=== PATIENT | female | born 1955 | race Caucasian/White ===

== ENCOUNTER 2021-07-01 13:59 | Outpatient (REF) | payer MEDICARE, SELFPAY ==
[2021-07-02 09:51] LABS: BV Int Neg Control Negative (Negative); BV Int Pos Control Positive (Positive)
== END 2021-07-01 14:00 | disposition home or self-care (01) ==
LOC: HO.LAB 13:59
PROVIDERS: PCP Internal Medicine; Visit Provider Obstetrics & Gynecology
DX: B37.3 Candidiasis of vulva and vagina (principal); N95.0 Postmenopausal bleeding
CPT/HCPCS: 87480; 87510; 87660; 99202

== ENCOUNTER 2021-07-15 14:00 | Outpatient (RCR) | payer MEDICARE, SELFPAY ==
[2020-07-11 15:05] VITALS: BP 118/66; PULSE 85; RESP 20; TEMP 36.5; O2SAT 94
[2020-07-11 15:31] VITALS: BMI 51.0
[2020-07-18 10:27] LABS: Hematocrit 36.7 % (37-47); Hemoglobin 11.2 g/dl (12.0-16.0); Mean Corpuscular HGB Conc 30.5 g/dl (31.0-35.0); Mean Corpuscular Hemoglobin 28.4 pg (27.0-33.0); Mean Corpuscular Volume 92.9 fL (80-98); Mean Platelet Volume 10.1 fL (9.4-12.3); Platelet Count 183 X10*3/uL (160-400); Red Blood Count 3.95 X10*6/uL (4.20-5.50); Red Cell Distribution Width 16.3 % (11.0-16.0)
[2020-07-18 10:30] LABS: NRBC Pct Auto 2.5 /100WBC (0.0-0.2); WBC ABN SCTR FOR CBC 1
[2020-07-18 10:49] LABS: Band Neutrophils Percent 8 % (3-5); Eosinophils Percent Manual 2 % (0-4); Lymphocytes Percent Manual 8 % (20-40); Metamyelocytes Percent 9 %; Monocytes Percent Manual 12 % (2-11); Myelocytes Percent 4 %; Neutrophils Percent Manual 57 % (45-73)
[2020-07-18 10:50] LABS: Dohle Bodies PRESENT; Toxic Granulation PRESENT
[2020-07-18 10:51] LABS: Alanine Aminotransferase 15 U/L (0-31); Albumin Level 3.6 g/dL (3.5-5.0); Alkaline Phosphatase 126 U/L (39-117); Anion Gap 14 (12-20); Aspartate Amino Transferase 17 U/L (5-31); Bilirubin Total 0.3 mg/dL (0.0-1.0); Blood Urea Nitrogen 10 mg/dL (9-16); Calcium 8.3 mg/dL (8.4-10.2); Carbon Dioxide 30 mmol/L (22-29); Chloride 102 mmol/L (96-108); Estimated Glomerular Filt Rate > 60; Glucose Random 314 mg/dL (60-115); Hypochromasia 1+; Platelet Estimate NORMAL (NORMAL); Platelet Morphology Comment NORMAL; Polychromasia 1+; Potassium 4.6 mmol/l (3.3-5.1); Sodium 141 mmol/L (135-145); Total Protein 6.3 g/dL (6.5-8.0)
[2020-07-18 10:52] LABS: RBC Morphology NOTED; Stomatocytes 1+
[2020-07-18 10:53] LABS: Eosinophils Absolute Manual 0.6 X10*3/UL (0.0-0.8); Lymphocytes Absolute Manual 2.3 X10*3/uL (0.6-4.8); Metamyelocytes Absolute 2.6 X10*3/uL; Monocytes Absolute Manual 3.4 X10*3/uL (0.0-1.2); Myelocytes Absolute 1.1 X10*/uL; Neutrophils Absolute Manual 18.5 X10*3/uL (2.2-7.9); White Blood Count 28.4 X10*3/uL (4.8-10.8)
[2020-07-18 10:54] LABS: Nucleated Red Blood Cells 1 /100WBC (0-0)
[2020-07-25 10:28] LABS: MANUAL DIFF FLAG NO
[2020-07-25 10:45] LABS: Basophils Absolute Auto 0.1 X10*3/uL (0.0-0.2); Basophils Percent Auto 1.3 % (0-2); Eosinophils Absolute Auto 0.1 X10*3/uL (0.0-0.4); Eosinophils Percent Auto 1.4 % (0-4); Hematocrit 37.4 % (37-47); Hemoglobin 11.3 g/dl (12.0-16.0); Imm Gran Abs Auto 0.04 X10*3/uL (0.00-0.03); Imm Gran Pct Auto 0.4 % (0.0-0.4); Lymphocytes Absolute Auto 2.1 X10*3/uL (1.2-4.9); Lymphocytes Percent Auto 23.3 % (20-40); Mean Corpuscular HGB Conc 30.2 g/dl (31.0-35.0); Mean Corpuscular Hemoglobin 27.8 pg (27.0-33.0); Mean Corpuscular Volume 91.9 fL (80-98); Mean Platelet Volume 10.3 fL (9.4-12.3); Monocytes Absolute Auto 0.7 X10*3/uL (0.1-1.2); Monocytes Percent Auto 7.2 % (2-11); Neutrophils Absolute Auto 6.1 X10*3/uL (2.0-8.3); Neutrophils Percent Auto 66.4 % (45-73); Platelet Count 194 X10*3/uL (160-400); Red Blood Count 4.07 X10*6/uL (4.20-5.50); Red Cell Distribution Width 17.1 % (11.0-16.0); White Blood Count 9.1 X10*3/uL (4.8-10.8)
[2020-07-25 10:49] LABS: NRBC Pct Auto 1.4 /100WBC (0.0-0.2)
[2020-07-25 11:02] LABS: Alanine Aminotransferase 16 U/L (0-31); Albumin Level 3.7 g/dL (3.5-5.0); Alkaline Phosphatase 114 U/L (39-117); Anion Gap 12 (12-20); Aspartate Amino Transferase 13 U/L (5-31); Bilirubin Total 0.5 mg/dL (0.0-1.0); Blood Urea Nitrogen 15 mg/dL (9-16); Calcium 8.3 mg/dL (8.4-10.2); Carbon Dioxide 27 mmol/L (22-29); Chloride 104 mmol/L (96-108); Creatinine Clr Calc Pharmacy 94.3; Estimated Glomerular Filt Rate > 60; Glucose Random 328 mg/dL (60-115); Potassium 4.6 mmol/l (3.3-5.1); Sodium 138 mmol/L (135-145); Total Protein 6.4 g/dL (6.5-8.0)
[2020-07-31 09:07] VITALS: BP 130/70; PULSE 84; RESP 20; TEMP 36.6; O2SAT 95
[2020-07-31 09:10] VITALS: BMI 52.2
[2020-07-31 09:21] LABS: MANUAL DIFF FLAG NO
[2020-07-31 09:32] LABS: Basophils Absolute Auto 0.1 X10*3/uL (0.0-0.2); Basophils Percent Auto 1.3 % (0-2); Eosinophils Absolute Auto 0.2 X10*3/uL (0.0-0.4); Eosinophils Percent Auto 2.6 % (0-4); Hematocrit 37.5 % (37-47); Hemoglobin 11.5 g/dl (12.0-16.0); Imm Gran Abs Auto 0.05 X10*3/uL (0.00-0.03); Imm Gran Pct Auto 0.5 % (0.0-0.4); Lymphocytes Absolute Auto 2.8 X10*3/uL (1.2-4.9); Lymphocytes Percent Auto 30.1 % (20-40); Mean Corpuscular HGB Conc 30.7 g/dl (31.0-35.0); Mean Corpuscular Volume 91.2 fL (80-98); Mean Platelet Volume 8.8 fL (9.4-12.3); Monocytes Absolute Auto 1.1 X10*3/uL (0.1-1.2); Monocytes Percent Auto 11.5 % (2-11); NRBC Pct Auto 0.2 /100WBC (0.0-0.2); Platelet Count 577 X10*3/uL (160-400); Red Blood Count 4.11 X10*6/uL (4.20-5.50); Red Cell Distribution Width 17.3 % (11.0-16.0); White Blood Count 9.2 X10*3/uL (4.8-10.8)
--- NOTE | 2020-07-31 09:34 | P.PNHO_ITS ---
Medical Summary - Medical Summary Chief complaint: Follow-up and scheduled chemotherapy Medical Summary: Diagnosis: Left breast invasive ductal carcinoma March 2020 Diagnostic mammogram in March 2020 because of palpable left breast mass revealed irregular hypoechoic solid nodule in 2 o'clock position 10 cm from nipple measuring 1.7 x 2 x 1.4 cm which was read as suspicious. Biopsy 03/26/2020- A. Breast, left at 2 o'clock, biopsy: Invasive ductal carcinoma, MSBR grade 2. B. Lymph node, left axilla, biopsy: Reactive lymphoid tissue with mild sinus histiocytosis; no metastatic carcinoma seen. Estrogen receptor: Positive (strong; 95% of tumor cells) Progesterone receptor: Negative (focal staining in less than 1% of tumor cells) HER2: Negative (0; appropriate positive control) 04/03/2020 surgery-A. Breast, left, lumpectomy: - Invasive ductal carcinoma, MSBR grade 3, not seen at margins. Laterality Left; Tumor size 2.3 cm; Tumor focality Unifocal DCIS No definitive DCIS identified Histologic grade (MSBR) 3 Tubule formation score 3 Nuclear pleomorphism score 2-3 Mitotic rate score 3 LVI Present Margin, inv tumor Negative Closest margin 0.4 cm from posterior margin Lymph nodes Number examined 2 [place] nodes 2 Axillary nodes 0 Number involved 1 macromets 0 micromets 0 isolated tumor cells 1 Treatment effect Breast Not identified Lymph nodes Not identified TNM pT2 N0(sn)(i+) Oncotype DX breast recurrence score which was high at 35. Distant recurrence risk at 9 years is 27%. She was not a candidate for Adriamycin because of underlying congestive heart failure and multiple other comorbidities. Family History Mother age 87 of heart attack, father age 78 of [place]. Paternal grandfather had stomach cancer. One sister has diabetes. Her sister was recently diagnosed with ovarian cancer in [place]. A maternal aunt has breast cancer. 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 Menstrual History Menarche age 9 menopause age 47 5 para 4 Interval History Interval history: Patient is here for scheduled treatment and follow-up. Overall she is doing fairly well. She does experience some diarrhea nausea after treatment which improves gradually. She denies any fever or chills. She has chronic back pain which is controlled with medication. She denies any headache, dizziness, chest pain, shortness of breath or cough. Review of Systems - Constitutional Reports as per HPI, Reports no additional constitutional complaints - Cardiovascular Reports no additional cardiovascular complaints - Respiratory Reports no additional respiratory complaints - Gastrointestinal Reports no additional gastrointestinal complaints [facility] Medical History: Medical History (Last Updated 07/31/20 @ 09:46 by Leonie Williamson MD) Asthma Atrial fibrillation Back pain Bilateral pulmonary embolism Cataract CHF (congestive heart failure) COPD (chronic obstructive pulmonary disease) Depression Diabetes mellitus Hyperlipidemia Hypertension Kidney stone Sleep apnea Surgical History: Surgical History (Last Updated 07/31/20 @ 09:46 by Leonie Williamson MD) H/O hernia repair H/O lithotripsy H/O tubal ligation Home Medications and Allergies Current Medications: Current Medications Generic Name Dose Route Start Last Admin Trade Name Freq PRN Reason Stop Dose Admin Heparin Sodium (Porcine) 500 unit 07/31/20 00:00 Heparin Sodium,Porcine Flush 500 Unit/5 Ml Syringe IVFLUSH 07/31/20 23:59 ONCE [facility] Dexamethasone Sodium Phosphate 12 mg in 50 mls @ 100 mls/hr 07/31/20 00:00 Decadron IV 07/31/20 23:59 ONCE [facility] Ondansetron HCl 16 mg in 50 mls @ 200 mls/hr 07/31/20 00:00 Zofran IV 07/31/20 23:59 ONCE [facility] Fosaprepitant 150 mg/ Sodium 150 mls @ 300 mls/hr 07/31/20 00:00 Chloride IV 07/31/20 23:59 ONCE [facility] Sodium Chloride 500 mls @ 250 mls/hr 07/31/20 00:00 Ns IVCONT 07/31/20 23:59 .Q2H [facility] Home Medications Medication Instructions Recorded Confirmed Type buspirone 15 mg PO BID 07/31/20 07/31/20 History calcium carbonate [Calcium Antacid tab 07/31/20 History Tropical] cetirizine 5 mg PO DAILY 07/31/20 07/31/20 History cholecalciferol (vitamin D3) 25 mcg PO DAILY 07/31/20 07/31/20 History [Vitamin D3] dronedarone [Multaq] 400 mg PO BID 07/31/20 07/31/20 History gabapentin 400 mg PO TID 07/31/20 07/31/20 History lisinopril 10 mg PO DAILY 07/31/20 07/31/20 History metformin 500 mg PO BID 07/31/20 07/31/20 History metoprolol succinate 25 mg PO DAILY 07/31/20 07/31/20 History mirtazapine 30 mg PO BEDTIME 07/31/20 07/31/20 History montelukast 10 mg PO DAILY 07/31/20 07/31/20 History pantoprazole 40 mg PO DAILY 07/31/20 07/31/20 History pravastatin 40 mg PO BEDTIME 07/31/20 07/31/20 History rivaroxaban [Xarelto] 20 mg PO DAILY 07/31/20 07/31/20 History Allergies Allergy/AdvReac Type Severity Reaction Status Date / Time shellfish derived Allergy Unknown SWELLING,N/ Unverified 06/27/20 17:42 [SHELLFISH DERIVED] V Exam Vital signs: Vital Signs Temp 97.8 F 07/31/20 09:07 Pulse 84 07/31/20 09:07 Resp 20 07/31/20 09:07 BP 130/70 07/31/20 09:07 Pulse Ox 95 07/31/20 09:07 Intake & Output 07/30/20 07/31/20 07/31/20 18:59 06:59 18:59 Other: Weight 122.697 kg 125.3 kg Weight 125.3 kg Body Mass Index 52.2 - Constitutional Present: no acute distress - Routine HEENT Exam Head: Present: normal inspection Eye: Present: EOMI - Routine Neck Exam Absent: lymphadenopathy - Routine Respiratory Exam Present: CTAB - Routine Cardiovascular Exam Cardiovascular: Present: RRR, S1, S2 - Routine Abdominal Exam Present: soft - Routine Extremities Exam Absent: calf tenderness Data - Labs CBC & Chem 7: 07/31/20 09:12 07/31/20 09:12 Progress Note: A/P (1) Breast cancer Status: Acute Assessment and plan: 1. This is a 65-year-old woman with left breast invasive ductal carcinoma. She underwent lumpectomy/sentinel lymph node biopsy on 04/03/2020 which revealed invasive ductal carcinoma, grade 3, ER positive/LA negative, HER2 negative. Tumor size 2.3 cm, nuclear grade 3, LVI present, margins negative. Final pathological stage pT2 N0 (sn) (I +). Oncotype DX breast recurrence score, high at 35. Distant recurrence risk at 9 years is 27%. She started adjuvant chemotherapy with Taxotere and Cytoxan (05/17/20). Proceed with treatment today, cycle 4 day 1. She will be referred to Radiation Oncology at [facility] after this. She is also candidate for adjuvant hormonal therapy after completion of radiation therapy. 2. Osteopenia based on bone density exam 04/29. T-score -2.3 in the femoral neck. 3. Family history of breast ovarian and other cancers. Patient?s genetic test result indicated that she was negative for a hereditary cancer gene mutation. Follow-up in 1 month. - Time Spent With Patient Total time spent is greater than 50% in coordination of care (as documented) at patient's floor/unit and/or counseling patient: 15 - 24 minutes
[2020-07-31 09:59] LABS: Alanine Aminotransferase 16 U/L (0-31); Albumin Level 3.7 g/dL (3.5-5.0); Alkaline Phosphatase 100 U/L (39-117); Aspartate Amino Transferase 18 U/L (5-31); Bilirubin Total 0.4 mg/dL (0.0-1.0); Blood Urea Nitrogen 15 mg/dL (9-16); Creatinine Clr Calc Pharmacy 94.3; Estimated Glomerular Filt Rate > 60; Glucose Random 232 mg/dL (60-115); Total Protein 6.7 g/dL (6.5-8.0)
[2020-07-31 10:12] LABS: Anion Gap 14 (12-20); Calcium 9.2 mg/dL (8.4-10.2); Carbon Dioxide 31 mmol/L (22-29); Chloride 102 mmol/L (96-108); Potassium 5.2 mmol/l (3.3-5.1); Sodium 142 mmol/L (135-145)
[2020-07-31] MEDS: 0.9 % Sodium Chloride 500 ML 250 ML IVCONT (10:38)
[2020-07-31] MEDS: dexAMETHasone sod phosphate/NS 12 MG/50 ML PIGGYBACK 200 MG IV (10:39)
[2020-07-31] MEDS: ondansetron HCL/NS 16 MG/50 ML PIGGYBACK 200 MG IV (11:07)
[2020-07-31] MEDS: Fosaprepitant Dimeglumine 150 MG in 0.9 % Sodium Chloride 145 ML 300 MG IV (11:32)
--- NOTE | 2020-07-31 14:18 | PC.NURSE ---
Referral made to Dr Mendiola at [facility] 08/21/2020, pt's aware. Information faxed.
[2020-07-31] MEDS: Pegfilgrastim Onpro 6 MG/0.6 ML SYR.W..INJ SUBCUT (14:55)
[2020-09-20 10:14] VITALS: BP 141/67; PULSE 76; RESP 16; TEMP 37.2; O2SAT 95; BMI 52.5
--- NOTE | 2020-09-20 10:19 | P.PNHO_ITS ---
Medical Summary - Medical Summary Date of Service: 09/20/20 Chief complaint: Follow up. Medical Summary: Diagnosis: Left breast invasive ductal carcinoma March 2020 Diagnostic mammogram in March 2020 because of palpable left breast mass revealed irregular hypoechoic solid nodule in 2 o'clock position 10 cm from nipple measuring 1.7 x 2 x 1.4 cm which was read as suspicious. Biopsy 03/26/2020- A. Breast, left at 2 o'clock, biopsy: Invasive ductal carcinoma, MSBR grade 2. B. Lymph node, left axilla, biopsy: Reactive lymphoid tissue with mild sinus histiocytosis; no metastatic carcinoma seen. Estrogen receptor: Positive (strong; 95% of tumor cells) Progesterone receptor: Negative (focal staining in less than 1% of tumor cells) HER2: Negative (0; appropriate positive control) 04/03/2020 surgery-A. Breast, left, lumpectomy: - Invasive ductal carcinoma, MSBR grade 3, not seen at margins. Laterality Left; Tumor size 2.3 cm; Tumor focality Unifocal DCIS No definitive DCIS identified Histologic grade (MSBR) 3 Tubule formation score 3 Nuclear pleomorphism score 2-3 Mitotic rate score 3 LVI Present Margin, inv tumor Negative Closest margin 0.4 cm from posterior margin Lymph nodes Number examined 2 [place] nodes 2 Axillary nodes 0 Number involved 1 macromets 0 micromets 0 isolated tumor cells 1 Treatment effect Breast Not identified Lymph nodes Not identified TNM pT2 N0(sn)(i+) Oncotype DX breast recurrence score which was high at 35. Distant recurrence risk at 9 years is 27%. She was not a candidate for Adriamycin because of underlying congestive heart failure and multiple other comorbidities. She received 4 cycles of Taxotere and Cytoxan from 05/17/20 until 07/31/2020. Referred to [facility] for adjuvant radiation therapy. Menstrual History Menarche age 9 menopause age 47 5 para 4 Interval History Interval history: Patient is here in follow-up. She had missed a previous appointment here. She also missed appointments at Radiation Oncology/[facility]. She states that they were going to reschedule her with new appointment starting Wednesday. She says she was feeling depressed and did not feel like going for her scheduled appointments earlier this month. She is now willing to go. She denies any other complaints such as chest pain, shortness of breath, cough, fever or chills. Review of Systems - Constitutional Reports no additional constitutional complaints - Cardiovascular Reports no additional cardiovascular complaints - Respiratory Reports no additional respiratory complaints [facility] Medical History: Medical History (Last Updated 09/04/20 @ 08:55 by Sherwin Segundo MD) Asthma Atrial fibrillation Back pain Bilateral pulmonary embolism Cataract CHF (congestive heart failure) COPD (chronic obstructive pulmonary disease) Depression Diabetes mellitus Hyperlipidemia Hypertension Invasive ductal carcinoma of left breast, stage 2 Kidney stone Sleep apnea Surgical History: Surgical History (Last Updated 09/02/20 @ 12:53 by Akosua Garibay Jerel) H/O hernia repair H/O lithotripsy H/O tubal ligation History of carpal tunnel release History of cataract surgery Onset Date: ~2016 History of hysterectomy History of lumpectomy of left breast Onset Date: ~04/03/20 Oncology Screenings - ECOG Performance Status ECOG Performance Status: 1 Home Medications and Allergies Home Medications Medication Instructions Recorded Confirmed Type buspirone 15 mg PO BID 07/31/20 07/31/20 History calcium carbonate [Calcium Antacid tab 07/31/20 History Tropical] cetirizine 5 mg PO DAILY 07/31/20 07/31/20 History cholecalciferol (vitamin D3) 25 mcg PO DAILY 07/31/20 07/31/20 History [Vitamin D3] dronedarone [Multaq] 400 mg PO BID 07/31/20 07/31/20 History gabapentin 400 mg PO TID 07/31/20 07/31/20 History lisinopril 10 mg PO DAILY 07/31/20 07/31/20 History metformin 500 mg PO BID 07/31/20 07/31/20 History metoprolol succinate 25 mg PO DAILY 07/31/20 07/31/20 History mirtazapine 30 mg PO BEDTIME 07/31/20 07/31/20 History montelukast 10 mg PO DAILY 07/31/20 07/31/20 History pantoprazole 40 mg PO DAILY 07/31/20 07/31/20 History pravastatin 40 mg PO BEDTIME 07/31/20 07/31/20 History rivaroxaban [Xarelto] 20 mg PO DAILY 07/31/20 07/31/20 History Allergies Allergy/AdvReac Type Severity Reaction Status Date / Time shellfish derived Allergy Unknown SWELLING,N/ Unverified 06/27/20 17:42 [SHELLFISH DERIVED] V Exam Vital signs: Vital Signs Temp 98.9 F 09/20/20 10:14 Pulse 76 09/20/20 10:14 Resp 16 09/20/20 10:14 BP 141/67 H 09/20/20 10:14 Pulse Ox 95 09/20/20 10:14 Intake & Output 09/19/20 09/20/20 09/20/20 18:59 06:59 18:59 Other: Weight 126.1 kg Weight 126.1 kg Body Mass Index 52.5 - Constitutional Present: no acute distress - Routine HEENT Exam Head: Present: normal inspection - Routine Neck Exam Absent: lymphadenopathy - Routine Respiratory Exam Present: CTAB - Routine Cardiovascular Exam Cardiovascular: Present: RRR, S1, S2 - Routine Abdominal Exam Present: soft - Routine Extremities Exam Absent: calf tenderness Data - Labs CBC & Chem 7: 07/31/20 09:12 07/31/20 09:12 Labs: Laboratory Results - last 24 hr 09/20/20 10:15 WBC 10.0 RBC 4.34 Hgb 12.3 Hct 39.9 MCV 91.9 MCH 28.3 MCHC 30.8 L RDW 16.7 H Plt Count 321 D MPV 9.0 L Immature Gran % (Auto) 0.3 Neut % (Auto) 65.8 Lymph % (Auto) 24.1 [place] % (Auto) 7.4 Eos % (Auto) 1.8 Baso % (Auto) 0.6 Lymph # (Auto) 2.4 [place] # (Auto) 0.7 Eos # (Auto) 0.2 Baso # (Auto) 0.1 Abs Immat Gran (auto) 0.03 Absolute Neuts (auto) 6.6 Absolute Nucleated RBC 0.000 Nucleated RBC % (auto) 0.0 Progress Note: A/P (1) Breast cancer Status: Chronic Assessment and plan: 1. This is a 65-year-old woman with left breast invasive ductal carcinoma. She underwent lumpectomy/sentinel lymph node biopsy on 04/03/2020 which revealed invasive ductal carcinoma, grade 3, ER positive/MN negative, HER2 negative. Tumor size 2.3 cm, nuclear grade 3, LVI present, margins negative. Final pathological stage pT2 N0 (sn) (I +). Oncotype DX breast recurrence score, high at 35. Distant recurrence risk at 9 years is 27%. She completed 4 cycles of adjuvant chemotherapy with Taxotere and Cytoxan on 07/31/2020. She went for her initial consultation at [facility] for radiation therapy, unfortunately she did not follow-up for her treatments. She is now willing to go back and received treatment, will follow-up at [facility] radiation oncology department as well. 2. Osteopenia based on bone density exam 04/29. T-score -2.3 in the femoral neck. 3. Family history of breast ovarian and other cancers. Patient?s genetic test result indicated that she was negative for a hereditary cancer gene mutation. - Time Spent With Patient Total time spent is greater than 50% in coordination of care (as documented) at patient's floor/unit and/or counseling patient: 15 - 24 minutes
[2020-09-20 10:25] LABS: MANUAL DIFF FLAG NO
[2020-09-20 10:34] LABS: Basophils Absolute Auto 0.1 X10*3/uL (0.0-0.2); Basophils Percent Auto 0.6 % (0-2); Eosinophils Absolute Auto 0.2 X10*3/uL (0.0-0.4); Eosinophils Percent Auto 1.8 % (0-4); Hematocrit 39.9 % (37-47); Hemoglobin 12.3 g/dl (12.0-16.0); Imm Gran Abs Auto 0.03 X10*3/uL (0.00-0.03); Imm Gran Pct Auto 0.3 % (0.0-0.4); Lymphocytes Absolute Auto 2.4 X10*3/uL (1.2-4.9); Lymphocytes Percent Auto 24.1 % (20-40); Mean Corpuscular HGB Conc 30.8 g/dl (31.0-35.0); Mean Corpuscular Hemoglobin 28.3 pg (27.0-33.0); Mean Corpuscular Volume 91.9 fL (80-98); Monocytes Absolute Auto 0.7 X10*3/uL (0.1-1.2); Monocytes Percent Auto 7.4 % (2-11); Neutrophils Absolute Auto 6.6 X10*3/uL (2.0-8.3); Neutrophils Percent Auto 65.8 % (45-73); Platelet Count 321 X10*3/uL (160-400); Red Blood Count 4.34 X10*6/uL (4.20-5.50); Red Cell Distribution Width 16.7 % (11.0-16.0)
[2020-09-20 11:16] LABS: Alanine Aminotransferase 21 U/L (0-31); Albumin Level 3.9 g/dL (3.5-5.0); Alkaline Phosphatase 84 U/L (39-117); Anion Gap 13 (12-20); Aspartate Amino Transferase 15 U/L (5-31); Bilirubin Total 0.5 mg/dL (0.0-1.0); Blood Urea Nitrogen 21 mg/dL (9-16); Carbon Dioxide 29 mmol/L (22-29); Chloride 103 mmol/L (96-108); Creatinine Clr Calc Pharmacy 88.6; Estimated Glomerular Filt Rate > 60; Glucose Random 136 mg/dL (60-115); Potassium 4.4 mmol/l (3.3-5.1); Sodium 141 mmol/L (135-145); Total Protein 7.3 g/dL (6.5-8.0)
--- NOTE | 2020-09-20 14:03 | MHC.HEMONC ---
I called [facility] Rad Onc re: pt report today that she never had RT as planned. According to Seema in Network Liaison, Luisa cancelled her appt a few times and told them she didn't want daily RT and would discuss at her appt with Dr Williamson today (09/20/20) Seema said notes there suggest that RT is very important and that their SW is going to call this week to pursue her and see if she needs transportation help. Pt also knows Dr Williamson wants her to receive RT. Semea will call us next week with pt decision and plan.
[2020-10-23 15:54] VITALS: BP 128/56; PULSE 69; TEMP 36.9; O2SAT 96
[2020-10-23 16:05] VITALS: BMI 54.0
--- NOTE | 2020-10-23 16:20 | PM.HEMONCPN ---
Medical Summary - Medical Summary Date of Service: 10/24/20 Chief complaint: Follow-up Medical Summary: Diagnosis: Left breast invasive ductal carcinoma March 2020 Diagnostic mammogram in March 2020 because of palpable left breast mass revealed irregular hypoechoic solid nodule in 2 o'clock position 10 cm from nipple measuring 1.7 x 2 x 1.4 cm which was read as suspicious. Biopsy 03/26/2020- A. Breast, left at 2 o'clock, biopsy: Invasive ductal carcinoma, MSBR grade 2. B. Lymph node, left axilla, biopsy: Reactive lymphoid tissue with mild sinus histiocytosis; no metastatic carcinoma seen. Estrogen receptor: Positive (strong; 95% of tumor cells) Progesterone receptor: Negative (focal staining in less than 1% of tumor cells) HER2: Negative (0; appropriate positive control) 04/03/2020 surgery-A. Breast, left, lumpectomy: - Invasive ductal carcinoma, MSBR grade 3, not seen at margins. Laterality Left; Tumor size 2.3 cm; Tumor focality Unifocal DCIS No definitive DCIS identified Histologic grade (MSBR) 3 Tubule formation score 3 Nuclear pleomorphism score 2-3 Mitotic rate score 3 LVI Present Margin, inv tumor Negative Closest margin 0.4 cm from posterior margin Lymph nodes Number examined 2 [place] nodes 2 Axillary nodes 0 Number involved 1 macromets 0 micromets 0 isolated tumor cells 1 Treatment effect Breast Not identified Lymph nodes Not identified TNM pT2 N0(sn)(i+) Oncotype DX breast recurrence score which was high at 35. Distant recurrence risk at 9 years is 27%. She was not a candidate for Adriamycin because of underlying congestive heart failure and multiple other comorbidities. She received 4 cycles of Taxotere and Cytoxan from 05/17/20 until 07/31/2020. Referred to [facility] for adjuvant radiation therapy. Menstrual History Menarche age 9 menopause age 47 5 para 4 Interval History Interval history: Patient is here in follow-up. She is doing quite well but reports that she did not go for radiation therapy for 3-4 days. She was just feeling low and did not feel like leaving the house. She denies any fever, chills, chest pain or shortness of breath. No abdominal discomfort or change in bowel habits. Review of Systems - Constitutional Reports no additional constitutional complaints - Cardiovascular Reports no additional cardiovascular complaints - Respiratory Reports no additional respiratory complaints - Gastrointestinal Reports no additional gastrointestinal complaints [facility] Medical History: Medical History (Last Updated 10/07/20 @ 12:37 by Torrie Escobar MD) Asthma Atrial fibrillation Back pain Bilateral pulmonary embolism Cataract CHF (congestive heart failure) COPD (chronic obstructive pulmonary disease) Depression Diabetes mellitus Hyperlipidemia Hypertension Invasive ductal carcinoma of left breast, stage 2 Kidney stone Sleep apnea Family History: Family History (Last Updated 09/27/20 @ 07:55 by Elena Brewster [facility]) Father CVD (cardiovascular disease) Mother CVD (cardiovascular disease) Family/Other FH: mental illness Surgical History: Surgical History (Last Updated 09/02/20 @ 12:53 by Akosua Garibay Jerel) H/O hernia repair H/O lithotripsy H/O tubal ligation History of carpal tunnel release History of cataract surgery Onset Date: ~2016 History of hysterectomy History of lumpectomy of left breast Onset Date: ~04/03/20 Oncology Screenings - ECOG Performance Status ECOG Performance Status: 2 Home Medications and Allergies Home Medications Medication Instructions Recorded Confirmed Type buspirone 15 mg PO BID 07/31/20 10/07/20 History calcium carbonate [Calcium Antacid 1 tab DAILY 07/31/20 10/23/20 History Tropical] cholecalciferol (vitamin D3) 25 mcg PO DAILY 07/31/20 10/07/20 History [Vitamin D3] dronedarone [Multaq] 400 mg PO BID 07/31/20 10/07/20 History lisinopril 10 mg PO DAILY 07/31/20 10/07/20 History metformin 500 mg PO BID 07/31/20 10/07/20 History metoprolol succinate 25 mg PO DAILY 07/31/20 10/07/20 History mirtazapine 30 mg PO BEDTIME 07/31/20 10/07/20 History montelukast 10 mg PO DAILY 07/31/20 10/07/20 History pravastatin 40 mg PO BEDTIME 07/31/20 10/07/20 History rivaroxaban [Xarelto] 20 mg PO DAILY 07/31/20 10/07/20 History Allergies Allergy/AdvReac Type Severity Reaction Status Date / Time shellfish derived Allergy Unknown SWELLING,N/ Verified 10/07/20 12:33 [SHELLFISH DERIVED] V Exam Vital signs: Vital Signs Temp 98.4 F 10/23/20 15:54 Pulse 69 10/23/20 15:54 Resp 16 09/20/20 10:14 BP 128/56 L 10/23/20 15:54 Pulse Ox 96 10/23/20 15:54 Intake & Output 10/22/20 10/23/20 10/23/20 18:59 06:59 18:59 Other: Weight 129.7 kg Weight 129.7 kg Body Mass Index 54.0 - Constitutional Present: no acute distress - Routine HEENT Exam Head: Present: normal inspection - Routine Neck Exam Absent: lymphadenopathy - Routine Respiratory Exam Present: CTAB - Routine Cardiovascular Exam Cardiovascular: Present: RRR, S1, S2 - Routine Abdominal Exam Present: soft - Routine Extremities Exam Absent: calf tenderness Data - Labs CBC & Chem 7: 09/20/20 10:15 09/20/20 10:15 Labs: 07/11/20 15:33 Pegfilgrastim [Neulasta] 6 mg SUBCUT ONCE ONE 07/18/20 10:16 Complete Blood Count Man Dif Routine Comprehensive Met. Panel Routine 07/25/20 10:16 Complete Blood Count Auto Diff Routine Comprehensive Met. Panel Routine 07/31/20 00:00 0.9 % Sodium Chloride [Ns] 500 ml IVCONT 250 mls/hr Cyclophosphamide [Cytoxan] 1,000 mg Cyclophosphamide [Cytoxan] 100 mg 0.9 % Sodium Chloride 250 ml IV ONCE DOCEtaxeL [Taxotere] 80 mg DOCEtaxeL [Taxotere] 60 mg 0.9 % Sodium Chloride [Ns] 250 ml IV ONCE Fosaprepitant Dimeglumine [Emend] 150 mg 0.9 % Sodium Chloride [Ns] 145 ml IV ONCE Heparin Sodium,Porcine Flush 500 unit IVFLUSH ONCE dexAMETHasone sod phosphate/NS [Decadron] 12 mg in 50 ml IV ONCE ondansetron HCL/NS [Zofran] 16 mg in 50 ml IV ONCE 07/31/20 09:12 Complete Blood Count Auto Diff Routine Comprehensive Met. Panel Routine 07/31/20 14:36 Pegfilgrastim Onpro [Neulasta Onpro] 6 mg SUBCUT ONCE ONE 09/20/20 10:15 Complete Blood Count Auto Diff Routine Comprehensive Met. Panel Routine Laboratory Last Values WBC 10.0 X10*3/uL (4.8-10.8) 09/20/20 10:15 RBC 4.34 X10*6/uL (4.20-5.50) 09/20/20 10:15 Hgb 12.3 g/dl (12.0-16.0) 09/20/20 10:15 Hct 39.9 % (37-47) 09/20/20 10:15 MCV 91.9 fL (80-98) 09/20/20 10:15 MCH 28.3 pg (27.0-33.0) 09/20/20 10:15 MCHC 30.8 g/dl (31.0-35.0) L 09/20/20 10:15 RDW 16.7 % (11.0-16.0) H 09/20/20 10:15 Plt Count 321 X10*3/uL (160-400) D 09/20/20 10:15 MPV 9.0 fL (9.4-12.3) L 09/20/20 10:15 Immature Gran % (Auto) 0.3 % (0.0-0.4) 09/20/20 10:15 Neut % (Auto) 65.8 % (45-73) 09/20/20 10:15 Lymph % (Auto) 24.1 % (20-40) 09/20/20 10:15 [place] % (Auto) 7.4 % (2-11) 09/20/20 10:15 Eos % (Auto) 1.8 % (0-4) 09/20/20 10:15 Baso % (Auto) 0.6 % (0-2) 09/20/20 10:15 Lymph # (Auto) 2.4 X10*3/uL (1.2-4.9) 09/20/20 10:15 [place] # (Auto) 0.7 X10*3/uL (0.1-1.2) 09/20/20 10:15 Eos # (Auto) 0.2 X10*3/uL (0.0-0.4) 09/20/20 10:15 Baso # (Auto) 0.1 X10*3/uL (0.0-0.2) 09/20/20 10:15 Abs Immat Gran (auto) 0.03 X10*3/uL (0.00-0.03) 09/20/20 10:15 Absolute Neuts (auto) 6.6 X10*3/uL (2.0-8.3) 09/20/20 10:15 Absolute Nucleated RBC 0.000 X10*3/uL (0.0-0.012) 09/20/20 10:15 Nucleated RBC % (auto) 0.0 /100WBC (0.0-0.2) 09/20/20 10:15 Neutrophils % (Manual) 57 % (45-73) 07/18/20 10:16 Band Neutrophils % 8 % (3-5) H 07/18/20 10:16 Lymphocytes % (Manual) 8 % (20-40) L 07/18/20 10:16 Monocytes % (Manual) 12 % (2-11) H 07/18/20 10:16 Eosinophils % (Manual) 2 % (0-4) 07/18/20 10:16 Metamyelocytes % 9 % 07/18/20 10:16 Myelocytes % 4 % 07/18/20 10:16 Abs Neuts (Manual) 18.5 X10*3/uL (2.2-7.9) H 07/18/20 10:16 Lymphocytes # (Manual) 2.3 X10*3/uL (0.6-4.8) 07/18/20 10:16 Monocytes # (Manual) 3.4 X10*3/uL (0.0-1.2) H 07/18/20 10:16 Eosinophils # (Manual) 0.6 X10*3/UL (0.0-0.8) 07/18/20 10:16 Metamyelocytes # 2.6 X10*3/uL 07/18/20 10:16 Myelocytes # 1.1 X10*/uL 07/18/20 10:16 Nucleated RBCs 1 /100WBC (0-0) H 07/18/20 10:16 Toxic Granulation PRESENT 07/18/20 10:16 Dohle Bodies PRESENT 07/18/20 10:16 Platelet Estimate NORMAL (NORMAL) 07/18/20 10:16 Plt Morphology Comment NORMAL 07/18/20 10:16 RBC Morphology NOTED 07/18/20 10:16 Polychromasia 1+ 07/18/20 10:16 Hypochromasia 1+ 07/18/20 10:16 Stomatocytes 1+ 07/18/20 10:16 Sodium 141 mmol/L (135-145) 09/20/20 10:15 Potassium 4.4 mmol/l (3.3-5.1) 09/20/20 10:15 Chloride 103 mmol/L (96-108) 09/20/20 10:15 Carbon Dioxide 29 mmol/L (22-29) 09/20/20 10:15 Anion Gap 13 (-20) 09/20/20 10:15 BUN 21 mg/dL (9-16) H 09/20/20 10:15 Creatinine 0.78 mg/dL (0.5-1.4) 09/20/20 10:15 Estim Creat Clear Calc 88.6 09/20/20 10:15 Estimated GFR > 60 09/20/20 10:15 Random Glucose 136 mg/dL (60-115) H D 09/20/20 10:15 Calcium 9.0 mg/dL (8.4-10.2) 09/20/20 10:15 Total Bilirubin 0.5 mg/dL (0.0-1.0) 09/20/20 10:15 AST 15 U/L (5-31) 09/20/20 10:15 ALT 21 U/L (0-31) 09/20/20 10:15 Alkaline Phosphatase 84 U/L (39-117) 09/20/20 10:15 Total Protein 7.3 g/dL (6.5-8.0) 09/20/20 10:15 Albumin 3.9 g/dL (3.5-5.0) 09/20/20 10:15 Progress Note: A/P (1) Breast cancer Status: Chronic Assessment and plan: 1. This is a 65-year-old woman with left breast invasive ductal carcinoma. She underwent lumpectomy/sentinel lymph node biopsy on 04/03/2020 which revealed invasive ductal carcinoma, grade 3, ER positive/UT negative, HER2 negative. Tumor size 2.3 cm, nuclear grade 3, LVI present, margins negative. Final pathological stage pT2 N0 (sn) (I +). Oncotype DX breast recurrence score, high at 35. Distant recurrence risk at 9 years is 27%. She completed 4 cycles of adjuvant chemotherapy with Taxotere and Cytoxan on 07/31/2020. She is receiving adjuvant radiation therapy at [facility]. She has been rather noncompliant with her visits, she states that the last 1 week she has not gone for her treatments. She is going to resume from tomorrow. She reports feeling low and somewhat depressed which happens from time to time. However she does realize that she cannot continue to miss appointments. She is supposed to complete adjuvant radiation in the week of November. She will be started on adjuvant hormonal therapy with aromatase inhibitor after she completes radiation therapy. 2. Osteopenia based on bone density exam 04/29. T-score -2.3 in the femoral neck. She will be started on bone strengthening therapy with Prolia along with aromatase inhibitor therapy. 3. Family history of breast ovarian and other cancers. Patient?s genetic test result indicated that she was negative for a hereditary cancer gene mutation. Follow-up in 1 month. - Time Spent With Patient Total time spent is greater than 50% in coordination of care (as documented) at patient's floor/unit and/or counseling patient: 15 - 24 minutes
--- NOTE | 2020-10-23 16:25 | MHC.HEMONC ---
Addendum entered by Shaina Gray RN 10/23/20 16:29: Follow up appointment scheduled for 6 weeks. Original Note: Pt here for follow up with Dr Williamson. Geriatric Physician present for visit. Pt states has difficulty ambulating, getting SOB. States this is not new. Also c/o generalized discomfort in her back and joints, and states this also is not new. Dr Williamson in. Pt states is starting radiation tomorrow.
[2020-12-04 10:18] VITALS: BP 126/65; PULSE 69; RESP 14; TEMP 37.2; O2SAT 95; BMI 54.6
[2020-12-04 10:39] LABS: MANUAL DIFF FLAG NO
--- NOTE | 2020-12-04 10:40 | MHC.HEMONCSW ---
MANN ADEN REPORTS COPING WELL, DENIES ANY DISTRESS OR CONCERNS AT THIS TIME. CONTINUES RADIATION TREATMENTS AT [facility]. PATIENT IS AWARE OF MY AVAILABILITY.
[2020-12-04 10:42] LABS: Basophils Absolute Auto 0.1 X10*3/uL (0.0-0.2); Basophils Percent Auto 0.6 % (0-2); Eosinophils Absolute Auto 0.3 X10*3/uL (0.0-0.4); Hematocrit 38.4 % (37-47); Hemoglobin 11.6 g/dl (12.0-16.0); Imm Gran Abs Auto 0.03 X10*3/uL (0.00-0.03); Imm Gran Pct Auto 0.4 % (0.0-0.4); Lymphocytes Absolute Auto 1.8 X10*3/uL (1.2-4.9); Lymphocytes Percent Auto 21.4 % (20-40); Mean Corpuscular HGB Conc 30.2 g/dl (31.0-35.0); Mean Corpuscular Hemoglobin 27.3 pg (27.0-33.0); Mean Corpuscular Volume 90.4 fL (80-98); Mean Platelet Volume 9.3 fL (9.4-12.3); Monocytes Absolute Auto 0.9 X10*3/uL (0.1-1.2); Monocytes Percent Auto 10.3 % (2-11); Neutrophils Absolute Auto 5.4 X10*3/uL (2.0-8.3); Neutrophils Percent Auto 64.3 % (45-73); Platelet Count 242 X10*3/uL (160-400); Red Blood Count 4.25 X10*6/uL (4.20-5.50); Red Cell Distribution Width 14.8 % (11.0-16.0); White Blood Count 8.4 X10*3/uL (4.8-10.8)
--- NOTE | 2020-12-04 10:46 | PM.HEMONCPN ---
Medical Summary - Medical Summary Service Date: 12/04/20 Chief complaint: Follow-up Medical Summary: Diagnosis: Left breast invasive ductal carcinoma March 2020 Diagnostic mammogram in March 2020 because of palpable left breast mass revealed irregular hypoechoic solid nodule in 2 o'clock position 10 cm from nipple measuring 1.7 x 2 x 1.4 cm which was read as suspicious. Biopsy 03/26/2020- A. Breast, left at 2 o'clock, biopsy: Invasive ductal carcinoma, MSBR grade 2. B. Lymph node, left axilla, biopsy: Reactive lymphoid tissue with mild sinus histiocytosis; no metastatic carcinoma seen. Estrogen receptor: Positive (strong; 95% of tumor cells) Progesterone receptor: Negative (focal staining in less than 1% of tumor cells) HER2: Negative (0; appropriate positive control) 04/03/2020 surgery-A. Breast, left, lumpectomy: - Invasive ductal carcinoma, MSBR grade 3, not seen at margins. Laterality Left; Tumor size 2.3 cm; Tumor focality Unifocal DCIS No definitive DCIS identified Histologic grade (MSBR) 3 Tubule formation score 3 Nuclear pleomorphism score 2-3 Mitotic rate score 3 LVI Present Margin, inv tumor Negative Closest margin 0.4 cm from posterior margin Lymph nodes Number examined 2 [place] nodes 2 Axillary nodes 0 Number involved 1 macromets 0 micromets 0 isolated tumor cells 1 Treatment effect Breast Not identified Lymph nodes Not identified TNM pT2 N0(sn)(i+) Oncotype DX breast recurrence score which was high at 35. Distant recurrence risk at 9 years is 27%. She was not a candidate for Adriamycin because of underlying congestive heart failure and multiple other comorbidities. She received 4 cycles of Taxotere and Cytoxan from 05/17/20 until 07/31/2020. Referred to [facility] for adjuvant radiation therapy. Menstrual History Menarche age 9 menopause age 47 5 para 4 hello entering some last live Interval History Interval history: Patient is here in follow-up. She is complaining of pain and swelling of the left earlobe as well as a sense of fullness the left side of her head. This started about 2 days ago. She completed adjuvant radiation therapy about a week ago but missed several days of treatment. She denies any fever, chills, chest pain or shortness of breath. No abdominal discomfort or change in bowel habits. Review of Systems - Constitutional Reports no additional constitutional complaints - ENT Denies change in voice, Denies dental pain, Denies dysphagia, Denies headache(s), Denies sore throat [facility] Medical History: Medical History (Last Updated 10/07/20 @ 12:37 by Torrie Escobar MD) Asthma Atrial fibrillation Back pain Bilateral pulmonary embolism Cataract CHF (congestive heart failure) COPD (chronic obstructive pulmonary disease) Depression Diabetes mellitus Hyperlipidemia Hypertension Invasive ductal carcinoma of left breast, stage 2 Kidney stone Sleep apnea Family History: Family History (Last Updated 09/27/20 @ 07:55 by Elena Brewster [facility]) Father CVD (cardiovascular disease) Mother CVD (cardiovascular disease) Family/Other FH: mental illness Surgical History: Surgical History (Last Updated 09/02/20 @ 12:53 by Akosua Garibay Jerel) H/O hernia repair H/O lithotripsy H/O tubal ligation History of carpal tunnel release History of cataract surgery Onset Date: ~2016 History of hysterectomy History of lumpectomy of left breast Onset Date: ~04/03/20 Social History: Social History (Last Updated 10/07/20 @ 12:37 by Torrie Escobar MD) Advance Directives: Advance Directives: No Advance Directives Information Provided: No Home Medications and Allergies Home Medications Medication Instructions Recorded Confirmed Type buspirone 15 mg PO BID 07/31/20 10/07/20 History calcium carbonate [Calcium Antacid 1 tab DAILY 07/31/20 10/23/20 History Tropical] cholecalciferol (vitamin D3) 25 mcg PO DAILY 07/31/20 10/07/20 History [Vitamin D3] dronedarone [Multaq] 400 mg PO BID 07/31/20 10/07/20 History Allergies Allergy/AdvReac Type Severity Reaction Status Date / Time shellfish derived Allergy Unknown SWELLING,N/ Verified 10/07/20 12:33 [SHELLFISH DERIVED] V Exam Vital signs: Vital Signs Temp 99.0 F 12/04/20 10:18 Pulse 69 12/04/20 10:18 Resp 14 12/04/20 10:18 BP 126/65 12/04/20 10:18 Pulse Ox 95 12/04/20 10:18 Intake & Output 12/03/20 12/04/20 12/04/20 18:59 06:59 18:59 Other: Weight 131 kg [place] Weight in Grams [id number] Weight 131 kg Body Mass Index 54.6 - Constitutional Present: no acute distress - Routine HEENT Exam Head: Present: normal inspection Comments: Left ear erythematous and slightly swollen. Tender to touch. Left neck mild tenderness on palpation no significant lymphadenopathy. - Routine Neck Exam Absent: lymphadenopathy - Routine Respiratory Exam Present: CTAB - Routine Cardiovascular Exam Cardiovascular: Present: RRR, S1, S2 - Routine Abdominal Exam Present: soft - Routine Extremities Exam Absent: calf tenderness Data - Labs CBC & Chem 7: 12/04/20 10:35 12/04/20 10:35 Labs: 07/11/20 15:33 Pegfilgrastim [Neulasta] 6 mg SUBCUT ONCE ONE 07/18/20 10:16 Complete Blood Count Man Dif Routine Comprehensive Met. Panel Routine 07/25/20 10:16 Complete Blood Count Auto Diff Routine Comprehensive Met. Panel Routine 07/31/20 00:00 0.9 % Sodium Chloride [Ns] 500 ml IVCONT 250 mls/hr Cyclophosphamide [Cytoxan] 1,000 mg Cyclophosphamide [Cytoxan] 100 mg 0.9 % Sodium Chloride 250 ml IV ONCE DOCEtaxeL [Taxotere] 80 mg DOCEtaxeL [Taxotere] 60 mg 0.9 % Sodium Chloride [Ns] 250 ml IV ONCE Fosaprepitant Dimeglumine [Emend] 150 mg 0.9 % Sodium Chloride [Ns] 145 ml IV ONCE Heparin Sodium,Porcine Flush 500 unit IVFLUSH ONCE dexAMETHasone sod phosphate/NS [Decadron] 12 mg in 50 ml IV ONCE ondansetron HCL/NS [Zofran] 16 mg in 50 ml IV ONCE 07/31/20 09:12 Complete Blood Count Auto Diff Routine Comprehensive Met. Panel Routine 07/31/20 14:36 Pegfilgrastim Onpro [Neulasta Onpro] 6 mg SUBCUT ONCE ONE 09/20/20 10:15 Complete Blood Count Auto Diff Routine Comprehensive Met. Panel Routine Laboratory Last Values WBC 10.0 X10*3/uL (4.8-10.8) 09/20/20 10:15 RBC 4.34 X10*6/uL (4.20-5.50) 09/20/20 10:15 Hgb 12.3 g/dl (12.0-16.0) 09/20/20 10:15 Hct 39.9 % (37-47) 09/20/20 10:15 MCV 91.9 fL (80-98) 09/20/20 10:15 MCH 28.3 pg (27.0-33.0) 09/20/20 10:15 MCHC 30.8 g/dl (31.0-35.0) L 09/20/20 10:15 RDW 16.7 % (11.0-16.0) H 09/20/20 10:15 Plt Count 321 X10*3/uL (160-400) D 09/20/20 10:15 MPV 9.0 fL (9.4-12.3) L 09/20/20 10:15 Immature Gran % (Auto) 0.3 % (0.0-0.4) 09/20/20 10:15 Neut % (Auto) 65.8 % (45-73) 09/20/20 10:15 Lymph % (Auto) 24.1 % (20-40) 09/20/20 10:15 [place] % (Auto) 7.4 % (2-11) 09/20/20 10:15 Eos % (Auto) 1.8 % (0-4) 09/20/20 10:15 Baso % (Auto) 0.6 % (0-2) 09/20/20 10:15 Lymph # (Auto) 2.4 X10*3/uL (1.2-4.9) 09/20/20 10:15 [place] # (Auto) 0.7 X10*3/uL (0.1-1.2) 09/20/20 10:15 Eos # (Auto) 0.2 X10*3/uL (0.0-0.4) 09/20/20 10:15 Baso # (Auto) 0.1 X10*3/uL (0.0-0.2) 09/20/20 10:15 Abs Immat Gran (auto) 0.03 X10*3/uL (0.00-0.03) 09/20/20 10:15 Absolute Neuts (auto) 6.6 X10*3/uL (2.0-8.3) 09/20/20 10:15 Absolute Nucleated RBC 0.000 X10*3/uL (0.0-0.012) 09/20/20 10:15 Nucleated RBC % (auto) 0.0 /100WBC (0.0-0.2) 09/20/20 10:15 Neutrophils % (Manual) 57 % (45-73) 07/18/20 10:16 Band Neutrophils % 8 % (3-5) H 07/18/20 10:16 Lymphocytes % (Manual) 8 % (20-40) L 07/18/20 10:16 Monocytes % (Manual) 12 % (2-11) H 07/18/20 10:16 Eosinophils % (Manual) 2 % (0-4) 07/18/20 10:16 Metamyelocytes % 9 % 07/18/20 10:16 Myelocytes % 4 % 07/18/20 10:16 Abs Neuts (Manual) 18.5 X10*3/uL (2.2-7.9) H 07/18/20 10:16 Lymphocytes # (Manual) 2.3 X10*3/uL (0.6-4.8) 07/18/20 10:16 Monocytes # (Manual) 3.4 X10*3/uL (0.0-1.2) H 07/18/20 10:16 Eosinophils # (Manual) 0.6 X10*3/UL (0.0-0.8) 07/18/20 10:16 Metamyelocytes # 2.6 X10*3/uL 07/18/20 10:16 Myelocytes # 1.1 X10*/uL 07/18/20 10:16 Nucleated RBCs 1 /100WBC (0-0) H 07/18/20 10:16 Toxic Granulation PRESENT 07/18/20 10:16 Dohle Bodies PRESENT 07/18/20 10:16 Platelet Estimate NORMAL (NORMAL) 07/18/20 10:16 Plt Morphology Comment NORMAL 07/18/20 10:16 RBC Morphology NOTED 07/18/20 10:16 Polychromasia 1+ 07/18/20 10:16 Hypochromasia 1+ 07/18/20 10:16 Stomatocytes 1+ 07/18/20 10:16 Sodium 141 mmol/L (135-145) 09/20/20 10:15 Potassium 4.4 mmol/l (3.3-5.1) 09/20/20 10:15 Chloride 103 mmol/L (96-108) 09/20/20 10:15 Carbon Dioxide 29 mmol/L (22-29) 09/20/20 10:15 Anion Gap 13 (-20) 09/20/20 10:15 BUN 21 mg/dL (9-16) H 09/20/20 10:15 Creatinine 0.78 mg/dL (0.5-1.4) 09/20/20 10:15 Estim Creat Clear Calc 88.6 09/20/20 10:15 Estimated GFR > 60 09/20/20 10:15 Random Glucose 136 mg/dL (60-115) H D 09/20/20 10:15 Calcium 9.0 mg/dL (8.4-10.2) 09/20/20 10:15 Total Bilirubin 0.5 mg/dL (0.0-1.0) 09/20/20 10:15 AST 15 U/L (5-31) 09/20/20 10:15 ALT 21 U/L (0-31) 09/20/20 10:15 Alkaline Phosphatase 84 U/L (39-117) 09/20/20 10:15 Total Protein 7.3 g/dL (6.5-8.0) 09/20/20 10:15 Albumin 3.9 g/dL (3.5-5.0) 09/20/20 10:15 Progress Note: A/P (1) Breast cancer Status: Chronic Assessment and plan: 1. This is a 65-year-old woman with left breast invasive ductal carcinoma. She underwent lumpectomy/sentinel lymph node biopsy on 04/03/2020 which revealed invasive ductal carcinoma, grade 3, ER positive/RI negative, HER2 negative. Tumor size 2.3 cm, nuclear grade 3, LVI present, margins negative. Final pathological stage pT2 N0 (sn) (I +). Oncotype DX breast recurrence score, high at 35. Distant recurrence risk at 9 years is 27%. She completed 4 cycles of adjuvant chemotherapy with Taxotere and Cytoxan on 07/31/2020. She completed adjuvant radiation therapy at [facility]. Poor compliance and missed several days of treatment. Blood work today looks good. She is going to be started on hormonal suppression with aromatase inhibitor therapy. She has developed left external ear infection, appears leg cellulitis with some swelling and pain. She is being started on Augmentin 500 b.i.d. for 10 days along with Medrol Dosepak for 5 days. She was asked to call if she has any worsening or no improvement in the next 2-3 days. 2. Osteopenia based on bone density exam 04/29. T-score -2.3 in the femoral neck. She will be started on bone strengthening therapy with Prolia along with aromatase inhibitor therapy. 3. Family history of breast ovarian and other cancers. Patient?s genetic test result indicated that she was negative for a hereditary cancer gene mutation. Follow-up in 2 weeks. - Time Spent With Patient Total time spent is greater than 50% in coordination of care (as documented) at patient's floor/unit and/or counseling patient: 25 - 35 minutes
[2020-12-04 11:11] LABS: Alanine Aminotransferase 13 U/L (0-31); Albumin Level 3.5 g/dL (3.5-5.0); Alkaline Phosphatase 81 U/L (39-117); Anion Gap 10 (12-20); Aspartate Amino Transferase 8 U/L (5-31); Bilirubin Total 0.4 mg/dL (0.0-1.0); Blood Urea Nitrogen 17 mg/dL (9-16); Calcium 8.7 mg/dL (8.4-10.2); Carbon Dioxide 34 mmol/L (22-29); Chloride 103 mmol/L (96-108); Creatinine Clr Calc Pharmacy 76.2; Estimated Glomerular Filt Rate > 60; Glucose Random 316 mg/dL (60-115); Potassium 4.6 mmol/L (3.3-5.1); Sodium 142 mmol/L (135-145); Total Protein 6.6 g/dL (6.5-8.0)
--- NOTE | 2020-12-04 12:37 | MHC.HEMONCMA ---
Patient present to follow up for breast cancer. History was reveiwed and labs were drawn. A paraprofessional interpreter was utilized and patient is to follow up in a month.
[2020-12-18 15:34] VITALS: BP 127/60; PULSE 83; RESP 18; TEMP 36.4; O2SAT 95; BMI 53.4
--- NOTE | 2020-12-18 16:05 | MHC.HEMONC ---
Pt here for follow up with Dr Williamson. States is feeling well except general body aches. Dr Williamson in. Plan to start pt on oral hormonal therapy. Pt agreeable. Will return in 3 months for follow up. [employer] Machine Adjuster present for assessment.
--- NOTE | 2020-12-18 16:43 | P.PNHO_ITS ---
Medical Summary - Medical Summary Date of Service: 12/18/20 Chief complaint: Follow-up Medical Summary: Diagnosis: Left breast invasive ductal carcinoma March 2020 Diagnostic mammogram in March 2020 because of palpable left breast mass revealed irregular hypoechoic solid nodule in 2 o'clock position 10 cm from nipple measuring 1.7 x 2 x 1.4 cm which was read as suspicious. Biopsy 03/26/2020- A. Breast, left at 2 o'clock, biopsy: Invasive ductal carcinoma, MSBR grade 2. B. Lymph node, left axilla, biopsy: Reactive lymphoid tissue with mild sinus histiocytosis; no metastatic carcinoma seen. Estrogen receptor: Positive (strong; 95% of tumor cells) Progesterone receptor: Negative (focal staining in less than 1% of tumor cells) HER2: Negative (0; appropriate positive control) 04/03/2020 surgery-A. Breast, left, lumpectomy: - Invasive ductal carcinoma, MSBR grade 3, not seen at margins. Laterality Left; Tumor size 2.3 cm; Tumor focality Unifocal DCIS No definitive DCIS identified Histologic grade (MSBR) 3 Tubule formation score 3 Nuclear pleomorphism score 2-3 Mitotic rate score 3 LVI Present Margin, inv tumor Negative Closest margin 0.4 cm from posterior margin Lymph nodes Number examined 2 [place] nodes 2 Axillary nodes 0 Number involved 1 macromets 0 micromets 0 isolated tumor cells 1 Treatment effect Breast Not identified Lymph nodes Not identified TNM pT2 N0(sn)(i+) Oncotype DX breast recurrence score which was high at 35. Distant recurrence risk at 9 years is 27%. She was not a candidate for Adriamycin because of underlying congestive heart failure and multiple other comorbidities. She received 4 cycles of Taxotere and Cytoxan from 05/17/20 until 07/31/2020. Referred to [facility] for adjuvant radiation therapy. Menstrual History Menarche age 9 menopause age 47 5 para 4 hello entering some last live Interval History Interval history: Patient is here in follow-up. She is doing better now. Her year pain and swelling has resolved. She denies any fever or chills. She is here to discuss hormonal therapy for her breast cancer. Review of Systems - Constitutional Reports no additional constitutional complaints - Neurologic Denies headache(s) [facility] Medical History: Medical History (Last Updated 10/07/20 @ 12:37 by Torrie Escobar MD) Asthma Atrial fibrillation Back pain Bilateral pulmonary embolism Cataract CHF (congestive heart failure) COPD (chronic obstructive pulmonary disease) Depression Diabetes mellitus Hyperlipidemia Hypertension Invasive ductal carcinoma of left breast, stage 2 Kidney stone Sleep apnea Family History: Family History (Last Updated 09/27/20 @ 07:55 by Elena Brewster [facility]) Father CVD (cardiovascular disease) Mother CVD (cardiovascular disease) Family/Other FH: mental illness Surgical History: Surgical History (Last Updated 09/02/20 @ 12:53 by Akosua Garibay [facility]) H/O hernia repair H/O lithotripsy H/O tubal ligation History of carpal tunnel release History of cataract surgery Onset Date: ~2016 History of hysterectomy History of lumpectomy of left breast Onset Date: ~04/03/20 Social History: Social History (Last Updated 10/07/20 @ 12:37 by Torrie Escobar MD) Advance Directives: Advance Directives: No Advance Directives Information Provided: No Oncology Screenings - ECOG Performance Status ECOG Performance Status: 1 Home Medications and Allergies Home Medications Medication Instructions Recorded Confirmed Type buspirone 15 mg PO BID 07/31/20 10/07/20 History cholecalciferol (vitamin D3) 25 mcg PO DAILY 07/31/20 10/07/20 History [Vitamin D3] dronedarone [Multaq] 400 mg PO BID 07/31/20 10/07/20 History Allergies Allergy/AdvReac Type Severity Reaction Status Date / Time shellfish derived Allergy Unknown SWELLING,N/ Verified 10/07/20 12:33 [SHELLFISH DERIVED] V Exam Vital signs: Vital Signs Temp 97.5 F 12/18/20 15:34 Pulse 83 12/18/20 15:34 Resp 18 12/18/20 15:34 BP 127/60 12/18/20 15:34 Pulse Ox 95 12/18/20 15:34 Intake & Output 12/17/20 12/18/20 12/18/20 18:59 06:59 18:59 Other: Weight 128.4 kg Weight in Grams [id number] Weight 128.4 kg Body Mass Index 53.4 - Constitutional Present: no acute distress - Routine HEENT Exam Head: Present: normal inspection - Routine Neck Exam Absent: lymphadenopathy - Routine Respiratory Exam Present: CTAB - Routine Cardiovascular Exam Cardiovascular: Present: RRR, S1, S2 - Routine Abdominal Exam Present: soft - Routine Extremities Exam Absent: calf tenderness Data - Labs CBC & Chem 7: 12/04/20 10:35 12/04/20 10:35 Labs: 07/11/20 15:33 Pegfilgrastim [Neulasta] 6 mg SUBCUT ONCE ONE 07/18/20 10:16 Complete Blood Count Man Dif Routine Comprehensive Met. Panel Routine 07/25/20 10:16 Complete Blood Count Auto Diff Routine Comprehensive Met. Panel Routine 07/31/20 00:00 0.9 % Sodium Chloride [Ns] 500 ml IVCONT 250 mls/hr Cyclophosphamide [Cytoxan] 1,000 mg Cyclophosphamide [Cytoxan] 100 mg 0.9 % S odium Chloride 250 ml IV ONCE DOCEtaxeL [Taxotere] 80 mg DOCEtaxeL [Taxotere] 60 mg 0.9 % Sodium Chloride [Ns] 250 ml IV ONCE Fosaprepitant Dimeglumine [Emend] 150 mg 0.9 % Sodium Chloride [Ns] 145 ml IV ONCE Heparin Sodium,Porcine Flush 500 unit IVFLUSH ONCE dexAMETHasone sod phosphate/NS [Decadron] 12 mg in 50 ml IV ONCE ondansetron HCL/NS [Zofran] 16 mg in 50 ml IV ONCE 07/31/20 09:12 Complete Blood Count Auto Diff Routine Comprehensive Met. Panel Routine 07/31/20 14:36 Pegfilgrastim Onpro [Neulasta Onpro] 6 mg SUBCUT ONCE ONE 09/20/20 10:15 Complete Blood Count Auto Diff Routine Comprehensive Met. Panel Routine Laboratory Last Values WBC 10.0 X10*3/uL (4.8-10.8) 09/20/20 10:15 RBC 4.34 X10*6/uL (4.20-5.50) 09/20/20 10:15 Hgb 12.3 g/dl (12.0-16.0) 09/20/20 10:15 Hct 39.9 % (37-47) 09/20/20 10:15 MCV 91.9 fL (80-98) 09/20/20 10:15 MCH 28.3 pg (27.0-33.0) 09/20/20 10:15 MCHC 30.8 g/dl (31.0-35.0) L 09/20/20 10:15 RDW 16.7 % (11.0-16.0) H 09/20/20 10:15 Plt Count 321 X10*3/uL (160-400) D 09/20/20 10:15 MPV 9.0 fL (9.4-12.3) L 09/20/20 10:15 Immature Gran % (Auto) 0.3 % (0.0-0.4) 09/20/20 10:15 Neut % (Auto) 65.8 % (45-73) 09/20/20 10:15 Lymph % (Auto) 24.1 % (20-40) 09/20/20 10:15 [place] % (Auto) 7.4 % (2-11) 09/20/20 10:15 Eos % (Auto) 1.8 % (0-4) 09/20/20 10:15 Baso % (Auto) 0.6 % (0-2) 09/20/20 10:15 Lymph # (Auto) 2.4 X10*3/uL (1.2-4.9) 09/20/20 10:15 [place] # (Auto) 0.7 X10*3/uL (0.1-1.2) 09/20/20 10:15 Eos # (Auto) 0.2 X10*3/uL (0.0-0.4) 09/20/20 10:15 Baso # (Auto) 0.1 X10*3/uL (0.0-0.2) 09/20/20 10:15 Abs Immat Gran (auto) 0.03 X10*3/uL (0.00-0.03) 09/20/20 10:15 Absolute Neuts (auto) 6.6 X10*3/uL (2.0-8.3) 09/20/20 10:15 Absolute Nucleated RBC 0.000 X10*3/uL (0.0-0.012) 09/20/20 10:15 Nucleated RBC % (auto) 0.0 /100WBC (0.0-0.2) 09/20/20 10:15 Neutrophils % (Manual) 57 % (45-73) 07/18/20 10:16 Band Neutrophils % 8 % (3-5) H 07/18/20 10:16 Lymphocytes % (Manual) 8 % (20-40) L 07/18/20 10:16 Monocytes % (Manual) 12 % (2-11) H 07/18/20 10:16 Eosinophils % (Manual) 2 % (0-4) 07/18/20 10:16 Metamyelocytes % 9 % 07/18/20 10:16 Myelocytes % 4 % 07/18/20 10:16 Abs Neuts (Manual) 18.5 X10*3/uL (2.2-7.9) H 07/18/20 10:16 Lymphocytes # (Manual) 2.3 X10*3/uL (0.6-4.8) 07/18/20 10:16 Monocytes # (Manual) 3.4 X10*3/uL (0.0-1.2) H 07/18/20 10:16 Eosinophils # (Manual) 0.6 X10*3/UL (0.0-0.8) 07/18/20 10:16 Metamyelocytes # 2.6 X10*3/uL 07/18/20 10:16 Myelocytes # 1.1 X10*/uL 07/18/20 10:16 Nucleated RBCs 1 /100WBC (0-0) H 07/18/20 10:16 Toxic Granulation PRESENT 07/18/20 10:16 Dohle Bodies PRESENT 07/18/20 10:16 Platelet Estimate NORMAL (NORMAL) 07/18/20 10:16 Plt Morphology Comment NORMAL 07/18/20 10:16 RBC Morphology NOTED 07/18/20 10:16 Polychromasia 1+ 07/18/20 10:16 Hypochromasia 1+ 07/18/20 10:16 Stomatocytes 1+ 07/18/20 10:16 Sodium 141 mmol/L (135-145) 09/20/20 10:15 Potassium 4.4 mmol/l (3.3-5.1) 09/20/20 10:15 Chloride 103 mmol/L (96-108) 09/20/20 10:15 Carbon Dioxide 29 mmol/L (22-29) 09/20/20 10:15 Anion Gap 13 (12-20) 09/20/20 10:15 BUN 21 mg/dL (9-16) H 09/20/20 10:15 Creatinine 0.78 mg/dL (0.5-1.4) 09/20/20 10:15 Estim Creat Clear Calc 88.6 09/20/20 10:15 Estimated GFR > 60 09/20/20 10:15 Random Glucose 136 mg/dL (60-115) H D 09/20/20 10:15 Calcium 9.0 mg/dL (8.4-10.2) 09/20/20 10:15 Total Bilirubin 0.5 mg/dL (0.0-1.0) 09/20/20 10:15 AST 15 U/L (5-31) 09/20/20 10:15 ALT 21 U/L (0-31) 09/20/20 10:15 Alkaline Phosphatase 84 U/L (39-117) 09/20/20 10:15 Total Protein 7.3 g/dL (6.5-8.0) 09/20/20 10:15 Albumin 3.9 g/dL (3.5-5.0) 09/20/20 10:15 Progress Note: A/P (1) Breast cancer Status: Chronic Assessment and plan: 1. This is a 65-year-old woman with left breast invasive ductal carcinoma. She underwent lumpectomy/sentinel lymph node biopsy on 04/03/2020 which revealed in vasive ductal carcinoma, grade 3, ER positive/MO negative, HER2 negative. Tumor size 2.3 cm, nuclear grade 3, LVI present, margins negative. Final pathological stage pT2 N0 (sn) (I +). Oncotype DX breast recurrence score, high at 35. Distant recurrence risk at 9 years is 27%. She completed 4 cycles of adjuvant chemotherapy with Taxotere and Cytoxan on 07/31/2020. She completed adjuvant radiation therapy at [facility]. Poor compliance and missed several days of treatment. Blood work today looks good. We discussed aromatase inhibitor, letrozole 2.5 mg daily for at least 5 years. Possible side effects such as vasomotor symptoms, bone loss and arthralgias were discussed. She is willing to start this. 2. Osteopenia based on bone density exam 04/29. T-score -2.3 in the femoral neck. She will be started on bone strengthening therapy with Prolia along with aromatase inhibitor therapy. She is on calcium and vitamin-D supplementation. 3. Family history of breast ovarian and other cancers. Patient?s genetic test result indicated that she was negative for a hereditary cancer gene mutation. Follow-up in 3 months. - Time Spent With Patient Total time spent is greater than 50% in coordination of care (as documented) at patient's floor/unit and/or counseling patient: 25 - 35 minutes
--- NOTE | 2021-01-13 15:03 | MHC.HEMONCSW ---
PATIENT AGREES TO ORAL HORMONAL THERAPY. 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 DENIED DISTRESS, DOING WELL. PATIENT IS AWARE OF MY AVAILABILITY.
[2021-03-19 12:39] VITALS: BP 140/74; PULSE 81; RESP 12; TEMP 36.4; O2SAT 93; BMI 55.5
--- NOTE | 2021-03-19 12:49 | P.PNHO_ITS ---
Medical Summary - Medical Summary Date of Service: 03/19/21 Chief complaint: follow-up Medical Summary: Diagnosis: Left breast invasive ductal carcinoma March 2020 Diagnostic mammogram in March 2020 because of palpable left breast mass revealed irregular hypoechoic solid nodule in 2 o'clock position 10 cm from nipple measuring 1.7 x 2 x 1.4 cm which was read as suspicious. Biopsy 03/26/2020- A. Breast, left at 2 o'clock, biopsy: Invasive ductal carcinoma, MSBR grade 2. B. Lymph node, left axilla, biopsy: Reactive lymphoid tissue with mild sinus histiocytosis; no metastatic carcinoma seen. Estrogen receptor: Positive (strong; 95% of tumor cells) Progesterone receptor: Negative (focal staining in less than 1% of tumor cells) HER2: Negative (0; appropriate positive control) 04/03/2020 surgery-A. Breast, left, lumpectomy: - Invasive ductal carcinoma, MSBR grade 3, not seen at margins. Laterality Left; Tumor size 2.3 cm; Tumor focality Unifocal DCIS No definitive DCIS identified Histologic grade (MSBR) 3 Tubule formation score 3 Nuclear pleomorphism score 2-3 Mitotic rate score 3 LVI Present Margin, inv tumor Negative Closest margin 0.4 cm from posterior margin Lymph nodes Number examined 2 [place] nodes 2 Axillary nodes 0 Number involved 1 macromets 0 micromets 0 isolated tumor cells 1 Treatment effect Breast Not identified Lymph nodes Not identified TNM pT2 N0(sn)(i+) Oncotype DX breast recurrence score which was high at 35. Distant recurrence risk at 9 years is 27%. She was not a candidate for Adriamycin because of underlying congestive heart failure and multiple other comorbidities. She received 4 cycles of Taxotere and Cytoxan from 05/17/20 until 07/31/2020. [facility] for adjuvant radiation therapy. started letrozole in January 2021 but did not tolerate it secondary to diarrhea. Interval History Interval history: Patient is here in follow-up. She has several complaints today. She states that after 2-3 days of letrozole she developed stomach upset and diarrhea. She stopped it for a week and started it again but diarrhea occurred again. She has been off the medication now at least for a month. She also reports swelling of the left breast and tenderness since completion of radiation therapy. Some associated left arm pain and swelling. She also is unable to find a bra that fits her breasts. No fever or chills. No chest pain, cough or shortness of breath. Review of Systems - Constitutional Reports as per HPI, Reports no additional constitutional complaints - Cardiovascular Reports no additional cardiovascular complaints - Respiratory Reports no additional respiratory complaints - Neurologic Denies headache(s) [facility] Medical History: Medical History (Last Updated 02/03/21 @ 10:18 by Torrie Escobar MD) Asthma Atrial fibrillation Back pain Bilateral pulmonary embolism Cataract CHF (congestive heart failure) COPD (chronic obstructive pulmonary disease) Depression Diabetes mellitus Hyperlipidemia Hypertension Invasive ductal carcinoma of left breast, stage 2 Kidney stone Sleep apnea Urinary incontinence Family History: Family History (Last Reviewed 02/03/21 @ 10:14 by Torrie Escobar MD) Father CVD (cardiovascular disease) Mother CVD (cardiovascular disease) Family/Other FH: mental illness Surgical History: Surgical History (Last Reviewed 02/03/21 @ 10:14 by Torrie Escobar MD) H/O hernia repair H/O lithotripsy H/O tubal ligation History of carpal tunnel release History of cataract surgery Onset Date: ~2016 History of hysterectomy History of lumpectomy of left breast Onset Date: ~04/03/20 Social History: Social History (Last Updated 03/19/21 @ 12:41 by Vandana cShmid) Alcohol History: Alcohol intake: never Alcohol History Details: Alcohol intake frequency: does not drink Tobacco History: Patient Tobacco Use Status: Never used Tobacco Substance Use History: Use of substances other than those prescribed or required for medical reasons : No Advance Directives: Advance Directives: No Advance Directives Information Provided: No Home Medications and Allergies Home Medications Medication Instructions Recorded Confirmed Type buspirone 15 mg PO BID 07/31/20 02/03/21 History dronedarone [Multaq] 400 mg PO BID 07/31/20 02/03/21 History albuterol sulfate 90 mcg/actuation 1 inh INHALATION Q4H PRN g 12/19/20 03/19/21 History aerosol inhaler Allergies Allergy/AdvReac Type Severity Reaction Status Date / Time shellfish derived Allergy Intermediate SWELLING,N/ Verified 02/03/21 10:12 [SHELLFISH DERIVED] V Exam Vital signs: Vital Signs Temp 97.5 F 03/19/21 12:39 Pulse 81 03/19/21 12:39 Resp 12 03/19/21 12:39 BP 140/74 H 03/19/21 12:39 Pulse Ox 93 03/19/21 12:39 Intake & Output 03/18/21 03/19/21 03/19/21 18:59 06:59 18:59 Other: Weight 133.5 kg [place] Weight in Grams [id number] Weight 133.5 kg Body Mass Index 55.5 - Constitutional Present: no acute distress - Routine HEENT Exam Head: Present: normal inspection - Routine Neck Exam Absent: lymphadenopathy - Routine Chest/Breast/Axilla Exam Breast: Present: induration, swelling Axillae: Absent: lymphadenopathy Comments: Left breast chronic skin changes from radiation with swelling and induration. - Routine Respiratory Exam Present: CTAB - Routine Cardiovascular Exam Cardiovascular: Present: RRR, S1, S2 - Routine Abdominal Exam Present: soft - Routine Extremities Exam Absent: calf tenderness Data - Labs CBC & Chem 7: 12/04/20 10:35 12/04/20 10:35 Labs: 07/11/20 15:33 Pegfilgrastim [Neulasta] 6 mg SUBCUT ONCE ONE 07/18/20 10:16 Complete Blood Count Man Dif Routine Comprehensive Met. Panel Routine 07/25/20 10:16 Complete Blood Count Auto Diff Routine Comprehensive Met. Panel Routine 07/31/20 00:00 0.9 % Sodium Chloride [Ns] 500 ml IVCONT 250 mls/hr Cyclophosphamide [Cytoxan] 1,000 mg Cyclophosphamide [Cytoxan] 100 mg 0.9 % Sodium Chloride 250 ml IV ONCE DOCEtaxeL [Taxotere] 80 mg DOCEtaxeL [Taxotere] 60 mg 0.9 % Sodium Chloride [Ns] 250 ml IV ONCE Fosaprepitant Dimeglumine [Emend] 150 mg 0.9 % Sodium Chloride [Ns] 145 ml IV ONCE Heparin Sodium,Porcine Flush 500 unit IVFLUSH ONCE dexAMETHasone sod phosphate/NS [Decadron] 12 mg in 50 ml IV ONCE ondansetron HCL/NS [Zofran] 16 mg in 50 ml IV ONCE 07/31/20 09:12 Complete Blood Count Auto Diff Routine Comprehensive Met. Panel Routine 07/31/20 14:36 Pegfilgrastim Onpro [Neulasta Onpro] 6 mg SUBCUT ONCE ONE 09/20/20 10:15 Complete Blood Count Auto Diff Routine Comprehensive Met. Panel Routine Laboratory Last Values WBC 10.0 X10*3/uL (4.8-10.8) 09/20/20 10:15 RBC 4.34 X10*6/uL (4.20-5.50) 09/20/20 10:15 Hgb 12.3 g/dl (12.0-16.0) 09/20/20 10:15 Hct 39.9 % (37-47) 09/20/20 10:15 MCV 91.9 fL (80-98) 09/20/20 10:15 MCH 28.3 pg (27.0-33.0) 09/20/20 10:15 MCHC 30.8 g/dl (31.0-35.0) L 09/20/20 10:15 RDW 16.7 % (11.0-16.0) H 09/20/20 10:15 Plt Count 321 X10*3/uL (160-400) D 09/20/20 10:15 MPV 9.0 fL (9.4-12.3) L 09/20/20 10:15 Immature Gran % (Auto) 0.3 % (0.0-0.4) 09/20/20 10:15 Neut % (Auto) 65.8 % (45-73) 09/20/20 10:15 Lymph % (Auto) 24.1 % (20-40) 09/20/20 10:15 [place] % (Auto) 7.4 % (2-11) 09/20/20 10:15 Eos % (Auto) 1.8 % (0-4) 09/20/20 10:15 Baso % (Auto) 0.6 % (0-2) 09/20/20 10:15 Lymph # (Auto) 2.4 X10*3/uL (1.2-4.9) 09/20/20 10:15 [place] # (Auto) 0.7 X10*3/uL (0.1-1.2) 09/20/20 10:15 Eos # (Auto) 0.2 X10*3/uL (0.0-0.4) 09/20/20 10:15 Baso # (Auto) 0.1 X10*3/uL (0.0-0.2) 09/20/20 10:15 Abs Immat Gran (auto) 0.03 X10*3/uL (0.00-0.03) 09/20/20 10:15 Absolute Neuts (auto) 6.6 X10*3/uL (2.0-8.3) 09/20/20 10:15 Absolute Nucleated RBC 0.000 X10*3/uL (0.0-0.012) 09/20/20 10:15 Nucleated RBC % (auto) 0.0 /100WBC (0.0-0.2) 09/20/20 10:15 Neutrophils % (Manual) 57 % (45-73) 07/18/20 10:16 Band Neutrophils % 8 % (3-5) H 07/18/20 10:16 Lymphocytes % (Manual) 8 % (20-40) L 07/18/20 10:16 Monocytes % (Manual) 12 % (2-11) H 07/18/20 10:16 Eosinophils % (Manual) 2 % (0-4) 07/18/20 10:16 Metamyelocytes % 9 % 07/18/20 10:16 Myelocytes % 4 % 07/18/20 10:16 Abs Neuts (Manual) 18.5 X10*3/uL (2.2-7.9) H 07/18/20 10:16 Lymphocytes # (Manual) 2.3 X10*3/uL (0.6-4.8) 07/18/20 10:16 Monocytes # (Manual) 3.4 X10*3/uL (0.0-1.2) H 07/18/20 10:16 Eosinophils # (Manual) 0.6 X10*3/UL (0.0-0.8) 07/18/20 10:16 Metamyelocytes # 2.6 X10*3/uL 07/18/20 10:16 Myelocytes # 1.1 X10*/uL 07/18/20 10:16 Nucleated RBCs 1 /100WBC (0-0) H 07/18/20 10:16 Toxic Granulation PRESENT 07/18/20 10:16 Dohle Bodies PRESENT 07/18/20 10:16 Platelet Estimate NORMAL (NORMAL) 07/18/20 10:16 Plt Morphology Comment NORMAL 07/18/20 10:16 RBC Morphology NOTED 07/18/20 10:16 Polychromasia 1+ 07/18/20 10:16 Hypochromasia 1+ 07/18/20 10:16 Stomatocytes 1+ 07/18/20 10:16 Sodium 141 mmol/L (135-145) 09/20/20 10:15 Potassium 4.4 mmol/l (3.3-5.1) 09/20/20 10:15 Chloride 103 mmol/L (96-108) 09/20/20 10:15 Carbon Dioxide 29 mmol/L (22-29) 09/20/20 10:15 Anion Gap 13 (-20) 09/20/20 10:15 BUN 21 mg/dL (9-16) H 09/20/20 10:15 Creatinine 0.78 mg/dL (0.5-1.4) 09/20/20 10:15 Estim Creat Clear Calc 88.6 09/20/20 10:15 Estimated GFR > 60 09/20/20 10:15 Random Glucose 136 mg/dL (60-115) H D 09/20/20 10:15 Calcium 9.0 mg/dL (8.4-10.2) 09/20/20 10:15 Total Bilirubin 0.5 mg/dL (0.0-1.0) 09/20/20 10:15 AST 15 U/L (5-31) 09/20/20 10:15 ALT 21 U/L (0-31) 09/20/20 10:15 Alkaline Phosphatase 84 U/L (39-117) 09/20/20 10:15 Total Protein 7.3 g/dL (6.5-8.0) 09/20/20 10:15 Albumin 3.9 g/dL (3.5-5.0) 09/20/20 10:15 Progress Note: A/P (1) Breast cancer Status: Chronic Assessment and plan: 1. This is a 65-year-old woman with left breast invasive ductal carcinoma. She underwent lumpectomy/sentinel lymph node biopsy on 04/03/2020 which revealed invasive ductal carcinoma, grade 3, ER positive/ID negative, HER2 negative. Tumor size 2.3 cm, nuclear grade 3, LVI present, margins negative. Final pathological stage pT2 N0 (sn) (I +). Oncotype DX breast recurrence score, high at 35. Distant recurrence risk at 9 years is 27%. She completed 4 cycles of adjuvant chemotherapy with Taxotere and Cytoxan on 07/31/2020. She completed adjuvant radiation therapy at [facility]. Poor compliance and missed several days of treatment. She was prescribed letrozole 2.5 mg daily from November 2020. she did not tolerated secondary to diarrhea and stomach upset. She is being switched to Arimidex 1 mg p.o. daily from 03/19/2021. 2. Osteopenia based on bone density exam 04/29. T-score -2.3 in the femoral neck. She will be started on bone strengthening therapy with Prolia along with aromatase inhibitor therapy. She is on calcium and vitamin-D supplementation. 3. Family history of breast ovarian and other cancers. Patient?s genetic test result indicated that she was negative for a hereditary cancer gene mutation. 4. Lymphedema involving left chest wall and arm. She is being referred to physical therapy. Follow-up in 3 months. - Time Spent With Patient Total time spent is greater than 50% in coordination of care (as documented) at patient's floor/unit and/or counseling patient: 25 - 35 minutes
--- NOTE | 2021-03-19 14:59 | MHC.HEMONCMA ---
Patient came in for a follow up, states that she is doing ok- having left breast pain. States she stopped taking the letrozole due to diarrhea and stomach pain. Clinical summary was reviewed and updated. Patient had labs and will return in 3 months for a follow up.
[2021-05-27 14:18] VITALS: BP 151/76; PULSE 78; RESP 14; TEMP 36.4; O2SAT 94; BMI 56.0
--- NOTE | 2021-05-27 14:30 | PM.HEMONCPN ---
Medical Summary - Medical Summary Date of Service: 05/27/21 Chief complaint: Dysuria and vaginal itching Medical Summary: Diagnosis: Left breast invasive ductal carcinoma March 2020 Diagnostic mammogram in March 2020 because of palpable left breast mass revealed irregular hypoechoic solid nodule in 2 o'clock position 10 cm from nipple measuring 1.7 x 2 x 1.4 cm which was read as suspicious. Biopsy 03/26/2020- A. Breast, left at 2 o'clock, biopsy: Invasive ductal carcinoma, MSBR grade 2. B. Lymph node, left axilla, biopsy: Reactive lymphoid tissue with mild sinus histiocytosis; no metastatic carcinoma seen. Estrogen receptor: Positive (strong; 95% of tumor cells) Progesterone receptor: Negative (focal staining in less than 1% of tumor cells) HER2: Negative (0; appropriate positive control) 04/03/2020 surgery-A. Breast, left, lumpectomy: - Invasive ductal carcinoma, MSBR grade 3, not seen at margins. Laterality Left; Tumor size 2.3 cm; Tumor focality Unifocal DCIS No definitive DCIS identified Histologic grade (MSBR) 3 Tubule formation score 3 Nuclear pleomorphism score 2-3 Mitotic rate score 3 LVI Present Margin, inv tumor Negative Closest margin 0.4 cm from posterior margin Lymph nodes Number examined 2 [place] nodes 2 Axillary nodes 0 Number involved 1 macromets 0 micromets 0 isolated tumor cells 1 Treatment effect Breast Not identified Lymph nodes Not identified TNM pT2 N0(sn)(i+) Oncotype DX breast recurrence score which was high at 35. Distant recurrence risk at 9 years is 27%. She was not a candidate for Adriamycin because of underlying congestive heart failure and multiple other comorbidities. She received 4 cycles of Taxotere and Cytoxan from 05/17/20 until 07/31/2020. [facility] for adjuvant radiation therapy. started letrozole in January 2021 but did not tolerate it secondary to diarrhea. Switched to Arimidex in March 2021. Interval History Interval history: Patient is here in follow-up. She has several complaints today. Chiefly she has itching in her vagina and some clear discharge. She also complains of dysuria and frequency but no hematuria. No fever or chills. She is taking Arimidex daily and tolerating it better. She is taking oxycodone for diffuse body aches. She did not go for her mammogram yet this year. She denies any palpable lumps in her breasts, tenderness or nipple discharge. Review of Systems - Constitutional Reports as per HPI, Reports no additional constitutional complaints - Cardiovascular Reports no additional cardiovascular complaints - Respiratory Reports no additional respiratory complaints - Gastrointestinal Reports no additional gastrointestinal complaints - Genitourinary Reports as per HPI - Neurologic Denies headache(s) [facility] Medical History: Medical History (Last Reviewed 05/27/21 @ 14:22 by Vandana Schmid) Asthma Atrial fibrillation Back pain Bilateral pulmonary embolism Cataract CHF (congestive heart failure) COPD (chronic obstructive pulmonary disease) Depression Diabetes mellitus Hyperlipidemia Hypertension Invasive ductal carcinoma of left breast, stage 2 Kidney stone Sleep apnea Urinary incontinence Family History: Family History (Last Reviewed 05/27/21 @ 14:22 by Vandana Schmid) Father CVD (cardiovascular disease) Mother CVD (cardiovascular disease) Family/Other FH: mental illness Surgical History: Surgical History (Last Reviewed 05/27/21 @ 14:22 by Vandana Schmid) H/O hernia repair H/O lithotripsy H/O tubal ligation History of carpal tunnel release History of cataract surgery Onset Date: ~2016 History of hysterectomy History of lumpectomy of left breast Onset Date: ~04/03/20 Social History: Social History (Last Reviewed 05/27/21 @ 14:22 by Vandana Schmid) Alcohol History: Alcohol intake: never Alcohol History Details: Alcohol intake frequency: does not drink Tobacco History: Patient Tobacco Use Status: Never used Tobacco Substance Use History: Use of substances other than those prescribed or required for medical reasons: No Advance Directives: Advance Directives: No Advance Directives Information Provided: No Home Medications and Allergies Home Medications Medication Instructions Recorded Confirmed Type buspirone 15 mg tablet 15 mg PO BID 07/31/20 05/27/21 History dronedarone 400 mg tablet (Multaq) 400 mg PO BID 07/31/20 05/27/21 History Allergies Allergy/AdvReac Type Severity Reaction Status Date / Time shellfish derived Allergy Intermediate SWELLING,N/ Verified 02/03/21 10:12 [SHELLFISH DERIVED] V Exam Vital signs: Vital Signs Temp 97.6 F 05/27/21 14:18 Pulse 78 05/27/21 14:18 Resp 14 05/27/21 14:18 BP 151/76 H 05/27/21 14:18 Pulse Ox 94 05/27/21 14:18 Intake & Output 05/26/21 05/27/21 05/27/21 18:59 06:59 18:59 Other: Weight 134.4 kg Weight in Grams 111370 Weight 134.4 kg Body Mass Index 56.0 - Constitutional Present: no acute distress - Routine HEENT Exam Head: Present: normal inspection - Routine Neck Exam Absent: lymphadenopathy - Routine Respiratory Exam Present: CTAB - Routine Cardiovascular Exam Cardiovascular: Present: RRR, S1, S2 - Routine Abdominal Exam Present: soft - Routine Extremities Exam Absent: calf tenderness Data - Labs CBC & Chem 7: 12/04/20 10:35 12/04/20 10:35 Labs: 07/11/20 15:33 Pegfilgrastim [Neulasta] 6 mg SUBCUT ONCE ONE 07/18/20 10:16 Complete Blood Count Man Dif Routine Comprehensive Met. Panel Routine 07/25/20 10:16 Complete Blood Count Auto Diff Routine Comprehensive Met. Panel Routine 07/31/20 00:00 0.9 % Sodium Chloride [Ns] 500 ml IVCONT 250 mls/hr Cyclophosphamide [Cytoxan] 1,000 mg Cyclophosphamide [Cytoxan] 100 mg 0.9 % Sodium Chloride 250 ml IV ONCE DOCEtaxeL [Taxotere] 80 mg DOCEtaxeL [Taxotere] 60 mg 0.9 % Sodium Chloride [Ns] 250 ml IV ONCE Fosaprepitant Dimeglumine [Emend] 150 mg 0.9 % Sodium Chloride [Ns] 145 ml IV ONCE Heparin Sodium,Porcine Flush 500 unit IVFLUSH ONCE dexAMETHasone sod phosphate/NS [Decadron] 12 mg in 50 ml IV ONCE ondansetron HCL/NS [Zofran] 16 mg in 50 ml IV ONCE 07/31/20 09:12 Complete Blood Count Auto Diff Routine Comprehensive Met. Panel Routine 07/31/20 14:36 Pegfilgrastim Onpro [Neulasta Onpro] 6 mg SUBCUT ONCE ONE 09/20/20 10:15 Complete Blood Count Auto Diff Routine Comprehensive Met. Panel Routine Laboratory Last Values WBC 10.0 X10*3/uL (4.8-10.8) 09/20/20 10:15 RBC 4.34 X10*6/uL (4.20-5.50) 09/20/20 10:15 Hgb 12.3 g/dl (12.0-16.0) 09/20/20 10:15 Hct 39.9 % (37-47) 09/20/20 10:15 MCV 91.9 fL (80-98) 09/20/20 10:15 MCH 28.3 pg (27.0-33.0) 09/20/20 10:15 MCHC 30.8 g/dl (31.0-35.0) L 09/20/20 10:15 RDW 16.7 % (11.0-16.0) H 09/20/20 10:15 Plt Count 321 X10*3/uL (160-400) D 09/20/20 10:15 MPV 9.0 fL (9.4-12.3) L 09/20/20 10:15 Immature Gran % (Auto) 0.3 % (0.0-0.4) 09/20/20 10:15 Neut % (Auto) 65.8 % (45-73) 09/20/20 10:15 Lymph % (Auto) 24.1 % (20-40) 09/20/20 10:15 [place] % (Auto) 7.4 % (2-11) 09/20/20 10:15 Eos % (Auto) 1.8 % (0-4) 09/20/20 10:15 Baso % (Auto) 0.6 % (0-2) 09/20/20 10:15 Lymph # (Auto) 2.4 X10*3/uL (1.2-4.9) 09/20/20 10:15 [place] # (Auto) 0.7 X10*3/uL (0.1-1.2) 09/20/20 10:15 Eos # (Auto) 0.2 X10*3/uL (0.0-0.4) 09/20/20 10:15 Baso # (Auto) 0.1 X10*3/uL (0.0-0.2) 09/20/20 10:15 Abs Immat Gran (auto) 0.03 X10*3/uL (0.00-0.03) 09/20/20 10:15 Absolute Neuts (auto) 6.6 X10*3/uL (2.0-8.3) 09/20/20 10:15 Absolute Nucleated RBC 0.000 X10*3/uL (0.0-0.012) 09/20/20 10:15 Nucleated RBC % (auto) 0.0 /100WBC (0.0-0.2) 09/20/20 10:15 Neutrophils % (Manual) 57 % (45-73) 07/18/20 10:16 Band Neutrophils % 8 % (3-5) H 07/18/20 10:16 Lymphocytes % (Manual) 8 % (20-40) L 07/18/20 10:16 Monocytes % (Manual) 12 % (2-11) H 07/18/20 10:16 Eosinophils % (Manual) 2 % (0-4) 07/18/20 10:16 Metamyelocytes % 9 % 07/18/20 10:16 Myelocytes % 4 % 07/18/20 10:16 Abs Neuts (Manual) 18.5 X10*3/uL (2.2-7.9) H 07/18/20 10:16 Lymphocytes # (Manual) 2.3 X10*3/uL (0.6-4.8) 07/18/20 10:16 Monocytes # (Manual) 3.4 X10*3/uL (0.0-1.2) H 07/18/20 10:16 Eosinophils # (Manual) 0.6 X10*3/UL (0.0-0.8) 07/18/20 10:16 Metamyelocytes # 2.6 X10*3/uL 07/18/20 10:16 Myelocytes # 1.1 X10*/uL 07/18/20 10:16 Nucleated RBCs 1 /100WBC (0-0) H 07/18/20 10:16 Toxic Granulation PRESENT 07/18/20 10:16 Dohle Bodies PRESENT 07/18/20 10:16 Platelet Estimate NORMAL (NORMAL) 07/18/20 10:16 Plt Morphology Comment NORMAL 07/18/20 10:16 RBC Morphology NOTED 07/18/20 10:16 Polychromasia 1+ 07/18/20 10:16 Hypochromasia 1+ 07/18/20 10:16 Stomatocytes 1+ 07/18/20 10:16 Sodium 141 mmol/L (135-145) 09/20/20 10:15 Potassium 4.4 mmol/l (3.3-5.1) 09/20/20 10:15 Chloride 103 mmol/L (96-108) 09/20/20 10:15 Carbon Dioxide 29 mmol/L (22-29) 09/20/20 10:15 Anion Gap 13 (12-20) 09/20/20 10:15 BUN 21 mg/dL (9-16) H 09/20/20 10:15 Creatinine 0.78 mg/dL (0.5-1.4) 09/20/20 10:15 Estim Creat Clear Calc 88.6 09/20/20 10:15 Estimated GFR > 60 09/20/20 10:15 Random Glucose 136 mg/dL (60-115) H D 09/20/20 10:15 Calcium 9.0 mg/dL (8.4-10.2) 09/20/20 10:15 Total Bilirubin 0.5 mg/dL (0.0-1.0) 09/20/20 10:15 AST 15 U/L (5-31) 09/20/20 10:15 ALT 21 U/L (0-31) 09/20/20 10:15 Alkaline Phosphatase 84 U/L (39-117) 09/20/20 10:15 Total Protein 7.3 g/dL (6.5-8.0) 09/20/20 10:15 Albumin 3.9 g/dL (3.5-5.0) 09/20/20 10:15 Progress Note: A/P (1) Breast cancer Status: Chronic Assessment and plan: 1. This is a 65-year-old woman with left breast invasive ductal carcinoma. She underwent lumpectomy/sentinel lymph node biopsy on 04/03/2020 which revealed invasive ductal carcinoma, grade 3, ER positive/ID negative, HER2 negative. Tumor size 2.3 cm, nuclear grade 3, LVI present, margins negative. Final pathological stage pT2 N0 (sn) (I +). Oncotype DX breast recurrence score, high at 35. Distant recurrence risk at 9 years is 27%. She completed 4 cycles of adjuvant chemotherapy with Taxotere and Cytoxan on 07/31/2020. She completed adjuvant radiation therapy at [facility]. Poor compliance and missed several days of treatment. She was prescribed letrozole 2.5 mg daily from November 2020. she did not tolerated secondary to diarrhea and stomach upset. She is being switched to Arimidex 1 mg p.o. daily from 03/19/2021. Bilateral diagnostic mammography has been scheduled. 2. Osteopenia based on bone density exam 04/29. T-score -2.3 in the femoral neck. She is on calcium and vitamin-D supplementation. 3. Family history of breast ovarian and other cancers. Patient?s genetic test result indicated that she was negative for a hereditary cancer gene mutation. 4. Dysuria. UA, reflects microscopic and culture has been submitted. Amoxicillin 250 mg p.o. b.i.d. for 1 week prescribed. 5. Vaginal symptoms. She is being referred to Gynecology. Follow-up in 3 months. - Time Spent With Patient Time Spent with Patient (in minutes): 20
[2021-05-27 15:06] LABS: Glucose Urine UA 250 MG/DL (NEG); Leukocyte Esterase Urine 2+ (NEG); Nitrite Urine NEG (NEG); UACC Culture Trigger YES; Urine Blood TRACE (NEG); Urine Ketones 5 MG/DL (NEG); Urine Protein NEG (NEG-TRACE)
[2021-05-27 15:07] LABS: Appearance Urine CLEAR; Color Urine YELLOW
[2021-05-27 15:15] LABS: Bacteria Urine 1+ /LPF; RBC Urine 0-2 /HPF (0); Squamous Epithelial Cell Urine 2+ /LPF
--- NOTE | 2021-07-15 13:47 | PM.HEMONCPN ---
Medical Summary - Medical Summary Date of Service: 07/15/21 Chief complaint: Body aches Medical Summary: Diagnosis: Left breast invasive ductal carcinoma March 2020 Diagnostic mammogram in March 2020 because of palpable left breast mass revealed irregular hypoechoic solid nodule in 2 o'clock position 10 cm from nipple measuring 1.7 x 2 x 1.4 cm which was read as suspicious. Biopsy 03/26/2020- A. Breast, left at 2 o'clock, biopsy: Invasive ductal carcinoma, MSBR grade 2. B. Lymph node, left axilla, biopsy: Reactive lymphoid tissue with mild sinus histiocytosis; no metastatic carcinoma seen. Estrogen receptor: Positive (strong; 95% of tumor cells) Progesterone receptor: Negative (focal staining in less than 1% of tumor cells) HER2: Negative (0; appropriate positive control) 04/03/2020 surgery-A. Breast, left, lumpectomy: - Invasive ductal carcinoma, MSBR grade 3, not seen at margins. Laterality Left; Tumor size 2.3 cm; Tumor focality Unifocal DCIS No definitive DCIS identified Histologic grade (MSBR) 3 Tubule formation score 3 Nuclear pleomorphism score 2-3 Mitotic rate score 3 LVI Present Margin, inv tumor Negative Closest margin 0.4 cm from posterior margin Lymph nodes Number examined 2 [place] nodes 2 Axillary nodes 0 Number involved 1 macromets 0 micromets 0 isolated tumor cells 1 Treatment effect Breast Not identified Lymph nodes Not identified TNM pT2 N0(sn)(i+) Oncotype DX breast recurrence score which was high at 35. Distant recurrence risk at 9 years is 27%. She was not a candidate for Adriamycin because of underlying congestive heart failure and multiple other comorbidities. She received 4 cycles of Taxotere and Cytoxan from 05/17/20 until 07/31/2020. [facility] for adjuvant radiation therapy. started letrozole in January 2021 but did not tolerate it secondary to diarrhea. Switched to Arimidex in March 2021. Interval History Interval history: Patient is here in follow-up. She is taking Arimidex daily and tolerating it better. She is taking oxycodone for diffuse body aches. She did not go for her mammogram yet this year. She denies any palpable lumps in her breasts, tenderness or nipple discharge. She saw Dr. Velazquez for her vaginal symptoms. She has been scheduled for ultrasound and biopsy. Review of Systems - Constitutional Reports as per HPI, Denies anorexia, Reports body aches, Denies weight loss - Cardiovascular Reports no additional cardiovascular complaints - Respiratory Reports no additional respiratory complaints - Gastrointestinal Reports no additional gastrointestinal complaints - Neurologic Denies headache(s) [facility] Medical History: Medical History (Last Reviewed 07/15/21 @ 14:17 by Vandana Schmid) Asthma Atrial fibrillation Back pain Bilateral pulmonary embolism Cataract CHF (congestive heart failure) COPD (chronic obstructive pulmonary disease) Depression Diabetes mellitus Hyperlipidemia Hypertension Invasive ductal carcinoma of left breast, stage 2 Kidney stone Sleep apnea Type 2 diabetes mellitus with hyperglycemia, with long-term current use of insulin Urinary incontinence Vaginal pruritus Family History: Family History (Last Reviewed 07/15/21 @ 14:17 by Vandana Schmid) Father CVD (cardiovascular disease) Mother CVD (cardiovascular disease) Family/Other FH: mental illness Mental health disorder Surgical History: Surgical History (Last Reviewed 07/15/21 @ 14:17 by Vandana Schmid) H/O hernia repair H/O lithotripsy H/O tubal ligation History of carpal tunnel release History of cataract surgery Onset Date: ~2016 History of lumpectomy of left breast Onset Date: ~04/03/20 Social History: Social History (Last Reviewed 07/15/21 @ 14:17 by Vandana Schmid) Living Situation History: Housing: Apartment Alcohol History: Alcohol intake: never Alcohol History Details: Alcohol intake frequency: does not drink Tobacco History: Patient Tobacco Use Status: Never used Tobacco Substance Use History: Use of substances other than those prescribed or required for medical reasons: No Advance Directives: Advance Directives: No Advance Directives Information Provided: No Occupation Assessmet: service: No Current occupational status: disabled Home Medications and Allergies Home Medications Medication Instructions Recorded Confirmed Type buspirone 15 mg tablet 15 mg PO BID 07/31/20 07/15/21 History Allergies Allergy/AdvReac Type Severity Reaction Status Date / Time shellfish derived Allergy Intermediate SWELLING,N/ Verified 07/15/21 14:17 [SHELLFISH DERIVED] V Exam Vital signs: Vital Signs Temp 97.6 F 05/27/21 14:18 Pulse 78 05/27/21 14:18 Resp 14 05/27/21 14:18 BP 151/76 H 05/27/21 14:18 Pulse Ox 94 05/27/21 14:18 Weight 134.4 kg Body Mass Index 56.0 - Constitutional Present: no acute distress, obese - Routine HEENT Exam Head: Present: normal inspection - Routine Neck Exam Absent: lymphadenopathy - Routine Respiratory Exam Present: CTAB - Routine Cardiovascular Exam Cardiovascular: Present: RRR, S1, S2 - Routine Abdominal Exam Present: soft - Routine Extremities Exam Absent: calf tenderness Data - Labs CBC & Chem 7: 07/15/21 14:03 07/15/21 14:03 Labs: 07/11/20 15:33 Pegfilgrastim [Neulasta] 6 mg SUBCUT ONCE ONE 07/18/20 10:16 Complete Blood Count Man Dif Routine Comprehensive Met. Panel Routine 07/25/20 10:16 Complete Blood Count Auto Diff Routine Comprehensive Met. Panel Routine 07/31/20 00:00 0.9 % Sodium Chloride [Ns] 500 ml IVCONT 250 mls/hr Cyclophosphamide [Cytoxan] 1,000 mg Cyclophosphamide [Cytoxan] 100 mg 0.9 % Sodium Chloride 250 ml IV ONCE DOCEtaxeL [Taxotere] 80 mg DOCEtaxeL [Taxotere] 60 mg 0.9 % Sodium Chloride [Ns] 250 ml IV ONCE Fosaprepitant Dimeglumine [Emend] 150 mg 0.9 % Sodium Chloride [Ns] 145 ml IV ONCE Heparin Sodium,Porcine Flush 500 unit IVFLUSH ONCE dexAMETHasone sod phosphate/NS [Decadron] 12 mg in 50 ml IV ONCE ondansetron HCL/NS [Zofran] 16 mg in 50 ml IV ONCE 07/31/20 09:12 Complete Blood Count Auto Diff Routine Comprehensive Met. Panel Routine 07/31/20 14:36 Pegfilgrastim Onpro [Neulasta Onpro] 6 mg SUBCUT ONCE ONE 09/20/20 10:15 Complete Blood Count Auto Diff Routine Comprehensive Met. Panel Routine Laboratory Last Values WBC 10.0 X10*3/uL (4.8-10.8) 09/20/20 10:15 RBC 4.34 X10*6/uL (4.20-5.50) 09/20/20 10:15 Hgb 12.3 g/dl (12.0-16.0) 09/20/20 10:15 Hct 39.9 % (37-47) 09/20/20 10:15 MCV 91.9 fL (80-98) 09/20/20 10:15 MCH 28.3 pg (27.0-33.0) 09/20/20 10:15 MCHC 30.8 g/dl (31.0-35.0) L 09/20/20 10:15 RDW 16.7 % (11.0-16.0) H 09/20/20 10:15 Plt Count 321 X10*3/uL (160-400) D 09/20/20 10:15 MPV 9.0 fL (9.4-12.3) L 09/20/20 10:15 Immature Gran % (Auto) 0.3 % (0.0-0.4) 09/20/20 10:15 Neut % (Auto) 65.8 % (45-73) 09/20/20 10:15 Lymph % (Auto) 24.1 % (20-40) 09/20/20 10:15 [place] % (Auto) 7.4 % (2-11) 09/20/20 10:15 Eos % (Auto) 1.8 % (0-4) 09/20/20 10:15 Baso % (Auto) 0.6 % (0-2) 09/20/20 10:15 Lymph # (Auto) 2.4 X10*3/uL (1.2-4.9) 09/20/20 10:15 [place] # (Auto) 0.7 X10*3/uL (0.1-1.2) 09/20/20 10:15 Eos # (Auto) 0.2 X10*3/uL (0.0-0.4) 09/20/20 10:15 Baso # (Auto) 0.1 X10*3/uL (0.0-0.2) 09/20/20 10:15 Abs Immat Gran (auto) 0.03 X10*3/uL (0.00-0.03) 09/20/20 10:15 Absolute Neuts (auto) 6.6 X10*3/uL (2.0-8.3) 09/20/20 10:15 Absolute Nucleated RBC 0.000 X10*3/uL (0.0-0.012) 09/20/20 10:15 Nucleated RBC % (auto) 0.0 /100WBC (0.0-0.2) 09/20/20 10:15 Neutrophils % (Manual) 57 % (45-73) 07/18/20 10:16 Band Neutrophils % 8 % (3-5) H 07/18/20 10:16 Lymphocytes % (Manual) 8 % (20-40) L 07/18/20 10:16 Monocytes % (Manual) 12 % (2-11) H 07/18/20 10:16 Eosinophils % (Manual) 2 % (0-4) 07/18/20 10:16 Metamyelocytes % 9 % 07/18/20 10:16 Myelocytes % 4 % 07/18/20 10:16 Abs Neuts (Manual) 18.5 X10*3/uL (2.2-7.9) H 07/18/20 10:16 Lymphocytes # (Manual) 2.3 X10*3/uL (0.6-4.8) 07/18/20 10:16 Monocytes # (Manual) 3.4 X10*3/uL (0.0-1.2) H 07/18/20 10:16 Eosinophils # (Manual) 0.6 X10*3/UL (0.0-0.8) 07/18/20 10:16 Metamyelocytes # 2.6 X10*3/uL 07/18/20 10:16 Myelocytes # 1.1 X10*/uL 07/18/20 10:16 Nucleated RBCs 1 /100WBC (0-0) H 07/18/20 10:16 Toxic Granulation PRESENT 07/18/20 10:16 Dohle Bodies PRESENT 07/18/20 10:16 Platelet Estimate NORMAL (NORMAL) 07/18/20 10:16 Plt Morphology Comment NORMAL 07/18/20 10:16 RBC Morphology NOTED 07/18/20 10:16 Polychromasia 1+ 07/18/20 10:16 Hypochromasia 1+ 07/18/20 10:16 Stomatocytes 1+ 07/18/20 10:16 Sodium 141 mmol/L (135-145) 09/20/20 10:15 Potassium 4.4 mmol/l (3.3-5.1) 09/20/20 10:15 Chloride 103 mmol/L (96-108) 09/20/20 10:15 Carbon Dioxide 29 mmol/L (22-29) 09/20/20 10:15 Anion Gap 13 (12-20) 09/20/20 10:15 BUN 21 mg/dL (9-16) H 09/20/20 10:15 Creatinine 0.78 mg/dL (0.5-1.4) 09/20/20 10:15 Estim Creat Clear Calc 88.6 09/20/20 10:15 Estimated GFR > 60 09/20/20 10:15 Random Glucose 136 mg/dL (60-115) H D 09/20/20 10:15 Calcium 9.0 mg/dL (8.4-10.2) 09/20/20 10:15 Total Bilirubin 0.5 mg/dL (0.0-1.0) 09/20/20 10:15 AST 15 U/L (5-31) 09/20/20 10:15 ALT 21 U/L (0-31) 09/20/20 10:15 Alkaline Phosphatase 84 U/L (39-117) 09/20/20 10:15 Total Protein 7.3 g/dL (6.5-8.0) 09/20/20 10:15 Albumin 3.9 g/dL (3.5-5.0) 09/20/20 10:15 Assessment and Plan Patient Active problem list reviewed?: Yes (1) Breast cancer Status: Chronic Assessment and plan: 1. This is a 65-year-old woman with left breast invasive ductal carcinoma. She underwent lumpectomy/sentinel lymph node biopsy on 04/03/2020 which revealed invasive ductal carcinoma, grade 3, ER positive/HI negative, HER2 negative. Tumor size 2.3 cm, nuclear grade 3, LVI present, margins negative. Final pathological stage pT2 N0 (sn) (I +). Oncotype DX breast recurrence score, high at 35. Distant recurrence risk at 9 years is 27%. She completed 4 cycles of adjuvant chemotherapy with Taxotere and Cytoxan on 07/31/2020. She completed adjuvant radiation therapy at [facility]. Poor compliance and missed several days of treatment. She was prescribed letrozole 2.5 mg daily from November 2020. she did not tolerate secondary to diarrhea and stomach upset. She is on Arimidex 1 mg p.o. daily from 03/19/2021. Bilateral diagnostic mammography was ordered in May but she has not gone for it. This has been rescheduled for this month. 2. Osteopenia based on bone density exam 04/29. T-score -2.3 in the femoral neck. She is on calcium and vitamin-D supplementation. 3. Family history of breast ovarian and other cancers. Patient?s genetic test result indicated that she was negative for a hereditary cancer gene mutation. Follow-up in 3 months. - Time Spent With Patient Time Spent with Patient (in minutes): 20
[2021-07-15 14:05] LABS: MANUAL DIFF FLAG NO
[2021-07-15 14:10] LABS: Basophils Absolute Auto 0.1 X10*3/uL (0.0-0.2); Basophils Percent Auto 0.5 % (0-2); Eosinophils Absolute Auto 0.2 X10*3/uL (0.0-0.4); Eosinophils Percent Auto 1.5 % (0-4); Hematocrit 36.8 % (37-47); Imm Gran Abs Auto 0.04 X10*3/uL (0.00-0.03); Imm Gran Pct Auto 0.3 % (0.0-0.4); Lymphocytes Absolute Auto 1.1 X10*3/uL (1.2-4.9); Lymphocytes Percent Auto 9.7 % (20-40); Mean Corpuscular HGB Conc 29.9 g/dl (31.0-35.0); Mean Corpuscular Hemoglobin 26.8 pg (27.0-33.0); Mean Corpuscular Volume 89.8 fL (80-98); Mean Platelet Volume 9.9 fL (9.4-12.3); Monocytes Absolute Auto 0.6 X10*3/uL (0.1-1.2); Monocytes Percent Auto 5.2 % (2-11); Neutrophils Absolute Auto 9.6 X10*3/uL (2.0-8.3); Neutrophils Percent Auto 82.8 % (45-73); Platelet Count 285 X10*3/uL (160-400); White Blood Count 11.6 X10*3/uL (4.8-10.8)
[2021-07-15 14:15] VITALS: BP 141/62; PULSE 77; RESP 14; TEMP 36.2; O2SAT 95; BMI 52.9
[2021-07-15 14:36] LABS: Alanine Aminotransferase 15 U/L (0-31); Albumin Level 3.8 g/dL (3.5-5.0); Alkaline Phosphatase 89 U/L (39-117); Anion Gap 16 (12-20); Aspartate Amino Transferase 12 U/L (5-31); Bilirubin Total 0.4 mg/dL (0.0-1.0); Blood Urea Nitrogen 26 mg/dL (9-16); Calcium 8.6 mg/dL (8.4-10.2); Carbon Dioxide 31 mmol/L (22-29); Chloride 102 mmol/L (96-108); Creatinine Clr Calc Pharmacy 76.1; Estimated Glomerular Filt Rate > 60; Glucose Random 205 mg/dL (60-115); Potassium 4.3 mmol/L (3.3-5.1); Sodium 145 mmol/L (135-145); Total Protein 6.9 g/dL (6.5-8.0)
--- NOTE | 2022-01-23 10:36 | HE.ONCSEC ---
CALLED PT DUE TO N/S YESTERDAY . PATIENT DID NOT ANSWER , I LEFT A DETAILED MESSAGE INFORMING PT TO CALL BACK TO RESCHEDULE . A N/S WILL BE SENT WELL .
--- NOTE | 2022-03-02 13:24 | HE.ONCSEC ---
PATIENT CALLED IN THE MORNING ASKING IF CAN DO A TELEVIST , I ASKED THE DR AND SHE STATED YES SHE CAN . AFTER THE CALL CHANGED HER MIND AND SAID NO , PT NEEDS TO COME IN BECAUSE SHE HASN'T SEEN HER IN A WHILE AND SHE NEEDS BLOOD WORK AND NEEDS TO BE SEEN FOR HER ANEMIA . I CALLED THE PATIENT AGAIN AND RESCHEDULE HER FOR ANOTHER DAY .
--- NOTE | 2022-03-25 12:23 | HO.HEMONCSCH ---
PATIENTS APPT WAS FOR TODAY BUT PT CALLED AND CANCELED . I RESCHEDULED PT FOR 04/07/22
--- NOTE | 2022-04-07 14:04 | MHC.HEMONCMA ---
Patient no showed 3 month f/u for left breast ca with provider.
--- NOTE | 2022-04-07 15:04 | HE.ONCSEC ---
CALLED PT DUE TO N/S , PATIENT STATED SHE KNEW THAT SHE HAD AN APPOINTMENT BUT HER TRANSPORTATION DID NOT COME TO PICK HER UP . I RESCHEDULED W/ PATIENT ON THE PHONE .
--- NOTE | 2022-04-14 11:19 | HE.ONCSEC ---
CALLED PATIENT FOR ROUTINE REMINDER CALL. PATIENT ANSWERED AND INFORMED ME THAT SHE WAS IN THE ER AND WILL CALL BACK TO RESCHEDULE WHEN SHE IS DISCHARGED .
== END 2022-04-29 | disposition home or self-care (01) ==
LOC: HO.ONC 14:00
PROVIDERS: PCP Internal Medicine; Visit Provider Internal Medicine
DX: C50.412 Malignant neoplasm of upper-outer quadrant of left female breast (principal); Z79.811 Long term (current) use of aromatase inhibitors; Z17.0 Estrogen receptor positive status [ER+]; M85.80 Other specified disorders of bone density and structure, unspecified site; Z79.899 Other long term (current) drug therapy; Z92.21 Personal history of antineoplastic chemotherapy; Z92.3 Personal history of irradiation
CPT/HCPCS: 36415; 80053; 81001; 85007; 85025; 85027; 87086; 96361; 96366; 96367; 96372; 96375; 96377; 96413; 96415; 96417; 99213; 99214; J1100; J2405; J2505; J9070; J9171

== ENCOUNTER 2021-07-16 13:34 | Outpatient (REF) | payer MEDICARE, SELFPAY ==
--- NOTE | ~2021-07-16 | US_ITS ---
EXAMINATION: US PELVIS CLINICAL INFORMATION: Postmenopausal bleeding COMPARISON: None TECHNIQUE: Ultrasound of the pelvis is performed using both transabdominal and transvaginal transducers along with Doppler. Transvaginal imaging is performed due to inadequate visualization transabdominally. FINDINGS: The uterus is not well visualized. The endometrium is not seen. There is question of complex nabothian cysts in the cervix. The ovaries are not seen. There is no fluid in the pelvis. US/US pelvic and transvaginal IMPRESSION: Nondiagnostic exam. Probable complex nabothian cysts in the cervix.
== END 2021-07-16 13:35 | disposition home or self-care (01) ==
LOC: HO.US 13:34
PROVIDERS: PCP Internal Medicine; Visit Provider Obstetrics & Gynecology
DX: N95.0 Postmenopausal bleeding (principal)
CPT/HCPCS: 76830; 76856

== ENCOUNTER 2021-07-24 14:11 | Outpatient (REF) | payer MEDICARE, SELFPAY | END 2021-07-24 14:12 | disposition home or self-care (01) | LOC: HO.LAB 14:11 | PROVIDERS: PCP Internal Medicine; Visit Provider Obstetrics & Gynecology | DX: N95.0 Postmenopausal bleeding (principal) | CPT/HCPCS: 58100; 88305; 99212 ==

== ENCOUNTER → 2021-08-11 14:58 | Outpatient (BNVA) | payer MEDICARE, SELFPAY | PROVIDERS: PCP Internal Medicine; Visit Provider Obstetrics & Gynecology | DX: N95.0 Postmenopausal bleeding (principal) | CPT/HCPCS: 99212 ==

== ENCOUNTER 2021-08-27 14:07 | Outpatient (REF) | payer MEDICARE, SELFPAY ==
--- NOTE | ~2021-08-27 | MM_ITS ---
EXAMINATION: MM DIAGNOSTIC DIGITAL BREAST TOMOSYNTHESIS, BILATERAL CLINICAL INFORMATION: Status post lumpectomy 04/03/2020 for invasive ductal cancer left breast. Initial imaging left breast since surgery and radiation. COMPARISON: Mammography: 04/03/2020, 03/26/2020, 03/18/2020, 07/16/2016 TECHNIQUE: Digital breast tomosynthesis is performed in both the craniocaudal and mediolateral oblique views along with computer-aided detection (CAD). Synthesized 2D images are generated from the tomosynthesis. Additional views are obtained: Right CC, right MLO, left cleavage, left MLO, magnification left CC, magnification left ML x2. FINDINGS: There are scattered areas of fibroglandular density (ACR BI-RADS breast composition Category b). There are post therapy changes on the left with scarring, mild coarsening of the stromal markings, and smooth skin thickening. The right breast is unremarkable. There is no interval mass or architectural abnormality. Neither breast shows abnormal calcifications. The axilla are unremarkable. Results are provided to the patient at time of visit by the technologist. MM/MM tomosynthesis diagnostic BI IMPRESSION: No mammographic evidence of malignancy. Post therapy changes left breast. ASSESSMENT: BI-RADS 2: Benign RECOMMENDATION: Annual bilateral mammography. This patient's information was entered into a reminder system with a target due date for their next mammogram.
== END 2021-08-27 14:08 | disposition home or self-care (01) ==
LOC: HO.MAMMO 14:07
PROVIDERS: PCP Internal Medicine; Visit Provider Internal Medicine
DX: Z85.3 Personal history of malignant neoplasm of breast (principal); Z98.890 Other specified postprocedural states
CPT/HCPCS: 77062; 77066

== ENCOUNTER → 2021-10-23 13:49 | Outpatient (BNVA) | payer MEDICARE, SELFPAY | PROVIDERS: Visit Provider Obstetrics & Gynecology | DX: N95.0 Postmenopausal bleeding (principal) | CPT/HCPCS: Q3014 ==

== ENCOUNTER 2021-11-15 10:59 | Emergency (ER) | payer MEDICARE, SELFPAY ==
--- NOTE | ~2021-11-15 | XR_ITS ---
EXAMINATION: XR CHEST CLINICAL INFORMATION: Difficulty breathing COMPARISON: May 21, 2020 TECHNIQUE: 2 views of the chest were obtained. FINDINGS: Film is somewhat rotated limiting evaluation of mediastinum. There is prominence of the right hilar and suprahilar region and region of disease dislocation cannot be excluded on this study. The cardiopericardial silhouette is enlarged. No evidence of pulmonary edema. No pneumothorax or significant pleural effusion. There appears to be some ill-defined density at the left lung base which may be related to atelectasis. XR/XR chest 2V IMPRESSION: Cardiomegaly without pulmonary edema. Question right hilar and suprahilar disease.
--- NOTE | ~2021-11-15 | CT_ITS ---
EXAMINATION: CT ANGIOGRAM OF THE CHEST WITH AND WITHOUT CONTRAST (CT PULMONARY ANGIOGRAM FOR PE) CLINICAL INFORMATION: Reason for Exam pt c sob/hx of pe on Xarelto +covid COMPARISON: CTA of the chest done on 04/30/2018. TECHNIQUE: Prior to contrast administration, noncontrast localization images were obtained. Subsequently, multidetector volumetric imaging was performed from the thoracic inlet to below the diaphragms following the administration of 65 mL Omnipaque 350 intravenous contrast. No contrast reaction reported Sagittal, coronal, and MIP oblique sagittal reformatted images were obtained on the CT workstation, uploaded to PACS, and reviewed. This CT examination was performed using dose optimization techniques as appropriate, variously including the following: *Automated exposure control *Adjustment of mA and/or kV according to patient size (this includes techniques or standardized protocols for targeted exams where dose is matched to indication/reason for exam; i.e. extremities or head) *Use of iterative reconstruction technique Total exam dose-length product 1066 mGy-cm FINDINGS: Extensive motion related artifacts are noted. QUALITY OF STUDY/CONTRAST BOLUS: Suboptimal. PULMONARY ARTERIES: Previously documented central pulmonary thromboembolism shows interval resolution. Evaluation of the segmental as well as subsegmental pulmonary arterial tree is technically limited. THORACIC AORTA: No aneurysm or dissection. LUNG: Evaluation is technically limited due to significant motion related artifacts. No gross airspace disease. PLEURA: No pleural effusion or pneumothorax. MEDIASTINUM: Normal heart size. No pericardial effusion. No hilar or mediastinal lymphadenopathy. No evidence of septal bowing or right heart strain. CHEST WALL/AXILLA: No axillary or internal mammary lymphadenopathy. OSSEOUS STRUCTURES: No acute or suspicious osseous abnormality. UPPER ABDOMEN: Unremarkable. No reflux of contrast into the hepatic veins to suggest elevated right heart pressures. CT/CT angio chest PE protocol IMPRESSION: 1. Technically limited study due to extensive motion related artifacts as well as suboptimal opacification of the entire pulmonary arterial tree. 2. However, previously documented central pulmonary thromboembolism shows interval resolution since the prior study dated 04/30/2018. Segmental as well as subsegmental pulmonary arterial tree evaluation is suboptimal. 3. No gross evidence of any lung parenchymal disease although evaluation is significantly limited due to motion related artifacts. VTE:
[2021-11-15 11:01] VITALS: BP 148/74; PULSE 83; RESP 18; TEMP 37; O2SAT 94; BMI 56.2
--- NOTE | 2021-11-15 12:44 | ECG_ITS ---
Test Reason : SOB Blood Pressure : / mmHG Vent. Rate : 092 BPM Atrial Rate : 092 BPM P-R Int : 138 ms QRS Dur : 076 ms QT Int : 392 ms P-R-T Axes : 027 010 073 degrees QTc Int : 484 ms Sinus rhythm with Premature supraventricular complexes Otherwise normal ECG When compared with ECG of 21-MAY-2020 15:23, T wave inversion no longer evident in Lateral leads Referred By: Yareli Newton Electronically Signed By:FIFI RILEY
--- NOTE | 2021-11-15 12:45 | ED_ITS ---
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 Reports that she is currently on 80 mg of Lasix daily although she is not taking as prescribed. She reports that she took her 80 mg of Lasix yesterday and today although before that she missed approximately 3 or more days. She reports associated chills. She is vaccinated to COVID. She denies recent travel. She denies sick contacts. She denies any measured fevers, dizziness, headaches, neck pain/stiffness, trouble swallowing, sore throat, loss of taste or smell, chest pain, palpitations, nausea/vomiting/diarrhea or constipation, dysuria, hematuria, calf tenderness, focal weakness, falls or any other symptoms complaints or concerns at this time. MD elicited complaint: shortness of breath, cough and pain with inspiration Pertinent past history: COPD, congestive heart failure, diabetes and PE Onset (ago): day(s) (2) Context: medication noncompliance Timing: constant and progressively worsening Severity: moderate Exacerbating factors: lying flat, exertion, movement, coughing, inspiration, talking and deep breaths Relieving factors: nothing Known history of: COPD, asthma, congestive heart failure, diabetes and PE Associated symptoms: pain with inspiration, cough, sputum production and other (Lower extremity edema) Treatment prior to arrival: none Related Data Home oxygen amount: none Home Medications Medication Instructions Recorded Confirmed buspirone 15 mg tablet 15 mg PO BID 07/31/20 10/28/21 Previous Rx's Medication Instructions Recorded cholecalciferol (vitamin D3) 25 25 mcg PO DAILY 90 Days #90 cap 02/11/21 mcg (1,000 unit) capsule (Vitamin D3) furosemide 80 mg tablet 80 mg PO DAILY 90 Days #90 tab 04/16/21 underpads 30 X 36 (Certainty #150 ea 04/28/21 Underpads) blood-glucose meter (FreeStyle #1 ea 05/15/21 Lite Meter) fluticasone propionate 50 1 spray INTRANASAL DAILY 30 Days 06/03/21 mcg/actuation nasal #16 g spray,suspension (Flonase Allergy Relief) gabapentin 800 mg tablet 800 mg PO TID 30 Days #90 tab 06/03/21 blood sugar diagnostic (FreeStyle #100 ea 06/12/21 Lite Strips) fluconazole 150 mg tablet 150 mg PO Q3D #2 tab 06/23/21 (Diflucan) clotrimazole-betamethasone 1 1 appl TOPICAL BID 5 Days #45 g 07/01/21 %-0.05 % topical cream terconazole 0.8 % vaginal cream 1 appful VAGINAL BEDTIME 3 Days 07/01/21 #20 g anastrozole 1 mg tablet (Arimidex) 1 mg PO DAILY #90 tab 07/02/21 alcohol swabs (Alcohol Prep Pads) 1 pad TOPICAL TID 90 Days #300 ea 07/13/21 insulin aspart U-100 100 unit/mL 20 unit (0.2 mL) SUBCUT TID 30 07/24/21 (3 mL) subcutaneous pen ( #18 ml Flexpen U-100 Insulin aspart) mineral oil-hydrophil petrolat 1 appl TOPICAL QID #200 g 07/25/21 topical ointment (Aquaphor) albuterol sulfate 90 mcg/actuation 1 inh INHALATION Q4H PRN 30 Days 08/22/21 aerosol inhaler #6.7 g acetaminophen 500 mg tablet 500 mg PO Q6H PRN 30 Days #180 10/15/21 tab cetirizine 10 mg tablet 10 mg PO DAILY PRN 30 Days #30 10/15/21 tab lisinopril 10 mg tablet 10 mg PO DAILY 90 Days #90 tab 10/15/21 metformin 500 mg tablet,extended 500 mg PO BID 90 Days #180 tab 10/15/21 release 24 hr metoprolol succinate 25 mg 25 mg PO DAILY 90 Days #90 tab 10/15/21 tablet,extended release 24 hr mirtazapine 30 mg tablet 30 mg PO BEDTIME 90 Days #90 tab 10/15/21 montelukast 10 mg tablet 10 mg PO DAILY 90 Days #90 tab 10/15/21 oxycodone 5 mg tablet 5 mg PO Q8H PRN 30 Days #90 tab 10/15/21 pantoprazole 40 mg tablet,delayed 40 mg PO DAILY 90 Days #90 tab 10/15/21 release pravastatin 40 mg tablet 40 mg PO BEDTIME 90 Days #90 tab 10/15/21 rivaroxaban 20 mg tablet (Xarelto) 20 mg PO DAILY 90 Days #90 tab 10/15/21 nebulizers (AeroEclipse II #50 ea 10/20/21 Nebulizer) lidocaine 5 % topical patch 1 patch TOPICAL DAILY PRN 30 Days 10/28/21 #30 ea calcium carbonate 300 mg (750 mg) 1 tab PO BID #60 tab 11/13/21 chewable tablet (Calcium Antacid) dronedarone 400 mg tablet (Multaq) 400 mg PO BID 90 Days #180 tab 11/13/21 fluticasone furoate 100 1 inh INHALATION DAILY 28 Days 11/13/21 #28 mcg-vilanterol 25 mcg/dose ea inhalation powder (Breo Ellipta) insulin degludec 100 unit/mL (3 25 unit (0.25 mL) SUBCUT BEDTIME 11/13/21 mL) subcutaneous pen (Tresiba 30 Days #7.5 ml FlexTouch U-100 insulin) pen needle, diabetic 32 gauge x 1 ea MISCELLANEOUS QID #100 ea 11/13/21 5/32 (Unifine Pentips) albuterol sulfate 0.63 mg/3 mL 0.63 mg (3 mL) INHALATION QID PRN 11/15/21 solution for nebulization #75 ml albuterol sulfate 90 mcg/actuation 1 inh INHALATION QID PRN #8.5 g 11/15/21 aerosol inhaler azithromycin 250 mg tablet See Rx Instructions .ROUTE 11/15/21 .COMPLEX #6 tab guaifenesin 200 mg/5 mL oral 200 mg (5 mL) PO Q4H PRN #118 ml 11/15/21 liquid nebulizers (AeroEclipse II #1 ea 11/15/21 Nebulizer) prednisone 20 mg tablet 40 mg PO DAILY 5 Days #10 tab 11/15/21 Allergies Allergy/AdvReac Type Severity Reaction Status Date / Time shellfish derived Allergy Intermediate SWELLING,N/ Verified 10/28/21 13:44 [SHELLFISH V DERIVED] Review of Systems Verdana 4l Review of Systems: Verdana 4d Verdana 4d Constitutional : No Weight loss, No Fever, No Chills, No Night Sweats, No Fatigue, No Malaise ENT/Mouth : No Hearing loss, No Ear Pain, No Nasal Congestion, No Sinus Pain, No Hoarseness, No sore throat, No Rhinorrhea, No Swallowing DifficultyDifficulty Eyes: No Eye Pain, No Swelling, No Redness, No Foreign Body, No Discharge, No Vision Changes Cardiovascular : Positive shortness of breath/dyspnea as a ruiz/orthopnea/lower extremity edema, No Chest Pain, No Palpitations Respiratory : Positive cough with yellow-colored sputum production with dyspnea, No Wheezing, No Smoke Exposure Gastrointestinal : No Nausea, No Vomiting, No Diarrhea, No Constipation, No abdominal Pain, No Hematochezia, No Melena Genitourinary : no irregular bleeding, No Dysuria, No Urinary Frequency, No Hematuria, No Urinary Incontinence, No Urgency, No Flank Pain, No Urinary Flow Changes, No Hesitancy Musculoskeletal : No joint pain, No Myalgias, No Joint Swelling Skin : No Skin Lesions, No rash Neuro : No Weakness, No Numbness, No Paresthesias, No Loss of Consciousness, No Dizziness, No Headache Psych : No Anxiety/Panic, No Depression, No SI/HI/AH/VH, No Social Issues, Heme/Lymph: No Bruising, No Bleeding,No Lymphadenopathy Endocrine : No Polyuria, No Polydipsia, No Temperature Intolerance Yes all other systems are reviewed and are negative [facility] Past Medical History Attestation statement: The following information was validated with the patient. Medical History (Updated 11/15/21 @ 17:21 by AFSHAN Arrieta) Asthma Atrial fibrillation Back pain Bilateral pulmonary embolism Cataract CHF (congestive heart failure) COPD (chronic obstructive pulmonary disease) Depression Diabetes mellitus Hyperlipidemia Hypertension Invasive ductal carcinoma of left breast, stage 2 Kidney stone Sleep apnea Type 2 diabetes mellitus with hyperglycemia, with long-term current use of insulin Urinary incontinence Vaginal pruritus Surgical History H/O hernia repair H/O lithotripsy H/O tubal ligation History of carpal tunnel release History of cataract surgery (~2017) History of lumpectomy of left breast (~04/03/20) Family History Family History Father CVD (cardiovascular disease) Mother CVD (cardiovascular disease) Family/Other FH: mental illness Mental health disorder Social History Social History Housing: Apartment Alcohol intake: never Patient Tobacco Use Status: Never used Tobacco e-Cigarette/Vaping Use: Never Used Second Hand Smoke Exposure: No Advance Directives: No Advance Directives Information Provided: No service: No Current occupational status: disabled Physical Exam Verdana 4l Vital Signs: Verdana 4d Verdana 4d Vital Signs: Verdana 4d Verdana 4Bd Last Vital Signs Verdana 4d Educational Therapy Teacher New 4d Educational Therapy Teacher New 4d Temp 98.6 F 11/15/21 11:01 Educational Therapy Teacher New 4d Pulse 90 11/15/21 16:39 Educational Therapy Teacher New 4d Resp 20 11/15/21 16:39 BP 150/88 H 11/15/21 16:39 Pulse Ox 97 11/15/21 16:39 BMI result Body Mass Index 56.2 vital signs have been reviewed as normal and appeared to be correct. Blood pressure 148/74. Heart rate normal. Respiration rate normal. Temperature normal. Oxygen saturation normal. Appearance: Alert. Oriented X3. No acute distress. Head: Normal external exam. Normocephalic. Atraumatic. Eyes: PERRLA. EOMI. Conjunctiva and sclera normal. Eyelids normal. ENT: Pharynx normal. Uvula midline. Moist mucous membranes. No trismus noted. No drooling noted. No muffled voice noted. Neck: Normal inspection. Neck supple. FROM. No adenopathy. Thyroid Normal. No meningeal signs. No neck mass noted. CVS: Normal heart rate and rhythm. Heart sound normal. Pulses normal throughout. No murmurs/rales/gallops. Respiratory: Decreased breath sounds. No respiratory distress. Painless inspiration. No wheezes/rales/rhonchi noted. Chest nontender. No accessory muscle usage noted or decreased air movement noted. Abdomen: Soft and nontender. Bowel sounds normal in all 4 quadrants. No distention noted. No organomegaly noted. No visible injury noted. Back: No CVA tenderness. Full range of motion noted. No rashes/lesion/induration/fluctuance or signs of infection noted. Skin: Skin warm and dry. Normal skin color. Normal skin turgor. No rashes/lesions/lacerations noted. Extremities: +2 lower extremity pitting edema noted. No calf tenderness is noted. Extremities exhibit normal range of motion. Extremities nontender. Neuro: Oriented X 3. No motor deficit. No sensory deficit. Reflexes normal. Normal steady gait. No focal neuro deficits noted. Vascular: + radial pulses/+ 2 distal pedal pulses/+2 dorsalis pedis b/l. Normal cap refill. No cyanosis noted to upper extremity nails and lower extremity toes nails. 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 Reports that she is currently on 80 mg of Lasix daily although she is not taking as prescribed. She reports that she took her 80 mg of Lasix yesterday and today although before that she missed approximately 3 or more days. She reports associated chills. She is vaccinated to COVID. Concern for CHF exacerbation vs pneumonia vs COVID vs COPD exacerbation Plan: Labs, chest x-ray, COVID swab, EKG. Provide an hour long breathing treatment, 125 mg of Solu-Medrol then re-evaluate. Reevaluation(s) Reevaluation #1: - labs return and patient with a mild baseline anemia similar compared to prior. Sodium 146. Carbon dioxide 34. Random glucose 218. First troponin 32.2. Second troponin 3 hours after the 1st was 31.5- delta. BNP 129. Otherwise all other labs are within normal limits. UA within normal limits no evidence of UTI. Patient is positive for COVID. - chest x-ray revealed cardiomegaly without pulmonary edema. - CTA of chest for PE revealed chronic changes and her central pulmonary thromboembolism shows interval resolution since the prior study on 04/30/2018 otherwise no other acute processes they were able to see at this time. - patient also reports she is taking her blood thinners as prescribed therefore not concerned at this time for PE. - therefore will DC home with antibiotics and symptomatic treatment along with steroids and I also gave her the monoclonal antibody therapy form I emailed. I discussed this with the patient and her daughter and they are agreeable to this. Along with instructions to follow up with primary care provider and to self isolate per CDC guidelines and to return if any new or worsening symptoms. Patient and family understand and agree this plan. Time: 17:33 MDM - SOB/Dyspnea Medical Records Attestation: I reviewed the patient's medical records. Lab Data Attestation: I reviewed the patient's lab results. Result diagrams: 11/15/21 13:05 11/15/21 13:05 Labs: Lab Results 11/15/21 11/15/21 11/15/21 Range/Units 12:30 13:05 13:05 WBC 10.5 (4.8-10.8) X10*3/uL RBC 4.12 L (4.20-5.50) X10*6/uL Hgb 10.4 L (12.0-16.0) g/dl Hct 35.9 L (37.0-47.0) % MCV 87.1 (80.0-98.0) fL MCH 25.2 L (27.0-33.0) pg MCHC 29.0 L (31.0-35.0) g/dl RDW 17.8 H (11.0-16.0) % Plt Count 348 (160-400) X10*3/uL MPV 9.7 (9.4-12.3) fL Immature Gran % (Auto) 0.2 (0.0-0.4) % Neut % (Auto) 67.6 (45-73) % Lymph % (Auto) 19.4 L (20-40) % [place] % (Auto) 9.7 (2-11) % Eos % (Auto) 2.4 (0-4) % Baso % (Auto) 0.7 (0-2) % Lymph # (Auto) 2.0 (1.2-4.9) X10*3/uL [place] # (Auto) 1.0 (0.1-1.2) X10*3/uL Eos # (Auto) 0.3 (0.0-0.4) X10*3/uL Baso # (Auto) 0.1 (0.0-0.2) X10*3/uL Abs Immat Gran (auto) 0.02 (0.00-0.03) X10*3/uL Absolute Neuts (auto) 7.1 (2.0-8.3) x10*3/uL Absolute Nucleated RBC 0.020 H (0.0-0.012) X10*3/uL Nucleated RBC % (auto) 0.2 (0.0-0.2) /100WBC PT 17.7 H (9.9-13.0) SEC INR 1.5 H (0.9-1.1) Sodium (135-145) mmol/L Potassium (3.3-5.1) mmol/L Chloride (96-108) mmol/L Carbon Dioxide (22-29) mmol/L Anion Gap (12-20) BUN (9-16) mg/dL Creatinine (0.5-1.4) mg/dL Estim Creat Clear Calc Estimated GFR Random Glucose (60-115) mg/dL Calcium (8.4-10.2) mg/dL Magnesium (1.6-2.6) mg/dL Total Bilirubin (0.0-1.0) mg/dL AST (5-31) U/L ALT (0-31) U/L Alkaline Phosphatase (39-117) U/L Troponin I High Sens (<3.5-17.0) ng/L B-Natriuretic Peptide (<100) pg/mL Total Protein (6.5-8.0) g/dL Albumin (3.5-5.0) g/dL Urine Color Urine Appearance Urine pH (5.0-8.0) Ur Specific [place] (1.005-1.025) Urine Protein (NEG-TRACE) MG/DL Urine Glucose (UA) (NEG) MG/DL Urine Ketones (NEG) MG/DL Urine Blood (NEG) Urine Nitrite (NEG) Ur Leukocyte Esterase (NEG) COVID-19 (VICKEY) Positive A (Negative) COVID-19 Clin Com See Note 02/03/0111/15/21 11/15/21 Range/Units 13:05 13:05 13:06 WBC (4.8-10.8) X10*3/uL RBC (4.20-5.50) X10*6/uL Hgb (12.0-16.0) g/dl Hct (37.0-47.0) % MCV (80.0-98.0) fL MCH (27.0-33.0) pg MCHC (31.0-35.0) g/dl RDW (11.0-16.0) % Plt Count (160-400) X10*3/uL MPV (9.4-12.3) fL Immature Gran % (Auto) (0.0-0.4) % Neut % (Auto) (45-73) % Lymph % (Auto) (20-40) % [place] % (Auto) (2-11) % Eos % (Auto) (0-4) % Baso % (Auto) (0-2) % Lymph # (Auto) (1.2-4.9) X10*3/uL [place] # (Auto) (0.1-1.2) X10*3/uL Eos # (Auto) (0.0-0.4) X10*3/uL Baso # (Auto) (0.0-0.2) X10*3/uL Abs Immat Gran (auto) (0.00-0.03) X10*3/uL Absolute Neuts (auto) (2.0-8.3) x10*3/uL Absolute Nucleated RBC (0.0-0.012) X10*3/uL Nucleated RBC % (auto) (0.0-0.2) /100WBC PT (9.9-13.0) SEC INR (0.9-1.1) Sodium 146 H (135-145) mmol/L Potassium 3.8 (3.3-5.1) mmol/L Chloride 98 (96-108) mmol/L Carbon Dioxide 34 H (22-29) mmol/L Anion Gap 18 (12-20) BUN 9 (9-16) mg/dL Creatinine 0.81 (0.5-1.4) mg/dL Estim Creat Clear Calc 88.0 Estimated GFR > 60 Random Glucose 218 H (60-115) mg/dL Calcium 9.4 D (8.4-10.2) mg/dL Magnesium 1.6 (1.6-2.6) mg/dL Total Bilirubin 0.5 (0.0-1.0) mg/dL AST 17 D (5-31) U/L ALT 25 (0-31) U/L Alkaline Phosphatase 99 (39-117) U/L Troponin I High Sens 32.2 H (<3.5-17.0) ng/L B-Natriuretic Peptide 129 H (<100) pg/mL Total Protein 7.9 (6.5-8.0) g/dL Albumin 4.1 (3.5-5.0) g/dL Urine Color STRAW Urine Appearance CLEAR Urine pH 5.5 (5.0-8.0) Ur Specific [place] <= 1.005 (1.005-1.025) Urine Protein NEG (NEG-TRACE) MG/DL Urine Glucose (UA) NEG (NEG) MG/DL Urine Ketones NEG (NEG) MG/DL Urine Blood NEG (NEG) Urine Nitrite NEG (NEG) Ur Leukocyte Esterase NEG (NEG) COVID-19 (VICKEY) (Negative) COVID-19 Clin Com 11/15/21 Range/Units 16:19 WBC (4.8-10.8) X10*3/uL RBC (4.20-5.50) X10*6/uL Hgb (12.0-16.0) g/dl Hct (37.0-47.0) % MCV (80.0-98.0) fL MCH (27.0-33.0) pg MCHC (31.0-35.0) g/dl RDW (11.0-16.0) % Plt Count (160-400) X10*3/uL MPV (9.4-12.3) fL Immature Gran % (Auto) (0.0-0.4) % Neut % (Auto) (45-73) % Lymph % (Auto) (20-40) % [place] % (Auto) (2-11) % Eos % (Auto) (0-4) % Baso % (Auto) (0-2) % Lymph # (Auto) (1.2-4.9) X10*3/uL [place] # (Auto) (0.1-1.2) X10*3/uL Eos # (Auto) (0.0-0.4) X10*3/uL Baso # (Auto) (0.0-0.2) X10*3/uL Abs Immat Gran (auto) (0.00-0.03) X10*3/uL Absolute Neuts (auto) (2.0-8.3) x10*3/uL Absolute Nucleated RBC (0.0-0.012) X10*3/uL Nucleated RBC % (auto) (0.0-0.2) /100WBC PT (9.9-13.0) SEC INR (0.9-1.1) Sodium (135-145) mmol/L Potassium (3.3-5.1) mmol/L Chloride (96-108) mmol/L Carbon Dioxide (22-29) mmol/L Anion Gap (12-20) BUN (9-16) mg/dL Creatinine (0.5-1.4) mg/dL Estim Creat Clear Calc Estimated GFR Random Glucose (60-115) mg/dL Calcium (8.4-10.2) mg/dL Magnesium (1.6-2.6) mg/dL Total Bilirubin (0.0-1.0) mg/dL AST (5-31) U/L ALT (0-31) U/L Alkaline Phosphatase (39-117) U/L Troponin I High Sens 31.5 H (<3.5-17.0) ng/L B-Natriuretic Peptide (<100) pg/mL Total Protein (6.5-8.0) g/dL Albumin (3.5-5.0) g/dL Urine Color Urine Appearance Urine pH (5.0-8.0) Ur Specific [place] (1.005-1.025) Urine Protein (NEG-TRACE) MG/DL Urine Glucose (UA) (NEG) MG/DL Urine Ketones (NEG) MG/DL Urine Blood (NEG) Urine Nitrite (NEG) Ur Leukocyte Esterase (NEG) COVID-19 (VICKEY) (Negative) COVID-19 Clin Com Imaging Data Chest x-ray: Attestation: I personally reviewed and interpreted this imaging study as follows: Radiologist's impression: FINDINGS: Film is somewhat rotated limiting evaluation of mediastinum. There is prominence of the right hilar and suprahilar region and region of disease dislocation cannot be excluded on this study. The cardiopericardial silhouette is enlarged. No evidence of pulmonary edema. No pneumothorax or significant pleural effusion. There appears to be some ill-defined density at the left lung base which may be related to atelectasis. XR/XR chest 2V IMPRESSION: Cardiomegaly without pulmonary edema. ? Question right hilar and suprahilar disease. CTA of chest for PE: Attestation: I personally reviewed and interpreted this imaging study as follows: Radiologist's impression: FINDINGS: Extensive motion related artifacts are noted. QUALITY OF STUDY/CONTRAST BOLUS: Suboptimal. PULMONARY ARTERIES: Previously documented central pulmonary thromboembolism shows interval resolution. Evaluation of the segmental as well as subsegmental pulmonary arterial tree is technically limited. THORACIC AORTA: No aneurysm or dissection. LUNG: Evaluation is technically limited due to significant motion related artifacts. No gross airspace disease. PLEURA: No pleural effusion or pneumothorax. MEDIASTINUM: Normal heart size.? No pericardial effusion.? No hilar or mediastinal lymphadenopathy.? No evidence of septal bowing or right heart strain. CHEST WALL/AXILLA: No axillary or internal mammary lymphadenopathy. OSSEOUS STRUCTURES: No acute or suspicious osseous abnormality.? UPPER ABDOMEN: Unremarkable.? No reflux of contrast into the hepatic veins to suggest elevated right heart pressures. CT/CT angio chest PE protocol IMPRESSION: ? 1. Technically limited study due to extensive motion related artifacts as well as suboptimal opacification of the entire pulmonary arterial tree. 2. However, previously documented central pulmonary thromboembolism shows interval resolution since the prior study dated 04/30/2018. Segmental as well as subsegmental pulmonary arterial tree evaluation is suboptimal. 3. No gross evidence of any lung parenchymal disease although evaluation is significantly limited due to motion related artifacts. ? VTE: ECG Data Attestation: I personally reviewed and interpreted this ECG as follows: ECG interpretation date: 11/15/21 ECG interpretation time: : Interpretation: Sinus rhythm with premature supraventricular complexes with ventricular rate of 92 with a normal AR interval normal QRS duration normal QT/QTC interval. No a cute ischemic change noted. Similar compared to prior EKG 05/21/2020 Critical Care Time Critical Care Time Critical Care Time: Yes Total Critical Care Time: 60 Attestation: I personally attest to this time spent taking care of the patient Discharge Plan Discharge Clinical Impression: COVID-19, Cardiomegaly Patient Disposition: Still a Patient Instructions: COVID-19 (Coronavirus Disease 2019) (ED) Additional Instructions: I handed you a paper for a [facility] referral form this is to receive monoclonal antibody therapy I already stat an e-mail to the [facility]. You will receive a call within the next few days. Return if any new or worsening symptoms continue taking her previously prescribed medications as previously prescribed. I a.m. prescribing you prednisone and this could make her blood glucose levels go higher therefore you need to adjust her insulin if needed. Le entregu? un documento para un formulario de referencia de [place] esto es para recibir terapia de anticuerpos monoclonales Ya he enviado un correo shelly ctr?mario a la cl?naa de infusi?n de [facility]. Recibir? mylene llamada en los pr?ximos d?as. Regrese si cualquier s?ntoma nuevo o que empeora contin?a tomando jah medicamentos recetados previamente enrique se lo recetaron anteriormente. Yo a.m. prescribiendo prednisona y esto podr?a hacer que jah niveles de glucosa en la jeremias aumenten, por lo tanto, debe ajustar hdz insulina si es necesario. Prescriptions: New albuterol sulfate 0.63 mg/3 mL solution for nebulization 0.63 mg inhalation QID PRN (Reason: shortness of breath or wheezing) Qty: 75 0RF albuterol sulfate 90 mcg/actuation HFA aerosol inhaler 1 inh inhalation QID PRN (Reason: shortness of breath or wheezing) Qty: 8.5 0RF (DME) AeroEclipse II Nebulizer Misc See Rx Instructions .ROUTE .MEDSUPPLY Qty: 1 0RF Rx Instructions: As directed azithromycin 250 mg tablet See Rx Instructions .ROUTE .COMPLEX Qty: 6 0RF Rx Instructions: take 500 mg today (day 1), then 250 mg for 4 days (days 2-5) prednisone 20 mg tablet 40 mg PO DAILY 5 Days Qty: 10 0RF guaifenesin 200 mg/5 mL liquid 200 mg PO Q4H PRN (Reason: cough) Qty: 118 0RF No Action cholecalciferol (vitamin D3) [Vitamin D3] 25 mcg (1,000 unit) capsule 25 mcg PO DAILY 90 Days Qty: 90 3RF furosemide 80 mg tablet 80 mg PO DAILY 90 Days Qty: 90 2RF (DME) underpads [Certainty Underpads] 30 X 36 pad See Rx Instructions .ROUTE .MEDSUPPLY Qty: 150 11RF Rx Instructions: As directed (DME) blood-glucose meter [FreeStyle Lite Meter] Kit See Rx Instructions .Route Qty: 1 0RF Rx Instructions: As directed fluticasone propionate [Flonase Allergy Relief] 50 mcg/actuation spray,suspension 1 spray intranasal DAILY 30 Days Qty: 16 6RF Rx Instructions: administer into each nostril gabapentin 800 mg tablet 800 mg PO TID 30 Days Qty: 90 6RF (DME) FreeStyle Lite Strips Strip See Rx Instructions .ROUTE .MEDSUPPLY Qty: 100 11RF Rx Instructions: As directed three times a day fluconazole [Diflucan] 150 mg tablet 150 mg PO Q3D Qty: 2 0RF alcohol swabs [Alcohol Prep Pads] Pads, Medicated 1 pad topical TID 90 Days Qty: 300 3RF insulin aspart U-100 [Novolog Flexpen U-100 Insulin] 100 unit/mL (3 mL) insulin pen 20 unit subcut TID 30 Days Qty: 18 6RF albuterol sulfate 90 mcg/actuation HFA aerosol inhaler 1 inh inhalation Q4H PRN (Reason: shortness of breath or wheezing) 30 Days Qty: 6.7 3RF metformin 500 mg tablet extended release 24 hr 500 mg PO BID 90 Days Qty: 180 3RF metoprolol succinate 25 mg tablet extended release 24 hr 25 mg PO DAILY 90 Days Qty: 90 3RF mirtazapine 30 mg tablet 30 mg PO BEDTIME 90 Days Qty: 90 3RF montelukast 10 mg tablet 10 mg PO DAILY 90 Days Qty: 90 3RF pantoprazole 40 mg tablet,delayed release (DR/EC) 40 mg PO DAILY 90 Days Qty: 90 3RF pravastatin 40 mg tablet 40 mg PO BEDTIME 90 Days Qty: 90 3RF Xarelto 20 mg tablet 20 mg PO DAILY 90 Days Qty: 90 3RF oxycodone 5 mg tablet 5 mg PO Q8H PRN (Reason: pain) 30 Days Qty: 90 0RF Rx Instructions: partial fill upon request acetaminophen 500 mg tablet 500 mg PO Q6H PRN (Reason: fever or pain) 30 Days Qty: 180 6RF cetirizine 10 mg tablet 10 mg PO DAILY PRN (Reason: allergy symptoms) 30 Days Qty: 30 6RF lisinopril 10 mg tablet 10 mg PO DAILY 90 Days Qty: 90 3RF (DME) AeroEclipse II Nebulizer Misc See Rx Instructions .Route Qty: 50 0RF Rx Instructions: As directed calcium carbonate [Calcium Antacid] 300 mg (750 mg) tablet,chewable 1 tab PO BID Qty: 60 6RF Breo Ellipta 100-25 mcg/dose blister with device 1 inh inhalation DAILY 28 Days Qty: 28 6RF Multaq 400 mg tablet 400 mg PO BID 90 Days Qty: 180 1RF Tresiba FlexTouch U-100 100 unit/mL (3 mL) insulin pen 25 unit subcut BEDTIME 30 Days Qty: 7.5 5RF pen needle, diabetic [Unifine Pentips] 32 gauge x 5/32 needle 1 ea miscellaneous QID Qty: 100 6RF buspirone 15 mg Tablet 15 mg PO BID 0RF anastrozole [Arimidex] 1 mg Tablet 1 mg PO DAILY Qty: 90 2RF Aquaphor Ointment 1 appl TOPICAL QID Qty: 200 2RF lidocaine 5 % adhesive patch,medicated 1 patch topical DAILY PRN (Reason: pain) 30 Days Qty: 30 0RF Rx Instructions: leave on most painful area for up to 12 hrs terconazole 0.8 % cream 1 appful vaginal BEDTIME 3 Days Qty: 20 0RF clotrimazole-betamethasone 1-0.05 % cream 1 appl topical BID 5 Days Qty: 45 0RF Referrals: Torrie Rey MD [Primary Care Provider] - 2 days Print Language: Jamaican
[2021-11-15 13:02] LABS: COVID-19 Test Positive (Negative); IDNOW Serial# 9DD0AD1C
[2021-11-15 13:12] LABS: MANUAL DIFF FLAG NO
[2021-11-15 13:15] LABS: Basophils Absolute Auto 0.1 X10*3/uL (0.0-0.2); Basophils Percent Auto 0.7 % (0-2); Eosinophils Absolute Auto 0.3 X10*3/uL (0.0-0.4); Eosinophils Percent Auto 2.4 % (0-4); Hematocrit 35.9 % (37.0-47.0); Hemoglobin 10.4 g/dl (12.0-16.0); Imm Gran Abs Auto 0.02 X10*3/uL (0.00-0.03); Imm Gran Pct Auto 0.2 % (0.0-0.4); Lymphocytes Percent Auto 19.4 % (20-40); Mean Corpuscular Hemoglobin 25.2 pg (27.0-33.0); Mean Corpuscular Volume 87.1 fL (80.0-98.0); Mean Platelet Volume 9.7 fL (9.4-12.3); Monocytes Percent Auto 9.7 % (2-11); NRBC Pct Auto 0.2 /100WBC (0.0-0.2); Neutrophils Absolute Auto 7.1 x10*3/uL (2.0-8.3); Neutrophils Percent Auto 67.6 % (45-73); Platelet Count 348 X10*3/uL (160-400); Red Blood Count 4.12 X10*6/uL (4.20-5.50); Red Cell Distribution Width 17.8 % (11.0-16.0); White Blood Count 10.5 X10*3/uL (4.8-10.8)
[2021-11-15] MEDS: Albuterol Sulfate (0.083%) 2.5 MG/3 ML VIAL.NEB 10 MG INHALE (13:17)
[2021-11-15 13:20] VITALS: PULSE 85; RESP 22; O2SAT 100
[2021-11-15 13:23] LABS: Appearance Urine CLEAR; Color Urine STRAW; Glucose Urine UA NEG (NEG); Leukocyte Esterase Urine NEG (NEG); Nitrite Urine NEG (NEG); PH 5.5 (5.0-8.0); Specific Gravity - Urine <= 1.005 (1.005-1.025); Urine Blood NEG (NEG); Urine Ketones NEG (NEG); Urine Protein NEG (NEG-TRACE)
[2021-11-15 13:23] LABS: INTERNATIONAL NORM RATIO 1.5 (0.9-1.1); Prothrombin Time 17.7 SEC (9.9-13.0)
[2021-11-15] MEDS: methylPREDNISolone Sod Succ 125 MG/2 ML VIAL IVPUSH (13:24)
[2021-11-15 13:33] LABS: Alanine Aminotransferase 25 U/L (0-31); Albumin Level 4.1 g/dL (3.5-5.0); Alkaline Phosphatase 99 U/L (39-117); Anion Gap 18 (12-20); Aspartate Amino Transferase 17 U/L (5-31); Bilirubin Total 0.5 mg/dL (0.0-1.0); Blood Urea Nitrogen 9 mg/dL (9-16); Calcium 9.4 mg/dL (8.4-10.2); Carbon Dioxide 34 mmol/L (22-29); Chloride 98 mmol/L (96-108); Estimated Glomerular Filt Rate > 60; Glucose Random 218 mg/dL (60-115); Magnesium 1.6 mg/dL (1.6-2.6); Potassium 3.8 mmol/L (3.3-5.1); Sodium 146 mmol/L (135-145); Total Protein 7.9 g/dL (6.5-8.0)
[2021-11-15 13:37] LABS: B Type Natriuretic Peptide 129 pg/mL (<100); Troponin-I High Sensitivity 32.2 ng/L (<3.5-17.0)
--- NOTE | 2021-11-15 13:51 | PC.NURSE ---
PT ASSISTED TO COMMODE X 2 TO VOID CLEAR DILUTE URINE AND BACK TO STRETCHER WITH UPDRAFT. SPEAKING IN FULL SENTENCES, NO CHEST PAIN OR DIAPHORESIS.
[2021-11-15 14:00] VITALS: RESP 22; O2SAT 95
[2021-11-15 14:56] VITALS: BP 157/76; PULSE 93; RESP 18; O2SAT 95
[2021-11-15 15:19] VITALS: O2SAT 95
[2021-11-15] MEDS: iohexoL 350 MG/ML 100 ML INFUS..BTL 65 ML IV (16:04)
[2021-11-15] MEDS: LORazepam 2 MG/ML VIAL 1 MG IVPUSH (16:32)
[2021-11-15 16:39] VITALS: BP 150/88; PULSE 90; RESP 20; O2SAT 97
[2021-11-15 17:23] LABS: Troponin-I High Sensitivity 31.5 ng/L (<3.5-17.0)
== END 2021-11-15 18:04 | disposition still patient (30) ==
PROVIDERS: Physician Assistant Medical; Emergency Provider Emergency Medicine; PCP Internal Medicine
DX: U07.1 COVID-19 (principal); I51.7 Cardiomegaly; R06.02 Shortness of breath; R60.0 Localized edema; I11.0 Hypertensive heart disease with heart failure; I50.9 Heart failure, unspecified; E11.9 Type 2 diabetes mellitus without complications; E78.5 Hyperlipidemia, unspecified; J45.909 Unspecified asthma, uncomplicated; J44.9 Chronic obstructive pulmonary disease, unspecified; I48.91 Unspecified atrial fibrillation; Z86.711 Personal history of pulmonary embolism; Z79.01 Long term (current) use of anticoagulants; Z79.4 Long term (current) use of insulin; Z91.14 Patient's other noncompliance with medication regimen
CPT/HCPCS: 36415; 71046; 71275; 80053; 81003; 83735; 83880; 84484; 85025; 85610; 87635; 93005; 94640; 94644; 96374; 96375; 99284; 99291; J2060; J2930; Q9967

== ENCOUNTER 2022-01-28 12:49 | Inpatient (IN) | payer OTHER, SELFPAY ==
[2022-01-28] VITALS (11 sets, daily range): BP systolic 103–118; BP diastolic 44–74; PULSE 92–105; RESP 14–20; TEMP 35.7–37.9; O2SAT 94–99; BMI 58.4
--- NOTE | ~2022-01-28 | XR_ITS ---
EXAMINATION: XR CHEST CLINICAL INFORMATION: Shortness of breath, cough, leg edema. COMPARISON: 11/15/2021. TECHNIQUE: 2 views of the chest were obtained. FINDINGS: There is mild prominence of the pulmonary vasculature and cardiac silhouette. The mediastinal structures are unremarkable. XR/XR chest 2V IMPRESSION: Mild prominence of the pulmonary vascular appears mildly increased suggesting mild congestion.
--- NOTE | ~2022-01-28 | XR_ITS ---
EXAMINATION: XR LUMBOSACRAL SPINE CLINICAL INFORMATION: Status post fall one week ago with back pain. COMPARISON: None TECHNIQUE: Three views of the lumbosacral spine. FINDINGS: There is normal lumbar lordosis and spinal alignment. L5-S1 appears transitional with partial lumbarization of S1 and a rudimentary disc at S1-S2. Moderate to severe degenerative disc disease is seen at L5-S1. There is no acute fracture. Mild to moderate multilevel marginal osteophyte formation is also seen. The soft tissues are unremarkable. XR/XR lumbar spine 2-3V IMPRESSION: 1. No acute abnormality. Multilevel degenerative changes as detailed above.
--- NOTE | ~2022-01-28 | XR_ITS ---
EXAMINATION: XR HIP, RIGHT CLINICAL INFORMATION: Right hip pain status post fall one week ago. COMPARISON: None TECHNIQUE: Two views of the right hip. FINDINGS: Mild bilateral hip degenerative joint changes are seen. Right cam femoral acetabular impingement is noted. There is no overt fracture or dislocation. The bony pelvis is intact. XR/XR hip RT w PEL1V IMPRESSION: 1. Mild bilateral hip osteoarthritis and right cam femoral acetabular impingement. No overt fracture.
--- NOTE | ~2022-01-28 | XR_ITS ---
EXAMINATION: XR TIBIA AND FIBULA, RIGHT CLINICAL INFORMATION: Status post fall, right leg pain. COMPARISON: None TECHNIQUE: AP and lateral views of the right tibia and fibula were obtained. FINDINGS: The tibia and fibula are intact. There is no acute fracture or dislocation. Mild right knee degenerative joint changes are seen. The right ankle joint is intact. Moderate soft tissue swelling is seen. XR/XR tibia fibula RT 2V IMPRESSION: 1. Moderate soft tissue swelling without acute underlying osseous abnormality. 2. Mild right knee osteoarthritis.
--- NOTE | 2022-01-28 13:09 | ECG_ITS ---
Test Reason : sob Blood Pressure : / mmHG Vent. Rate : 093 BPM Atrial Rate : 093 BPM P-R Int : 146 ms QRS Dur : 080 ms QT Int : 348 ms P-R-T Axes : 021 014 101 degrees QTc Int : 432 ms Normal sinus rhythm Nonspecific T wave abnormality Abnormal ECG When compared with ECG of 15-NOV-2021 14:21, Premature supraventricular complexes are no longer Present QT has shortened Referred By: Yareli Newton Electronically Signed By:TRICIA RUBY MD
[2022-01-28] MEDS: ondansetron HCL 4 MG/2 ML VIAL IVPUSH (14:03)
[2022-01-28] MEDS: Morphine Sulfate 4 MG/ML CARTRIDGE IVPUSH (14:06)
[2022-01-28 14:32] LABS: MANUAL DIFF FLAG NO
[2022-01-28 14:40] LABS: Basophils Absolute Auto 0.1 X10*3/uL (0.0-0.2); Basophils Percent Auto 0.5 % (0-2); Eosinophils Absolute Auto 0.6 X10*3/uL (0.0-0.4); Eosinophils Percent Auto 4.3 % (0-4); Hematocrit 28.3 % (37.0-47.0); Hemoglobin 7.8 g/dl (12.0-16.0); Imm Gran Abs Auto 0.04 X10*3/uL (0.00-0.03); Imm Gran Pct Auto 0.3 % (0.0-0.4); Lymphocytes Absolute Auto 1.5 X10*3/uL (1.2-4.9); Lymphocytes Percent Auto 11.2 % (20-40); Mean Corpuscular HGB Conc 27.6 g/dl (31.0-35.0); Mean Corpuscular Hemoglobin 22.5 pg (27.0-33.0); Mean Corpuscular Volume 81.8 fL (80.0-98.0); Mean Platelet Volume 9.4 fL (9.4-12.3); Monocytes Absolute Auto 0.8 X10*3/uL (0.1-1.2); Monocytes Percent Auto 5.9 % (2-11); Neutrophils Absolute Auto 10.1 x10*3/uL (2.0-8.3); Neutrophils Percent Auto 77.8 % (45-73); Platelet Count 401 X10*3/uL (160-400); Red Blood Count 3.46 X10*6/uL (4.20-5.50); Red Cell Distribution Width 17.7 % (11.0-16.0); White Blood Count 12.9 X10*3/uL (4.8-10.8)
[2022-01-28 14:43] LABS: INTERNATIONAL NORM RATIO 0.9 (0.9-1.1); Prothrombin Time 10.7 SEC (9.9-13.0)
[2022-01-28] MEDS: diazePAM 10 MG/2 ML CARTRIDGE 5 MG IVPUSH (14:54)
[2022-01-28 14:59] LABS: Alanine Aminotransferase 26 U/L (0-31); Albumin Level 3.5 g/dL (3.5-5.0); Alkaline Phosphatase 91 U/L (39-117); Anion Gap 15 (12-20); Aspartate Amino Transferase 19 U/L (5-31); Bilirubin Total 0.2 mg/dL (0.0-1.0); Blood Urea Nitrogen 54 mg/dL (9-16); Calcium 9.2 mg/dL (8.4-10.2); Carbon Dioxide 31 mmol/L (22-29); Chloride 98 mmol/L (96-108); Creatinine Clr Calc Pharmacy 51.4; Estimated Glomerular Filt Rate 37; Glucose Random 256 mg/dL (60-115); Magnesium 2.1 mg/dL (1.6-2.6); Sodium 140 mmol/L (135-145); Total Protein 6.7 g/dL (6.5-8.0)
[2022-01-28 15:00] LABS: B Type Natriuretic Peptide 50 pg/mL (<100); Troponin-I High Sensitivity 48.6 ng/L (<3.5-17.0)
[2022-01-28 15:09] LABS: COVID-19 Test Negative (Negative); IDNOW Serial# 16C4AD1C; Influenza A Negative (Negative); Influenza B2 Negative (Negative)
--- NOTE | 2022-01-28 15:31 | ED.GENADULT ---
HPI - General Adult General Chief complaint: Fall <AFSHAN Arrieta - Last Filed: 01/28/22 17:24> Stated complaint: r leg pain <AFSHAN Arrieta - Last Filed: 01/28/22 17:24> Time Seen by Provider: 01/28/22 12:58 <AFSHAN Arrieta Last Filed: 01/28/22 17:24> Source: patient and EMS <AFSHAN Arrieta - Last Filed: 01/28/22 17:24> Mode of arrival: EMS <AFSHAN Arrieta Last Filed: 01/28/22 17:24> Limitations: language barrier <AFSHAN Arrieta Last Filed: 01/28/22 17:24> History of Present Illness HPI narrative: 66-year-old female who is [place]ian-speaking with a past medical history of atrial fibrillation currently on Xarelto taking as prescribed, pulmonary embolism, CHF,DM, HTN, HLD, and 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 She denies head injury loss of consciousness or prolonged down time. She also reports over the past week she has also had a dry cough with shortness of breath/dyspnea on exertion and orthopnea and worsening lower extremity swelling despite taking her 80 mg of Lasix daily. She also reports darker colored stools. She denies any fevers, chills, dizziness, headaches, neck pain/stiffness, chest pain, palpitations, paresthesias, abdominal pain, urinary bowel incontinence or retention, dysuria, hematuria, abnormal vaginal discharge, rashes, bloody stools, recent travel, calf tenderness or any other symptoms complaints or concerns at this time. <AFSHAN Arrieta Last Filed: 01/28/22 17:24> Related Data Home medications: Home Medications Medication Instructions Recorded Confirmed buspirone 15 mg tablet 15 mg PO BID 07/31/20 01/28/22 insulin aspart U-100 100 unit/mL 10 - 20 unit SUBCUT TID 01/28/22 01/28/22 (3 mL) subcutaneous pen (Novolog Flexpen U-100 Insulin aspart) insulin degludec 100 unit/mL (3 20 unit SUBCUT BEDTIME 01/28/22 01/28/22 mL) subcutaneous pen (Tresiba FlexTouch U-100 insulin) mineral oil-hydrophil petrolat 1 appl TOPICAL QID PRN 01/28/22 01/28/22 topical ointment (DermaPhor) prednisone 5 mg tablet 10 mg PO DAILY 01/28/22 01/28/22 Previous Rx's Medication Instructions Recorded underpads 30 X 36 (Certainty #150 ea 04/28/21 Underpads) blood-glucose meter (FreeStyle #1 ea 05/15/21 Lite Meter) blood sugar diagnostic (FreeStyle #100 ea 06/12/21 Lite Strips) anastrozole 1 mg tablet (Arimidex) 1 mg PO DAILY #90 tab 07/02/21 acetaminophen 500 mg tablet 500 mg PO Q6H PRN 30 Days #180 tab 10/15/21 cetirizine 10 mg tablet 10 mg PO DAILY PRN 30 Days #30 tab 10/15/21 lisinopril 10 mg tablet 10 mg PO DAILY 90 Days #90 tab 10/15/21 metformin 500 mg tablet,extended 500 mg PO BID 90 Days #180 tab 10/15/21 release 24 hr metoprolol succinate 25 mg 25 mg PO DAILY 90 Days #90 tab 10/15/21 tablet,extended release 24 hr mirtazapine 30 mg tablet 30 mg PO BEDTIME 90 Days #90 tab 10/15/21 montelukast 10 mg tablet 10 mg PO DAILY 90 Days #90 tab 10/15/21 pantoprazole 40 mg tablet,delayed 40 mg PO DAILY 90 Days #90 tab 10/15/21 release pravastatin 40 mg tablet 40 mg PO BEDTIME 90 Days #90 tab 10/15/21 rivaroxaban 20 mg tablet (Xarelto) 20 mg PO DAILY 90 Days #90 tab 10/15/21 nebulizers (AeroEclipse II #50 ea 10/20/21 Nebulizer) calcium carbonate 300 mg (750 mg) 1 tab PO BID #60 tab 11/13/21 chewable tablet (Calcium Antacid) dronedarone 400 mg tablet (Multaq) 400 mg PO BID 90 Days #180 tab 11/13/21 fluticasone furoate 100 1 inh INHALATION DAILY 28 Days #28 11/13/21 mcg-vilanterol 25 mcg/dose ea inhalation powder (Breo Ellipta) albuterol sulfate 0.63 mg/3 mL 0.63 mg (3 mL) INHALATION QID PRN 11/15/21 solution for nebulization #75 ml nebulizers (AeroEclipse II #1 ea 11/15/21 Nebulizer) fluticasone propionate 50 1 spray INTRANASAL DAILY 30 Days 12/08/21 mcg/actuation nasal #16 g spray,suspension (Flonase Allergy Relief) furosemide 80 mg tablet 80 mg PO DAILY 90 Days #90 tab 12/08/21 gabapentin 800 mg tablet 800 mg PO TID 30 Days #90 tab 12/23/21 cholecalciferol (vitamin D3) 25 25 mcg PO DAILY 90 Days #90 cap 12/29/21 mcg (1,000 unit) capsule (Vitamin D3) albuterol sulfate 90 mcg/actuation 1 inh INHALATION QID PRN #8.5 g 01/26/22 aerosol inhaler oxycodone 5 mg tablet 5 mg PO Q8H PRN 30 Days #90 tab 01/26/22 oxycodone 5 mg tablet 5 mg PO Q4H PRN #30 tab 01/29/22 <AFSHAN Arrieta - Last Filed: 01/28/22 17:24> Allergies/adverse reactions: Allergies Allergy/AdvReac Type Severity Reaction Status Date / Time shellfish derived Allergy Intermediate SWELLING,N/ Verified 10/28/21 13:44 [SHELLFISH DERIVED] V <AFSHAN Arrieta - Last Filed: 01/28/22 17:24> Review of Systems Review of Systems: Constitutional : No Weight loss, No Fever, No Chills, No Night Sweats, No Fatigue, No Malaise ENT/Mouth : No Hearing loss, No Ear Pain, No Nasal Congestion, No Sinus Pain, No Hoarseness, No sore throat, No Rhinorrhea, No Swallowing Difficulty Eyes: No Eye Pain, No Swelling, No Redness, No Foreign Body, No Discharge, No Vision Changes Cardiovascular : + shortness of breath/dyspnea on exertion/orthopnea, No Chest Pain, No Palpitations Respiratory : + Cough, No Sputum, No Wheezing, No Smoke Exposure Gastrointestinal : No Nausea, No Vomiting, No Diarrhea, No Constipation, No abdominal Pain, No Hematochezia, No Melena Genitourinary : no irregular bleeding, No Dysuria, No Urinary Frequency, No Hematuria, No Urinary Incontinence, No Urgency, No Flank Pain, No Urinary Flow Changes, No Hesitancy Musculoskeletal :+ lower extremity swelling, + right hip/back/lower leg joint pain, No Myalgias, No Joint Swelling Skin : No Skin Lesions, No rash Neuro : No Weakness, No Numbness, No Paresthesias, No Loss of Consciousness, No Dizziness, No Headache Psych : No Anxiety/Panic, No Depression, No SI/HI/AH/VH, No Social Issues, Heme/Lymph: No Bruising, No Bleeding,No Lymphadenopathy Endocrine : No Polyuria, No Polydipsia, No Temperature Intolerance <AFSHAN Arrieta - Last Filed: 01/28/22 17:24> Yes all other systems are reviewed and are negative <AFSHAN Arrieta - Last Filed: 01/28/22 17:24> [facility], [facility] Past Medical History Attestation statement: The following information was validated with the patient. <AFSHAN Arrieta - Last Filed: 01/28/22 17:24> Medical History: Medical History Asthma Atrial fibrillation Back pain Bilateral pulmonary embolism Cataract CHF (congestive heart failure) COPD (chronic obstructive pulmonary disease) Depression Diabetes mellitus Hyperlipidemia Hypertension Invasive ductal carcinoma of left breast, stage 2 Kidney stone Sleep apnea Type 2 diabetes mellitus with hyperglycemia, with long-term current use of insulin Urinary incontinence Vaginal pruritus <AFSHAN Arrieta - Last Filed: 01/28/22 17:24> Surgical History: Surgical History H/O hernia repair H/O lithotripsy H/O tubal ligation History of carpal tunnel release History of cataract surgery (~2017) History of lumpectomy of left breast (~04/03/20) <AFSHAN Arrieta - Last Filed: 01/28/22 17:24> Family History Family History: Family History Father CVD (cardiovascular disease) Mother CVD (cardiovascular disease) Family/Other FH: mental illness Mental health disorder <AFSHAN Arrieta - Last Filed: 01/28/22 17:24> Social History Social History: Social History Household Members: None Housing: Apartment Alcohol intake: never Patient Tobacco Use Status: Never used Tobacco e-Cigarette/Vaping Use: Never Used Second Hand Smoke Exposure: No service: No Current occupational status: disabled <AFSHAN Arrieta - Last Filed: 01/28/22 17:24> Physical Exam ED Vital Signs: Vital Signs - 24 hr 01/28/22 13:02 01/28/22 14:06 01/28/22 15:15 Temperature 96.2 F L Pulse Rate 94 95 Respiratory Rate 17 16 14 Blood Pressure 115/47 L 117/55 L Pulse Oximetry 94 96 01/28/22 16:28 Temperature Pulse Rate 98 Respiratory Rate 18 Blood Pressure 103/46 L Pulse Oximetry 99 BMI result Body Mass Index 58.4 vital signs have been reviewed as normal and appeared to be correct. Blood pressure 115/47 Heart rate normal. Respiration rate normal. Temperature normal. Oxygen saturation 94. <AFSHAN Arrieta - Last Filed: 01/28/22 17:24> Appearance: Alert. Oriented X3. No acute distress. Head: Normal external exam. Normocephalic. Atraumatic. Eyes: PERRLA. EOMI. Conjunctiva and sclera normal. Eyelids normal. ENT: EAC normal. TM's Normal. Pharynx normal. Uvula midline. Moist mucous membranes. No lesions/ulcerations or masses noted on the tongue. Normal voice. No trismus noted. No drooling noted. No muffled voice noted. Neck: Normal inspection. Neck supple. FROM. No adenopathy. Thyroid Normal. No tracheal deviation noted. No crepitus is noted. No meningeal signs. No neck mass noted. No signs of trauma noted. CVS: Normal heart rate and rhythm. Heart sound normal. Pulses normal throughout. No murmurs/rales/gallops. Respiratory: No respiratory distress. Painless inspiration. Breath sounds normal. No wheezes/rales/rhonchi noted. Chest nontender. No crepitus is noted. No signs of trauma noted. No accessory muscle usage noted or decreased air movement noted. No signs of trauma. Abdomen: Soft and nontender. Bowel sounds normal in all 4 quadrants. No distention noted. No organomegaly noted. No visible injury noted. Back: No CVA tenderness. Full range of motion noted. Patient with tenderness palpation to right lower para lumbar musculature. No mid lumbar tenderness step-offs or deformities noted. No obvious signs of trauma. Patient neuro intact bilaterally and distally on all 4 extremities. Patient's reflexes intact bilaterally and distally on all 4 extremities. No rashes/lesion/induration/fluctuance or signs of infection noted. Skin: Skin warm and dry. Normal skin color. Normal skin turgor. No rashes/lesions/lacerations noted. Extremities: + 3 LE edema b/l. No calf tenderness is noted. Patient mild tenderness palpation to the proximal aspect of the right tibia/fibula with ecchymosis and soft tissue swelling. No obvious deformities noted. No obvious ligamentous injury noted to the right knee or the right ankle or leg. Achilles tendon is intact. Not consistent with infection. No streaking noted. Otherwise all Extremities exhibit normal range of motion and nontender. Neuro: Oriented X 3. No motor deficit. No sensory deficit. Reflexes normal. No focal neuro deficits noted. CN's II-XII intact bilaterally? Vascular: + radial pulses/+ 2 distal pedal pulses/+2 dorsalis pedis b/l. Normal cap refill. No cyanosis noted to upper extremity nails and lower extremity toes nails. 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 She denies head injury loss of consciousness or prolonged down time. She also reports over the past week she has also had a dry cough with shortness of breath/dyspnea on exertion and orthopnea and worsening lower extremity swelling despite taking her 80 mg of Lasix daily. She also reports darker colored stools. Plan: Labs, EKG, chest x-ray, lumbar spine x-ray, right tibia/fibula x-ray, right hip x-ray and lumbar spine x-ray then re-evaluate <AFSHAN Arrieta - Last Filed: 01/28/22 17:24> Reevaluation(s) Reevaluation #1: - labs reviewed patient with an elevated white blood cell count at 12,000. H&H of 7.8/28.3 this is lower when compared to prior therefore will obtain a stool occult. Carbon dioxide 31. BUN/creatinine 54/1.42 this is new when compared to prior. Random glucose 256. Troponin 48.6. Otherwise all other labs are within normal limits. Patient negative for COVID/flu. - chest x-ray revealed mild prominence of pulmonary vascular which appears mildly increased suggesting mild congestion otherwise no evidence of pneumonia or any other acute infections or processes. - x-ray of right hip revealed mild bilateral hip osteoarthritis and right cam femoral acetabular impingement otherwise no other acute processes noted. - lumbar spine x-ray revealed multilevel degenerative changes otherwise no other acute processes noted. - x-ray of tibia/fibula reveals soft tissue swelling otherwise no acute processes noted. - therefore due to low H&H and ALESSANDRO will perform a stool occult. I ordered 1 pack of red blood cells with a type and screen patient sign consent form for blood transfusion. - plan will be to admit for low H&H with ALESSANDRO. Patient understands agrees with this plan. <AFSHAN Arrieta - Last Filed: 01/28/22 17:24> Time: 15:15 <AFSHAN Arrieta - Last Filed: 01/28/22 17:24> Reevaluation #2: - Negative stool occult. Will admit for anemia/alessandro most likely related to her uterine cancer she reports she was bleeding approximately 2 months ago when she had radiation. Dr. Ortiz to admit at this time. Patient understands agrees with this plan. <AFSHAN Arrieta - Last Filed: 01/28/22 17:24> Time: 16:50 <AFSHAN Arrieta - Last Filed: 01/28/22 17:24> Medical Decision Making Medical Records Medical records reviewed: Yes I reviewed the patient's medical records. <AFSHAN Arrieta - Last Filed: 01/28/22 17:24> Lab Data Lab results reviewed: Yes I reviewed the patient's lab results. <AFSHAN Arrieta - Last Filed: 01/28/22 17:24> Result diagrams: : 01/29/22 05:46 01/29/22 05:46 <AFSHAN Arrieta - Last Filed: 01/28/22 17:24> Labs: Lab Results 01/28/22 01/28/22 01/28/22 Range/Units 14:28 14:28 14:28 WBC 12.9 H (4.8-10.8) X10*3/uL RBC 3.46 L (4.20-5.50) X10*6/uL Hgb 7.8 L D (12.0-16.0) g/dl Hct 28.3 L D (37.0-47.0) % MCV 81.8 (80.0-98.0) fL MCH 22.5 L (27.0-33.0) pg MCHC 27.6 L (31.0-35.0) g/dl RDW 17.7 H (11.0-16.0) % Plt Count 401 H (160-400) X10*3/uL MPV 9.4 (9.4-12.3) fL Immature Gran % (Auto) 0.3 (0.0-0.4) % Neut % (Auto) 77.8 H (45-73) % Lymph % (Auto) 11.2 L (20-40) % Craig % (Auto) 5.9 (2-11) % Eos % (Auto) 4.3 H (0-4) % Baso % (Auto) 0.5 (0-2) % Lymph # (Auto) 1.5 (1.2-4.9) X10*3/uL Craig # (Auto) 0.8 (0.1-1.2) X10*3/uL Eos # (Auto) 0.6 H (0.0-0.4) X10*3/uL Baso # (Auto) 0.1 (0.0-0.2) X10*3/uL Abs Immat Gran (auto) 0.04 H (0.00-0.03) X10*3/uL Absolute Neuts (auto) 10.1 H (2.0-8.3) x10*3/uL Absolute Nucleated RBC 0.000 (0.0-0.012) X10*3/uL Nucleated RBC % (auto) 0.0 (0.0-0.2) /100WBC PT 10.7 (9.9-13.0) SEC INR 0.9 (0.9-1.1) Sodium 140 (135-145) mmol/L Potassium 4.0 (3.3-5.1) mmol/L Chloride 98 (96-108) mmol/L Carbon Dioxide 31 H (22-29) mmol/L Anion Gap 15 (12-20) BUN 54 H D (9-16) mg/dL Creatinine 1.42 H (0.5-1.4) mg/dL Estim Creat Clear Calc 51.4 Estimated GFR 37 Random Glucose 256 H (60-115) mg/dL Lactic Acid (0.5-2.0) mmol/L Calcium 9.2 (8.4-10.2) mg/dL Magnesium 2.1 (1.6-2.6) mg/dL Total Bilirubin 0.2 (0.0-1.0) mg/dL AST 19 (5-31) U/L ALT 26 (0-31) U/L Alkaline Phosphatase 91 (39-117) U/L Troponin I High Sens (<3.5-17.0) ng/L B-Natriuretic Peptide (<100) pg/mL Total Protein 6.7 (6.5-8.0) g/dL Albumin 3.5 (3.5-5.0) g/dL Urine Color Urine Appearance Urine pH (5.0-8.0) Ur Specific [place] (1.005-1.025) Urine Protein (NEG-TRACE) MG/DL Urine Glucose (UA) (NEG) MG/DL Urine Ketones (NEG) MG/DL Urine Blood (NEG) Urine Nitrite (NEG) Ur Leukocyte Esterase (NEG) Urine RBC (0) /HPF Urine WBC (0-4) /HPF Ur Squamous Epith Cells /LPF Urine Bacteria /LPF Stool Occult Blood (NEGATIVE) COVID-19 (VICKEY) (Negative) COVID-19 Clin Com Influenza Type A (KEV) (Negative) Influenza Type B (KEV) (Negative) Influenza A & B Note Blood Type Antibody Screen Crossmatch 01/28/22 01/28/22 01/28/22 Range/Units 14:28 14:37 14:37 WBC (4.8-10.8) X10*3/uL RBC (4.20-5.50) X10*6/uL Hgb (12.0-16.0) g/dl Hct (37.0-47.0) % MCV (80.0-98.0) fL MCH (27.0-33.0) pg MCHC (31.0-35.0) g/dl RDW (11.0-16.0) % Plt Count (160-400) X10*3/uL MPV (9.4-12.3) fL Immature Gran % (Auto) (0.0-0.4) % Neut % (Auto) (45-73) % Lymph % (Auto) (20-40) % Craig % (Auto) (2-11) % Eos % (Auto) (0-4) % Baso % (Auto) (0-2) % Lymph # (Auto) (1.2-4.9) X10*3/uL Craig # (Auto) (0.1-1.2) X10*3/uL Eos # (Auto) (0.0-0.4) X10*3/uL Baso # (Auto) (0.0-0.2) X10*3/uL Abs Immat Gran (auto) (0.00-0.03) X10*3/uL Absolute Neuts (auto) (2.0-8.3) x10*3/uL Absolute Nucleated RBC (0.0-0.012) X10*3/uL Nucleated RBC % (auto) (0.0-0.2) /100WBC PT (9.9-13.0) SEC INR (0.9-1.1) Sodium (135-145) mmol/L Potassium (3.3-5.1) mmol/L Chloride (96-108) mmol/L Carbon Dioxide (22-29) mmol/L Anion Gap (12-20) BUN (9-16) mg/dL Creatinine (0.5-1.4) mg/dL Estim Creat Clear Calc Estimated GFR Random Glucose (60-115) mg/dL Lactic Acid (0.5-2.0) mmol/L Calcium (8.4-10.2) mg/dL Magnesium (1.6-2.6) mg/dL Total Bilirubin (0.0-1.0) mg/dL AST (5-31) U/L ALT (0-31) U/L Alkaline Phosphatase (39-117) U/L Troponin I High Sens 48.6 H D (<3.5-17.0) ng/L B-Natriuretic Peptide 50 (<100) pg/mL Total Protein (6.5-8.0) g/dL Albumin (3.5-5.0) g/dL Urine Color Urine Appearance Urine pH (5.0-8.0) Ur Specific [place] (1.005-1.025) Urine Protein (NEG-TRACE) MG/DL Urine Glucose (UA) (NEG) MG/DL Urine Ketones (NEG) MG/DL Urine Blood (NEG) Urine Nitrite (NEG) Ur Leukocyte Esterase (NEG) Urine RBC (0) /HPF Urine WBC (0-4) /HPF Ur Squamous Epith Cells /LPF Urine Bacteria /LPF Stool Occult Blood (NEGATIVE) COVID-19 (VICKEY) Negative (Negative) COVID-19 Clin Com See Note Influenza Type A (KEV) Negative (Negative) Influenza Type B (KEV) Negative (Negative) Influenza A & B Note See Note Blood Type Antibody Screen Crossmatch 01/28/22 01/28/22 01/28/22 Range/Units 15:32 16:17 16:34 WBC (4.8-10.8) X10*3/uL RBC (4.20-5.50) X10*6/uL Hgb (12.0-16.0) g/dl Hct (37.0-47.0) % MCV (80.0-98.0) fL MCH (27.0-33.0) pg MCHC (31.0-35.0) g/dl RDW (11.0-16.0) % Plt Count (160-400) X10*3/uL MPV (9.4-12.3) fL Immature Gran % (Auto) (0.0-0.4) % Neut % (Auto) (45-73) % Lymph % (Auto) (20-40) % Craig % (Auto) (2-11) % Eos % (Auto) (0-4) % Baso % (Auto) (0-2) % Lymph # (Auto) (1.2-4.9) X10*3/uL Craig # (Auto) (0.1-1.2) X10*3/uL Eos # (Auto) (0.0-0.4) X10*3/uL Baso # (Auto) (0.0-0.2) X10*3/uL Abs Immat Gran (auto) (0.00-0.03) X10*3/uL Absolute Neuts (auto) (2.0-8.3) x10*3/uL Absolute Nucleated RBC (0.0-0.012) X10*3/uL Nucleated RBC % (auto) (0.0-0.2) /100WBC PT (9.9-13.0) SEC INR (0.9-1.1) Sodium (135-145) mmol/L Potassium (3.3-5.1) mmol/L Chloride (96-108) mmol/L Carbon Dioxide (22-29) mmol/L Anion Gap (12-20) BUN (9-16) mg/dL Creatinine (0.5-1.4) mg/dL Estim Creat Clear Calc Estimated GFR Random Glucose (60-115) mg/dL Lactic Acid 1.9 (0.5-2.0) mmol/L Calcium (8.4-10.2) mg/dL Magnesium (1.6-2.6) mg/dL Total Bilirubin (0.0-1.0) mg/dL AST (5-31) U/L ALT (0-31) U/L Alkaline Phosphatase (39-117) U/L Troponin I High Sens (<3.5-17.0) ng/L B-Natriuretic Peptide (<100) pg/mL Total Protein (6.5-8.0) g/dL Albumin (3.5-5.0) g/dL Urine Color Urine Appearance Urine pH (5.0-8.0) Ur Specific [place] (1.005-1.025) Urine Protein (NEG-TRACE) MG/DL Urine Glucose (UA) (NEG) MG/DL Urine Ketones (NEG) MG/DL Urine Blood (NEG) Urine Nitrite (NEG) Ur Leukocyte Esterase (NEG) Urine RBC (0) /HPF Urine WBC (0-4) /HPF Ur Squamous Epith Cells /LPF Urine Bacteria /LPF Stool Occult Blood NEGATIVE (NEGATIVE) COVID-19 (VICKEY) (Negative) COVID-19 Clin Com Influenza Type A (KEV) (Negative) Influenza Type B (KEV) (Negative) Influenza A & B Note Blood Type A Positive Antibody Screen NEGATIVE Crossmatch See Detail 01/28/22 01/28/22 Range/Units 16:34 16:50 WBC (4.8-10.8) X10*3/uL RBC (4.20-5.50) X10*6/uL Hgb (12.0-16.0) g/dl Hct (37.0-47.0) % MCV (80.0-98.0) fL MCH (27.0-33.0) pg MCHC (31.0-35.0) g/dl RDW (11.0-16.0) % Plt Count (160-400) X10*3/uL MPV (9.4-12.3) fL Immature Gran % (Auto) (0.0-0.4) % Neut % (Auto) (45-73) % Lymph % (Auto) (20-40) % Craig % (Auto) (2-11) % Eos % (Auto) (0-4) % Baso % (Auto) (0-2) % Lymph # (Auto) (1.2-4.9) X10*3/uL Craig # (Auto) (0.1-1.2) X10*3/uL Eos # (Auto) (0.0-0.4) X10*3/uL Baso # (Auto) (0.0-0.2) X10*3/uL Abs Immat Gran (auto) (0.00-0.03) X10*3/uL Absolute Neuts (auto) (2.0-8.3) x10*3/uL Absolute Nucleated RBC (0.0-0.012) X10*3/uL Nucleated RBC % (auto) (0.0-0.2) /100WBC PT (9.9-13.0) SEC INR (0.9-1.1) Sodium (135-145) mmol/L Potassium (3.3-5.1) mmol/L Chloride (96-108) mmol/L Carbon Dioxide (22-29) mmol/L Anion Gap (12-20) BUN (9-16) mg/dL Creatinine (0.5-1.4) mg/dL Estim Creat Clear Calc Estimated GFR Random Glucose (60-115) mg/dL Lactic Acid (0.5-2.0) mmol/L Calcium (8.4-10.2) mg/dL Magnesium (1.6-2.6) mg/dL Total Bilirubin (0.0-1.0) mg/dL AST (5-31) U/L ALT (0-31) U/L Alkaline Phosphatase (39-117) U/L Troponin I High Sens 40.5 H (<3.5-17.0) ng/L B-Natriuretic Peptide (<100) pg/mL Total Protein (6.5-8.0) g/dL Albumin (3.5-5.0) g/dL Urine Color YELLOW Urine Appearance CLEAR Urine pH 5.5 (5.0-8.0) Ur Specific [place] 1.010 (1.005-1.025) Urine Protein NEG (NEG-TRACE) MG/DL Urine Glucose (UA) NEG (NEG) MG/DL Urine Ketones NEG (NEG) MG/DL Urine Blood NEG (NEG) Urine Nitrite NEG (NEG) Ur Leukocyte Esterase 1+ H (NEG) Urine RBC 1-4 (0) /HPF Urine WBC 5-9 H (0-4) /HPF Ur Squamous Epith Cells TRACE /LPF Urine Bacteria 3+ /LPF Stool Occult Blood (NEGATIVE) COVID-19 (VICKEY) (Negative) COVID-19 Clin Com Influenza Type A (KEV) (Negative) Influenza Type B (KEV) (Negative) Influenza A & B Note Blood Type Antibody Screen Crossmatch <AFSHAN Arrieta - Last Filed: 01/28/22 17:24> Imaging Data Chest x-ray: Attestation: I personally reviewed and interpreted this imaging study as follows: <AFSHAN Arrieta - Last Filed: 01/28/22 17:24> Radiologist's impression: FINDINGS: Film is somewhat rotated limiting evaluation of mediastinum. There is prominence of the right hilar and suprahilar region and region of disease dislocation cannot be excluded on this study. The cardiopericardial silhouette is enlarged. No evidence of pulmonary edema. No pneumothorax or significant pleural effusion. There appears to be some ill-defined density at the left lung base which may be related to atelectasis. XR/XR chest 2V IMPRESSION: Cardiomegaly without pulmonary edema. ? Question right hilar and suprahilar disease. <AFSHAN Arrieta - Last Filed: 01/28/22 17:24> Right hip and pelvis x-ray: Attestation: I personally reviewed and interpreted this imaging study as follows: <AFSHAN Arrieta - Last Filed: 01/28/22 17:24> Radiologist's impression: FINDINGS: Mild bilateral hip degenerative joint changes are seen. Right cam femoral acetabular impingement is noted. There is no overt fracture or dislocation. The bony pelvis is intact.? XR/XR hip RT w PEL1V IMPRESSION: ? 1. Mild bilateral hip osteoarthritis and right cam femoral acetabular impingement. No overt fracture. <AFSHAN Arrieta - Last Filed: 01/28/22 17:24> Lumbar spine x-ray: Attestation: I personally reviewed and interpreted this imaging study as follows: <AFSHAN Arrieta - Last Filed: 01/28/22 17:24> Radiologist's impression: FINDINGS: There is normal lumbar lordosis and spinal alignment. L5-S1 appears transitional with partial lumbarization of S1 and a rudimentary disc at S1-S2. Moderate to severe degenerative disc disease is seen at L5-S1. There is no acute fracture. Mild to moderate multilevel marginal osteophyte formation is also seen. The soft tissues are unremarkable. XR/XR lumbar spine 2-3V IMPRESSION: 1. No acute abnormality. Multilevel degenerative changes as detailed above. <AFSHAN Arrieta - Last Filed: 01/28/22 17:24> Right tib/fibula x-ray: Attestation: I personally reviewed and interpreted this imaging study as follows: <AFSHAN Arrieta - Last Filed: 01/28/22 17:24> Radiologist's impression: FINDINGS: The tibia and fibula are intact. There is no acute fracture or dislocation. Mild right knee degenerative joint changes are seen. The right ankle joint is intact. Moderate soft tissue swelling is seen.? XR/XR tibia fibula RT 2V IMPRESSION: ? 1. Moderate soft tissue swelling without acute underlying osseous abnormality. 2. Mild right knee osteoarthritis. <AFSHAN Arrieta - Last Filed: 01/28/22 17:24> ECG Data Attestation: I personally reviewed and interpreted this ECG as follows: <AFSHAN Arrieta - Last Filed: 01/28/22 17:24> Prior ECG tracings: available for review <AFSHAN Arrieta - Last Filed: 01/28/22 17:24> Interpretation: Normal sinus rhythm with a ventricular rate of 93 with nonspecific T-wave abnormalities no acute ischemic change are noted. Similar compared to prior EKG on 11/15/2021 <AFSHAN Arrieta - Last Filed: 01/28/22 17:24> Critical Care Time Critical Care Time Critical Care Time: Yes <AFSHAN Arrieta - Last Filed: 01/28/22 17:24> Total Critical Care Time: 60 <AFSHAN Arrieta - Last Filed: 01/28/22 17:24> Attestation: I personally attest to this time spent taking care of the patient <AFSHAN Arrieta Last Filed: 01/28/22 17:24> Discharge Plan Discharge Clinical Impression: Anemia, ALESSANDRO (acute kidney injury), Strain of lumbar region, Femoral acetabular impingement, Traumatic ecchymosis of right lower leg <AFSHAN Arrieta Last Filed: 01/28/22 17:24> Patient Disposition: Admitted As Inpatient <AFSHAN Arrieta Last Filed: 01/28/22 17:24> Interventions: Admission Worksheet (ED) Last Done: 01/28/22 20:07 <AFSHAN Arrieta - Last Filed: 01/28/22 17:24> Discharge Date/Time: 01/28/22 20:10 <AFSHAN Arrieta - Last Filed: 01/28/22 17:24>
[2022-01-28] MEDS: 0.9 % Sodium Chloride 1,000 ML 999 ML IVCONT (15:36)
[2022-01-28 15:56] LABS: Lactic Acid 1.9 mmol/L (0.5-2.0)
[2022-01-28] MEDS: oxyCODONE HCl Immed Release 5 MG TABLET PO (16:24)
[2022-01-28 16:26] LABS: OBS1 NEGATIVE (NEGATIVE)
[2022-01-28 16:27] LABS: OBS Int Ctl Valid YES
[2022-01-28 17:04] LABS: Troponin-I High Sensitivity 40.5 ng/L (<3.5-17.0)
[2022-01-28 17:30] LABS: Appearance Urine CLEAR; Color Urine YELLOW; Glucose Urine UA NEG (NEG); Leukocyte Esterase Urine 1+ (NEG); Nitrite Urine NEG (NEG); PH 5.5 (5.0-8.0); UACC Culture Trigger YES; Urine Blood NEG (NEG); Urine Ketones NEG (NEG); Urine Protein NEG (NEG-TRACE)
--- NOTE | 2022-01-28 17:31 | P.HPHOSP_ITS ---
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 She also knows that she has been experiencing vaginal bleeding over the last several weeks; she underwent a biopsy with Dr. Velazquez . in the office but tissue sampling was inadequate. She states she is due for another biopsy at the clinic coming up. She was told her bleeding was worse because of her Xarelto. When queried why she came to the ER it was not for bleeding rather it was for her hip and leg pain. Incidental finding of anemia prompting transfusion. Review of Systems Review of Systems: Denies chest pain Denies shortness of breath Denies nausea vomiting diarrhea Admits to vaginal bleeding intermittently over the last several weeks [facility] Medical History Asthma Atrial fibrillation Back pain Bilateral pulmonary embolism Cataract CHF (congestive heart failure) COPD (chronic obstructive pulmonary disease) Depression Diabetes mellitus Hyperlipidemia Hypertension Invasive ductal carcinoma of left breast, stage 2 Kidney stone Sleep apnea Type 2 diabetes mellitus with hyperglycemia, with long-term current use of insulin Urinary incontinence Vaginal pruritus Family History Father CVD (cardiovascular disease) Mother CVD (cardiovascular disease) Family/Other FH: mental illness Mental health disorder Surgical History H/O hernia repair H/O lithotripsy H/O tubal ligation History of carpal tunnel release History of cataract surgery (~2016) History of lumpectomy of left breast (~04/03/20) Social History Household Members: None Housing: Apartment Alcohol intake: never Patient Tobacco Use Status: Never used Tobacco Smoked in Last 30 Days: No e-Cigarette/Vaping Use: Never Used Second Hand Smoke Exposure: No Use of substances other than those prescribed or required for medical reasons: No Currently Displaying Signs/Symptoms of Drug Intoxication Withdrawal: No Have you been hit, kicked, punched, or otherwise hurt by someone within the past year? If so, by whom?: No Do you feel safe in your current relationship?: No Current Relationship Is there a partner from a previous relationship who is making you feel unsafe now?: No Are you made to feel afraid or neglected: No Advance Directives: No Advance Directives Information Provided: No Do you have thoughts of harming others: None Do you have a plan to hurt others: No Plan Recently lost weight without trying: Unsure Nutrition Risks: No Nutritional Risk service: No Current occupational status: disabled Meds Allergies Allergy/AdvReac Type Severity Reaction Status Date / Time shellfish derived Allergy Intermediate SWELLING,N/ Verified 10/28/21 13:44 [SHELLFISH DERIVED] V Active Medications: Current Medications Pharmacy Consult (Consult Rx Perform Med Rec) 1 each MISCELLANE ONCE PRN PRN Reason: Consult order Home Medications Medication Instructions Recorded Confirmed Last Taken Type buspirone 15 mg tablet 15 mg PO BID 07/31/20 01/28/22 01/27/22 History insulin aspart U-100 100 unit/mL 10 - 20 unit SUBCUT TID 01/28/22 01/28/22 Unknown History (3 mL) subcutaneous pen (Novolog Flexpen U-100 Insulin aspart) insulin degludec 100 unit/mL (3 20 unit SUBCUT BEDTIME 01/28/22 01/28/22 01/27/22 History mL) subcutaneous pen (Tresiba FlexTouch U-100 insulin) mineral oil-hydrophil petrolat 1 appl TOPICAL QID PRN 01/28/22 01/28/22 Unknown History topical ointment (DermaPhor) prednisone 5 mg tablet 10 mg PO DAILY 01/28/22 01/28/22 01/27/22 History Physical Exam Vital Signs and Narrative: Vital Signs: Last Vital Signs Temp 96.2 F L 01/28/22 13:02 Pulse 98 01/28/22 16:28 Resp 18 01/28/22 16:28 BP 103/46 L 01/28/22 16:28 Pulse Ox 99 01/28/22 16:28 BMI result Body Mass Index 58.4 Const: Other: Resting comfortably no acute distress Resp: Other: Clear to auscultation bilaterally no rales rhonchi or wheezes Cardio: Other: No S4; positive S1-S2; no S3 murmurs upper gallops GI: Other: Obese; positive bowel sounds throughout. No rebound tenderness Extrem: Other: Positive edema bilaterally Results Labs CBC and Chem 7: 01/29/22 05:46 01/29/22 05:46 Labs: Laboratory Results - last 24 hr 01/28/22 01/28/22 01/28/22 14:28 14:28 14:28 MCV 81.8 MCH 22.5 L MCHC 27.6 L RDW 17.7 H Plt Count 401 H MPV 9.4 Immature Gran % (Auto) 0.3 Neut % (Auto) 77.8 H Lymph % (Auto) 11.2 L Gibson % (Auto) 5.9 Eos % (Auto) 4.3 H Baso % (Auto) 0.5 Lymph # (Auto) 1.5 Gibson # (Auto) 0.8 Eos # (Auto) 0.6 H Baso # (Auto) 0.1 Abs Immat Gran (auto) 0.04 H Absolute Neuts (auto) 10.1 H Absolute Nucleated RBC 0.000 Nucleated RBC % (auto) 0.0 PT 10.7 INR 0.9 Anion Gap 15 Estim Creat Clear Calc 51.4 Estimated GFR 37 Random Glucose 256 H Lactic Acid Calcium 9.2 Magnesium 2.1 Total Bilirubin 0.2 AST 19 ALT 26 Alkaline Phosphatase 91 Troponin I High Sens B-Natriuretic Peptide Total Protein 6.7 Albumin 3.5 Stool Occult Blood COVID-19 (VICKEY) COVID-19 Clin Com Influenza Type A (KEV) Influenza Type B (KEV) Influenza A & B Note Crossmatch 01/28/22 01/28/22 01/28/22 14:28 14:37 14:37 MCV MCH MCHC RDW Plt Count MPV Immature Gran % (Auto) Neut % (Auto) Lymph % (Auto) Gibson % (Auto) Eos % (Auto) Baso % (Auto) Lymph # (Auto) Gibson # (Auto) Eos # (Auto) Baso # (Auto) Abs Immat Gran (auto) Absolute Neuts (auto) Absolute Nucleated RBC Nucleated RBC % (auto) PT INR Anion Gap Estim Creat Clear Calc Estimated GFR Random Glucose Lactic Acid Calcium Magnesium Total Bilirubin AST ALT Alkaline Phosphatase Troponin I High Sens 48.6 H D B-Natriuretic Peptide 50 Total Protein Albumin Stool Occult Blood COVID-19 (VICKEY) Negative COVID-19 [employer] Com See Note Influenza Type A (KEV) Negative Influenza Type B (KEV) Negative Influenza A & B Note See Note Crossmatch 01/28/22 01/28/22 01/28/22 15:32 16:17 16:34 MCV MCH MCHC RDW Plt Count MPV Immature Gran % (Auto) Neut % (Auto) Lymph % (Auto) Gibson % (Auto) Eos % (Auto) Baso % (Auto) Lymph # (Auto) Gibson # (Auto) Eos # (Auto) Baso # (Auto) Abs Immat Gran (auto) Absolute Neuts (auto) Absolute Nucleated RBC Nucleated RBC % (auto) PT INR Anion Gap Estim Creat Clear Calc Estimated GFR Random Glucose Lactic Acid 1.9 Calcium Magnesium Total Bilirubin AST ALT Alkaline Phosphatase Troponin I High Sens B-Natriuretic Peptide Total Protein Albumin Stool Occult Blood NEGATIVE COVID-19 ([facility]ICKEY) COVID-[employer] Com Influenza Type A (KEV) Influenza Type B (KEV) Influenza A & B Note Crossmatch See Detail 01/28/22 16:34 MCV MCH MCHC RDW Plt Count MPV Immature Gran % (Auto) Neut % (Auto) Lymph % (Auto) Gibson % (Auto) Eos % (Auto) Baso % (Auto) Lymph # (Auto) Gibson # (Auto) Eos # (Auto) Baso # (Auto) Abs Immat Gran (auto) Absolute Neuts (auto) Absolute Nucleated RBC Nucleated RBC % (auto) PT INR Anion Gap Estim Creat Clear Calc Estimated GFR Random Glucose Lactic Acid Calcium Magnesium Total Bilirubin AST ALT Alkaline Phosphatase Troponin I High Sens 40.5 H B-Natriuretic Peptide Total Protein Albumin Stool Occult Blood COVID-19 (VICKEY) COVID-19 [employer] Com Influenza Type A (KEV) Influenza Type B (KEV) Influenza A & B Note Crossmatch Imaging Radiologist's Impressions: Impressions Lumbar Spine X-Ray 01/28/22 13:45 IMPRESSION: 1. No acute abnormality. Multilevel degenerative changes as detailed above. Hip/Pelvis X-Ray 01/28/22 13:49 IMPRESSION: 1. Mild bilateral hip osteoarthritis and right cam femoral acetabular impingement. No overt fracture. Chest X-Ray 01/28/22 13:50 IMPRESSION: Mild prominence of the pulmonary vascular appears mildly increased suggesting mild congestion. Tibia/Fibula X-Ray 01/28/22 13:50 IMPRESSION: 1. Moderate soft tissue swelling without acute underlying osseous abnormality. 2. Mild right knee osteoarthritis. Assessment and Plan (1) Anemia: Status: Acute (2) ALESSANDRO (acute kidney injury): Status: Acute (3) Type 2 diabetes mellitus with hyperglycemia, with long-term current use of i nsulin: Status: Acute (4) Atrial fibrillation: Qualifiers: Atrial fibrillation type: paroxysmal Qualified Code(s): I48.0 - Paroxysmal atrial fibrillation Status: Acute (5) Hypertension: Qualifiers: Hypertension type: essential hypertension Qualified Code(s): I10 - Essential (primary) hypertension Status: Acute Plan 66-year-old female status post fall approximately 2 weeks ago presents to the emergency room via EMS for right hip and leg pain. Subsequent workup including hip pelvis lumbar spine and lower leg failed to demonstrate any acute pathology. CBC demonstrated hemoglobin of 7.8 for which she will be transfused 1. Symptomatic anemia -likely related to endometrial bleeding in the backdrop of Xarelto use -transfuse to maintain hemoglobin greater than equal to 10 -serial CBCs -consult Dr. Caroline vinson for endometrial bleeding 2. ALESSANDRO -likely hypovolemic in nature -PRBCs forward/gentle volume repletion -follow renals/divalents 3. Diabetes type 2 with long-term insulin use -continue outpatient therapies -cover with lispro correctional scale -adjustments as clinically indicated -ADA diet 4. Paroxysmal atrial fibrillation -EKG demonstrates sinus rhythm -hold DOAG ; cardiology consult to affirm need for anticoagulation 5.HTN -acceptable control on current therapies -adjust as indicated Full code Vena dynes boots Will require 1-2 midnights going forward for transfusion and evaluation of endometrial bleeding. This cannot be accomplished and a less acute setting Quality Stroke Does the patient have a stroke diagnosis?: No VTE Prior VTE?: No VTE Risk Level:: Medical - moderate - high VTE Device Contraindication: Treatment Not Indicated VTE Drug Contraindication: N/A - Med Ordered
--- NOTE | 2022-01-28 17:36 | PHA.MEDREC ---
Pharmacy Consult ? Medication Reconciliation Pharmacy has completed the medication reconciliation.
[2022-01-28 17:54] LABS: Bacteria Urine 3+ /LPF; Squamous Epithelial Cell Urine TRACE /LPF
[2022-01-28] MEDS: 0.9 % Sodium Chloride 1,000 ML 100 ML IVCONT (18:51)
--- NOTE | 2022-01-28 19:14 | PC.NURSE ---
Report called to Tamir SIMONS.
--- NOTE | 2022-01-28 20:07 | PC.NURSE ---
Pt stable with her blood transfusion VSS, will transport pt to unit now with Wilfredo anton and Wilfredo SIMONS
[2022-01-28] MEDS: Insulin Glargine,Hum.rec.anlog 100 UNIT/ML 10 ML VIAL 14 UNIT SUBCUT (21:14)
[2022-01-28] MEDS: Insulin Lispro 100 UNIT/ML 3 ML VIAL SUBCUT (21:15)
[2022-01-28] MEDS: 0.9 % Sodium Chloride Flush 3 ML SYRINGE IVFLUSH (21:15)
[2022-01-28] MEDS: Calcium Carbonate 750 MG TAB.CHEW 300 MG PO (21:15)
[2022-01-28] MEDS: busPIRone HCl 5 MG TABLET 15 MG PO (21:15)
[2022-01-28] MEDS: Furosemide 20 MG/2 ML VIAL IVPUSH (21:15)
[2022-01-28] MEDS: Gabapentin 400 MG CAPSULE 800 MG PO (21:16)
[2022-01-28] MEDS: Mirtazapine 30 MG TABLET PO (21:16)
[2022-01-28] MEDS: Dronedarone HCl 400 MG TABLET PO (21:16)
[2022-01-28] MEDS: metFORMIN HCl ER 500 MG TAB.ER.24H PO (21:16)
[2022-01-28] MEDS: Pravastatin Sodium 40 MG TABLET PO (21:16)
[2022-01-28 21:55] LABS: Glucose, Whole Blood 215 mg/dL (60-115)
[2022-01-29 03:32] VITALS: BP 133/58; PULSE 105; RESP 16; TEMP 37.7; O2SAT 100
[2022-01-29] MEDS: Acetaminophen 325 MG TABLET 500 MG PO (04:47)
[2022-01-29 06:12] LABS: MANUAL DIFF FLAG NO
[2022-01-29 06:28] LABS: Basophils Absolute Auto 0.1 X10*3/uL (0.0-0.2); Basophils Percent Auto 0.4 % (0-2); Eosinophils Absolute Auto 0.4 X10*3/uL (0.0-0.4); Hematocrit 28.5 % (37.0-47.0); Hemoglobin 8.3 g/dl (12.0-16.0); Imm Gran Abs Auto 0.05 X10*3/uL (0.00-0.03); Imm Gran Pct Auto 0.4 % (0.0-0.4); Lymphocytes Percent Auto 15.4 % (20-40); Mean Corpuscular HGB Conc 29.1 g/dl (31.0-35.0); Mean Corpuscular Volume 82.4 fL (80.0-98.0); Mean Platelet Volume 9.4 fL (9.4-12.3); Monocytes Absolute Auto 1.3 X10*3/uL (0.1-1.2); Monocytes Percent Auto 10.6 % (2-11); Neutrophils Absolute Auto 8.9 x10*3/uL (2.0-8.3); Neutrophils Percent Auto 70.2 % (45-73); Platelet Count 366 X10*3/uL (160-400); Red Blood Count 3.46 X10*6/uL (4.20-5.50); Red Cell Distribution Width 17.2 % (11.0-16.0); White Blood Count 12.7 X10*3/uL (4.8-10.8)
[2022-01-29] MEDS: 0.9 % Sodium Chloride 1,000 ML 100 ML IVCONT (06:35)
[2022-01-29 06:52] LABS: Alanine Aminotransferase 21 U/L (0-31); Albumin Level 3.3 g/dL (3.5-5.0); Alkaline Phosphatase 88 U/L (39-117); Anion Gap 16 (12-20); Aspartate Amino Transferase 13 U/L (5-31); Bilirubin Total 0.4 mg/dL (0.0-1.0); Blood Urea Nitrogen 33 mg/dL (9-16); Carbon Dioxide 32 mmol/L (22-29); Chloride 99 mmol/L (96-108); Creatinine Clr Calc Pharmacy 84.9; Estimated Glomerular Filt Rate > 60; Glucose Fasting 193 mg/dL (60-99); Potassium 4.5 mmol/L (3.3-5.1); Sodium 142 mmol/L (135-145); Total Protein 6.3 g/dL (6.5-8.0)
[2022-01-29] MEDS: Fluticasone/Vilanterol 100/25 BLST.W.DEV 1 PUFF INHALE (07:36)
[2022-01-29 07:37] VITALS: PULSE 105; RESP 18; O2SAT 96
[2022-01-29 07:49] LABS: Glucose, Whole Blood 179 mg/dL (60-115)
[2022-01-29 07:59] VITALS: BP 112/58; PULSE 100; RESP 17; TEMP 36.3; O2SAT 90
[2022-01-29] MEDS: Gabapentin 400 MG CAPSULE 800 MG PO ×2 (08:11→16:50)
[2022-01-29] MEDS: Dronedarone HCl 400 MG TABLET PO (08:12)
[2022-01-29] MEDS: Metoprolol Succinate ER 25 MG TAB.ER.24H PO (08:12)
[2022-01-29] MEDS: predniSONE 5 MG TABLET 10 MG PO (08:12)
[2022-01-29] MEDS: busPIRone HCl 5 MG TABLET 15 MG PO (08:13)
[2022-01-29] MEDS: metFORMIN HCl ER 500 MG TAB.ER.24H PO (08:13)
[2022-01-29] MEDS: Furosemide 40 MG TABLET 80 MG PO (08:14)
[2022-01-29] MEDS: lisinopriL 10 MG TABLET PO (08:14)
[2022-01-29] MEDS: Montelukast Sodium 10 MG TABLET PO (08:14)
[2022-01-29] MEDS: Anastrozole 1 MG TABLET PO (08:15)
[2022-01-29] MEDS: Calcium Carbonate 750 MG TAB.CHEW 300 MG PO (08:15)
[2022-01-29] MEDS: Insulin Lispro 100 UNIT/ML 3 ML VIAL SUBCUT ×3 (08:16→16:51)
[2022-01-29] MEDS: 0.9 % Sodium Chloride Flush 3 ML SYRINGE IVFLUSH (08:19)
[2022-01-29] MEDS: Fluticasone Propionate Nasal 16 GM SPRAY 1 SPRAY NOSTRIL-B (08:21)
[2022-01-29] MEDS: Cholecalciferol (Vitamin D3) 25 MCG TABLET PO (08:21)
--- NOTE | 2022-01-29 08:47 | MHC.CM.PN ---
CM met briefly with Patient at bedside and addressed IMM with her, providing her with the original and placing a copy on the chart. Patient lives alone in her apartment and receives both day and evening [employer] services and has home O2. Home/resume said services is the goal for dc and CM has initiated and will follow for dc planning. Patient has received Covid vax X3, and PCP is DR. Arreaga from [facility].
--- NOTE | 2022-01-29 09:15 | PM.GYNCN ---
BACK [facility]ANGER - CN: HPI Data of Consult Consult date: 01/29/22 Requesting Physician: Aman Ortiz DO Primary Care Provider: Unknown Physician Consult Narrative Narrative: I was consulted on Luisa Denny who is a 66 year old female presented yesterday to the ED via EMS with complaints of right hip/lower back pain and right lower leg pain after she had a mechanical fall approximately 1 week ago.? In addition the patient has been experiencing postmenopausal bleeding over the last several weeks; she had an endometrial biopsy in the office came back the following: Endometrium, biopsy: - Superficial strips of benign squamous and endocervical epithelium; abundant mucoinflammatory material - Rare strips of atrophic endometrium; no atypia seen. COMMENT:? The endometrial component is quite sparse; recommend repeat as clinically appropriate. Last co testing was in 2016 was negative. No history of abnormal Pap smear last 25 years according to patient. The patient was counseled about options of treatment including repeat endometrial biopsy versus hysteroscopy D&C but given her multiple medical is on Xarelto, the decision was to proceed with repeat endometrial biopsy possibly under paracervical block, she was scheduled for another biopsy on 12/10 but no showed for the appointment and rescheduled her endometrial biopsy appointment on 02/17. The patient did not presented emergency room for vaginal bleeding rather it was for her hip and leg pain.? Incidental finding of anemia prompting transfusion. The patient is doing well with minimal vaginal spotting no active bleeding overnight. cc:: CC: Aman Ortiz DO ADULT NEUROPSYCHOLOGIST - Review of Systems Review of Systems ROS Unobtainable: All systems reviewed & are unremarkable except as noted in HPI and below Cardiovascular: Denies Palpatations, Loss of consciousness or Chest pain Respiratory: Denies Cough, Wheezing or Shortness of breath Musculoskeletal: Denies Low back pain Gastrointestinal: Denies Heartburn, Constipation, Diarrhea, Nausea or Vomiting Genitourinary: Denies Pain with urination, Burning with urination or Urinary frequency Neurological: Denies Migranes Psychological: Denies Depression OB [facility] Past Medical History Medical History Asthma Atrial fibrillation Back pain Bilateral pulmonary embolism Cataract CHF (congestive heart failure) COPD (chronic obstructive pulmonary disease) Depression Diabetes mellitus Hyperlipidemia Hypertension Invasive ductal carcinoma of left breast, stage 2 Kidney stone Sleep apnea Type 2 diabetes mellitus with hyperglycemia, with long-term current use of insulin Urinary incontinence Vaginal pruritus Family History Family History Father CVD (cardiovascular disease) Mother CVD (cardiovascular disease) Family/Other FH: mental illness Mental health disorder Surgical History Surgical History H/O hernia repair H/O lithotripsy H/O tubal ligation History of carpal tunnel release History of cataract surgery (~2016) History of lumpectomy of left breast (~04/03/20) Social History Social History Household Members: None Housing: Apartment Alcohol intake: never Patient Tobacco Use Status: Never used Tobacco Smoked in Last 30 Days: No e-Cigarette/Vaping Use: Never Used Second Hand Smoke Exposure: No Use of substances other than those prescribed or required for medical reasons: No Currently Displaying Signs/Symptoms of Drug Intoxication Withdrawal: No Have you been hit, kicked, punched, or otherwise hurt by someone within the past year? If so, by whom?: No Do you feel safe in your current relationship?: No Current Relationship Is there a partner from a previous relationship who is making you feel unsafe now?: No Are you made to feel afraid or neglected: No Advance Directives: No Advance Directives Information Provided: No Do you have thoughts of harming others: None Do you have a plan to hurt others: No Plan Recently lost weight without trying: Unsure Nutrition Risks: No Nutritional Risk service: No Current occupational status: disabled Meds Allergies Allergy/AdvReac Type Severity Reaction Status Date / Time shellfish derived Allergy Intermediate SWELLING,N/ Verified 10/28/21 13:44 [SHELLFISH DERIVED] V Active Medications: Current Medications Acetaminophen (Acetaminophen 325 Mg Tablet) 500 mg PO Q6H PRN PRN Reason: fever or pain Last Admin: 01/29/22 04:47 Dose: 500 mg Documented by: Albuterol Sulfate (Albuterol Sulfate (0.042%) 1.25 Mg/3 Ml Vial.Neb) 0.63 mg INHALE QID PRN PRN Reason: shortness of breath or wheezing Albuterol Sulfate (Albuterol Sulfate 90 Mcg 8 Gm Inhaler) 1 puff INHALE QID PRN PRN Reason: shortness of breath or wheezing Anastrozole (Anastrozole 1 Mg Tablet) 1 mg PO DAILY [facility] Last Admin: 01/29/22 08:15 Dose: 1 mg Documented by: Buspirone HCl (Buspirone Hcl 5 Mg Tablet) 15 mg PO BID [facility] Last Admin: 01/29/22 08:13 Dose: 15 mg Documented by: Calcium Carbonate (Calcium Carbonate 750 Mg Tab.Chew) 300 mg PO BID [facility] Last Admin: 01/29/22 08:15 Dose: 300 mg Documented by: Dronedarone (Dronedarone Hcl 400 Mg Tablet) 400 mg PO BID [facility] Last Admin: 01/29/22 08:12 Dose: 400 mg Documented by: Fluticasone Propionate (Fluticasone Propionate Nasal 16 Gm Dwarf) 1 spray NOSTRIL-B DAILY [facility] Last Admin: 01/29/22 08:21 Dose: 1 spray Documented by: Fluticasone/Vilanterol (Fluticasone/Vilanterol 100/25 Blst.W.Dev) 1 puff INHALE DAILY [facility] Last Admin: 01/29/22 07:36 Dose: 1 puff Documented by: Furosemide (Furosemide 40 Mg Tablet) 80 mg PO DAILY [facility]; Protocol Last Admin: 01/29/22 08:14 Dose: 80 mg Documented by: Gabapentin (Gabapentin 400 Mg Capsule) 800 mg PO TID [facility] Last Admin: 01/29/22 08:11 Dose: 800 mg Documented by: Sodium Chloride (Ns) 1,000 mls @ 100 mls/hr IVCONT .Q10H [facility] Last Admin: 01/29/22 06:35 Dose: 100 mls/hr Documented by: Insulin Glargine (Insulin Glargine,Hum.Rec.Anlog 100 Unit/Ml 10 Ml Vial) 14 unit SUBCUT BEDTIME [facility] Last Admin: 01/28/22 21:14 Dose: 14 unit Documented by: Insulin Human Lispro (Insulin Lispro 100 Unit/Ml 3 Ml Vial) 0 unit SUBCUT QIDACHS [facility]; Protocol Last Admin: 01/29/22 08:16 Dose: 2 unit Documented by: Lisinopril (Lisinopril 10 Mg Tablet) 10 mg PO DAILY [facility]; Protocol Last Admin: 01/29/22 08:14 Dose: 10 mg Documented by: Loratadine (Loratadine 10 Mg Tablet) 10 mg PO DAILY PRN PRN Reason: allergy symptoms Metformin HCl (Metformin Hcl Er 500 Mg Tab.Er.24h) 500 mg PO BID [facility] Last Admin: 01/29/22 08:13 Dose: 500 mg Documented by: Metoprolol Succinate (Metoprolol Succinate Er 25 Mg Tab.Er.24h) 25 mg PO DAILY [facility]; Protocol Last Admin: 01/29/22 08:12 Dose: 25 mg Documented by: Mirtazapine (Mirtazapine 30 Mg Tablet) 30 mg PO BEDTIME [facility] Last Admin: 01/28/22 21:16 Dose: 30 mg Documented by: Montelukast Sodium (Montelukast Sodium 10 Mg Tablet) 10 mg PO DAILY [facility] Last Admin: 01/29/22 08:14 Dose: 10 mg Documented by: Multi-Ingred Cream/Lotion/Oil/Oint (Mineral Oil/Petrolatum,White 106 Gm Tube) 1 appl TOPICAL QID PRN PRN Reason: Dry Skin Non-Formulary Medication (Pantoprazole) 40 mg PO DAILY [facility] Pharmacy Consult (Consult Rx Perform Med Rec) 1 each MISCELLANE ONCE PRN PRN Reason: Consult order Pravastatin Sodium (Pravastatin Sodium 40 Mg Tablet) 40 mg PO BEDTIME [facility] Last Admin: 01/28/22 21:16 Dose: 40 mg Documented by: Prednisone (Prednisone 5 Mg Tablet) 10 mg PO DAILY [facility] Last Admin: 01/29/22 08:12 Dose: 10 mg Documented by: Sodium Chloride (0.9 % Sodium Chloride Flush 3 Ml Syringe) [facility] Admin: 01/29/22 08:19 Dose: 3 ml Documented by: Vitamin D (Cholecalciferol (Vitamin D3) 25 Mcg Tablet) 25 mcg PO DAILY [facility] Last Admin: 01/29/22 08:21 Dose: 25 mcg Documented by: Home Medications Medication Instructions Recorded Confirmed Last Taken Type buspirone 15 mg tablet 15 mg PO BID 07/31/20 01/28/22 01/27/22 History insulin aspart U-100 100 unit/mL 10 - 20 unit SUBCUT TID 01/28/22 01/28/22 Unknown History (3 mL) subcutaneous pen (Novolog Flexpen U-100 Insulin aspart) insulin degludec 100 unit/mL (3 20 unit SUBCUT BEDTIME 01/28/22 01/28/22 01/27/22 History mL) subcutaneous pen (Tresiba FlexTouch U-100 insulin) mineral oil-hydrophil petrolat 1 appl TOPICAL QID PRN 01/28/22 01/28/22 Unknown History topical ointment (DermaPhor) prednisone 5 mg tablet 10 mg PO DAILY 01/28/22 01/28/22 01/27/22 History [facility]ER Physical Exam Vitals Vital signs: Temp Pulse Resp BP Pulse Ox 97.3 F 100 17 112/58 L 90 L 01/29/22 07:59 01/29/22 07:59 01/29/22 07:59 01/29/22 07:59 01/29/22 07:59 BMI result Body Mass Index 58.4 Constitutional General Appearance: Healthy appearing, Well-nourished and Well-developed Psychiatric Mood and Affect: active and alert, normal mood and normal affect Skin Appearance: No rashes and No lesions Lungs Respiratory Effort: No intercostal retractions Auscultation: Clear to auscultation Cardiovascular Auscultation: RRR Abdomen Auscultation/Inspection/Palpation: Normal bowel sounds, Soft, Non-distended and No tenderness Female Genitalia (Pelvic) Vagina: Nontender and No erythema Cervix: Grossly normal Uterus: Normal size Adnexa/Parametria: Adnexal Tenderness: None, Adnexal Mass: None, Parametrial Tenderness: None and Parametrial Mass: None Additional Comments: No blood per vagina BACK HANGER - Results Labs CBC & Chem 7: 01/29/22 05:46 01/29/22 05:46 Labs: Short CBC 01/28/22 01/29/22 Range/Units 14:28 05:46 WBC 12.9 H 12.7 H (4.8-10.8) X10*3/uL Hgb 7.8 L D 8.3 L (12.0-16.0) g/dl Hct 28.3 L D 28.5 L (37.0-47.0) % Plt Count 401 H 366 (160-400) X10*3/uL BMP 01/28/22 01/29/22 14:28 05:46 Sodium 140 142 Potassium 4.0 4.5 Chloride 98 99 Carbon Dioxide 31 H 32 H BUN 54 H D 33 H Creatinine 1.42 H 0.86 Calcium 9.2 9.0 Liver Function 01/28/22 01/29/22 Range/Units 14:28 05:46 Total Bilirubin 0.2 0.4 (0.0-1.0) mg/dL AST 19 13 (5-31) U/L ALT 26 21 (0-31) U/L Alkaline Phosphatase 91 88 (39-117) U/L Albumin 3.5 3.3 L (3.5-5.0) g/dL Urine 01/28/22 Range/Units 16:50 Urine Color YELLOW Urine Appearance CLEAR Urine pH 5.5 (5.0-8.0) Ur Specific [place] 1.010 (1.005-1.025) Urine Protein NEG (NEG-TRACE) MG/DL Urine Glucose (UA) NEG (NEG) MG/DL Antibody Screen Antibody Screen NEGATIVE 01/28/22 16:34 Assessment and Plan (1) Postmenopausal bleeding: Status: Acute Plan Discussed with the patient the differential diagnosis of post menopausal bleeding including but not limited to, endometrial hyperplasia, cancer, polyps and other causes. In addition, discussed with the patient the results of the previous endometrial biopsy pathology , I recommended to the patient that the next step is to repeat endometrial sampling to rule out endometrial pathology including endometrial hyperplasia, malignancy or a polyp, explained to the patient that this can be done?via hysteroscopy D&C possible polypectomy versus bedside endometrial biopsy .? All the pros and cons risks and benefits of each approach were discussed with the patient, endometrial biopsy being less invasive, office procedure with less sensitivity and inability diagnose a polyp and removal versus hysteroscopy done under anesthesia more invasive more sensitive to endometrial cancer and possibility of diagnosing and endometrial polyp with the possibility of polypectomy.? All questions were answered pt verbalized understanding and decided to proceed with endometrial biopsy. ?EMB done, see procedure note. Endometrial Biopsy Details: The patient was counseled regarding the indication and benefits of endometrial sampling to rule out endometrial pathology including not limited to endometrial hyperplasia or endometrial cancer and others; The alternatives (Either do nothing vs. hysteroscopy D&C) & the risks were discussed with the patient including but not limited: pain, uterine perforation, bleeding, infection, possible injury to bladder, bowel, ureter, possible need for blood transfusion with all its possible risks. The patient verbalized understanding all questions answered and signed consent. ?Certified washer meat present The patient was placed into the dorsal lithotomy position; a speculum was inserted in the vagina.? Using aseptic technique for the procedure, the cervix was cleansed with Betadine.? The anterior lip of the cervix was grasped with a single tooth tenaculum. The uterus was sounded to 7 cm with a 4 mm Pipelle was used.? Tissues samples were obtained and placed in formalin, in a patient labeled container and sent to the pathology department. At the end of the procedure, there was minimal bleeding noted The patient tolerated the procedure well and was discharged in good condition with the following instructions: Nothing in the vagina until the bleeding stops. No sex until the bleeding stops, to call if any of the following occurs: fever (>100.4), flu-like symptoms, abdominal pain, heavy bleeding, four smelling vaginal discharge. The patient was instructed to schedule a Follow up appointment in 2 weeks to discuss pathology results of the biopsy and treatment options [id number] Biopsy
[2022-01-29 11:09] LABS: Glucose, Whole Blood 304 mg/dL (60-115)
[2022-01-29] MEDS: oxyCODONE HCl Immed Release 5 MG TABLET PO ×2 (11:14→16:53)
[2022-01-29 11:50] VITALS: BP 140/70; PULSE 86; RESP 20; TEMP 36.7; O2SAT 90
--- NOTE | 2022-01-29 12:05 | MHC.CM.PN ---
CM spoke with Patient,Daughter/Nely @ [phone] regarding PT's recommendation for STR. Patient/Daughter are agreeable to a SNF search near [facility] and CM will continue to follow.
--- NOTE | 2022-01-29 13:15 | MHC.CM.PN ---
Patient/Daughter/Nely @ [phone] have accepted [facility] bed offer and CM has requested that [facility] initiate authorization. CM will follow.
--- NOTE | 2022-01-29 15:10 | HO.PM.IMPN ---
Subjective Subjective Date of Service: 01/29/22 Interval History: No acute events overnight. Mobility significantly limited by pain Review of Systems Denies chest pain Denies shortness of breath Denies nausea vomiting diarrhea Admits to vaginal bleeding intermittently over the last several weeks Physical Exam Vital Signs: Vital Signs: Last Vital Signs Temp 98.0 F 01/29/22 11:50 Pulse 86 01/29/22 11:50 Resp 20 01/29/22 11:50 BP 140/70 H 01/29/22 11:50 Pulse Ox 90 L 01/29/22 11:50 BMI result Body Mass Index 58.4 Const: Other: Resting comfortably no acute distress Resp: Other: Clear to auscultation bilaterally no rales rhonchi or wheezes Cardio: Other: No S4; positive S1-S2; no S3 murmurs upper gallops GI: Other: Obese; positive bowel sounds throughout. No rebound tenderness Extrem: Other: Positive edema bilaterally Objective Data Active Medications Acetaminophen (Acetaminophen 325 Mg Tablet) 500 mg PO Q6H PRN PRN Reason: fever or pain Last Admin: 01/29/22 04:47 Dose: 500 mg Documented by: DEREK Albuterol Sulfate (Albuterol Sulfate (0.042%) 1.25 Mg/3 Ml Vial.Neb) 0.63 mg INHALE QID PRN PRN Reason: shortness of breath or wheezing Albuterol Sulfate (Albuterol Sulfate 90 Mcg 8 Gm Inhaler) 1 puff INHALE QID PRN PRN Reason: shortness of breath or wheezing Anastrozole (Anastrozole 1 Mg Tablet) 1 mg PO DAILY [facility] Last Admin: 01/29/22 08:15 Dose: 1 mg Documented by: COREY Buspirone HCl (Buspirone Hcl 5 Mg Tablet) 15 mg PO BID [facility] Last Admin: 01/29/22 08:13 Dose: 15 mg Documented by: COREY Calcium Carbonate (Calcium Carbonate 750 Mg Tab.Chew) 300 mg PO BID [facility] Last Admin: 01/29/22 08:15 Dose: 300 mg Documented by: COREY Dronedarone (Dronedarone Hcl 400 Mg Tablet) 400 mg PO BID [facility] Last Admin: 01/29/22 08:12 Dose: 400 mg Documented by: COREY Fluticasone Propionate (Fluticasone Propionate Nasal 16 Gm Bucks) 1 spray NOSTRIL-B DAILY [facility] Last Admin: 01/29/22 08:21 Dose: 1 spray Documented by: COREY Fluticasone/Vilanterol (Fluticasone/Vilanterol 100/25 Blst.W.Dev) 1 puff INHALE DAILY [facility] Last Admin: 01/29/22 07:36 Dose: 1 puff Documented by: DAYNA Furosemide (Furosemide 40 Mg Tablet) 80 mg PO DAILY [facility]; Protocol Last Admin: 01/29/22 08:14 Dose: 80 mg Documented by: COREY Gabapentin (Gabapentin 400 Mg Capsule) 800 mg PO TID [facility] Last Admin: 01/29/22 08:11 Dose: 800 mg Documented by: COREY Sodium Chloride (Ns) 1,000 mls @ 100 mls/hr IVCONT .Q10H [facility] Last Infusion: 01/29/22 13:18 Dose: 0 mls/hr Documented by: COREY Insulin Glargine (Insulin Glargine,Hum.Rec.Anlog 100 Unit/Ml 10 Ml Vial) 14 unit SUBCUT BEDTIME [facility] Last Admin: 01/28/22 21:14 Dose: 14 unit Documented by: DEREK Insulin Human Lispro (Insulin Lispro 100 Unit/Ml 3 Ml Vial) 0 unit SUBCUT QIDACHS [facility]; Protocol Last Admin: 01/29/22 12:38 Dose: 8 unit Documented by: COREY Lisinopril (Lisinopril 10 Mg Tablet) 10 mg PO DAILY [facility]; Protocol Last Admin: 01/29/22 08:14 Dose: 10 mg Documented by: COREY Loratadine (Loratadine 10 Mg Tablet) 10 mg PO DAILY PRN PRN Reason: allergy symptoms Metformin HCl (Metformin Hcl Er 500 Mg Tab.Er.24h) 500 mg PO BID [facility] Last Admin: 01/29/22 08:13 Dose: 500 mg Documented by: COREY Metoprolol Succinate (Metoprolol Succinate Er 25 Mg Tab.Er.24h) 25 mg PO DAILY [facility]; Protocol Last Admin: 01/29/22 08:12 Dose: 25 mg Documented by: COREY Mirtazapine (Mirtazapine 30 Mg Tablet) 30 mg PO BEDTIME [facility] Last Admin: 01/28/22 21:16 Dose: 30 mg Documented by: DEREK Montelukast Sodium (Montelukast Sodium 10 Mg Tablet) 10 mg PO DAILY [facility] Last Admin: 01/29/22 08:14 Dose: 10 mg Documented by: COREY Multi-Ingred Cream/Lotion/Oil/Oint (Mineral Oil/Petrolatum,White 106 Gm Tube) 1 appl TOPICAL QID PRN PRN Reason: Dry Skin Non-Formulary Medication (Pantoprazole) 40 mg PO DAILY [facility] Last Admin: 01/29/22 12:27 Dose: Not Given Documented by: COREY Non-Admin Reason: Med Not Available Oxycodone HCl (Oxycodone Hcl Immed Release 5 Mg Tablet) 5 mg PO Q4H PRN PRN Reason: Pain, Moderate (Pain Scale 4-6 Last Admin: 01/29/22 11:14 Dose: 5 mg Documented by: COREY Pharmacy Consult (Consult Rx Perform Med Rec) 1 each MISCELLANE ONCE PRN PRN Reason: Consult order Pravastatin Sodium (Pravastatin Sodium 40 Mg Tablet) 40 mg PO BEDTIME [facility] Last Admin: 01/28/22 21:16 Dose: 40 mg Documented by: DEREK Prednisone (Prednisone 5 Mg Tablet) 10 mg PO DAILY [facility] Last Admin: 01/29/22 08:12 Dose: 10 mg Documented by: COREY Sodium Chloride (0.9 % Sodium Chloride Flush 3 Ml Syringe) 3 ml IVFLUSH QSHIFT [facility] Last Admin: 01/29/22 08:19 Dose: 3 ml Documented by: COREY Vitamin D (Cholecalciferol (Vitamin D3) 25 Mcg Tablet) 25 mcg PO DAILY [facility] Last Admin: 01/29/22 08:21 Dose: 25 mcg Documented by: COREY Labs CBC & Chem 7: 01/29/22 05:46 01/29/22 05:46 Labs: Laboratory Results - last 24 hr 01/28/22 01/28/22 01/28/22 15:32 16:17 16:34 MCV MCH MCHC RDW Plt Count MPV Immature Gran % (Auto) Neut % (Auto) Lymph % (Auto) [facility] % (Auto) Eos % (Auto) Baso % (Auto) Lymph # (Auto) [facility] # (Auto) Eos # (Auto) Baso # (Auto) Abs Immat Gran (auto) Absolute Neuts (auto) Absolute Nucleated RBC Nucleated RBC % (auto) Anion Gap Estim Creat Clear Calc Estimated GFR POC Glucose Fasting Glucose Lactic Acid 1.9 Calcium Total Bilirubin AST ALT Alkaline Phosphatase Troponin I High Sens Total Protein Albumin Urine Color Urine Appearance Urine pH Ur Specific [place] Urine Protein Urine Glucose (UA) Urine Ketones Urine Blood Urine Nitrite Ur Leukocyte Esterase Urine RBC Urine WBC Ur Squamous Epith Cells Urine Bacteria Stool Occult Blood NEGATIVE Blood Type A Positive Antibody Screen NEGATIVE Crossmatch See Detail 01/28/22 01/28/22 01/28/22 16:34 16:50 20:43 MCV MCH MCHC RDW Plt Count MPV Immature Gran % (Auto) Neut % (Auto) Lymph % (Auto) [facility] % (Auto) Eos % (Auto) Baso % (Auto) Lymph # (Auto) [facility] # (Auto) Eos # (Auto) Baso # (Auto) Abs Immat Gran (auto) Absolute Neuts (auto) Absolute Nucleated RBC Nucleated RBC % (auto) Anion Gap Estim Creat Clear Calc Estimated GFR POC Glucose 215 H Fasting Glucose Lactic Acid Calcium Total Bilirubin AST ALT Alkaline Phosphatase Troponin I High Sens 40.5 H Total Protein Albumin Urine Color YELLOW Urine Appearance CLEAR Urine pH 5.5 Ur Specific [place] 1.010 Urine Protein NEG Urine Glucose (UA) NEG Urine Ketones NEG Urine Blood NEG Urine Nitrite NEG Ur Leukocyte Esterase 1+ H Urine RBC 1-4 Urine WBC 5-9 H Ur Squamous Epith Cells TRACE Urine Bacteria 3+ Stool Occult Blood Blood Type Antibody Screen Crossmatch 01/29/22 01/29/22 01/29/22 05:46 05:46 07:45 MCV 82.4 MCH 24.0 L MCHC 29.1 L RDW 17.2 H Plt Count 366 MPV 9.4 Immature Gran % (Auto) 0.4 Neut % (Auto) 70.2 Lymph % (Auto) 15.[address] [facility] % (Auto) 10.6 Eos % (Auto) 3.0 Baso % (Auto) 0.4 Lymph # (Auto) 2.0 [facility] # (Auto) 1.3 H Eos # (Auto) 0.4 Baso # (Auto) 0.1 Abs Immat Gran (auto) 0.05 H Absolute Neuts (auto) 8.9 H Absolute Nucleated RBC 0.000 Nucleated RBC % (auto) 0.0 Anion Gap 16 Estim Creat Clear Calc 84.9 Estimated GFR > 60 POC Glucose 179 H Fasting Glucose 193 H Lactic Acid Calcium 9.0 Total Bilirubin 0.4 AST 13 ALT 21 Alkaline Phosphatase 88 Troponin I High Sens Total Protein 6.3 L Albumin 3.3 L Urine Color Urine Appearance Urine pH Ur Specific [place] Urine Protein Urine Glucose (UA) Urine Ketones Urine Blood Urine Nitrite Ur Leukocyte Esterase Urine RBC Urine WBC Ur Squamous Epith Cells Urine Bacteria Stool Occult Blood Blood Type Antibody Screen Crossmatch 01/29/22 11:01 MCV MCH MCHC RDW Plt Count MPV Immature Gran % (Auto) Neut % (Auto) Lymph % (Auto) [facility] % (Auto) Eos % (Auto) Baso % (Auto) Lymph # (Auto) [facility] # (Auto) Eos # (Auto) Baso # (Auto) Abs Immat Gran (auto) Absolute Neuts (auto) Absolute Nucleated RBC Nucleated RBC % (auto) Anion Gap Estim Creat Clear Calc Estimated GFR POC Glucose 304 H Fasting Glucose Lactic Acid Calcium Total Bilirubin AST ALT Alkaline Phosphatase Troponin I High Sens Total Protein Albumin Urine Color Urine Appearance Urine pH Ur Specific [place] Urine Protein Urine Glucose (UA) Urine Ketones Urine Blood Urine Nitrite Ur Leukocyte Esterase Urine RBC Urine WBC Ur Squamous Epith Cells Urine Bacteria Stool Occult Blood Blood Type Antibody Screen Crossmatch Microbiology Microbiology Results: Microbiology 01/28/22 Unknown Urine Culture - Preliminary Urine clean catch - Urine echols top Culture in progress. Assessment and Plan (1) Anemia: Status: Acute (2) ALESSANDRO (acute kidney injury): Status: Acute (3) Type 2 diabetes mellitus with hyperglycemia, with long-term current use of insulin: Status: Acute (4) Atrial fibrillation: Status: Acute (5) Hypertension: Status: Acute Plan 66-year-old female status post fall approximately 2 weeks ago presents to the emergency room via EMS for right hip and leg pain. Subsequent workup including hip pelvis lumbar spine and lower leg failed to demonstrate any acute pathology. CBC demonstrated hemoglobin of 7.8 for which she will be transfused 1. Symptomatic anemia -appropriate response and hemoglobin -OBGYN did endometrial biopsy this morning -no need to hold the OA sees 2. ALESSANDRO -return to baseline with volume and packed cells -follow renals/divalents 3. Diabetes type 2 with long-term insulin use -continue outpatient therapies -cover with lispro correctional scale -adjustments as clinically indicated -ADA diet 4. Paroxysmal atrial fibrillation -EKG demonstrates sinus rhythm -continuerivaroxaban 5.HTN -acceptable control on current therapies -adjust as indicated Full code Vena dynes boots Will require continued hospitalization pending short-term rehab placement Quality Stroke Does the patient have a stroke diagnosis?: No VTE Prior VTE?: No VTE Risk Level:: Medical - moderate - high VTE Device Contraindication: Treatment Not Indicated VTE Drug Contraindication: N/A - Med Ordered
[2022-01-29 15:11] VITALS: BP 112/61; PULSE 87; RESP 20; TEMP 36.6; O2SAT 100
[2022-01-29 15:32] LABS: Glucose, Whole Blood 406 mg/dL (60-115)
--- NOTE | 2022-01-29 16:21 | PM.DS ---
DS: Providers Provider Date of Service: 01/29/22 Date of admission: 01/28/22 17:48 Date of discharge: 01/29/22 Primary care physician: Unknown Physician Consults: 01/28/22 17:51 Consult to Obstetrics / Gynecology Routine Consulting Provider: Adrian Velazquez Reason for consultation: endometrial bleed Has provider been notified: No DS: Diagnosis Discharge Diagnosis (1) Anemia: Status: Acute (2) ALESSANDRO (acute kidney injury): Status: Acute (3) Type 2 diabetes mellitus with hyperglycemia, with long-term current use of insulin: Status: Acute (4) Atrial fibrillation: Status: Acute (5) Hypertension: Status: Acute DS: Summary Hospital Course Hospital Course: 66-year-old female who is [place]-speaking with a past medical history of atrial fibrillation currently on Xarelto taking as prescribed, pulmonary embolism, CHF,DM, HTN, HLD, and 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 She also knows that she has been experiencing vaginal bleeding over the last several weeks; she underwent a biopsy with Dr. Velazquez . in the office but tissue sampling was inadequate.? She states she is due for another biopsy at the clinic coming up.? She was told her bleeding was worse because of her Xarelto.? When queried why she came to the ER it was not for bleeding rather it was for her hip and leg pain.? Incidental finding of anemia prompting transfusion. Hospital course Patient admitted and transfused 2 units of packed red cells with appropriate response in her hemoglobin. She was seen in consultation by service engine repairer who performed an endometrial biopsy. In review, patient sought ER treatment due to hip pain leg pain and inability ambulate. She was seen by Physical therapy who recommended short-term rehab. Per service engine repairer, is okay to resume her anticoagulants as there is no risk of significant bleeding. She will be transferred to SNF in stable condition and her stay will not exceed 30 days Time Spent with Patient Time attestation: Total time spent providing and/or coordinating discharge services: Discharge coordination time: Greater than 30 minutes Quality: Safe Use of Opioids Does Pt have an Active Cancer Diagnosis on the Problem List?: No Quality: Stroke Does the patient have a stroke diagnosis?: No Physical Exam Vital Signs: Vital Signs: Last Vital Signs Temp 97.8 F 01/29/22 15:11 Pulse 87 01/29/22 15:11 Resp 20 01/29/22 15:11 BP 112/61 01/29/22 15:11 Pulse Ox 100 01/29/22 15:11 BMI result Body Mass Index 58.4 Const: Other: Resting comfortably no acute distress Resp: Other: Clear to auscultation bilaterally no rales rhonchi or wheezes Cardio: Other: No S4; positive S1-S2; no S3 murmurs upper gallops GI: Other: Obese; positive bowel sounds throughout. No rebound tenderness Extrem: Other: Positive edema bilaterally DS: Data Data Completed and Pending Pending studies at discharge: Pending at discharge 01/29/22 14:17 Surgical Path [Surgical] [PTH] Routine Labs on day of discharge: Laboratory Results - last 24 hr 01/28/22 01/28/22 01/28/22 16:17 16:34 16:34 WBC RBC Hgb Hct MCV MCH MCHC RDW Plt Count MPV Immature Gran % (Auto) Neut % (Auto) Lymph % (Auto) [place] % (Auto) Eos % (Auto) Baso % (Auto) Lymph # (Auto) [place] # (Auto) Eos # (Auto) Baso # (Auto) Abs Immat Gran (auto) Absolute Neuts (auto) Absolute Nucleated RBC Nucleated RBC % (auto) Sodium Potassium Chloride Carbon Dioxide Anion Gap BUN Creatinine Estim Creat Clear Calc Estimated GFR POC Glucose Fasting Glucose Calcium Total Bilirubin AST ALT Alkaline Phosphatase Troponin I High Sens 40.5 H Total Protein Albumin Urine Color Urine Appearance Urine pH Ur Specific [place] Urine Protein Urine Glucose (UA) Urine Ketones Urine Blood Urine Nitrite Ur Leukocyte Esterase Urine RBC Urine WBC Ur Squamous Epith Cells Urine Bacteria Stool Occult Blood NEGATIVE Blood Type A Positive Antibody Screen NEGATIVE Crossmatch See Detail 01/28/22 01/28/22 01/29/22 16:50 20:43 05:46 WBC 12.7 H RBC 3.46 L Hgb 8.3 L Hct 28.5 L MCV 82.4 MCH 24.0 L MCHC 29.1 L RDW 17.2 H Plt Count 366 MPV 9.4 Immature Gran % (Auto) 0.4 Neut % (Auto) 70.2 Lymph % (Auto) 15.4 L [place] % (Auto) 10.6 Eos % (Auto) 3.0 Baso % (Auto) 0.4 Lymph # (Auto) 2.0 [place] # (Auto) 1.3 H Eos # (Auto) 0.4 Baso # (Auto) 0.1 Abs Immat Gran (auto) 0.05 H Absolute Neuts (auto) 8.9 H Absolute Nucleated RBC 0.000 Nucleated RBC % (auto) 0.0 Sodium Potassium Chloride Carbon Dioxide Anion Gap BUN Creatinine Estim Creat Clear Calc Estimated GFR POC Glucose 215 H Fasting Glucose Calcium Total Bilirubin AST ALT Alkaline Phosphatase Troponin I High Sens Total Protein Albumin Urine Color YELLOW Urine Appearance CLEAR Urine pH 5.5 Ur Specific [place] 1.010 Urine Protein NEG Urine Glucose (UA) NEG Urine Ketones NEG Urine Blood NEG Urine Nitrite NEG Ur Leukocyte Esterase 1+ H Urine RBC 1-4 Urine WBC 5-9 H Ur Squamous Epith Cells TRACE Urine Bacteria 3+ Stool Occult Blood Blood Type Antibody Screen Crossmatch 01/29/22 01/29/22 01/29/22 05:46 07:45 11:01 WBC RBC Hgb Hct MCV MCH MCHC RDW Plt Count MPV Immature Gran % (Auto) Neut % (Auto) Lymph % (Auto) [place] % (Auto) Eos % (Auto) Baso % (Auto) Lymph # (Auto) [place] # (Auto) Eos # (Auto) Baso # (Auto) Abs Immat Gran (auto) Absolute Neuts (auto) Absolute Nucleated RBC Nucleated RBC % (auto) Sodium 142 Potassium 4.5 Chloride 99 Carbon Dioxide 32 H Anion Gap 16 BUN 33 H Creatinine 0.86 Estim Creat Clear Calc 84.9 Estimated GFR > 60 POC Glucose 179 H 304 H Fasting Glucose 193 H Calcium 9.0 Total Bilirubin 0.4 AST 13 ALT 21 Alkaline Phosphatase 88 Troponin I High Sens Total Protein 6.3 L Albumin 3.3 L Urine Color Urine Appearance Urine pH Ur Specific [place] Urine Protein Urine Glucose (UA) Urine Ketones Urine Blood Urine Nitrite Ur Leukocyte Esterase Urine RBC Urine WBC Ur Squamous Epith Cells Urine Bacteria Stool Occult Blood Blood Type Antibody Screen Crossmatch 01/29/22 15:15 WBC RBC Hgb Hct MCV MCH MCHC RDW Plt Count MPV Immature Gran % (Auto) Neut % (Auto) Lymph % (Auto) [place] % (Auto) Eos % (Auto) Baso % (Auto) Lymph # (Auto) [place] # (Auto) Eos # (Auto) Baso # (Auto) Abs Immat Gran (auto) Absolute Neuts (auto) Absolute Nucleated RBC Nucleated RBC % (auto) Sodium Potassium Chloride Carbon Dioxide Anion Gap BUN Creatinine Estim Creat Clear Calc Estimated GFR POC Glucose 406 H* Fasting Glucose Calcium Total Bilirubin AST ALT Alkaline Phosphatase Troponin I High Sens Total Protein Albumin Urine Color Urine Appearance Urine pH Ur Specific [place] Urine Protein Urine Glucose (UA) Urine Ketones Urine Blood Urine Nitrite Ur Leukocyte Esterase Urine RBC Urine WBC Ur Squamous Epith Cells Urine Bacteria Stool Occult Blood Blood Type Antibody Screen Crossmatch Preliminary micro results at discharge 01/28/22 Unknown Urine Culture - Preliminary Urine clean catch - Urine echols top Culture in progress. Discharge Plan Discharge Patient Disposition: Xfer Inpatient Rehab Fac Discharge Diagnosis: symptomatic anemia Referrals: Physician,Unknown J [Primary Care Provider] - 1 Week Discharge Medications: New oxycodone 5 mg Tablet 5 mg PO Q4H PRN (Reason: Pain, Moderate (Pain Scale 4-6) Qty: 30 0RF Continued (DME) underpads [Certainty Underpads] 30 X 36 pad See Rx Instructions .ROUTE .MEDSUPPLY Qty: 150 11RF Rx Instructions: As directed (DME) blood-glucose meter [FreeStyle Lite Meter] Kit See Rx Instructions .Route Qty: 1 0RF Rx Instructions: As directed (DME) FreeStyle Lite Strips Strip See Rx Instructions .ROUTE .MEDSUPPLY Qty: 100 11RF Rx Instructions: As directed three times a day metformin 500 mg tablet extended release 24 hr 500 mg PO BID 90 Days Qty: 180 3RF metoprolol succinate 25 mg tablet extended release 24 hr 25 mg PO DAILY 90 Days Qty: 90 3RF mirtazapine 30 mg tablet 30 mg PO BEDTIME 90 Days Qty: 90 3RF montelukast 10 mg tablet 10 mg PO DAILY 90 Days Qty: 90 3RF pantoprazole 40 mg tablet,delayed release (DR/EC) 40 mg PO DAILY 90 Days Qty: 90 3RF pravastatin 40 mg tablet 40 mg PO BEDTIME 90 Days Qty: 90 3RF Xarelto 20 mg tablet 20 mg PO DAILY 90 Days Qty: 90 3RF acetaminophen 500 mg tablet 500 mg PO Q6H PRN (Reason: fever or pain) 30 Days Qty: 180 6RF cetirizine 10 mg tablet 10 mg PO DAILY PRN (Reason: allergy symptoms) 30 Days Qty: 30 6RF lisinopril 10 mg tablet 10 mg PO DAILY 90 Days Qty: 90 3RF (DME) AeroEclipse II Nebulizer Misc See Rx Instructions .Route Qty: 50 0RF Rx Instructions: As directed calcium carbonate [Calcium Antacid] 300 mg (750 mg) tablet,chewable 1 tab PO BID Qty: 60 6RF Breo Ellipta 100-25 mcg/dose blister with device 1 inh inhalation DAILY 28 Days Qty: 28 6RF Multaq 400 mg tablet 400 mg PO BID 90 Days Qty: 180 1RF fluticasone propionate [Flonase Allergy Relief] 50 mcg/actuation spray,suspension 1 spray intranasal DAILY 30 Days Qty: 16 6RF Rx Instructions: administer into each nostril furosemide 80 mg tablet 80 mg PO DAILY 90 Days Qty: 90 2RF gabapentin 800 mg tablet 800 mg PO TID 30 Days Qty: 90 6RF cholecalciferol (vitamin D3) [Vitamin D3] 25 mcg (1,000 unit) capsule 25 mcg PO DAILY 90 Days Qty: 90 3RF oxycodone 5 mg tablet 5 mg PO Q8H PRN (Reason: pain) 30 Days Qty: 90 0RF Rx Instructions: partial fill upon request albuterol sulfate 90 mcg/actuation HFA aerosol inhaler 1 inh inhalation QID PRN (Reason: shortness of breath or wheezing) Qty: 8.5 0RF buspirone 15 mg Tablet 15 mg PO BID 0RF anastrozole [Arimidex] 1 mg Tablet 1 mg PO DAILY Qty: 90 2RF prednisone 5 mg tablet 10 mg PO DAILY 0RF insulin aspart U-100 [Novolog Flexpen U-100 Insulin] 100 unit/mL (3 mL) insulin pen 10 - 20 unit subcut TID 0RF Tresiba FlexTouch U-100 100 unit/mL (3 mL) insulin pen 20 unit subcut BEDTIME 0RF DermaPhor Ointment 1 appl topical QID PRN (Reason: Dry Skin) 0RF albuterol sulfate 0.63 mg/3 mL solution for nebulization 0.63 mg inhalation QID PRN (Reason: shortness of breath or wheezing) Qty: 75 0RF (DME) AeroEclipse II Nebulizer Misc See Rx Instructions .ROUTE .MEDSUPPLY Qty: 1 0RF Rx Instructions: As directed Discharge Orders: Discharge Order (Routine); Ordered 01/29/22 Ordered By: Aman Ortiz Diet: advance to usual diet Activity on Discharge: As tolerated Stand Alone Forms: Patient Portal Discharge page Care Plan Goals: Resume meds as at home Health Concerns: Oxycodone for pain Plan of Treatment: Rehab with goal of returning home with services Assessment: See discharge summary
--- NOTE | 2022-01-29 16:30 | MHC.CM.PN ---
Patient has been medically cleared for dc to SNF/STR today. Patient will dc to [facility] today at 7PM, via [facility]. Patient/Daughter-Nely @ [phone] are aware of and in agreement with the dc plan. IMM addressed this morning.
== END 2022-01-29 18:45 | disposition skilled nursing facility (03) | DRG 744 ==
LOC: HO.ED 16:49 → HO.EDOVER 17:52 → HO.IMC 18:10
PROVIDERS: Physician Assistant Medical; Admitting Provider Hospitalist; Emergency Provider Emergency Medicine; PCP Internal Medicine; Visit Provider Hospitalist
DX: N95.0 Postmenopausal bleeding (principal); N17.9 Acute kidney failure, unspecified; I48.0 Paroxysmal atrial fibrillation; D64.9 Anemia, unspecified; E78.5 Hyperlipidemia, unspecified; E11.65 Type 2 diabetes mellitus with hyperglycemia; I11.0 Hypertensive heart disease with heart failure; Z20.822 Contact with and (suspected) exposure to COVID-19; Z98.51 Tubal ligation status; Z87.442 Personal history of urinary calculi; Z91.013 Allergy to seafood; Z79.4 Long term (current) use of insulin; Z79.01 Long term (current) use of anticoagulants; Z79.84 Long term (current) use of oral hypoglycemic drugs; Z79.51 Long term (current) use of inhaled steroids; Z79.899 Other long term (current) drug therapy
CPT/HCPCS: 36415; 36430; 58100; 71046; 72100; 73502; 73590; 80053; 81001; 81003; 82272; 82947; 83605; 83735; 83880; 84484; 85025; 85610; 86850; 86900; 86901; 86923; 87040; 87086; 87088; 87186; 87502; 87635; 88305; 93005; 94640; 96361; 96374; 96375; 97162; 99285; 99291; J1940; J2270; J2405; J3360; P9016

== ENCOUNTER 2022-02-19 07:20 | Inpatient (IN) | payer OTHER, SELFPAY ==
[2022-02-19] VITALS (9 sets, daily range): BP systolic 105–137; BP diastolic 55–70; PULSE 74–107; RESP 14–22; TEMP 36.4–37.3; O2SAT 84–100; BMI 52.9
--- NOTE | ~2022-02-19 | XR_ITS ---
EXAMINATION: XR CHEST CLINICAL INFORMATION: Generalized weakness. COMPARISON: 01/28/2022 chest radiographs. TECHNIQUE: Frontal view of the chest was obtained. FINDINGS: Mild prominence of the pulmonary vasculature and cardiac silhouette is seen. The mediastinal structures are unremarkable. XR/XR chest 1V IMPRESSION: Mild prominence of the pulmonary vasculature and cardiac silhouette may be baseline for the patient, similar to the previous study, but mild persistent congestion cannot be excluded.
--- NOTE | 2022-02-19 07:45 | ECG_ITS ---
Test Reason : SOB Blood Pressure : / mmHG Vent. Rate : 077 BPM Atrial Rate : 077 BPM P-R Int : 156 ms QRS Dur : 084 ms QT Int : 430 ms P-R-T Axes : 040 016 112 degrees QTc Int : 486 ms Normal sinus rhythm Low voltage QRS T wave abnormality, consider lateral ischemia Prolonged QT Abnormal ECG When compared with ECG of 28-JAN-2022 15:06, Nonspecific T wave abnormality, worse in Anterior leads Referred By: Darion Lutz Electronically Signed By:TRICIA RUBY MD
--- NOTE | 2022-02-19 07:46 | ED_ITS ---
HPI - General Adult General Chief complaint: Nausea/Vomiting/Diarrhea Stated complaint: NAUSEA,ALEJO, 96% 3LPM HOME O2 Time Seen by Provider: 02/19/22 07:41 Source: patient, EMS and resident program specialist Mode of arrival: EMS Limitations: no limitations History of Present Illness HPI narrative: 66 years old female Swedish-speaking with past medical history significant for atrial fibrillation currently on Xarelto, PE, CHF, DM, HTN, HLD, breast cancer. COPD use 2 L of supplemental oxygen at home Despite using manager science patient is still limited historian, patient came from home complaining of generalized weakness, low back pain, and shortness of breath, declined chest pain or abdominal pain. Patient stated that she had this symptoms recently and needed blood transfusion. Declined any recent fall (had history of fall 1 month ago). Related Data Home Medications Medication Instructions Recorded Confirmed buspirone 15 mg tablet 15 mg PO BID 07/31/20 01/28/22 insulin aspart U-100 100 unit/mL 10 - 20 unit SUBCUT TID 01/28/22 01/28/22 (3 mL) subcutaneous pen (Novolog Flexpen U-100 Insulin aspart) insulin degludec 100 unit/mL (3 20 unit SUBCUT BEDTIME 01/28/22 01/28/22 mL) subcutaneous pen (Tresiba FlexTouch U-100 insulin) mineral oil-hydrophil petrolat 1 appl TOPICAL QID PRN 01/28/22 01/28/22 topical ointment (DermaPhor) prednisone 5 mg tablet 10 mg PO DAILY 01/28/22 01/28/22 Previous Rx's Medication Instructions Recorded underpads 30 X 36 (Certainty #150 ea 04/28/21 Underpads) blood-glucose meter (FreeStyle #1 ea 05/15/21 Lite Meter) blood sugar diagnostic (FreeStyle #100 ea 06/12/21 Lite Strips) anastrozole 1 mg tablet (Arimidex) 1 mg PO DAILY #90 tab 07/02/21 acetaminophen 500 mg tablet 500 mg PO Q6H PRN 30 Days #180 tab 10/15/21 cetirizine 10 mg tablet 10 mg PO DAILY PRN 30 Days #30 tab 10/15/21 lisinopril 10 mg tablet 10 mg PO DAILY 90 Days #90 tab 10/15/21 metformin 500 mg tablet,extended 500 mg PO BID 90 Days #180 tab 10/15/21 release 24 hr metoprolol succinate 25 mg 25 mg PO DAILY 90 Days #90 tab 10/15/21 tablet,extended release 24 hr mirtazapine 30 mg tablet 30 mg PO BEDTIME 90 Days #90 tab 10/15/21 montelukast 10 mg tablet 10 mg PO DAILY 90 Days #90 tab 10/15/21 pantoprazole 40 mg tablet,delayed 40 mg PO DAILY 90 Days #90 tab 10/15/21 release pravastatin 40 mg tablet 40 mg PO BEDTIME 90 Days #90 tab 10/15/21 rivaroxaban 20 mg tablet (Xarelto) 20 mg PO DAILY 90 Days #90 tab 10/15/21 nebulizers (AeroEclipse II #50 ea 10/20/21 Nebulizer) calcium carbonate 300 mg (750 mg) 1 tab PO BID #60 tab 11/13/21 chewable tablet (Calcium Antacid) dronedarone 400 mg tablet (Multaq) 400 mg PO BID 90 Days #180 tab 11/13/21 fluticasone furoate 100 1 inh INHALATION DAILY 28 Days #28 11/13/21 mcg-vilanterol 25 mcg/dose ea inhalation powder (Breo Ellipta) albuterol sulfate 0.63 mg/3 mL 0.63 mg (3 mL) INHALATION QID PRN 11/15/21 solution for nebulization #75 ml nebulizers (AeroEclipse II #1 ea 11/15/21 Nebulizer) fluticasone propionate 50 1 spray INTRANASAL DAILY 30 Days 12/08/21 mcg/actuation nasal #16 g spray,suspension (Flonase Allergy Relief) furosemide 80 mg tablet 80 mg PO DAILY 90 Days #90 tab 12/08/21 gabapentin 800 mg tablet 800 mg PO TID 30 Days #90 tab 12/23/21 cholecalciferol (vitamin D3) 25 25 mcg PO DAILY 90 Days #90 cap 12/29/21 mcg (1,000 unit) capsule (Vitamin D3) albuterol sulfate 90 mcg/actuation 1 inh INHALATION QID PRN #8.5 g 01/26/22 aerosol inhaler oxycodone 5 mg tablet 5 mg PO Q8H PRN 30 Days #90 tab 01/26/22 oxycodone 5 mg tablet 5 mg PO Q4H PRN #30 tab 01/29/22 metronidazole 0.75 % vaginal gel 1 appful VAGINAL BEDTIME 5 Days 02/10/22 #37.5 g Allergies Allergy/AdvReac Type Severity Reaction Status Date / Time shellfish derived Allergy Intermediate SWELLING,N/ Verified 02/17/22 13:40 [SHELLFISH DERIVED] V Review of Systems Review of Systems: All other systems are reviewed and are negative Constitutional: Reports as per HPI and Reports no additional constitutional complaints Eyes: Reports as per HPI and Reports no additional eye complaints Reports system reviewed and no additional complaints, except as documented Cardiovascular: Reports as per HPI and Reports no additional cardiovascular complaints Respiratory: Reports as per HPI and Reports no additional respiratory complaints Gastrointestinal: Reports as per HPI and Reports no additional gastrointestinal complaints Genitourinary: Reports no additional female genitourinary complaints Musculoskeletal: Reports no additional musculoskeletal complaints Skin/Breast: Reports system reviewed and no additional complaints, except as docu Psychiatric: Reports no additional psychiatric complaints Endocrine: Reports no additional endocrine complaints Hematologic/Lymphatic: Reports no additional hematologic/lymphatic complaints Allergic/Immunologic: Reports no additional allergic/immunologic complaints Reports system reviewed and no additional complaints, except as documented and Reports Abnormal speech present [facility] Past Medical History Medical History Anemia Asthma Atrial fibrillation Back pain Bilateral pulmonary embolism Cataract CHF (congestive heart failure) COPD (chronic obstructive pulmonary disease) Depression Diabetes mellitus Hyperlipidemia Hypertension Invasive ductal carcinoma of left breast, stage 2 Kidney stone Sleep apnea Type 2 diabetes mellitus with hyperglycemia, with long-term current use of insulin Urinary incontinence Vaginal pruritus Surgical History H/O hernia repair H/O lithotripsy H/O tubal ligation History of carpal tunnel release History of cataract surgery (~2017) History of lumpectomy of left breast (~04/03/20) Family History Family History Father CVD (cardiovascular disease) Mother CVD (cardiovascular disease) Family/Other FH: mental illness Mental health disorder Social History Social History Household Members: None Housing: Apartment Alcohol intake: never Patient Tobacco Use Status: Never used Tobacco e-Cigarette/Vaping Use: Never Used Second Hand Smoke Exposure: No Advance Directives: No Advance Directives Information Provided: No service: No Current occupational status: disabled Cognitive needs: No Hearing needs: No Vision needs: No Physical Exam ED Vital Signs: Vital Signs - 24 hr 02/19/22 07:24 02/19/22 08:00 02/19/22 10:50 Temperature 97.6 F Pulse Rate 76 74 74 Respiratory Rate 14 22 H Blood Pressure 113/55 L 121/67 105/61 Pulse Oximetry 93 96 84 L 02/19/22 11:15 Temperature Pulse Rate 88 Respiratory Rate 20 Blood Pressure Pulse Oximetry BMI result Body Mass Index 52.9 Vital signs have been reviewed as appeared to be correct. Blood pressure normal. Heart rate normal. Respiration rate normal. Temperature normal. Oxygen saturation normal. Appearance: Alert. Oriented X3. No acute distress. Lethargic response to loud vocal stimuli Head: Normal external exam. Normocephalic. Atraumatic. No Darby signs noted. No raccoon eyes noted Eyes: PERRLA. EOMI. Conjunctiva and sclera normal. Eyelids normal. ENT: TM's Normal. Pharynx normal. Uvula midline. Moist mucous membranes. No trismus noted. No drooling noted. No muffled voice noted. Neck: Normal inspection. Neck supple. FROM. No adenopathy. Thyroid Normal. No meningeal signs. No neck mass noted. CVS: Normal heart rate and rhythm. Heart sound normal. No murmurs noted. Pulses normal throughout. Respiratory: No respiratory distress. Painless inspiration. Breath sounds normal. Bilateral diffuse wheezing with prolonged expiration. Chest nontender. No accessory muscle usage noted or decreased air movement noted. Abdomen: Soft and nontender. Bowel sounds normal in all 4 quadrants. No distention noted. No organomegaly noted. No visible injury noted. Back: No CVA tenderness. Full range of motion noted. Skin: Skin warm and dry. Normal skin color. Normal skin turgor. No rashes/lesions/lacerations noted. Extremities: No lower extremity edema. Extremities exhibit normal range of motion. Extremities nontender. Neuro: Oriented X 3. Cranial nerve exam: II-XII are grossly intact No motor deficit. No sensory deficit. Reflexes normal. Course Course Course Narrative: Assessment and plan. 66-year-old female with history of COPD came in from home for generalized weakness and difficulty breathing, patient initially was hypoxic 82% on room air, exam was significant for wheezing bilaterally, patient also was lethargic but arousable to loud voice, patient received bronchodilator/magnesium/Solu- Medrol patient now is more awake and looks better. Chronic low back pain no reported recent fall or trauma. Medical Decision Making Lab Data Lab results reviewed: Yes I reviewed the patient's lab results. Result diagrams: 02/19/22 08:31 02/19/22 08:31 Labs: Lab Results 02/19/22 02/19/22 02/19/22 Range/Units 08:31 08:31 08:31 WBC 9.5 (4.8-10.8) X10*3/uL RBC 3.53 L (4.20-5.50) X10*6/uL Hgb 8.2 L (12.0-16.0) g/dl Hct 29.3 L (37.0-47.0) % MCV 83.0 (80.0-98.0) fL MCH 23.2 L (27.0-33.0) pg MCHC 28.0 L (31.0-35.0) g/dl RDW 18.6 H (11.0-16.0) % Plt Count 324 (160-400) X10*3/uL MPV 9.1 L (9.4-12.3) fL Immature Gran % (Auto) 0.5 H (0.0-0.4) % Neut % (Auto) 65.7 (45-73) % Lymph % (Auto) 18.1 L (20-40) % Independence % (Auto) 11.6 H (2-11) % Eos % (Auto) 3.3 (0-4) % Baso % (Auto) 0.8 (0-2) % Lymph # (Auto) 1.7 (1.2-4.9) X10*3/uL Independence # (Auto) 1.1 (0.1-1.2) X10*3/uL Eos # (Auto) 0.3 (0.0-0.4) X10*3/uL Baso # (Auto) 0.1 (0.0-0.2) X10*3/uL Abs Immat Gran (auto) 0.05 H (0.00-0.03) X10*3/uL Absolute Neuts (auto) 6.2 (2.0-8.3) x10*3/uL Absolute Nucleated RBC 0.000 (0.0-0.012) X10*3/uL Nucleated RBC % (auto) 0.0 (0.0-0.2) /100WBC Sodium 138 (135-145) mmol/L Potassium 3.7 (3.3-5.1) mmol/L Chloride 91 L (96-108) mmol/L Carbon Dioxide 34 H (22-29) mmol/L Anion Gap 17 (12-20) BUN 21 H (9-16) mg/dL Creatinine 1.52 H (0.5-1.4) mg/dL Estim Creat Clear Calc 45.1 Estimated GFR 34 Random Glucose 186 H (60-115) mg/dL Calcium 9.2 (8.4-10.2) mg/dL Total Bilirubin 0.4 (0.0-1.0) mg/dL Direct Bilirubin 0.2 (0.0-0.5) mg/dL AST 12 (5-31) U/L ALT 13 (0-31) U/L Alkaline Phosphatase 94 (39-117) U/L Troponin I High Sens 33.2 H (<3.5-17.0) ng/L B-Natriuretic Peptide (<100) pg/mL Total Protein 7.2 (6.5-8.0) g/dL Albumin 3.6 (3.5-5.0) g/dL Lipase 30 (8-78) U/L Urine Color Urine Appearance Urine pH (5.0-8.0) Ur Specific Antelope (1.005-1.025) Urine Protein (NEG-TRACE) MG/DL Urine Glucose (UA) (NEG) MG/DL Urine Ketones (NEG) MG/DL Urine Blood (NEG) Urine Nitrite (NEG) Ur Leukocyte Esterase (NEG) Urine RBC (0) /HPF Urine WBC (0-4) /HPF Ur Squamous Epith Cells /LPF Urine Bacteria /LPF Influenza Type A (PCR) (Negative) Influenza Type B (PCR) (Negative) RSV RNA Qual (PCR) (Negative) SARS-CoV-2 RNA (RT-PCR) (Negative) 02/19/22 02/19/22 02/19/22 Range/Units 08:31 08:41 08:56 WBC (4.8-10.8) X10*3/uL RBC (4.20-5.50) X10*6/uL Hgb (12.0-16.0) g/dl Hct (37.0-47.0) % MCV (80.0-98.0) fL MCH (27.0-33.0) pg MCHC (31.0-35.0) g/dl RDW (11.0-16.0) % Plt Count (160-400) X10*3/uL MPV (9.4-12.3) fL Immature Gran % (Auto) (0.0-0.4) % Neut % (Auto) (45-73) % Lymph % (Auto) (20-40) % Independence % (Auto) (2-11) % Eos % (Auto) (0-4) % Baso % (Auto) (0-2) % Lymph # (Auto) (1.2-4.9) X10*3/uL Independence # (Auto) (0.1-1.2) X10*3/uL Eos # (Auto) (0.0-0.4) X10*3/uL Baso # (Auto) (0.0-0.2) X10*3/uL Abs Immat Gran (auto) (0.00-0.03) X10*3/uL Absolute Neuts (auto) (2.0-8.3) x10*3/uL Absolute Nucleated RBC (0.0-0.012) X10*3/uL Nucleated RBC % (auto) (0.0-0.2) /100WBC Sodium (135-145) mmol/L Potassium (3.3-5.1) mmol/L Chloride (96-108) mmol/L Carbon Dioxide (22-29) mmol/L Anion Gap (12-20) BUN (9-16) mg/dL Creatinine (0.5-1.4) mg/dL Estim Creat Clear Calc Estimated GFR Random Glucose (60-115) mg/dL Calcium (8.4-10.2) mg/dL Total Bilirubin (0.0-1.0) mg/dL Direct Bilirubin (0.0-0.5) mg/dL AST (5-31) U/L ALT (0-31) U/L Alkaline Phosphatase (39-117) U/L Troponin I High Sens (<3.5-17.0) ng/L B-Natriuretic Peptide 54 (<100) pg/mL Total Protein (6.5-8.0) g/dL Albumin (3.5-5.0) g/dL Lipase (8-78) U/L Urine Color YELLOW Urine Appearance CLEAR Urine pH 6.0 (5.0-8.0) Ur Specific Antelope 1.020 (1.005-1.025) Urine Protein NEG (NEG-TRACE) MG/DL Urine Glucose (UA) NEG (NEG) MG/DL Urine Ketones NEG (NEG) MG/DL Urine Blood NEG (NEG) Urine Nitrite NEG (NEG) Ur Leukocyte Esterase 1+ H (NEG) Urine RBC 0 (0) /HPF Urine WBC 15-29 H (0-4) /HPF Ur Squamous Epith Cells 1+ /LPF Urine Bacteria 4+ /LPF Influenza Type A (PCR) NEGATIVE (Negative) Influenza Type B (PCR) NEGATIVE (Negative) RSV RNA Qual (PCR) NEGATIVE (Negative) SARS-CoV-2 RNA (RT-PCR) NEGATIVE (Negative) Imaging Data Chest x-ray: Attestation: I personally reviewed and interpreted this imaging study as follows: Radiologist's impression: Mild prominence of the pulmonary vasculature and cardiac silhouette may be baseline for the patient, similar to the previous study, but mild persistent congestion cannot be excluded. ? ECG Data Attestation: I personally reviewed and interpreted this ECG as follows: Interpretation: Normal sinus rhythm at 77 beats per minutes, normal intervals, nonspecific T- wave flattening in the lateral leads. Discharge Plan Discharge Clinical Impression: Acute exacerbation of chronic obstructive pulmonary disease, Hypoxia, Chronic back pain Patient Disposition: Admitted As Inpatient Prescriptions: No Action (DME) underpads [Certainty Underpads] 30 X 36 pad See Rx Instructions .ROUTE .MEDSUPPLY Qty: 150 11RF Rx Instructions: As directed (DME) blood-glucose meter [FreeStyle Lite Meter] Kit See Rx Instructions .Route Qty: 1 0RF Rx Instructions: As directed (DME) FreeStyle Lite Strips Strip See Rx Instructions .ROUTE .MEDSUPPLY Qty: 100 11RF Rx Instructions: As directed three times a day metformin 500 mg tablet extended release 24 hr 500 mg PO BID 90 Days Qty: 180 3RF metoprolol succinate 25 mg tablet extended release 24 hr 25 mg PO DAILY 90 Days Qty: 90 3RF mirtazapine 30 mg tablet 30 mg PO BEDTIME 90 Days Qty: 90 3RF montelukast 10 mg tablet 10 mg PO DAILY 90 Days Qty: 90 3RF pantoprazole 40 mg tablet,delayed release (DR/EC) 40 mg PO DAILY 90 Days Qty: 90 3RF pravastatin 40 mg tablet 40 mg PO BEDTIME 90 Days Qty: 90 3RF Xarelto 20 mg tablet 20 mg PO DAILY 90 Days Qty: 90 3RF acetaminophen 500 mg tablet 500 mg PO Q6H PRN (Reason: fever or pain) 30 Days Qty: 180 6RF cetirizine 10 mg tablet 10 mg PO DAILY PRN (Reason: allergy symptoms) 30 Days Qty: 30 6RF lisinopril 10 mg tablet 10 mg PO DAILY 90 Days Qty: 90 3RF (DME) AeroEclipse II Nebulizer Misc See Rx Instructions .Route Qty: 50 0RF Rx Instructions: As directed calcium carbonate [Calcium Antacid] 300 mg (750 mg) tablet,chewable 1 tab PO BID Qty: 60 6RF Breo Ellipta 100-25 mcg/dose blister with device 1 inh inhalation DAILY 28 Days Qty: 28 6RF Multaq 400 mg tablet 400 mg PO BID 90 Days Qty: 180 1RF fluticasone propionate [Flonase Allergy Relief] 50 mcg/actuation spray,suspension 1 spray intranasal DAILY 30 Days Qty: 16 6RF Rx Instructions: administer into each nostril furosemide 80 mg tablet 80 mg PO DAILY 90 Days Qty: 90 2RF gabapentin 800 mg tablet 800 mg PO TID 30 Days Qty: 90 6RF cholecalciferol (vitamin D3) [Vitamin D3] 25 mcg (1,000 unit) capsule 25 mcg PO DAILY 90 Days Qty: 90 3RF oxycodone 5 mg tablet 5 mg PO Q8H PRN (Reason: pain) 30 Days Qty: 90 0RF Rx Instructions: partial fill upon request albuterol sulfate 90 mcg/actuation HFA aerosol inhaler 1 inh inhalation QID PRN (Reason: shortness of breath or wheezing) Qty: 8.5 0RF metronidazole 0.75 % gel 1 appful vaginal BEDTIME 5 Days Qty: 37.5 0RF buspirone 15 mg Tablet 15 mg PO BID 0RF anastrozole [Arimidex] 1 mg Tablet 1 mg PO DAILY Qty: 90 2RF prednisone 5 mg tablet 10 mg PO DAILY 0RF insulin aspart U-100 [Novolog Flexpen U-100 Insulin] 100 unit/mL (3 mL) insulin pen 10 - 20 unit subcut TID 0RF Tresiba FlexTouch U-100 100 unit/mL (3 mL) insulin pen 20 unit subcut BEDTIME 0RF DermaPhor Ointment 1 appl topical QID PRN (Reason: Dry Skin) 0RF oxycodone 5 mg Tablet 5 mg PO Q4H PRN (Reason: Pain, Moderate (Pain Scale 4-6) Qty: 30 0RF albuterol sulfate 0.63 mg/3 mL solution for nebulization 0.63 mg inhalation QID PRN (Reason: shortness of breath or wheezing) Qty: 75 0RF (DME) AeroEclipse II Nebulizer Misc See Rx Instructions .ROUTE .MEDSUPPLY Qty: 1 0RF Rx Instructions: As directed
[2022-02-19 08:41] LABS: MANUAL DIFF FLAG NO
[2022-02-19 08:46] LABS: Basophils Absolute Auto 0.1 X10*3/uL (0.0-0.2); Basophils Percent Auto 0.8 % (0-2); Eosinophils Absolute Auto 0.3 X10*3/uL (0.0-0.4); Eosinophils Percent Auto 3.3 % (0-4); Hematocrit 29.3 % (37.0-47.0); Hemoglobin 8.2 g/dl (12.0-16.0); Imm Gran Abs Auto 0.05 X10*3/uL (0.00-0.03); Imm Gran Pct Auto 0.5 % (0.0-0.4); Lymphocytes Absolute Auto 1.7 X10*3/uL (1.2-4.9); Lymphocytes Percent Auto 18.1 % (20-40); Mean Corpuscular Hemoglobin 23.2 pg (27.0-33.0); Mean Platelet Volume 9.1 fL (9.4-12.3); Monocytes Absolute Auto 1.1 X10*3/uL (0.1-1.2); Monocytes Percent Auto 11.6 % (2-11); Neutrophils Absolute Auto 6.2 x10*3/uL (2.0-8.3); Neutrophils Percent Auto 65.7 % (45-73); Platelet Count 324 X10*3/uL (160-400); Red Blood Count 3.53 X10*6/uL (4.20-5.50); Red Cell Distribution Width 18.6 % (11.0-16.0); White Blood Count 9.5 X10*3/uL (4.8-10.8)
[2022-02-19 09:04] LABS: Alanine Aminotransferase 13 U/L (0-31); Albumin Level 3.6 g/dL (3.5-5.0); Alkaline Phosphatase 94 U/L (39-117); Anion Gap 17 (12-20); Aspartate Amino Transferase 12 U/L (5-31); B Type Natriuretic Peptide 54 pg/mL (<100); Bilirubin Direct 0.2 mg/dL (0.0-0.5); Bilirubin Total 0.4 mg/dL (0.0-1.0); Blood Urea Nitrogen 21 mg/dL (9-16); Calcium 9.2 mg/dL (8.4-10.2); Carbon Dioxide 34 mmol/L (22-29); Chloride 91 mmol/L (96-108); Creatinine Clr Calc Pharmacy 45.1; Estimated Glomerular Filt Rate 34; Glucose Random 186 mg/dL (60-115); Lipase 30 U/L (8-78); Potassium 3.7 mmol/L (3.3-5.1); Sodium 138 mmol/L (135-145); Total Protein 7.2 g/dL (6.5-8.0)
[2022-02-19 09:05] LABS: Troponin-I High Sensitivity 33.2 ng/L (<3.5-17.0)
--- NOTE | 2022-02-19 09:24 | PC.NURSE ---
pt reports that she woke up this morning weak, sleepy, unable to do her usual routine on her own. she has history of COPD, DIABETES, HTN. she also states that she is on 2L N/C at nights. she c/o nausea, denies v/d. afebrile. denies exposure to anyone sick. On arrival to ed pt satting 85-89% on 2L n/c. pt now satting 95 - 97% on 2L n/c. she denies sob, headache, dizziness.
[2022-02-19 09:43] LABS: Influenza A PCR NEGATIVE (Negative); Influenza B PCR NEGATIVE (Negative); Resp Syncy Virus RNA Qual PCR NEGATIVE (Negative); SARS COV2 PCR INHOUSE NEGATIVE (Negative)
[2022-02-19 09:44] LABS: Appearance Urine CLEAR; Color Urine YELLOW; Glucose Urine UA NEG (NEG); Leukocyte Esterase Urine 1+ (NEG); Nitrite Urine NEG (NEG); UACC Culture Trigger YES; Urine Blood NEG (NEG); Urine Ketones NEG (NEG); Urine Protein NEG (NEG-TRACE)
[2022-02-19] MEDS: Albuterol Sulfate (0.083%) 2.5 MG/3 ML VIAL.NEB 5 MG INHALE (11:10)
[2022-02-19 11:17] LABS: Bacteria Urine 4+ /LPF; RBC Urine 0 /HPF (0); Squamous Epithelial Cell Urine 1+ /LPF
[2022-02-19] MEDS: Albuterol/Iprat 2.5/0.5MG 3 ML AMPUL.NEB INHALE ×2 (11:18→16:06)
[2022-02-19] MEDS: methylPREDNISolone Sod Succ 125 MG/2 ML VIAL IVPUSH (11:51)
[2022-02-19] MEDS: Magnesium Sulfate/H2O 2 GM/50 ML PIGGYBACK IV (11:51)
--- NOTE | 2022-02-19 13:15 | PHA.MEDREC ---
Pharmacy Consult ? Medication Reconciliation Pharmacy has completed the medication reconciliation. Patient recently discharged from [facility], no changes from discharge summary. Viridiana Moreno, PrabhaD
--- NOTE | 2022-02-19 15:19 | P.EN_ITS ---
Event Note Date of Service: 02/19/22
--- NOTE | 2022-02-19 15:19 | PM.EVENT ---
Event Note Date of Service: 02/19/22
[2022-02-19 15:36] LABS: ABG Base Excess 12.7 mmol/L; ABG HCO3 39 mmol/L (22-26); ABG pCO2 59 mmHg (32-45); ABG pH 7.42 (7.35-7.45); ABG pO2 62 mmHg (83-108)
--- NOTE | 2022-02-19 15:48 | P.HPHOSP_ITS ---
History of Present Illness Date of Service: 02/19/22 Chief Complaint: fatigue, dyspnea Patient is a poor historian due to somnolence, despite interviewing her in her jackson language, Bulgarian. 66yo F with AF + hx PE on rivaroxaban, HFpEF, HTN, DM2, hx breast CA, COPD, asthma, chronic hypoxic respiratory failure on 2L O2 via NC, morbid obesity. She was just admitted here 01/28-01/29/22 for anemia requiring transfusion. Per the ED physician, she came in complaining of generalized weakness, fatigue, and dyspnea. She was noted to be wheezing and hypoxic, with SaO2 of 84 on 2L via NC. She was given IV methylprednisolone and nebulzied bronchodilators. CXR showed baseline pulmonary vascular prominence. EKG low voltage, lateral T-wave flattening similar to previous. WBC 9.5. SCr 1.52 (Baseline 0.86). Hs-Tn-I 33.2. BNP 54. ABG 7.42/59/62 Review of Systems Review of Systems: Yes all other systems are reviewed and are negative [facility] Medical History Anemia Asthma Atrial fibrillation Back pain Bilateral pulmonary embolism Cataract CHF (congestive heart failure) COPD (chronic obstructive pulmonary disease) Depression Diabetes mellitus Hyperlipidemia Hypertension Invasive ductal carcinoma of left breast, stage 2 Kidney stone Sleep apnea Type 2 diabetes mellitus with hyperglycemia, with long-term current use of insulin Urinary incontinence Vaginal pruritus Family History Father CVD (cardiovascular disease) Mother CVD (cardiovascular disease) Family/Other FH: mental illness Mental health disorder Surgical History H/O hernia repair H/O lithotripsy H/O tubal ligation History of carpal tunnel release History of cataract surgery (~2016) History of lumpectomy of left breast (~04/03/20) Social History Household Members: None Housing: Apartment Alcohol intake: never Patient Tobacco Use Status: Never used Tobacco e-Cigarette/Vaping Use: Never Used Second Hand Smoke Exposure: No Advance Directives: No Advance Directives Information Provided: No service: No Current occupational status: disabled Cognitive needs: No Hearing needs: No Vision needs: No Meds Allergies Allergy/AdvReac Type Severity Reaction Status Date / Time shellfish derived Allergy Intermediate SWELLING,N/ Verified 02/17/22 13:40 [SHELLFISH DERIVED] V Active Medications: Current Medications Albuterol Sulfate (Albuterol Sulfate (0.083%) 2.5 Mg/3 Ml Vial.Neb) 2.5 mg INH MJ Q2H PRN PRN Reason: Shortness of Breath/Wheezing Albuterol/Ipratropium (Albuterol/Iprat 2.5/0.5mg 3 Ml Ampul.Neb) 3 ml INHALE RQ4H WHILE AWAKE [facility], [facility] Anastrozole (Anastrozole 1 Mg Tablet) 1 mg PO DAILY [facility], [facility] Buspirone HCl (Buspirone Hcl 5 Mg Tablet) 15 mg PO BID [facility], [facility] Calcium Carbonate (Calcium Carbonate 750 Mg Tab.Chew) 300 mg PO BID [facility], [facility] Dextrose (Dextrose 50 % 25 Gm/50 Ml Syringe) 25 gm IVPUSH Q15M PRN; Protocol PRN Reason: per Hypoglycemia Standing Ord. Dronedarone (Dronedarone Hcl 400 Mg Tablet) 400 mg PO BID [facility], [facility] Fluticasone Propionate (Fluticasone Propionate Nasal 16 Gm [place]) 1 spray NOSTRIL-B DAILY [facility], [facility] Fluticasone/Vilanterol (Fluticasone/Vilanterol 100/25 Blst.W.Dev) 1 puff INHALE DAILY [facility], [facility] Furosemide (Furosemide 40 Mg Tablet) 80 mg PO DAILY JASON; Protocol Gabapentin (Gabapentin 400 Mg Capsule) 800 mg PO TID [facility], [facility] Glucose (Glucose Gel 15 Gm Gel..Gram.) 15 gm PO Q15M PRN; Protocol PRN Reason: per Hypoglycemia Standing Ord. Insulin Human Lispro (Insulin Lispro 100 Unit/Ml 3 Ml Vial) 0 unit SUBCUT QIDACHS [facility], [facility]; Protocol Lisinopril (Lisinopril 10 Mg Tablet) 10 mg PO DAILY JASON; Protocol Loratadine (Loratadine 10 Mg Tablet) 10 mg PO DAILY PRN PRN Reason: allergy symptoms Methylprednisolone Sodium Succinate (Methylprednisolone Sod Succ 40 Mg/Ml Vial) 40 mg IVPUSH Q12H [facility] Metoprolol Succinate (Metoprolol Succinate Er 25 Mg Tab.Er.24h) 25 mg PO DAILY JASON; Protocol Mirtazapine (Mirtazapine 30 Mg Tablet) 30 mg PO BEDTIME [facility], [facility] Montelukast Sodium (Montelukast Sodium 10 Mg Tablet) 10 mg PO DAILY [facility] Omeprazole (Omeprazole 20 Mg Capsule.) 20 mg PO DAILY@0630 [facility] Pharmacy Consult (Consult Rx Perform Med Rec) 1 each MISCELLANE ONCE PRN PRN Reason: Consult order Pravastatin Sodium (Pravastatin Sodium 40 Mg Tablet) 40 mg PO BEDTIME [facility], [facility] Rivaroxaban (Rivaroxaban 20 Mg Tablet) 20 mg PO DAILY [facility] Vitamin D (Cholecalciferol (Vitamin D3) 25 Mcg Tablet) 25 mcg PO DAILY [facility] Home Medications Medication Instructions Recorded Confirmed Last Taken Type buspirone 15 mg tablet 15 mg PO BID 07/31/20 02/19/22 01/27/22 History insulin aspart U-100 100 unit/mL 10 - 20 unit SUBCUT TID 01/28/22 02/19/22 Unknown History (3 mL) subcutaneous pen (Novolog Flexpen U-100 Insulin aspart) insulin degludec 100 unit/mL (3 20 unit SUBCUT BEDTIME 01/28/22 02/19/22 01/27/22 History mL) subcutaneous pen (Tresiba FlexTouch U-100 insulin) mineral oil-hydrophil petrolat 1 appl TOPICAL QID PRN 01/28/22 02/19/22 Unknown History topical ointment (DermaPhor) prednisone 5 mg tablet 10 mg PO DAILY 01/28/22 02/19/22 01/27/22 History Physical Exam Vital Signs and Narrative: Vital Signs: Last Vital Signs Temp 97.6 F 02/19/22 07:24 Pulse 88 02/19/22 11:15 Resp 20 02/19/22 11:15 BP 105/61 02/19/22 10:50 Pulse Ox 84 L 02/19/22 10:50 Oxygen Flow Rate 4 02/19/22 07:24 BMI result Body Mass Index 52.9 Gen: somnolent but arousable HEENT: sclera anicteric, moist mucus membranes Neck: supple Lungs: clear to auscultation bilaterally Heart: regular rate and rhythm, no murmurs Abd: soft, non-tender, non-distended, obese Ext: 2+ leg edema Skin: warm/well-perfused Neuro: alert and oriented x3, no focal findings Psych: appropriate affect Results Labs CBC and Chem 7: 02/19/22 08:31 02/19/22 08:31 Labs: Laboratory Results - last 24 hr 02/19/22 02/19/22 02/19/22 08:31 08:31 08:31 MCV 83.0 MCH 23.2 L MCHC 28.0 L RDW 18.6 H Plt Count 324 MPV 9.1 L Immature Gran % (Auto) 0.5 H Neut % (Auto) 65.7 Lymph % (Auto) 18.1 L [place] % (Auto) 11.6 H Eos % (Auto) 3.3 Baso % (Auto) 0.8 Lymph # (Auto) 1.7 [place] # (Auto) 1.1 Eos # (Auto) 0.3 Baso # (Auto) 0.1 Abs Immat Gran (auto) 0.05 H Absolute Neuts (auto) 6.2 Absolute Nucleated RBC 0.000 Nucleated RBC % (auto) 0.0 O2 Saturation ABG pH at Pt Temp ABG pCO2 at Pt Temp ABG pO2 at Pt Temp ABG HCO3 ABG Base Excess (Actual) Anion Gap 17 Estim Creat Clear Calc 45.1 Estimated GFR 34 Random Glucose 186 H Calcium 9.2 Total Bilirubin 0.4 Direct Bilirubin 0.2 AST 12 ALT 13 Alkaline Phosphatase 94 Troponin I High Sens 33.2 H B-Natriuretic Peptide Total Protein 7.2 Albumin 3.6 Lipase 30 Urine Color Urine Appearance Urine pH Ur Specific [place] Urine Protein Urine Glucose (UA) Urine Ketones Urine Blood Urine Nitrite Ur Leukocyte Esterase Urine RBC Urine WBC Ur Squamous Epith Cells Urine Bacteria Influenza Type A (PCR) Influenza Type B (PCR) RSV RNA Qual (PCR) SARS-CoV-2 RNA (RT-PCR) 02/19/22 02/19/22 02/19/22 08:31 08:41 08:56 MCV MCH MCHC RDW Plt Count MPV Immature Gran % (Auto) Neut % (Auto) Lymph % (Auto) [place] % (Auto) Eos % (Auto) Baso % (Auto) Lymph # (Auto) [place] # (Auto) Eos # (Auto) Baso # (Auto) Abs Immat Gran (auto) Absolute Neuts (auto) Absolute Nucleated RBC Nucleated RBC % (auto) O2 Saturation ABG pH at Pt Temp ABG pCO2 at Pt Temp ABG pO2 at Pt Temp ABG HCO3 ABG Base Excess (Actual) Anion Gap Estim Creat Clear Calc Estimated GFR Random Glucose Calcium Total Bilirubin Direct Bilirubin AST ALT Alkaline Phosphatase Troponin I High Sens B-Natriuretic Peptide 54 Total Protein Albumin Lipase Urine Color YELLOW Urine Appearance CLEAR Urine pH 6.0 Ur Specific [place] 1.020 Urine Protein NEG Urine Glucose (UA) NEG Urine Ketones NEG Urine Blood NEG Urine Nitrite NEG Ur Leukocyte Esterase 1+ H Urine RBC 0 Urine WBC 15-29 H Ur Squamous Epith Cells 1+ Urine Bacteria 4+ Influenza Type A (PCR) NEGATIVE Influenza Type B (PCR) NEGATIVE RSV RNA Qual (PCR) NEGATIVE SARS-CoV-2 RNA (RT-PCR) NEGATIVE 02/19/22 15:27 MCV MCH MCHC RDW Plt Count MPV Immature Gran % (Auto) Neut % (Auto) Lymph % (Auto) [place] % (Auto) Eos % (Auto) Baso % (Auto) Lymph # (Auto) [place] # (Auto) Eos # (Auto) Baso # (Auto) Abs Immat Gran (auto) Absolute Neuts (auto) Absolute Nucleated RBC Nucleated RBC % (auto) O2 Saturation 87.0 ABG pH at Pt Temp 7.42 ABG pCO2 at Pt Temp 59 H ABG pO2 at Pt Temp 62 L ABG HCO3 39 H ABG Base Excess (Actual) 12.7 Anion Gap Estim Creat Clear Calc Estimated GFR Random Glucose Calcium Total Bilirubin Direct Bilirubin AST ALT Alkaline Phosphatase Troponin I High Sens B-Natriuretic Peptide Total Protein Albumin Lipase Urine Color Urine Appearance Urine pH Ur Specific [place] Urine Protein Urine Glucose (UA) Urine Ketones Urine Blood Urine Nitrite Ur Leukocyte Esterase Urine RBC Urine WBC Ur Squamous Epith Cells Urine Bacteria Influenza Type A (PCR) Influenza Type B (PCR) RSV RNA Qual (PCR) SARS-CoV-2 RNA (RT-PCR) Imaging Radiologist's Impressions: Impressions Chest X-Ray 02/19/22 08:53 IMPRESSION: Mild prominence of the pulmonary vasculature and cardiac silhouette may be baseline for the patient, similar to the previous study, but mild persistent congestion cannot be excluded. Assessment and Plan (1) Acute exacerbation of chronic obstructive pulmonary disease: Status: Acute (2) Hypoxia: Status: Acute Plan 66yo F with AF + hx PE on rivaroxaban, HFpEF, HTN, DM2, hx breast CA, COPD, asthma, chronic hypoxic respiratory failure on 2L O2 via NC, morbid obesity presenting with fatigue and dyspnea, noted to be hypoxic and with ALESSANDRO. # COPD/asthma exacerbation - admit to C, give IV methylprednisolone, standing/prn bronchodilators - continue ICS/LABA, montelukast # acute/chronic hypoxic respiratory failure # chronic hypercarbic respiratory failure - supplemental O2 with goal SaO2 88-92% - recheck VBG in AM # ALESSANDRO - hold lisinopril + furosemide, check urine Na, recheck BMP in AM # Tn-I indeterminate - recheck @ 3-hr terence, similar to prior levels, likely due to renal failure # excess sedation - hold gabapentin [gretchen in light of renal failure] + oxycodone # AF - continue dronaderone - continue metoprolol succinate - continue rivaroxaban # hx PE - continue rivaroxaban # hx breast CA - continue anastrozole # DM2 - correction-dose lispro, A1c # mood disorder - buspirone + mirtazapine # VTE ppx - rivaxoaban # code - full Quality Stroke Does the patient have a stroke diagnosis?: No VTE Prior VTE?: No VTE Risk Level:: Medical - moderate - high VTE Device Contraindication: N/A - Device Ordered VTE Drug Contraindication: N/A - Med Ordered
[2022-02-19 15:58] LABS: Procalcitonin 0.04 ng/mL
[2022-02-19 17:15] LABS: Glucose, Whole Blood 293 mg/dL (60-115)
[2022-02-19 17:17] LABS: Troponin-I High Sensitivity 32.8 ng/L (<3.5-17.0)
[2022-02-19] MEDS: Insulin Lispro 100 UNIT/ML 3 ML VIAL SUBCUT ×2 (17:43→22:19)
[2022-02-19 18:44] LABS: ABG Refer to POC result
--- NOTE | 2022-02-19 20:13 | PC.NURSE ---
Addendum entered by Sarah Mora 02/20/22 06:55: Report given to RONAK Mayfield Original Note: Report received from RNOAK Chopra, pt is alert and oriented. resting in bed, no signs of acute distress notice. pt on continuos cardiac monitoring, denies any chest pain or sob
[2022-02-19] MEDS: Pravastatin Sodium 40 MG TABLET PO (21:12)
[2022-02-19] MEDS: Calcium Carbonate 750 MG TAB.CHEW 300 MG PO (21:12)
[2022-02-19] MEDS: LORazepam 0.5 MG TABLET PO (21:12)
[2022-02-19] MEDS: busPIRone HCl 5 MG TABLET 15 MG PO (21:13)
[2022-02-19] MEDS: Morphine Sulfate 2 MG/ML CARTRIDGE 1 MG IVPUSH (21:13)
[2022-02-19] MEDS: Insulin Glargine,Hum.rec.anlog 100 UNIT/ML 10 ML VIAL 10 UNIT SUBCUT (21:13)
[2022-02-19 22:12] LABS: Glucose, Whole Blood 472 mg/dL (60-115)
[2022-02-19] MEDS: Dronedarone HCl 400 MG TABLET PO (22:15)
[2022-02-19] MEDS: Mirtazapine 30 MG TABLET PO (22:15)
--- NOTE | 2022-02-19 23:34 | PC.NURSE ---
Pt's BG at 2200: 472 Dr. Palacios made aware. Per order, cover with SS. Pt given 10 units lispro per sliding scale Pt's BG rechecked at 2245: 491 Dr. Palacios made aware. Per Dr. Palacios, will order more insulin and would like to recheck pt's BG in 2 hours and then in 4 hours. ED charge and primary RN made aware through tiger text
[2022-02-20 00:02] VITALS: BP 123/56; PULSE 106; RESP 18; O2SAT 92
[2022-02-20 00:34] LABS: Sodium Urine Random < 20.0 mmol/L
[2022-02-20 00:41] LABS: Glucose, Whole Blood 491 mg/dL (60-115)
[2022-02-20] MEDS: Insulin Lispro 100 UNIT/ML 3 ML VIAL SUBCUT (01:44)
[2022-02-20] MEDS: methylPREDNISolone Sod Succ 40 MG/ML VIAL IVPUSH (01:44)
[2022-02-20] MEDS: Morphine Sulfate 2 MG/ML CARTRIDGE 1 MG IVPUSH ×2 (02:48→07:57)
[2022-02-20 03:59] VITALS: BP 122/51; PULSE 96; RESP 17; O2SAT 93
[2022-02-20 04:41] LABS: Glucose, Whole Blood 324 mg/dL (60-115)
[2022-02-20] MEDS: diphenhydrAMINE HCL 25 MG TABLET PO (05:20)
[2022-02-20] MEDS: Omeprazole 20 MG CAPSULE.DR PO (05:20)
[2022-02-20 06:09] LABS: Venous Blood Gas Refer to POC result
[2022-02-20 06:10] LABS: VBG Base Excess 11.8 mmol/L; VBG HCO3 37 mmol/L (22-26); VBG pCO2 52 mmHg; VBG pH 7.46 (7.32-7.43); VBG pO2 59 mmHg
[2022-02-20 06:15] LABS: Hematocrit 27.5 % (37.0-47.0); Hemoglobin 7.7 g/dl (12.0-16.0); Mean Corpuscular Hemoglobin 23.2 pg (27.0-33.0); Mean Corpuscular Volume 82.8 fL (80.0-98.0); Mean Platelet Volume 9.5 fL (9.4-12.3); NRBC Pct Auto 0.2 /100WBC (0.0-0.2); Platelet Count 336 X10*3/uL (160-400); Red Blood Count 3.32 X10*6/uL (4.20-5.50); Red Cell Distribution Width 18.2 % (11.0-16.0); White Blood Count 8.5 X10*3/uL (4.8-10.8)
[2022-02-20 06:40] LABS: Anion Gap 17 (12-20); Blood Urea Nitrogen 23 mg/dL (9-16); Calcium 9.3 mg/dL (8.4-10.2); Carbon Dioxide 31 mmol/L (22-29); Chloride 93 mmol/L (96-108); Estimated Glomerular Filt Rate 41; Glucose Random 417 mg/dL (60-115); Potassium 4.5 mmol/L (3.3-5.1); Sodium 136 mmol/L (135-145)
[2022-02-20 07:03] LABS: Estimated Average Glucose 194 mg/dL; Hemoglobin A1C 150.9267 umol/L; Hemoglobin A1c % 8.4 %
[2022-02-20 07:10] LABS: Glucose, Whole Blood 421 mg/dL (60-115)
--- NOTE | 2022-02-20 07:46 | PC.NURSE ---
pt awake in bed states she has back pain and leg pain. she remains on 2l nc O2. her poc remain high in the 400's.
[2022-02-20 07:47] VITALS: BP 122/57; PULSE 90; RESP 16; TEMP 37.2; O2SAT 93
[2022-02-20] MEDS: Loratadine 10 MG TABLET PO (07:57)
--- NOTE | 2022-02-20 08:00 | PC.NURSE ---
medicated for pain, pt sittig up and eating breakfast. also given claritin for chronic itching
[2022-02-20] MEDS: 0.9 % Sodium Chloride Flush 3 ML SYRINGE IVFLUSH (08:03)
[2022-02-20] MEDS: busPIRone HCl 5 MG TABLET 15 MG PO (08:40)
[2022-02-20] MEDS: Rivaroxaban 20 MG TABLET PO (08:41)
[2022-02-20] MEDS: Cholecalciferol (Vitamin D3) 25 MCG TABLET PO (08:41)
[2022-02-20] MEDS: Metoprolol Succinate ER 25 MG TAB.ER.24H PO (08:42)
[2022-02-20] MEDS: Calcium Carbonate 750 MG TAB.CHEW 300 MG PO (08:42)
[2022-02-20] MEDS: Montelukast Sodium 10 MG TABLET PO (08:42)
--- NOTE | 2022-02-20 09:24 | P.CDIC_ITS ---
CDI Concurrent Query Documentation Clarification: PHYSICIAN'S DOCUMENTATION REQUEST Date of Query: 02/20/22 0925 Patient Name: Luisa Denny Admit Date: 02/19/22 Dear Doctor, Please review the following and provide your response in the progress notes. Risk Factors/Clinical Indicators/Treatments PMH: Asthma shortness of breath oxygen dependent H&P: Asthma Exacerbation Treatment: Duoneb, SoluMedrol, Singulair Based on the above, please clarify in the Progress Notes further specificity regarding the type and acuity of the asthma: Type: * Mild intermittent - less than 2x/week * Mild persistent - more than 2x/week but not daily * Moderate persistent - daily and may restrict physical activity * Severe persistent - throughout the day with frequent attacks, limiting activities * Exercise induced * Other ? please specify * Unable to determine Use of terms such as suspected, likely, concern for, or probable (associated with a specific diagnosis that is being evaluated, monitored, or treated as if it exists) are acceptable and can be coded in the inpatient setting, when documented at the time of discharge. Thank you, Luci Venegas RN Extension: [phone] Please use your independent medical judgment in providing your response. THIS QUERY IS PART OF THE PERMANENT MEDICAL RECORD Provider Response: Other Other Diagnosis: mod persistent asthma with acute exac
[2022-02-20] MEDS: Anastrozole 1 MG TABLET PO (09:41)
[2022-02-20] MEDS: Dronedarone HCl 400 MG TABLET PO (09:41)
[2022-02-20 10:58] VITALS: PULSE 86; RESP 22; O2SAT 97
[2022-02-20] MEDS: Albuterol/Iprat 2.5/0.5MG 3 ML AMPUL.NEB INHALE (10:58)
[2022-02-20] MEDS: LORazepam 0.5 MG TABLET PO (12:46)
--- NOTE | 2022-02-20 14:23 | P.PNIM_ITS ---
Subjective Subjective Date of Service: 02/20/22 Interval History: This history was taken in Turkmen from the patient. Much more awake Anxious Breathing improved SCr improved Review of Systems Review of Systems: Yes all other systems are reviewed and are negative Physical Exam Vital Signs: Vital Signs: Last Vital Signs Temp 99 F 02/20/22 07:47 Pulse 86 02/20/22 10:58 Resp 22 H 02/20/22 10:58 BP 122/57 L 02/20/22 07:47 Pulse Ox 93 02/20/22 07:47 Oxygen Flow Rate 4 02/19/22 07:24 BMI result Body Mass Index 52.9 Gen: somnolent but arousable HEENT: sclera anicteric, moist mucus membranes Neck: supple Lungs: clear to auscultation bilaterally Heart: regular rate and rhythm, no murmurs Abd: soft, non-tender, non-distended, obese Ext: 1+ leg edema Skin: warm/well-perfused Neuro: alert and oriented x3, no focal findings Psych: appropriate affect Objective Data Active Medications Acetaminophen (Acetaminophen 325 Mg Tablet) 650 mg PO Q6H PRN PRN Reason: Pain, Mild (Pain Scale 1-3) Albuterol Sulfate (Albuterol Sulfate (0.083%) 2.5 Mg/3 Ml Vial.Neb) 2.5 mg INHALE Q2H PRN PRN Reason: Shortness of Breath/Wheezing Albuterol/Ipratropium (Albuterol/Iprat 2.5/0.5mg 3 Ml Ampul.Neb) 3 ml INHALE RQ4H WHILE AWAKE [facility] Last Admin: 02/20/22 10:58 Dose: 3 ml Documented by: JESSICA Anastrozole (Anastrozole 1 Mg Tablet) 1 mg PO DAILY [facility] Last Admin: 02/20/22 09:41 Dose: 1 mg Documented by: YSABEL Buspirone HCl (Buspirone Hcl 5 Mg Tablet) 15 mg PO BID [facility] Last Admin: 02/20/22 08:40 Dose: 15 mg Documented by: YSABEL Calcium Carbonate (Calcium Carbonate 750 Mg Tab.Chew) 300 mg PO BID [facility] Last Admin: 02/20/22 08:42 Dose: 300 mg Documented by: YSABEL Dextrose (Dextrose 50 % 25 Gm/50 Ml Syringe) 25 gm IVPUSH Q15M PRN; Protocol PRN Reason: per Hypoglycemia Standing Ord. Dronedarone (Dronedarone Hcl 400 Mg Tablet) 400 mg PO BID [facility] Last Admin: 02/20/22 09:41 Dose: 400 mg Documented by: YSABEL Fluticasone Propionate (Fluticasone Propionate Nasal 16 Gm [place]) 1 spray NOSTRIL-B DAILY [facility] Fluticasone/Vilanterol (Fluticasone/Vilanterol 100/25 Blst.W.Dev) 1 puff INHALE DAILY [facility] Last Admin: 02/20/22 08:08 Dose: Not Given Documented by: JESSICA Non-Admin Reason: Med Not Available Glucose (Glucose Gel 15 Gm Gel..Gram.) 15 gm PO Q15M PRN; Protocol PRN Reason: per Hypoglycemia Standing Ord. Insulin Glargine (Insulin Glargine,Hum.Rec.Anlog 100 Unit/Ml 10 Ml Vial) 20 unit SUBCUT BEDTIME [facility] Insulin Human Lispro (Insulin Lispro 100 Unit/Ml 3 Ml Vial) 0 unit SUBCUT QIDACHS [facility]; Protocol Last Admin: 02/20/22 01:44 Dose: 10 unit Documented by: CATHLEEN Comments: BS 472 to [address] Palacios Loratadine (Loratadine 10 Mg Tablet) 10 mg PO DAILY PRN PRN Reason: allergy symptoms Last Admin: 02/20/22 07:57 Dose: 10 mg Documented by: YSABEL Methylprednisolone Sodium Succinate (Methylprednisolone Sod Succ 40 Mg/Ml Vial) 40 mg IVPUSH Q12H [facility] Last Admin: 02/20/22 01:44 Dose: 40 mg Documented by: CATHLEEN Metoprolol Succinate (Metoprolol Succinate Er 25 Mg Tab.Er.24h) 25 mg PO DAILY [facility]; Protocol Last Admin: 02/20/22 08:42 Dose: 25 mg Documented by: YSABEL Mirtazapine (Mirtazapine 30 Mg Tablet) 30 mg PO BEDTIME [facility] Last Admin: 02/19/22 22:15 Dose: 30 mg Documented by: ELVIN Montelukast Sodium (Montelukast Sodium 10 Mg Tablet) 10 mg PO DAILY [facility] Last Admin: 02/20/22 08:42 Dose: 10 mg Documented by: YSABEL Morphine Sulfate (Morphine Sulfate 2 Mg/Ml Cart[place]) 1 mg IVPUSH Q4H PRN; Protocol PRN Reason: pain/sob Last Admin: 02/20/22 07:57 Dose: 1 mg Documented by: YSABEL Omeprazole (Omeprazole 20 Mg Capsule.Dr) 20 mg PO DAILY@0630 [facility] Last Admin: 02/20/22 05:20 Dose: 20 mg Documented by: CATHLEEN Pharmacy Consult (Consult Rx Perform Med Rec) 1 each MISCELLANE ONCE PRN PRN Reason: Consult order Pravastatin Sodium (Pravastatin Sodium 40 Mg Tablet) 40 mg PO BEDTIME [facility] Last Admin: 02/19/22 21:12 Dose: 40 mg Documented by: CATHLEEN Rivaroxaban (Rivaroxaban 20 Mg Tablet) 20 mg PO DAILY [facility] Last Admin: 02/20/22 08:41 Dose: 20 mg Documented by: YSABEL Sodium Chloride (0.9 % Sodium Chloride Flush 3 Ml Syringe) 3 ml IVFLUSH QSHIFT [facility] Last Admin: 02/20/22 08:03 Dose: 3 ml Documented by: YSABEL Vitamin D (Cholecalciferol (Vitamin D3) 25 Mcg Tablet) 25 mcg PO DAILY [facility] Last Admin: 02/20/22 08:41 Dose: 25 mcg Documented by: YSABEL Labs CBC & Chem 7: 02/20/22 06:00 02/20/22 06:00 Labs: Laboratory Results - last 24 hr 02/19/22 02/19/22 02/19/22 08:31 15:27 16:52 MCV MCH MCHC RDW Plt Count MPV Absolute Nucleated RBC Nucleated RBC % (auto) O2 Saturation 87.0 ABG pH at Pt Temp 7.42 ABG pCO2 at Pt Temp 59 H ABG pO2 at Pt Temp 62 L ABG HCO3 39 H ABG Base Excess (Actual) 12.7 VBG pH VBG pCO2 VBG pO2 VBG HCO3 VBG O2 Saturation VBG Base Excess Anion Gap Estim Creat Clear Calc Estimated GFR POC Glucose Random Glucose Estimat Average Glucose Hemoglobin A1c % Calcium Troponin I High Sens 32.8 H Procalcitonin 0.04 Ur Random Sodium 02/19/22 02/19/22 02/19/22 17:11 22:04 22:53 MCV MCH MCHC RDW Plt Count MPV Absolute Nucleated RBC Nucleated RBC % (auto) O2 Saturation ABG pH at Pt Temp ABG pCO2 at Pt Temp ABG pO2 at Pt Temp ABG HCO3 ABG Base Excess (Actual) VBG pH VBG pCO2 VBG pO2 VBG HCO3 VBG O2 Saturation VBG Base Excess Anion Gap Estim Creat Clear Calc Estimated GFR POC Glucose 293 H 472 H* 491 H* Random Glucose Estimat Average Glucose Hemoglobin A1c % Calcium Troponin I High Sens Procalcitonin Ur Random Sodium 02/20/22 02/20/22 02/20/22 00:05 04:36 06:00 MCV 82.8 MCH 23.2 L MCHC 28.0 L RDW 18.2 H Plt Count 336 MPV 9.5 Absolute Nucleated RBC 0.020 H Nucleated RBC % (auto) 0.2 O2 Saturation ABG pH at Pt Temp ABG pCO2 at Pt Temp ABG pO2 at Pt Temp ABG HCO3 ABG Base Excess (Actual) VBG pH VBG pCO2 VBG pO2 VBG HCO3 VBG O2 Saturation VBG Base Excess Anion Gap Estim Creat Clear Calc Estimated GFR POC Glucose 324 H Random Glucose Estimat Average Glucose Hemoglobin A1c % Calcium Troponin I High Sens Procalcitonin Ur Random Sodium < 20.0 02/20/22 02/20/22 02/20/22 06:00 06:00 06:00 MCV MCH MCHC RDW Plt Count MPV Absolute Nucleated RBC Nucleated RBC % (auto) O2 Saturation ABG pH at Pt Temp ABG pCO2 at Pt Temp ABG pO2 at Pt Temp ABG HCO3 ABG Base Excess (Actual) VBG pH 7.46 H VBG pCO2 52 VBG pO2 59 VBG HCO3 37 H VBG O2 Saturation 86.0 VBG Base Excess 11.8 Anion Gap 17 Estim Creat Clear Calc 53.0 Estimated GFR 41 POC Glucose Random Glucose 417 H* Estimat Average Glucose 194 Hemoglobin A1c % 8.4 Calcium 9.3 Troponin I High Sens Procalcitonin Ur Random Sodium 02/20/22 07:06 MCV MCH MCHC RDW Plt Count MPV Absolute Nucleated RBC Nucleated RBC % (auto) O2 Saturation ABG pH at Pt Temp ABG pCO2 at Pt Temp ABG pO2 at Pt Temp ABG HCO3 ABG Base Excess (Actual) VBG pH VBG pCO2 VBG pO2 VBG HCO3 VBG O2 Saturation VBG Base Excess Anion Gap Estim Creat Clear Calc Estimated GFR POC Glucose 421 H* Random Glucose Estimat Average Glucose Hemoglobin A1c % Calcium Troponin I High Sens Procalcitonin Ur Random Sodium Microbiology Microbiology Results: Microbiology 02/19/22 16:52 Urine Culture - Preliminary Urine clean catch - Urine echols top Gram negative radha Assessment and Plan (1) Acute exacerbation of chronic obstructive pulmonary disease: Status: Acute (2) Hypoxia: Status: Acute Plan hospital d#2 66yo F with AF + hx PE on rivaroxaban, HFpEF, HTN, DM2, hx breast CA, COPD, asthma, chronic hypoxic respiratory failure on 2L O2 via NC, morbid obesity presenting with fatigue and dyspnea, noted to be hypoxic and with ALESSANDRO # COPD/asthma exacerbation - continue IV methylprednisolone, standing/prn bronchodilators - continue ICS/LABA, montelukast # acute/chronic hypoxic respiratory failure # chronic hypercarbic respiratory failure - supplemental O2 with goal SaO2 88-92% - back on 2L, baseline # anemia due to postmenopausal bleeding - transfused 2u last admission in January; EMBx benign. monitor H+H, T+S in am, outpt [employer] f/u # ALESSANDRO - SCr improving after holding lisinoril + furosemide, recheck BMP in am # Tn-I indeterminate - flat on recheck, similar to prior levels, likely due to renal failure # excess sedation - hold gabapentin [gretchen in light of renal failure] + oxycodone # AF - continue dronaderone - continue metoprolol succinate - continue rivaroxaban # hx PE - continue rivaroxaban # hx breast CA - continue anastrozole # DM2 with hyperglycemia - correction-dose lispro, add Lantus [on Tresiba at home] - A1c 8.4 # mood disorder - buspirone + mirtazapine # VTE ppx - rivaxoaban Quality Stroke Does the patient have a stroke diagnosis?: No VTE Prior VTE?: No VTE Risk Level:: Medical - moderate - high VTE Device Contraindication: N/A - Device Ordered VTE Drug Contraindication: N/A - Med Ordered
[2022-02-20 15:24] LABS: Iron 15 mcg/dL (30-160); Percent Iron Saturation 3 % (15-50); Total Iron Binding Capacity 467 mcg/dL (228-428); Unsaturated Iron Binding 452 ug/dL
[2022-02-20 15:43] LABS: Ferritin 15 ng/mL (10-250)
--- NOTE | 2022-02-21 12:49 | P.DS_ITS ---
DS: Providers Provider Date of Service: 02/20/22 Date of admission: 02/19/22 16:33 Date of discharge: 02/20/22 Primary care physician: Maximus Arreaga MD DS: Diagnosis Discharge Diagnosis (1) Acute exacerbation of chronic obstructive pulmonary disease: Status: Acute (2) Acute respiratory failure with hypoxia: Status: Acute (3) Acute kidney injury: Status: Acute DS: Summary Hospital Course Hospital Course: from my admission H+P, 02/19/22: 66yo F with AF + hx PE on rivaroxaban, HFpEF, HTN, DM2, hx breast CA, COPD, asthma, chronic hypoxic respiratory failure on 2L O2 via NC, morbid obesity.? She was just admitted here 01/28-01/29/22 for anemia requiring transfusion.? Per the ED physician, she came in complaining of generalized weakness, fatigue, and dyspnea.? She was noted to be wheezing and hypoxic, with SaO2 of 84 on 2L via NC.? She was given IV methylprednisolone and nebulzied bronchodilators.? CXR showed baseline pulmonary vascular prominence. ? EKG low voltage, lateral T-wave flattening similar to previous. WBC 9.5.? SCr 1.52 (Baseline 0.86).? Hs-Tn-I 33.2.? BNP 54. ? ABG 7.42/59/62 This 66yo F with AF + hx PE on rivaroxaban, HFpEF, HTN, DM2, hx breast CA, COPD, asthma, chronic hypoxic respiratory failure on 2L O2 via NC, morbid obesity presenting with fatigue and dyspnea was noted to be hypoxic and with ALESSANDRO. She was admitted and treated with IV methylprednisolone and nebulized bronchodilators. O2 requirement went back to baseline of 2L. She was noted to have ABG consistent with chronic hypercarbia, so goal SaO2 is 88-92%. Serum creatinine improved after holding lisinopril and furosemide. Hs-Tn-I was indeterminate and flat on recheck; levels likely due to renal failure. Unfortunately, on hospital d#2, she signed out against medical advice despite counseling on the risks of doing so. She was advised to return to the hospital as quickly as possible. Time Spent with Patient Time attestation: Total time spent providing and/or coordinating discharge services: Discharge coordination time: Less than 30 minutes Quality: Safe Use of Opioids Does Pt have an Active Cancer Diagnosis on the Problem List?: No Quality: Stroke Does the patient have a stroke diagnosis?: No Physical Exam Vital Signs: Vital Signs: Last Vital Signs Temp 99 F 02/20/22 07:47 Pulse 86 02/20/22 10:58 Resp 22 H 02/20/22 10:58 BP 122/57 L 02/20/22 07:47 Pulse Ox 93 02/20/22 07:47 Oxygen Flow Rate 4 02/19/22 07:24 BMI result Body Mass Index 52.9 See Progress Note from 02/21/22 DS: Data Data Completed and Pending Completed studies during hospitalization [Text1]: Laboratory Results WBC 8.5 X10*3/uL (4.8-10.8) 02/20/22 06:00 RBC 3.32 X10*6/uL (4.20-5.50) L 02/20/22 06:00 Hgb 7.7 g/dl (12.0-16.0) L 02/20/22 06:00 Hct 27.5 % (37.0-47.0) L 02/20/22 06:00 MCV 82.8 fL (80.0-98.0) 02/20/22 06:00 MCH 23.2 pg (27.0-33.0) L 02/20/22 06:00 MCHC 28.0 g/dl (31.0-35.0) L 02/20/22 06:00 RDW 18.2 % (11.0-16.0) H 02/20/22 06:00 Plt Count 336 X10*3/uL (160-400) 02/20/22 06:00 MPV 9.5 fL (9.4-12.3) 02/20/22 06:00 Immature Gran % (Auto) 0.5 % (0.0-0.4) H 02/19/22 08:31 Neut % (Auto) 65.7 % (45-73) 02/19/22 08:31 Lymph % (Auto) 18.1 % (20-40) L 02/19/22 08:31 [place] % (Auto) 11.6 % (2-11) H 02/19/22 08:31 Eos % (Auto) 3.3 % (0-4) 02/19/22 08:31 Baso % (Auto) 0.8 % (0-2) 02/19/22 08:31 Lymph # (Auto) 1.7 X10*3/uL (1.2-4.9) 02/19/22 08:31 [place] # (Auto) 1.1 X10*3/uL (0.1-1.2) 02/19/22 08:31 Eos # (Auto) 0.3 X10*3/uL (0.0-0.4) 02/19/22 08:31 Baso # (Auto) 0.1 X10*3/uL (0.0-0.2) 02/19/22 08:31 Abs Immat Gran (auto) 0.05 X10*3/uL (0.00-0.03) H 02/19/22 08:31 Absolute Neuts (auto) 6.2 x10*3/uL (2.0-8.3) 02/19/22 08:31 Absolute Nucleated RBC 0.020 X10*3/uL (0.0-0.012) H 02/20/22 06:00 Nucleated RBC % (auto) 0.2 /100WBC (0.0-0.2) 02/20/22 06:00 O2 Saturation 87.0 % 02/19/22 15:27 ABG pH at Pt Temp 7.42 (7.35-7.45) 02/19/22 15:27 ABG pCO2 at Pt Temp 59 mmHg (32-45) H 02/19/22 15:27 ABG pO2 at Pt Temp 62 mmHg (83-108) L 02/19/22 15: ABG HCO3 39 mmol/L (22-26) H 02/19/22 15:27 ABG Base Excess (Actual) 12.7 mmol/L 02/19/22 15:27 VBG pH 7.46 (7.32-7.43) H 02/20/22 06:00 VBG pCO2 52 mmHg 02/20/22 06:00 VBG pO2 59 mmHg 02/20/22 06:00 VBG HCO3 37 mmol/L (22-26) H 02/20/22 06:00 VBG O2 Saturation 86.0 % 02/20/22 06:00 VBG Base Excess 11.8 mmol/L 02/20/22 06:00 Sodium 136 mmol/L (135-145) 02/20/22 06:00 Potassium 4.5 mmol/L (3.3-5.1) D 02/20/22 06:00 Chloride 93 mmol/L (96-108) L 02/20/22 06:00 Carbon Dioxide 31 mmol/L (22-29) H 02/20/22 06:00 Anion Gap 17 (12-20) 02/20/22 06:00 BUN 23 mg/dL (9-16) H 02/20/22 06:00 Creatinine 1.29 mg/dL (0.5-1.4) 02/20/22 06:00 Estim Creat Clear Calc 53.0 02/20/22 06:00 Estimated GFR 41 02/20/22 06:00 POC Glucose 421 mg/dL (60-115) H* 02/20/22 07:06 Random Glucose 417 mg/dL (60-115) H* 02/20/22 06:00 Estimat Average Glucose 194 mg/dL 02/20/22 06:00 Hemoglobin A1c % 8.4 % 02/20/22 06:00 Calcium 9.3 mg/dL (8.4-10.2) 02/20/22 06:00 Iron 15 mcg/dL (30-160) L 02/20/22 06:00 TIBC 467 mcg/dL (228-428) H 02/20/22 06:00 % Saturation 3 % (15-50) L 02/20/22 06:00 Unsat Iron Binding 452 ug/dL 02/20/22 06:00 Ferritin 15 ng/mL (10-250) 02/20/22 06:00 Total Bilirubin 0.4 mg/dL (0.0-1.0) 02/19/22 08:31 Direct Bilirubin 0.2 mg/dL (0.0-0.5) 02/19/22 08:31 AST 12 U/L (5-31) 02/19/22 08:31 ALT 13 U/L (0-31) 02/19/22 08:31 Alkaline Phosphatase 94 U/L (39-117) 02/19/22 08:31 Troponin I High Sens 32.8 ng/L (<3.5-17.0) H 02/19/22 16:52 B-Natriuretic Peptide 54 pg/mL (<100) 02/19/22 08:31 Total Protein 7.2 g/dL (6.5-8.0) 02/19/22 08:31 Albumin 3.6 g/dL (3.5-5.0) 02/19/22 08:31 Lipase 30 U/L (8-78) 02/19/22 08:31 Procalcitonin 0.04 ng/mL 02/19/22 08:31 Urine Color YELLOW 02/19/22 08:56 Urine Appearance CLEAR 02/19/22 08:56 Urine pH 6.0 (5.0-8.0) 02/19/22 08:56 Ur Specific [place] 1.020 (1.005-1.025) 02/19/22 08:56 Urine Protein NEG MG/DL (NEG-TRACE) 02/19/22 08:56 Urine Glucose (UA) NEG MG/DL (NEG) 02/19/22 08:56 Urine Ketones NEG MG/DL (NEG) 02/19/22 08:56 Urine Blood NEG (NEG) 02/19/22 08:56 Urine Nitrite NEG (NEG) 02/19/22 08:56 Ur Leukocyte Esterase 1+ (NEG) H 02/19/22 08:56 Urine RBC 0 /HPF (0) 02/19/22 08:56 Urine WBC 15-29 /HPF (0-4) H 02/19/22 08:56 Ur Squamous Epith Cells 1+ /LPF 02/19/22 08:56 Urine Bacteria 4+ /LPF 02/19/22 08:56 Ur Random Sodium < 20.0 mmol/L 02/20/22 00:05 Influenza Type A (PCR) NEGATIVE (Negative) 02/19/22 08:41 Influenza Type B (PCR) NEGATIVE (Negative) 02/19/22 08:41 RSV RNA Qual (PCR) NEGATIVE (Negative) 02/19/22 08:41 SARS-CoV-2 RNA (RT-PCR) NEGATIVE (Negative) 02/19/22 08:41 Impressions Chest X-Ray 02/19/22 08:53 IMPRESSION: Mild prominence of the pulmonary vasculature and cardiac silhouette may be baseline for the patient, similar to the previous study, but mild persistent congestion cannot be excluded. Discharge Plan Discharge Patient Disposition: Left Against Medical Advice Discharge Diagnosis: COPD/asthma exacerbation, ALESSANDRO, SIGNED OUT AGAINST MEDICAL ADVICE Referrals: Maximus Arreaga MD [Primary Care Provider] - 1 Week Discharge Medications: No Action (DME) underpads [Certainty Underpads] 30 X 36 pad See Rx Instructions .ROUTE .MEDSUPPLY Qty: 150 11RF Rx Instructions: As directed (DME) blood-glucose meter [FreeStyle Lite Meter] Kit See Rx Instructions .Route Qty: 1 0RF Rx Instructions: As directed (DME) FreeStyle Lite Strips Strip See Rx Instructions .ROUTE .MEDSUPPLY Qty: 100 11RF Rx Instructions: As directed three times a day metformin 500 mg tablet extended release 24 hr 500 mg PO BID 90 Days Qty: 180 3RF metoprolol succinate 25 mg tablet extended release 24 hr 25 mg PO DAILY 90 Days Qty: 90 3RF mirtazapine 30 mg tablet 30 mg PO BEDTIME 90 Days Qty: 90 3RF montelukast 10 mg tablet 10 mg PO DAILY 90 Days Qty: 90 3RF pantoprazole 40 mg tablet,delayed release (DR/EC) 40 mg PO DAILY 90 Days Qty: 90 3RF pravastatin 40 mg tablet 40 mg PO BEDTIME 90 Days Qty: 90 3RF Xarelto 20 mg tablet 20 mg PO DAILY 90 Days Qty: 90 3RF acetaminophen 500 mg tablet 500 mg PO Q6H PRN (Reason: fever or pain) 30 Days Qty: 180 6RF cetirizine 10 mg tablet 10 mg PO DAILY PRN (Reason: allergy symptoms) 30 Days Qty: 30 6RF lisinopril 10 mg tablet 10 mg PO DAILY 90 Days Qty: 90 3RF (DME) AeroEclipse II Nebulizer Misc See Rx Instructions .Route Qty: 50 0RF Rx Instructions: As directed calcium carbonate [Calcium Antacid] 300 mg (750 mg) tablet,chewable 1 tab PO BID Qty: 60 6RF Breo Ellipta 100-25 mcg/dose blister with device 1 inh inhalation DAILY 28 Days Qty: 28 6RF Multaq 400 mg tablet 400 mg PO BID 90 Days Qty: 180 1RF fluticasone propionate [Flonase Allergy Relief] 50 mcg/actuation spray,suspension 1 spray intranasal DAILY 30 Days Qty: 16 6RF Rx Instructions: administer into each nostril furosemide 80 mg tablet 80 mg PO DAILY 90 Days Qty: 90 2RF gabapentin 800 mg tablet 800 mg PO TID 30 Days Qty: 90 6RF cholecalciferol (vitamin D3) [Vitamin D3] 25 mcg (1,000 unit) capsule 25 mcg PO DAILY 90 Days Qty: 90 3RF oxycodone 5 mg tablet 5 mg PO Q8H PRN (Reason: pain) 30 Days Qty: 90 0RF Rx Instructions: partial fill upon request albuterol sulfate 90 mcg/actuation HFA aerosol inhaler 1 inh inhalation QID PRN (Reason: shortness of breath or wheezing) Qty: 8.5 0RF buspirone 15 mg Tablet 15 mg PO BID 0RF anastrozole [Arimidex] 1 mg Tablet 1 mg PO DAILY Qty: 90 2RF prednisone 5 mg tablet 10 mg PO DAILY 0RF insulin aspart U-100 [Novolog Flexpen U-100 Insulin] 100 unit/mL (3 mL) insulin pen 10 - 20 unit subcut TID 0RF Tresiba FlexTouch U-100 100 unit/mL (3 mL) insulin pen 20 unit subcut BEDTIME 0RF DermaPhor Ointment 1 appl topical QID PRN (Reason: Dry Skin) 0RF albuterol sulfate 0.63 mg/3 mL solution for nebulization 0.63 mg inhalation QID PRN (Reason: shortness of breath or wheezing) Qty: 75 0RF (DME) AeroEclipse II Nebulizer Misc See Rx Instructions .ROUTE .MEDSUPPLY Qty: 1 0RF Rx Instructions: As directed Discharge Orders: Discharge Order (Routine); Ordered 02/21/22 Ordered By: Bony Ron Stand Alone Forms: Against Medical Advice Care Plan Goals: pulmonary health renal health Health Concerns: COPD/asthma exacerbation acute kidney injury SIGNED OUT AGAINST MEDICAL ADVICE Plan of Treatment: RETURN TO HOSPITAL SOON POSSIBLE TO COMPLETE CARE Assessment: See Discharge Summary Patient Instructions: Against Medical Advice (DC) Discharge Date/Time: 02/21/22 08:27
== END 2022-02-21 08:27 | disposition left against medical advice (07) | DRG 191 ==
LOC: HO.ED 13:04 → HO.EDOVER 16:57
PROVIDERS: Admitting Provider Family Medicine; Emergency Provider Emergency Medicine; PCP Internal Medicine; Visit Provider Family Medicine
DX: J44.1 Chronic obstructive pulmonary disease with (acute) exacerbation (principal); J45.41 Moderate persistent asthma with (acute) exacerbation; Z68.43 Body mass index [BMI] 50.0-59.9, adult; F32.A Depression, unspecified; E78.5 Hyperlipidemia, unspecified; N95.0 Postmenopausal bleeding; I48.91 Unspecified atrial fibrillation; E11.65 Type 2 diabetes mellitus with hyperglycemia; D64.9 Anemia, unspecified; C50.919 Malignant neoplasm of unspecified site of unspecified female breast; Z87.442 Personal history of urinary calculi; Z91.013 Allergy to seafood; Z20.822 Contact with and (suspected) exposure to COVID-19; E66.01 Morbid (severe) obesity due to excess calories; Z79.811 Long term (current) use of aromatase inhibitors; Z99.81 Dependence on supplemental oxygen; Z86.711 Personal history of pulmonary embolism; Z79.4 Long term (current) use of insulin; Z79.01 Long term (current) use of anticoagulants; Z79.51 Long term (current) use of inhaled steroids; Z79.52 Long term (current) use of systemic steroids; Z79.84 Long term (current) use of oral hypoglycemic drugs; Z79.899 Other long term (current) drug therapy
CPT/HCPCS: 0241U; 36415; 71045; 80048; 80076; 81001; 82728; 82803; 82947; 83036; 83540; 83690; 83880; 84145; 84300; 84484; 85025; 85027; 87086; 87088; 87186; 93005; 96365; 96366; 96375; 99284; 99285; J2270; J2920; J2930; J3475; Q0163

== ENCOUNTER → 2022-02-25 12:24 | Outpatient (BNVA) | payer OTHER, SELFPAY | PROVIDERS: Visit Provider Obstetrics & Gynecology | DX: N95.0 Postmenopausal bleeding (principal) | CPT/HCPCS: Q3014 ==

== ENCOUNTER 2022-04-10 14:24 | Inpatient (IN) | payer OTHER, SELFPAY ==
[2022-04-10] VITALS (9 sets, daily range): BP systolic 110–140; BP diastolic 45–95; PULSE 75–97; RESP 16–22; TEMP 36.7–37.2; O2SAT 87–99; BMI 55.5
--- NOTE | ~2022-04-10 | XR_ITS ---
EXAMINATION: XR CHEST CLINICAL INFORMATION: Shortness of breath COMPARISON: Chest x-ray 02/19/2022. CT chest 11/15/2021 TECHNIQUE: Frontal view of the chest was obtained. 6:22 PM FINDINGS: Low inspiratory effort. Redemonstration of prominence of the right hilum related to normal pulmonary vascularity as seen on CT chest 11/15/2021. No acute abnormality of chest.No acute pulmonary vascular congestion. No pulmonary edema. No focal airspace opacities. No pleural effusion pneumothorax. XR/XR chest 1V IMPRESSION: Redemonstration of prominence of the right hilum related to normal pulmonary vascularity as seen on CT chest 11/15/2021. No acute abnormality of chest.
--- NOTE | ~2022-04-10 | XR_ITS ---
EXAMINATION: XR LUMBOSACRAL SPINE CLINICAL INFORMATION: Pain. COMPARISON: Radiograph lumbar spine dated from 01/28/2022. TECHNIQUE: Three views of the lumbosacral spine. FINDINGS: Mild degenerative anterolisthesis of L4 on L5. No acute compression deformities. Vacuum disc phenomena at L5-S1 with severe disc space narrowing and facet arthropathy. Otherwise, mild to moderate spondylosis. Small anterior osteophytes at L4 and L5. Mild to moderate degenerative osteoarthritis of the sacroiliac joints which are symmetric. Nonobstructive bowel gas pattern. XR/XR lumbar spine 2-3V IMPRESSION: No acute compression deformity. Subtle degenerative anterolisthesis of L4 and L5. Severe lumbar spondylosis at L5-S1.
--- NOTE | ~2022-04-10 | XR_ITS ---
EXAMINATION: XR HIP, RIGHT CLINICAL INFORMATION: Pain. COMPARISON: Radiograph right hip 01/28/2022. TECHNIQUE: Two views of the right hip. FINDINGS: No acute fractures or malalignment. The femoral heads are well-seated in their respective acetabula. Moderate degenerative osteoarthritis of both hips with joint space narrowing, subcortical sclerosis and osteophytes. Symmetric sacroiliac joints. Pubic symphysis is maintained. No significant soft tissue abnormality. XR/XR hip RT w PEL1V IMPRESSION: No acute fracture or malalignment. Moderate degenerative osteoarthritis of the hips.
--- NOTE | 2022-04-10 15:06 | ED_ITS ---
HPI - General Adult General Chief complaint: Back Pain/Injury Stated complaint: bilat leg pain Time Seen by Provider: 04/10/22 14:48 Source: patient, EMS and student services counselor Mode of arrival: EMS Limitations: no limitations History of Present Illness HPI narrative: 66 years old female with history of AFib, PE if rivaroxaban, HFp EF, HTN, dm 2, breast CA, COPD/asthma/chronic hypoxic respiratory failure on 2 L of oxygen via nasal cannula, morbid obesity, anemia that required blood transfusion. Patient declined any active bleeding, no rectal bleeding normal bowel movement with normal color stool. No blood in the urine. Patient been having generalized weakness, fatigue, and exertional dyspnea. Patient declined any recent fall or trauma been compliant of lower back pain and right lower extremities pain. Patient is still able to bear weight. Related Data Home Medications Medication Instructions Recorded Confirmed buspirone 15 mg tablet 15 mg PO BID 07/31/20 03/17/22 insulin aspart U-100 100 unit/mL 10 - 20 unit subcut TID 01/28/22 03/17/22 (3 mL) subcutaneous pen (Novolog Flexpen U-100 Insulin aspart) insulin degludec 100 unit/mL (3 20 unit subcut BEDTIME 01/28/22 03/17/22 mL) subcutaneous pen (Tresiba FlexTouch U-100 insulin) mineral oil-hydrophil petrolat 1 appl topical QID PRN Dry Skin 01/28/22 03/17/22 topical ointment (DermaPhor) prednisone 5 mg tablet 10 mg PO DAILY 01/28/22 03/17/22 Previous Rx's Medication Instructions Recorded underpads 30 X 36 (Certainty #150 ea 04/28/21 Underpads) blood-glucose meter (FreeStyle #1 ea 05/15/21 Lite Meter) acetaminophen 500 mg tablet 500 mg PO Q6H PRN fever or pain 30 10/15/21 days #180 tabs cetirizine 10 mg tablet 10 mg PO DAILY PRN allergy 10/15/21 symptoms 30 days #30 tabs lisinopril 10 mg tablet 10 mg PO DAILY 90 days #90 tabs 10/15/21 metformin 500 mg tablet,extended 500 mg PO BID 90 days #180 tabs 10/15/21 release 24 hr metoprolol succinate 25 mg 25 mg PO DAILY 90 days #90 tabs 10/15/21 tablet,extended release 24 hr mirtazapine 30 mg tablet 30 mg PO BEDTIME 90 days #90 tabs 10/15/21 montelukast 10 mg tablet 10 mg PO DAILY 90 days #90 tabs 10/15/21 pantoprazole 40 mg tablet,delayed 40 mg PO DAILY 90 days #90 tabs 10/15/21 release pravastatin 40 mg tablet 40 mg PO BEDTIME 90 days #90 tabs 10/15/21 rivaroxaban 20 mg tablet (Xarelto) 20 mg PO DAILY 90 days #90 tabs 10/15/21 calcium carbonate 300 mg (750 mg) 1 tab PO BID #60 tabs 11/13/21 chewable tablet (Calcium Antacid) dronedarone 400 mg tablet (Multaq) 400 mg PO BID 90 days #180 tabs 11/13/21 albuterol sulfate 0.63 mg/3 mL 0.63 mg (3 mL) inhalation QID PRN 11/15/21 solution for nebulization shortness of breath or wheezing #75 mL nebulizers (AeroEclipse II #1 ea 11/15/21 Nebulizer) fluticasone propionate 50 1 spray intranasal DAILY 30 days 12/08/21 mcg/actuation nasal #16 grams spray,suspension (Flonase Allergy Relief) furosemide 80 mg tablet 80 mg PO DAILY 90 days #90 tabs 12/08/21 gabapentin 800 mg tablet 800 mg PO TID 30 days #90 tabs 12/23/21 cholecalciferol (vitamin D3) 25 25 mcg PO DAILY 90 days #90 caps 12/29/21 mcg (1,000 unit) capsule (Vitamin D3) anastrozole 1 mg tablet (Arimidex) 1 mg PO DAILY #90 tabs 02/23/22 diaper,brief,adult,disposable #300 ea 03/02/22 (Briefs, Adult-Extra Large) albuterol sulfate 90 mcg/actuation 1 inh inhalation QID PRN shortness 03/17/22 aerosol inhaler of breath or wheezing #8.5 grams ferrous sulfate 325 mg (65 mg 325 mg PO DAILY 90 days #90 tabs 03/17/22 iron) tablet,delayed release fluticasone furoate 100 1 inh inhalation DAILY 28 days #28 03/17/22 mcg-vilanterol 25 mcg/dose ea inhalation powder (Breo Ellipta) blood sugar diagnostic (FreeStyle #100 ea 03/23/22 Lite Strips) oxycodone 5 mg tablet 5 mg PO Q8H PRN pain 30 days #90 03/23/22 tabs Allergies Allergy/AdvReac Type Severity Reaction Status Date / Time shellfish derived Allergy Intermediate SWELLING,N/ Verified 03/17/22 13:13 [SHELLFISH DERIVED] V Review of Systems Review of Systems: All other systems are reviewed and are negative Constitutional: Reports as per HPI and Reports no additional constitutional complaints Eyes: Reports as per HPI and Reports no additional eye complaints Reports system reviewed and no additional complaints, except as documented Cardiovascular: Reports as per HPI and Reports no additional cardiovascular complaints Respiratory: Reports as per HPI and Reports no additional respiratory complaints Gastrointestinal: Reports as per HPI and Reports no additional gastrointestinal complaints Genitourinary: Reports no additional female genitourinary complaints Musculoskeletal: Reports no additional musculoskeletal complaints Skin/Breast: Reports system reviewed and no additional complaints, except as docu Psychiatric: Reports no additional psychiatric complaints Endocrine: Reports no additional endocrine complaints Hematologic/Lymphatic: Reports no additional hematologic/lymphatic complaints Allergic/Immunologic: Reports no additional allergic/immunologic complaints Reports system reviewed and no additional complaints, except as documented and Reports Abnormal speech present [facility] Past Medical History Medical History Anemia Asthma Atrial fibrillation Back pain Bilateral pulmonary embolism Cataract CHF (congestive heart failure) COPD (chronic obstructive pulmonary disease) Depression Diabetes mellitus Elevated TSH Hyperlipidemia Hypertension Invasive ductal carcinoma of left breast, stage 2 Iron deficiency anemia Kidney stone Sleep apnea Super-super obese Type 2 diabetes mellitus with hyperglycemia, with long-term current use of insulin Urinary incontinence Vaginal pruritus Surgical History H/O hernia repair H/O lithotripsy H/O tubal ligation History of carpal tunnel release History of cataract surgery (~2017) History of lumpectomy of left breast (~04/03/20) Family History Family History Father CVD (cardiovascular disease) Mother CVD (cardiovascular disease) Family/Other FH: mental illness Mental health disorder Social History Social History Household Members: None Housing: Apartment Alcohol intake: never Patient Tobacco Use Status: Never used Tobacco e-Cigarette/Vaping Use: Never Used Second Hand Smoke Exposure: No Advance Directives: Yes Advance Directives on File: Yes Advance Directives Date on File: 02/20/22 service: No Current occupational status: disabled Cognitive needs: Yes Hearing needs: No Vision needs: Yes Physical Exam ED Vital Signs: Vital Signs - 24 hr 04/10/22 15:03 04/10/22 15:47 Temperature 98.2 F 99 F Pulse Rate 89 97 Respiratory Rate 22 H 18 Blood Pressure 111/51 L 110/62 Pulse Oximetry 87 L 96 Oxygen Delivery Method Room Air Nasal Cannula Oxygen Flow Rate 2 BMI result Body Mass Index 55.5 Vital signs have been reviewed as appeared to be correct. Blood pressure normal. Heart rate normal. Respiration rate normal. Temperature normal. Oxygen saturation normal. Appearance: Alert. Oriented X3. No acute distress. Head: Normal external exam. Normocephalic. Atraumatic. No Darby signs noted. No raccoon eyes noted Eyes: PERRLA. EOMI. Conjunctiva and sclera normal. Eyelids normal. ENT: TM's Normal. Pharynx normal. Uvula midline. Moist mucous membranes. No trismus noted. No drooling noted. No muffled voice noted. Neck: Normal inspection. Neck supple. FROM. No adenopathy. Thyroid Normal. No meningeal signs. No neck mass noted. CVS: Normal heart rate and rhythm. Heart sound normal. No murmurs noted. Pulses normal throughout. Respiratory: No respiratory distress. Painless inspiration. Breath sounds normal. No wheezes/rales/rhonchi noted. Chest nontender. No accessory muscle usage noted or decreased air movement noted. Abdomen: Soft and nontender. Bowel sounds normal in all 4 quadrants. No distention noted. No organomegaly noted. No visible injury noted. Rectal exam: Brownish stool with no blood. Back: No CVA tenderness. Full range of motion noted. Skin: Skin warm and dry. Normal skin color. Normal skin turgor. No rashes/lesions/lacerations noted. Extremities: No lower extremity edema. Extremities exhibit normal range of motion. Extremities nontender. Neuro: Oriented X 3. Cranial nerve exam: II-XII are grossly intact No motor deficit. No sensory deficit. Reflexes normal. Course Course Course Narrative: Assessment and plan. 66-year-old female came in with a symptomatic anemia, hemoglobin is 7 will transfuse 2 units of RBC admit the patient. Medical Decision Making Lab Data Lab results reviewed: Yes I reviewed the patient's lab results. Result diagrams: 04/10/22 15:45 04/10/22 15:45 Labs: Lab Results 04/10/22 04/10/22 04/10/22 Range/Units 15:45 15:45 15:45 WBC 9.8 (4.8-10.8) X10*3/uL RBC 3.32 L (4.20-5.50) X10*6/uL Hgb 7.0 L* (12.0-16.0) g/dl Hct 25.9 L (37.0-47.0) % MCV 78.0 L (80.0-98.0) fL MCH 21.1 L (27.0-33.0) pg MCHC 27.0 L (31.0-35.0) g/dl RDW 18.2 H (11.0-16.0) % Plt Count 388 (160-400) X10*3/uL MPV 9.8 (9.4-12.3) fL Immature Gran % (Auto) 0.5 H (0.0-0.4) % Neut % (Auto) 80.5 H (45-73) % Lymph % (Auto) 8.9 L (20-40) % [place] % (Auto) 6.8 (2-11) % Eos % (Auto) 2.7 (0-4) % Baso % (Auto) 0.6 (0-2) % Lymph # (Auto) 0.9 L (1.2-4.9) X10*3/uL [place] # (Auto) 0.7 (0.1-1.2) X10*3/uL Eos # (Auto) 0.3 (0.0-0.4) X10*3/uL Baso # (Auto) 0.1 (0.0-0.2) X10*3/uL Abs Immat Gran (auto) 0.05 H (0.00-0.03) X10*3/uL Absolute Neuts (auto) 7.9 (2.0-8.3) x10*3/uL Absolute Nucleated RBC 0.000 (0.0-0.012) X10*3/uL Nucleated RBC % (auto) 0.0 (0.0-0.2) /100WBC Sodium 143 (135-145) mmol/L Potassium 3.8 (3.3-5.1) mmol/L Chloride 99 (96-108) mmol/L Carbon Dioxide 32 H (22-29) mmol/L Anion Gap 16 (12-20) BUN 40 H D (9-16) mg/dL Creatinine 1.11 (0.5-1.4) mg/dL Estim Creat Clear Calc 66.0 Estimated GFR 49 Random Glucose 257 H (60-115) mg/dL Calcium 8.6 D (8.4-10.2) mg/dL Blood Type A Positive Antibody Screen NEGATIVE Crossmatch See Detail Imaging Data Right hip x-ray: Attestation: I personally reviewed and interpreted this imaging study as follows: Radiologist's impression: No acute fracture or malalignment. Lumbar spine x-ray: Attestation: I personally reviewed and interpreted this imaging study as follows: Radiologist's impression: No acute compression deformity. ? Subtle degenerative anterolisthesis of L4 and L5. ? Severe lumbar spondylosis at L5-S1. ECG Data Attestation: I personally reviewed and interpreted this ECG as follows: Interpretation: Normal sinus rhythm at 75 beats per minutes, normal intervals, no ST-T changes, PACs. Discharge Plan Discharge Clinical Impression: Anemia, Contusion of hip, right Patient Disposition: Admitted As Inpatient
[2022-04-10 16:02] LABS: MANUAL DIFF FLAG NO
[2022-04-10 16:11] LABS: Basophils Absolute Auto 0.1 X10*3/uL (0.0-0.2); Basophils Percent Auto 0.6 % (0-2); Eosinophils Absolute Auto 0.3 X10*3/uL (0.0-0.4); Eosinophils Percent Auto 2.7 % (0-4); Hematocrit 25.9 % (37.0-47.0); Imm Gran Abs Auto 0.05 X10*3/uL (0.00-0.03); Imm Gran Pct Auto 0.5 % (0.0-0.4); Lymphocytes Absolute Auto 0.9 X10*3/uL (1.2-4.9); Lymphocytes Percent Auto 8.9 % (20-40); Mean Corpuscular Hemoglobin 21.1 pg (27.0-33.0); Mean Platelet Volume 9.8 fL (9.4-12.3); Monocytes Absolute Auto 0.7 X10*3/uL (0.1-1.2); Monocytes Percent Auto 6.8 % (2-11); Neutrophils Absolute Auto 7.9 x10*3/uL (2.0-8.3); Neutrophils Percent Auto 80.5 % (45-73); Platelet Count 388 X10*3/uL (160-400); Red Blood Count 3.32 X10*6/uL (4.20-5.50); Red Cell Distribution Width 18.2 % (11.0-16.0); White Blood Count 9.8 X10*3/uL (4.8-10.8)
[2022-04-10 16:16] LABS: Anion Gap 16 (12-20); Blood Urea Nitrogen 40 mg/dL (9-16); Calcium 8.6 mg/dL (8.4-10.2); Carbon Dioxide 32 mmol/L (22-29); Chloride 99 mmol/L (96-108); Estimated Glomerular Filt Rate 49; Glucose Random 257 mg/dL (60-115); Potassium 3.8 mmol/L (3.3-5.1); Sodium 143 mmol/L (135-145)
--- NOTE | 2022-04-10 17:16 | ECG_ITS ---
Test Reason : WEAKNESS Blood Pressure : / mmHG Vent. Rate : 075 BPM Atrial Rate : 075 BPM P-R Int : 144 ms QRS Dur : 082 ms QT Int : 424 ms P-R-T Axes : 000 023 076 degrees QTc Int : 473 ms Artifact in tracing Sinus rhythm with Premature atrial complexes Otherwise normal ECG When compared with ECG of 19-FEB-2022 07:49, Premature atrial complexes are now Present Referred By: Darion Lutz Electronically Signed By:FIFI RILEY
[2022-04-10 17:37] LABS: OBS Int Ctl Valid YES; OBS1 NEGATIVE (NEGATIVE)
--- NOTE | 2022-04-10 18:57 | PHA.MEDREC ---
MED REC COMPLETE, USED AN COMMERCIAL UNDERWRITER, NO ISSUES Pharmacy Consult ? Medication Reconciliation Pharmacy has completed the medication reconciliation.
--- NOTE | 2022-04-10 19:13 | PC.NURSE ---
pt RBC infusing, no acute reaction. she is asking for pain medication, otherwise is on the phone in no obvious outward distress.pt is able to get up to WC to bathroom
--- NOTE | 2022-04-10 21:25 | PM.IMHP ---
History of Present Illness Date of Service: 04/10/22 Chief Complaint: Low Hgb 66-year-old female with past medical history of give as well as PE on rivaroxaban, heart failure visit check ruiz fraction, HTN, diabetes, history of breast cancer, COPD, asthma, chronic hypoxic respiratory failure on 2 L of oxygen at baseline, morbid obesity, who presents the hospital with abnormal labs. Patient reports that her visiting nurse it did routine lab on her due to her history of anemia and found her to be anemic and answer to come to the hospital. Patient reports that for the past few weeks she has been having significant dyspnea on exertion, increased leg swelling that is not resolving with her 80 mg of IV Lasix, reports orthopnea and PND, reports no cough, no chest pain, no abdominal pain nausea or vomiting, no diarrhea constipation, no urinary symptoms. No hematuria, no melena hematochezia, hemoptysis, hematemesis. Patient reports chronic pain in her legs and back that has flared No numbness, tingling or weakness in extremities. On arrival to the ED patient with dynamic least stable with no significant abnormal vitals Labs are significant for WBC count of 9.8, hemoglobin of 7.0 with a most recent is from a 137.7, hematocrit 25.9, MCV of 78, BNP of 135, in COVID-19 negative, stool guaiac negative Chest x-ray showed redemonstration of prominence of the right healing related to normal pulmonary vascularity no acute abnormality on chest x-ray Patient has significant dyspnea with minimal effort and therefore will need admission for further evaluation Review of Systems Review of Systems: Yes all other systems are reviewed and are negative [facility] Medical History Anemia Asthma Atrial fibrillation Back pain Bilateral pulmonary embolism Cataract CHF (congestive heart failure) COPD (chronic obstructive pulmonary disease) Depression Diabetes mellitus Elevated TSH Hyperlipidemia Hypertension Invasive ductal carcinoma of left breast, stage 2 Iron deficiency anemia Kidney stone Sleep apnea Super-super obese Type 2 diabetes mellitus with hyperglycemia, with long-term current use of insulin Urinary incontinence Vaginal pruritus Family History Father CVD (cardiovascular disease) Mother CVD (cardiovascular disease) Family/Other FH: mental illness Mental health disorder Surgical History H/O hernia repair H/O lithotripsy H/O tubal ligation History of carpal tunnel release History of cataract surgery (~2016) History of lumpectomy of left breast (~04/03/20) Social History Household Members: None Housing: Apartment Alcohol intake: never Patient Tobacco Use Status: Never used Tobacco e-Cigarette/Vaping Use: Never Used Second Hand Smoke Exposure: No Advance Directives: Yes Advance Directives on File: Yes Advance Directives Date on File: 02/20/22 service: No Current occupational status: disabled Cognitive needs: Yes Hearing needs: No Vision needs: Yes Meds Allergies Allergy/AdvReac Type Severity Reaction Status Date / Time shellfish derived Allergy Intermediate SWELLING,N/ Verified 03/17/22 13:13 [SHELLFISH DERIVED] V Active Medications: Current Medications Acetaminophen (Acetaminophen 325 Mg Tablet) 650 mg PO Q6H PRN PRN Reason: Pain, Mild (Pain Scale 1-3) Docusate Sodium (Docusate Sodium 100 Mg Capsule) 100 mg PO BID JASON Magnesium Hydroxide (Milk Of Magnesia 30 Ml Oral.Susp) 30 ml PO DAILY PRN PRN Reason: Constipation Sodium Chloride (0.9 % Sodium Chloride Flush 3 Ml Syringe) 3 ml IVFLUSH QSHIFT JASON Home Medications Medication Instructions Recorded Confirmed Last Taken Type buspirone 15 mg tablet 15 mg PO BID 07/31/20 04/10/22 01/27/22 History insulin aspart U-100 100 unit/mL 10 - 20 unit subcut TID 01/28/22 04/10/22 Unknown History (3 mL) subcutaneous pen (Novolog Flexpen U-100 Insulin aspart) insulin degludec 100 unit/mL (3 25 unit subcut BEDTIME 01/28/22 04/10/22 04/09/22 History mL) subcutaneous pen (Tresiba FlexTouch U-100 insulin) mineral oil-hydrophil petrolat 1 appl topical QID PRN Dry Skin 01/28/22 04/10/22 Unknown History topical ointment (DermaPhor) prednisone 5 mg tablet 10 mg PO DAILY 01/28/22 04/10/22 01/27/22 History calcium carbonate 300 mg (750 mg) 1 tab PO BID PRN Heartburn 04/10/22 04/10/22 Unknown History chewable tablet (Calcium Antacid) montelukast 10 mg tablet 10 mg PO BEDTIME 04/10/22 04/10/22 Unknown History nitroglycerin 0.4 mg sublingual 1 tab sublingual Q5M PRN Chest Pain 04/10/22 04/10/22 Unknown History tablet Physical Exam Vital Signs and Narrative: Vital Signs: Last Vital Signs Temp 98.2 F 04/10/22 18:13 Pulse 75 04/10/22 18:13 Resp 20 04/10/22 18:13 BP 119/51 L 04/10/22 18:13 Pulse Ox 96 04/10/22 15:47 O2 Del Method 04/10/22 15:47 O2 Flow Rate 2 04/10/22 15:47 BMI result Body Mass Index 55.5 Const: Other: Patient dyspnea with talking, General: cooperative and no acute distress Orientation/consciousness: patient oriented x3 Eyes: General: appearance normal, both eyes and all related structures Resp: Other: Distant breath sounds Effort & Inspection: normal respiratory effort Auscultation: clear to auscultation bilaterally Cardio: Rate: regular rate Rhythm: regular rhythm GI: Palpation (GI): Soft to palpation Auscultation: normal bowel sounds Skin: General skin exam: no rashes or lesions noted Neuro: General: patient oriented x3 Cognition (Neuro): normal cognition Extrem: Other: 3+ pitting edema up to the ruiz General: Yes normal to inspection Results Labs CBC and Chem 7: 04/10/22 23:56 04/10/22 15:45 Labs: Laboratory Results - last 24 hr 04/10/22 04/10/22 04/10/22 15:45 15:45 15:45 MCV 78.0 L MCH 21.1 L MCHC 27.0 L RDW 18.2 H Plt Count 388 MPV 9.8 Immature Gran % (Auto) 0.5 H Neut % (Auto) 80.5 H Lymph % (Auto) 8.9 L [place] % (Auto) 6.8 Eos % (Auto) 2.7 Baso % (Auto) 0.6 Lymph # (Auto) 0.9 L [place] # (Auto) 0.7 Eos # (Auto) 0.3 Baso # (Auto) 0.1 Abs Immat Gran (auto) 0.05 H Absolute Neuts (auto) 7.9 Absolute Nucleated RBC 0.000 Nucleated RBC % (auto) 0.0 Anion Gap 16 Estim Creat Clear Calc 66.0 Estimated GFR 49 Random Glucose 257 H Calcium 8.6 D Stool Occult Blood Blood Type A Positive Antibody Screen NEGATIVE Crossmatch See Detail 04/10/22 17:15 MCV MCH MCHC RDW Plt Count MPV Immature Gran % (Auto) Neut % (Auto) Lymph % (Auto) [place] % (Auto) Eos % (Auto) Baso % (Auto) Lymph # (Auto) [place] # (Auto) Eos # (Auto) Baso # (Auto) Abs Immat Gran (auto) Absolute Neuts (auto) Absolute Nucleated RBC Nucleated RBC % (auto) Anion Gap Estim Creat Clear Calc Estimated GFR Random Glucose Calcium Stool Occult Blood NEGATIVE Blood Type Antibody Screen Crossmatch Imaging Radiologist's Impressions: Impressions Hip/Pelvis X-Ray 04/10/22 15:30 IMPRESSION: No acute fracture or malalignment. Moderate degenerative osteoarthritis of the hips. Lumbar Spine X-Ray 04/10/22 15:30 IMPRESSION: No acute compression deformity. Subtle degenerative anterolisthesis of L4 and L5. Severe lumbar spondylosis at L5-S1. Chest X-Ray 04/10/22 18:34 IMPRESSION: Redemonstration of prominence of the right hilum related to normal pulmonary vascularity as seen on CT chest 11/15/2021. No acute abnormality of chest. Assessment and Plan (1) Dyspnea: Status: Acute (2) Lower extremity edema: Status: Acute (3) Microcytic anemia: Status: Acute Plan 66-year-old female with a past history of anemia, heart failure preserved ejection fraction among others who presents to the hospital with symptomatic anemia # acute on chronic microcytic anemia - no source of bleed to date - has negative stool occult - patient is significantly symptomatic with dyspnea on minimal exertion - will transfuse - follow CBC - recommend Hematology follow-up outpatient for further workup # dyspnea/lower extremity edema - possibly secondary to CHF exacerbation - patient is significantly obese, has 3+ lower extremity edema - also reports that that is been PND - although BNP is low this is likely falsely negative given her weight - I am inclined to treat for CHF exacerbation, will give 80 mg of IV Lasix - will obtain echocardiogram and consult Cardiology for further guidance # ALESSANDRO - likely secondary to CHF - being treated with Lasix - follow BMP # diabetes - continue home insulin - low-dose sliding scale insulin, diabetic diet # paroxysmal AFib - continue over ox of an as well as dronedarone and metoprolol # hypertension - stable - continue antihypertensives DVT prophylaxis: Rivaroxaban Quality Stroke Does the patient have a stroke diagnosis?: No VTE Prior VTE?: No VTE Risk Level:: Medical - moderate - high VTE Device Contraindication: N/A - Device Ordered VTE Drug Contraindication: Treatment Not Indicated
[2022-04-10] MEDS: Furosemide 100 MG/10 ML VIAL 80 MG IVPUSH (21:54)
[2022-04-10] MEDS: busPIRone HCl 5 MG TABLET 15 MG PO (21:55)
[2022-04-10] MEDS: Montelukast Sodium 10 MG TABLET PO (21:55)
[2022-04-10] MEDS: Gabapentin 400 MG CAPSULE 800 MG PO (21:55)
[2022-04-10] MEDS: HYDROmorphone HCl 0.5 MG/0.5 ML SYRINGE IVPUSH (21:56)
[2022-04-10] MEDS: Docusate Sodium 100 MG CAPSULE PO (21:56)
[2022-04-10] MEDS: Pravastatin Sodium 40 MG TABLET PO (21:56)
[2022-04-10] MEDS: 0.9 % Sodium Chloride Flush 3 ML SYRINGE IVFLUSH (23:26)
[2022-04-11] VITALS (10 sets, daily range): BP systolic 92–146; BP diastolic 45–83; PULSE 73–93; RESP 18–20; TEMP 36.3–37; O2SAT 95–98; BMI 54.4
[2022-04-11 00:11] LABS: Hematocrit 29.9 % (37.0-47.0); Hemoglobin 8.4 g/dl (12.0-16.0)
[2022-04-11 00:36] LABS: B Type Natriuretic Peptide 135 pg/mL (<100)
[2022-04-11] MEDS: Mirtazapine 30 MG TABLET PO ×2 (01:55→20:34)
[2022-04-11 02:30] LABS: COVID-19 Test Negative (Negative)
[2022-04-11] MEDS: oxyCODONE HCl Immed Release 5 MG TABLET PO ×3 (04:19→20:35)
--- NOTE | 2022-04-11 04:51 | PC.NURSE ---
report for admit to director global medical affairs @[phone]
[2022-04-11] MEDS: Omeprazole 20 MG CAPSULE.DR PO (05:45)
[2022-04-11 06:58] LABS: MANUAL DIFF FLAG NO
[2022-04-11 07:13] LABS: Basophils Absolute Auto 0.1 X10*3/uL (0.0-0.2); Eosinophils Absolute Auto 0.4 X10*3/uL (0.0-0.4); Eosinophils Percent Auto 3.7 % (0-4); Hematocrit 29.7 % (37.0-47.0); Hemoglobin 8.6 g/dl (12.0-16.0); Imm Gran Abs Auto 0.06 X10*3/uL (0.00-0.03); Imm Gran Pct Auto 0.6 % (0.0-0.4); Lymphocytes Percent Auto 19.3 % (20-40); Mean Corpuscular Volume 79.4 fL (80.0-98.0); Mean Platelet Volume 9.7 fL (9.4-12.3); Monocytes Absolute Auto 1.2 X10*3/uL (0.1-1.2); Monocytes Percent Auto 11.3 % (2-11); Neutrophils Absolute Auto 6.6 x10*3/uL (2.0-8.3); Neutrophils Percent Auto 64.1 % (45-73); Platelet Count 343 X10*3/uL (160-400); Red Blood Count 3.74 X10*6/uL (4.20-5.50); White Blood Count 10.3 X10*3/uL (4.8-10.8)
[2022-04-11 07:35] LABS: Glucose, Whole Blood 120 mg/dL (60-115)
[2022-04-11 07:57] LABS: Anion Gap 13 (12-20); Blood Urea Nitrogen 28 mg/dL (9-16); Calcium 8.7 mg/dL (8.4-10.2); Carbon Dioxide 37 mmol/L (22-29); Chloride 98 mmol/L (96-108); Creatinine Clr Calc Pharmacy 85.2; Estimated Glomerular Filt Rate > 60; Glucose Random 134 mg/dL (60-115); Potassium 4.2 mmol/L (3.3-5.1); Sodium 144 mmol/L (135-145)
[2022-04-11 08:44] LABS: Alanine Aminotransferase 11 U/L (0-31); Albumin Level 3.5 g/dL (3.5-5.0); Alkaline Phosphatase 82 U/L (39-117); Aspartate Amino Transferase 11 U/L (5-31); Bilirubin Direct 0.3 mg/dL (0.0-0.5); Bilirubin Total 0.5 mg/dL (0.0-1.0); Iron 42 mcg/dL (30-160); Percent Iron Saturation 9 % (15-50); Total Iron Binding Capacity 450 mcg/dL (228-428); Total Protein 6.7 g/dL (6.5-8.0); Unsaturated Iron Binding 408 ug/dL
[2022-04-11] MEDS: Fluticasone/Vilanterol 100/25 BLST.W.DEV 1 PUFF INHALE (09:02)
[2022-04-11] MEDS: 0.9 % Sodium Chloride Flush 3 ML SYRINGE IVFLUSH ×3 (10:25→20:35)
[2022-04-11] MEDS: busPIRone HCl 5 MG TABLET 15 MG PO ×2 (10:25→20:36)
[2022-04-11] MEDS: Gabapentin 400 MG CAPSULE 800 MG PO ×3 (10:26→20:36)
[2022-04-11] MEDS: predniSONE 5 MG TABLET 10 MG PO (10:26)
[2022-04-11] MEDS: Rivaroxaban 20 MG TABLET PO (10:27)
[2022-04-11] MEDS: Dronedarone HCl 400 MG TABLET PO ×2 (10:27→20:36)
[2022-04-11] MEDS: lisinopriL 10 MG TABLET PO (10:27)
[2022-04-11] MEDS: Docusate Sodium 100 MG CAPSULE PO ×2 (10:27→20:36)
[2022-04-11] MEDS: Cholecalciferol (Vitamin D3) 25 MCG TABLET PO (10:27)
[2022-04-11] MEDS: Metoprolol Succinate ER 25 MG TAB.ER.24H PO (10:27)
--- NOTE | 2022-04-11 10:31 | PM.CNCAR ---
History of Present Illness History of Present Illness Date of Service: 04/11/22 Chief complaint: Symptomatic anemia Narrative: This is a cardiology consultation regarding possibly congestive heart failure. Not clear who her financial accountant is. She seems to be on a combination of Multaq and Xarelto for proximal atrial fibrillation. There is also history of congestive heart failure, hypertension, diabetes, obesity, asthma COPD, chronic respiratory failure, obesity among others. It seems that she was checked for labs and found to be anemic and sent here. She also has shortness of breath on exertion. Increasing leg swelling. Some chest pressure at times with activity but not clear if it is same as asthma. Hence she has been admitted for further care. Review of Systems Review of Systems: Yes all other systems are reviewed and are negative Constitutional: Constitutional: Reports as per HPI Eyes: Eyes: Reports as per HPI ENT: Reports as per HPI Cardiovascular: Cardiovascular: Reports as per HPI, Denies acrocyanosis, Denies cool extremities, Denies chest pain, Reports leg edema, Denies lightheadedness, Denies palpitations and Reports dyspnea Respiratory: Respiratory: Reports as per HPI, Reports no additional respiratory complaints and Reports dyspnea Gastrointestinal: Gastrointestinal: Reports as per HPI and Reports no additional gastrointestinal complaints Genitourinary: Genitourinary: Reports as per HPI Musculoskeletal: Musculoskeletal: Reports no additional musculoskeletal complaints and Reports as per HPI Integumentary/Breasts: Skin/Breast: Reports system reviewed and no additional complaints, except as docu Neurologic: Reports system reviewed and no additional complaints, except as documented and Reports as per HPI Psychiatric: Psychiatric: Reports no additional psychiatric complaints and Reports as per HPI Endocrine: Endocrine: Reports no additional endocrine complaints, Reports as per HPI and Denies palpitations Hematologic/Lymphatic: Hematologic/Lymphatic: Reports no additional hematologic/lymphatic complaints and Reports as per HPI Allergic/Immunologic: Allergic/Immunologic: Reports no additional allergic/immunologic complaints and Reports as per HPI PMFSH Past Medical History Medical History Anemia Asthma Atrial fibrillation Back pain Bilateral pulmonary embolism Cataract CHF (congestive heart failure) COPD (chronic obstructive pulmonary disease) Depression Diabetes mellitus Elevated TSH Hyperlipidemia Hypertension Invasive ductal carcinoma of left breast, stage 2 Iron deficiency anemia Kidney stone Sleep apnea Super-super obese Type 2 diabetes mellitus with hyperglycemia, with long-term current use of insulin Urinary incontinence Vaginal pruritus Family History Family History Father CVD (cardiovascular disease) Mother CVD (cardiovascular disease) Family/Other FH: mental illness Mental health disorder Surgical History Surgical History H/O hernia repair H/O lithotripsy H/O tubal ligation History of carpal tunnel release History of cataract surgery (~2016) History of lumpectomy of left breast (~04/03/20) Social History Social History Household Members: None Housing: Apartment Alcohol intake: never Patient Tobacco Use Status: Never used Tobacco e-Cigarette/Vaping Use: Never Used Second Hand Smoke Exposure: No Advance Directives: Yes Advance Directives on File: Yes Advance Directives Date on File: 02/20/22 service: No Current occupational status: disabled Cognitive needs: Yes Hearing needs: No Vision needs: Yes Meds Allergies Allergy/AdvReac Type Severity Reaction Status Date / Time shellfish derived Allergy Intermediate SWELLING,N/ Verified 03/17/22 13:13 [SHELLFISH DERIVED] V Active Medications: Current Medications Acetaminophen (Acetaminophen 325 Mg Tablet) 650 mg PO Q6H PRN PRN Reason: Pain, Mild (Pain Scale 1-3) Albuterol Sulfate (Albuterol Sulfate (0.042%) 1.25 Mg/3 Ml Vial.Neb) 0.63 mg INHALE QID PRN PRN Reason: shortness of breath or wheezing Albuterol Sulfate (Albuterol Sulfate 90 Mcg 8 Gm Inhaler) 1 puff INHALE QID PRN PRN Reason: shortness of breath or wheezing Anastrozole (Anastrozole 1 Mg Tablet) 1 mg PO DAILY [facility] Buspirone HCl (Buspirone Hcl 5 Mg Tablet) 15 mg PO BID [facility] Last Admin: 04/10/22 21:55 Dose: 15 mg Dextrose (Dextrose 50 % 25 Gm/50 Ml Syringe) 25 gm IVPUSH Q15M PRN; Protocol PRN Reason: per Hypoglycemia Standing Ord. Docusate Sodium (Docusate Sodium 100 Mg Capsule) 100 mg PO BID [facility] Last Admin: 04/10/22 21:56 Dose: 100 mg Dronedarone (Dronedarone Hcl 400 Mg Tablet) 400 mg PO BID [facility] Fluticasone Propionate (Fluticasone Propionate Nasal 16 Gm Mcintosh) 1 spray NOSTRIL-B DAILY [facility] Fluticasone/Vilanterol (Fluticasone/Vilanterol 100/25 Blst.W.Dev) 1 puff INHALE RDAILY [facility] Last Admin: 04/11/22 09:02 Dose: 1 puff Furosemide (Furosemide 100 Mg/10 Ml Vial) 80 mg IVPUSH Q12H [facility]; Protocol Gabapentin (Gabapentin 400 Mg Capsule) 800 mg PO TID [facility] Last Admin: 04/10/22 21:55 Dose: 800 mg Glucose (Glucose Gel 15 Gm Gel..Gram.) 15 gm PO Q15M PRN; Protocol PRN Reason: per Hypoglycemia Standing Ord. Insulin Glargine (Insulin Glargine,Hum.Rec.Anlog 100 Unit/Ml 10 Ml Vial) 17 unit SUBCUT BEDTIME [facility] Insulin Human Lispro (Insulin Lispro 100 Unit/Ml 3 Ml Vial) 10 unit SUBCUT QIDACHS [facility] Last Admin: 04/11/22 08:25 Dose: Not Given Insulin Human Lispro (Insulin Lispro 100 Unit/Ml 3 Ml Vial) 0 unit SUBCUT QIDACHS [facility]; Protocol Last Admin: 04/11/22 08:25 Dose: Not Given Lisinopril (Lisinopril 10 Mg Tablet) 10 mg PO DAILY [facility]; Protocol Loratadine (Loratadine 10 Mg Tablet) 10 mg PO DAILY PRN PRN Reason: allergy symptoms Magnesium Hydroxide (Milk Of Magnesia 30 Ml Oral.Susp) 30 ml PO DAILY PRN PRN Reason: Constipation Metoprolol Succinate (Metoprolol Succinate Er 25 Mg Tab.Er.24h) 25 mg PO DAILY [facility]; Protocol Mirtazapine (Mirtazapine 30 Mg Tablet) 30 mg PO BEDTIME [facility] Last Admin: 04/11/22 01:55 Dose: 30 mg Montelukast Sodium (Montelukast Sodium 10 Mg Tablet) 10 mg PO BEDTIME [facility] Last Admin: 04/10/22 21:55 Dose: 10 mg Nitroglycerin (Nitroglycerin 0.4 Mg Tab.Subl) 0.4 mg SUBLINGUAL Q5M PRN PRN Reason: Chest Pain Omeprazole (Omeprazole 20 Mg Capsule.Dr) 20 mg PO DAILY@0630 [facility] Last Admin: 04/11/22 05:45 Dose: 20 mg Oxycodone HCl (Oxycodone Hcl Immed Release 5 Mg Tablet) 5 mg PO Q8H PRN PRN Reason: Pain, Severe (Pain Scale 7-10) Last Admin: 04/11/22 04:19 Dose: 5 mg Pravastatin Sodium (Pravastatin Sodium 40 Mg Tablet) 40 mg PO BEDTIME [facility] Last Admin: 04/10/22 21:56 Dose: 40 mg Prednisone (Prednisone 5 Mg Tablet) 10 mg PO DAILY [facility] Rivaroxaban (Rivaroxaban 20 Mg Tablet) 20 mg PO DAILY [facility] Sodium Chloride (0.9 % Sodium Chloride Flush 3 Ml Syringe) 3 ml IVFLUSH QSHIFT [facility] Last Admin: 04/10/22 23:26 Dose: 3 ml Vitamin D (Cholecalciferol (Vitamin D3) 25 Mcg Tablet) 25 mcg PO DAILY [facility] Home Medications Medication Instructions Recorded Confirmed Last Taken Type buspirone 15 mg tablet 15 mg PO BID 07/31/20 04/10/22 01/27/22 History insulin aspart U-100 100 unit/mL 10 - 20 unit subcut TID 01/28/22 04/10/22 Unknown History (3 mL) subcutaneous pen (Novolog Flexpen U-100 Insulin aspart) insulin degludec 100 unit/mL (3 25 unit subcut BEDTIME 01/28/22 04/10/22 04/09/22 History mL) subcutaneous pen (Tresiba FlexTouch U-100 insulin) mineral oil-hydrophil petrolat 1 appl topical QID PRN Dry Skin 01/28/22 04/10/22 Unknown History topical ointment (DermaPhor) prednisone 5 mg tablet 10 mg PO DAILY 01/28/22 04/10/22 01/27/22 History calcium carbonate 300 mg (750 mg) 1 tab PO BID PRN Heartburn 04/10/22 04/10/22 Unknown History chewable tablet (Calcium Antacid) montelukast 10 mg tablet 10 mg PO BEDTIME 04/10/22 04/10/22 Unknown History nitroglycerin 0.4 mg sublingual 1 tab sublingual Q5M PRN Chest Pain 04/10/22 04/10/22 Unknown History tablet Physical Exam Vital Signs: Vital Signs: Last Vital Signs Temp 97.4 F 04/11/22 08:00 Pulse 85 04/11/22 09:05 Resp 20 07/02/22 09:05 BP 118/70 04/11/22 10:21 Pulse Ox 97 04/11/22 08:00 O2 Del Method 04/11/22 08:00 O2 Flow Rate 2 04/11/22 08:00 BMI result Body Mass Index 54.4 Const: General: comfortable and no acute distress Orientation/consciousness: patient oriented x3 HEENT: Other: Unremarkable Head: Yes normal to inspection Neck: Neck: Yes normal visual inspection Chest: Chest palpation & inspection: normal inspection of the chest Resp: Auscultation: diminished lung sounds Cardio: Palpation: normal PMI Heart sounds: S1 normal heart sound present, S2 normal heart sound present, no gallops, no murmurs and no rubs GI: Palpation (GI): Soft to palpation Back/Spine/Pelvis: Other: unremarkable Skin: General skin exam: no rashes or lesions noted Neuro: General: patient oriented x3 Extrem: General: Yes pedal edema (2+) Psych: Mental Status: mental status grossly normal Objective Labs and Meds Result diagrams: 04/11/22 06:51 04/11/22 06:51 Lab results: Laboratory Results - last 24 hr 04/10/22 04/10/22 04/10/22 15:45 15:45 15:45 WBC 9.8 RBC 3.32 L Hgb 7.0 L* Hct 25.9 L MCV 78.0 L MCH 21.1 L MCHC 27.0 L RDW 18.2 H Plt Count 388 MPV 9.8 Immature Gran % (Auto) 0.5 H Neut % (Auto) 80.5 H Lymph % (Auto) 8.9 L Dade % (Auto) 6.8 Eos % (Auto) 2.7 Baso % (Auto) 0.6 Lymph # (Auto) 0.9 L Dade # (Auto) 0.7 Eos # (Auto) 0.3 Baso # (Auto) 0.1 Abs Immat Gran (auto) 0.05 H Absolute Neuts (auto) 7.9 Absolute Nucleated RBC 0.000 Nucleated RBC % (auto) 0.0 Sodium 143 Potassium 3.8 Chloride 99 Carbon Dioxide 32 H Anion Gap 16 BUN 40 H D Creatinine 1.11 Estim Creat Clear Calc 66.0 Estimated GFR 49 POC Glucose Random Glucose 257 H Calcium 8.6 D Iron TIBC % Saturation Unsat Iron Binding Total Bilirubin Direct Bilirubin AST ALT Alkaline Phosphatase B-Natriuretic Peptide Total Protein Albumin Stool Occult Blood COVID-19 ([facility]) COVID-19 [facility] Com Blood Type A Positive Antibody Screen NEGATIVE Crossmatch See Detail 04/10/22 04/10/22 04/10/22 17:15 23:56 23:56 WBC RBC Hgb 8.4 L Hct 29.9 L MCV MCH MCHC RDW Plt Count MPV Immature Gran % (Auto) Neut % (Auto) Lymph % (Auto) Dade % (Auto) Eos % (Auto) Baso % (Auto) Lymph # (Auto) Dade # (Auto) Eos # (Auto) Baso # (Auto) Abs Immat Gran (auto) Absolute Neuts (auto) Absolute Nucleated RBC Nucleated RBC % (auto) Sodium Potassium Chloride Carbon Dioxide Anion Gap BUN Creatinine Estim Creat Clear Calc Estimated GFR POC Glucose Random Glucose Calcium Iron TIBC % Saturation Unsat Iron Binding Total Bilirubin Direct Bilirubin AST ALT Alkaline Phosphatase B-Natriuretic Peptide 135 H Total Protein Albumin Stool Occult Blood NEGATIVE COVID-19 ([facility]) COVID-19 [facility] Blood Type Antibody Screen Crossmatch 04/11/22 04/11/22 04/11/22 02:03 06:51 06:51 WBC 10.3 RBC 3.74 L Hgb 8.6 L Hct 29.7 L MCV 79.4 L MCH 23.0 L MCHC 29.0 L RDW 18.0 H Plt Count 343 MPV 9.7 Immature Gran % (Auto) 0.6 H Neut % (Auto) 64.1 Lymph % (Auto) 19.3 L Dade % (Auto) 11.3 H Eos % (Auto) 3.7 Baso % (Auto) 1.0 Lymph # (Auto) 2.0 Dade # (Auto) 1.2 Eos # (Auto) 0.4 Baso # (Auto) 0.1 Abs Immat Gran (auto) 0.06 H Absolute Neuts (auto) 6.6 Absolute Nucleated RBC 0.000 Nucleated RBC % (auto) 0.0 Sodium 144 Potassium 4.2 Chloride 98 Carbon Dioxide 37 H Anion Gap 13 BUN 28 H Creatinine 0.85 Estim Creat Clear Calc 85.2 Estimated GFR > 60 POC Glucose Random Glucose 134 H Calcium 8.7 Iron 42 TIBC 450 H % Saturation 9 L Unsat Iron Binding 408 Total Bilirubin 0.5 Direct Bilirubin 0.3 AST 11 ALT 11 Alkaline Phosphatase 82 B-Natriuretic Peptide Total Protein 6.7 Albumin 3.5 Stool Occult Blood COVID-19 ([facility]) Negative COVID-19 Clin Com See Note Blood Type Antibody Screen Crossmatch 04/11/22 07:32 WBC RBC Hgb Hct MCV MCH MCHC RDW Plt Count MPV Immature Gran % (Auto) Neut % (Auto) Lymph % (Auto) Dade % (Auto) Eos % (Auto) Baso % (Auto) Lymph # (Auto) Dade # (Auto) Eos # (Auto) Baso # (Auto) Abs Immat Gran (auto) Absolute Neuts (auto) Absolute Nucleated RBC Nucleated RBC % (auto) Sodium Potassium Chloride Carbon Dioxide Anion Gap BUN Creatinine Estim Creat Clear Calc Estimated GFR POC Glucose 120 H Random Glucose Calcium Iron TIBC % Saturation Unsat Iron Binding Total Bilirubin Direct Bilirubin AST ALT Alkaline Phosphatase B-Natriuretic Peptide Total Protein Albumin Stool Occult Blood COVID-19 ([facility]) COVID-19 Clin Com Blood Type Antibody Screen Crossmatch ECG Interpretation: EKG with sinus rhythm at 75/Min; premature atrial complexes but otherwise unremarkable. Telemetry with possibly some brief atrial fibrillation. PACs also possible. Imaging Radiologist's impression: Impressions Hip/Pelvis X-Ray 04/10/22 15:30 IMPRESSION: No acute fracture or malalignment. Moderate degenerative osteoarthritis of the hips. Lumbar Spine X-Ray 04/10/22 15:30 IMPRESSION: No acute compression deformity. Subtle degenerative anterolisthesis of L4 and L5. Severe lumbar spondylosis at L5-S1. Chest X-Ray 04/10/22 18:34 IMPRESSION: Redemonstration of prominence of the right hilum related to normal pulmonary vascularity as seen on CT chest 11/15/2021. No acute abnormality of chest. Assessment and Plan (1) Acute on chronic right heart failure: Status: Acute (2) PAF (paroxysmal atrial fibrillation): Status: Acute (3) Anemia: Status: Acute (4) Morbid obesity: Status: Acute Plan Cardiac BNP minimally elevated 135. HS troponin not available- to check. Echocardiogram with no acute abnormality. Presentation probably acute on chronic right heart failure related to her obesity and multiple medical comorbidities. Agree with empiric diuretics. Will need to get an echocardiogram to assess her cardiac function both left as well as right. With regard to atrial fibrillation, maintaining sinus rhythm but she has probably as short run of atrial fibrillation on telemetry. She is maintained on Multaq and that can be continued. Xarelto can be continued as well. Anemia workup. Follow-up with outpatient financial accountant for further care including consideration for ischemia workup if not previously completed. Discussed with Dr. Suero. Procedures Date of Service Date of Service: 04/11/22
[2022-04-11] MEDS: Furosemide 100 MG/10 ML VIAL 80 MG IVPUSH ×2 (10:37→20:35)
[2022-04-11] MEDS: Anastrozole 1 MG TABLET PO (10:54)
[2022-04-11] MEDS: Fluticasone Propionate Nasal 16 GM SPRAY 1 SPRAY NOSTRIL-B (10:54)
[2022-04-11 11:05] LABS: Glucose, Whole Blood 206 mg/dL (60-115)
--- NOTE | 2022-04-11 11:27 | MHC.CM.PN ---
Attempted interview w/patient; upon entrance, patient sleeping. Will reapproach. Attempted call to both listed contacts for interview purposes: primary contact (Nely Kennedy) number listing, was told no one there by this name after speaking with many female and male parties, secondary contact (demetrio Sims) number listing has generalized automated VM, unable to leave confidential VM. CM to reapproach patient at a later time.
[2022-04-11 11:38] LABS: Troponin-I High Sensitivity 44.1 ng/L (<3.5-17.0)
--- NOTE | 2022-04-11 12:28 | HO.PM.IMPN ---
Subjective Subjective Date of Service: 04/11/22 Interval History: the patient was seen and evaluated this morning Laying in bed, complaining of pain in the right side of her body and lower extremity Denies any fever, chills or shortness of breath No reported other overnight events. Systemic review: No fever, chills or weakness No chest pain, palpitation , lower extremities edema reporting dyspnea on exertion No abdominal pain, nausea or vomiting No urinary symptoms No any rash or wounds Physical Exam Vital Signs: Vital Signs: Last Vital Signs Temp 97.8 F 04/11/22 12:00 Pulse 82 04/11/22 12:00 Resp 18 04/11/22 12:00 BP 103/55 L 04/11/22 12:00 Pulse Ox 95 04/11/22 12:00 O2 Del Method 04/11/22 12:00 O2 Flow Rate 2 04/11/22 12:00 BMI result Body Mass Index 54.4 Const: Other: Constitutional : Alert, oriented, not in distress Neck : Normal inspection, Supple Cardiovascular : RRR, mildly elevated JVP, +1 bilateral lower extremity edema Respiratory : fair bilateral air entry, basal fine crackles, wheezes or rhonchi Gastrointestinal: soft, lax, Normal bowel sounds, Non tender Skin : Warm, Dry Neurological : Alert & oriented x3, No focal deficit , CN 2-12 within normal Objective Data Active Medications Acetaminophen (Acetaminophen 325 Mg Tablet) 650 mg PO Q6H PRN PRN Reason: Pain, Mild (Pain Scale 1-3) Albuterol Sulfate (Albuterol Sulfate (0.042%) 1.25 Mg/3 Ml Vial.Neb) 0.63 mg INHALE QID PRN PRN Reason: shortness of breath or wheezing Albuterol Sulfate (Albuterol Sulfate 90 Mcg 8 Gm Inhaler) 1 puff INHALE QID PRN PRN Reason: shortness of breath or wheezing Anastrozole (Anastrozole 1 Mg Tablet) 1 mg PO DAILY PENDING SALE TO [facility] Last Admin: 04/11/22 10:54 Dose: 1 mg Documented By: MELI Buspirone HCl (Buspirone Hcl 5 Mg Tablet) 15 mg PO BID PENDING SALE TO [facility] Last Admin: 04/11/22 10:25 Dose: 15 mg Documented By: MELI Dextrose (Dextrose 50 % 25 Gm/50 Ml Syringe) 25 gm IVPUSH Q15M PRN; Protocol PRN Reason: per Hypoglycemia Standing Ord. Docusate Sodium (Docusate Sodium 100 Mg Capsule) 100 mg PO BID PENDING SALE TO [facility] Last Admin: 04/11/22 10:27 Dose: 100 mg Documented By: MELI Dronedarone (Dronedarone Hcl 400 Mg Tablet) 400 mg PO BID PENDING SALE TO [facility] Last Admin: 04/11/22 10:27 Dose: 400 mg Documented By: MELI Fluticasone Propionate (Fluticasone Propionate Nasal 16 Gm [place]) 1 spray NOSTRIL-B DAILY PENDING SALE TO [facility] Last Admin: 04/11/22 10:54 Dose: 1 spray Documented By: MELI Fluticasone/Vilanterol (Fluticasone/Vilanterol 100/25 Blst.W.Dev) 1 puff INHALE RDAILY PENDING SALE TO [facility] Last Admin: 04/11/22 09:02 Dose: 1 puff Documented By: MIMA Furosemide (Furosemide 100 Mg/10 Ml Vial) 80 mg IVPUSH Q12H PENDING SALE TO [facility]; Protocol Last Admin: 04/11/22 10:37 Dose: 80 mg Documented By: MELI Gabapentin (Gabapentin 400 Mg Capsule) 800 mg PO TID PENDING SALE TO [facility] Last Admin: 04/11/22 10:26 Dose: 800 mg Documented By: MELI Glucose (Glucose Gel 15 Gm Gel..Gram.) 15 gm PO Q15M PRN; Protocol PRN Reason: per Hypoglycemia Standing Ord. Insulin Glargine (Insulin Glargine,Hum.Rec.Anlog 100 Unit/Ml 10 Ml Vial) 17 unit SUBCUT BEDTIME PENDING SALE TO [facility] Insulin Human Lispro (Insulin Lispro 100 Unit/Ml 3 Ml Vial) 10 unit SUBCUT QIDACHS PENDING SALE TO [facility] Last Admin: 04/11/22 08:25 Dose: Not Given Documented By: PEYTON Non-Admin Reason: No Insulin Coverage Insulin Human Lispro (Insulin Lispro 100 Unit/Ml 3 Ml Vial) 0 unit SUBCUT QIDACHS PENDING SALE TO [facility]; Protocol Last Admin: 04/11/22 08:25 Dose: Not Given Documented By: PEYTON Non-Admin Reason: No Insulin Coverage Lisinopril (Lisinopril 10 Mg Tablet) 10 mg PO DAILY PENDING SALE TO [facility]; Protocol Last Admin: 04/11/22 10:27 Dose: 10 mg Documented By: MELI Loratadine (Loratadine 10 Mg Tablet) 10 mg PO DAILY PRN PRN Reason: allergy symptoms Magnesium Hydroxide (Milk Of Magnesia 30 Ml Oral.Susp) 30 ml PO DAILY PRN PRN Reason: Constipation Metoprolol Succinate (Metoprolol Succinate Er 25 Mg Tab.Er.24h) 25 mg PO DAILY PENDING SALE TO [facility]; Protocol Last Admin: 04/11/22 10:27 Dose: 25 mg Documented By: MELI Mirtazapine (Mirtazapine 30 Mg Tablet) 30 mg PO BEDTIME PENDING SALE TO [facility] Last Admin: 04/11/22 01:55 Dose: 30 mg Documented By: NAVEED Montelukast Sodium (Montelukast Sodium 10 Mg Tablet) 10 mg PO BEDTIME PENDING SALE TO [facility] Last Admin: 04/10/22 21:55 Dose: 10 mg Documented By: NAVEED Nitroglycerin (Nitroglycerin 0.4 Mg Tab.Subl) 0.4 mg SUBLINGUAL Q5M PRN PRN Reason: Chest Pain Omeprazole (Omeprazole 20 Mg Capsule.Dr) 20 mg PO DAILY@0630 PENDING SALE TO [facility] Last Admin: 04/11/22 05:45 Dose: 20 mg Documented By: RUTHIE Oxycodone HCl (Oxycodone Hcl Immed Release 5 Mg Tablet) 5 mg PO Q8H PRN PRN Reason: Pain, Severe (Pain Scale 7-10) Last Admin: 04/11/22 10:28 Dose: 5 mg Documented By: MELI Pravastatin Sodium (Pravastatin Sodium 40 Mg Tablet) 40 mg PO BEDTIME PENDING SALE TO [facility] Last Admin: 04/10/22 21:56 Dose: 40 mg Documented By: NAVEED Prednisone (Prednisone 5 Mg Tablet) 10 mg PO DAILY PENDING SALE TO [facility] Last Admin: 04/11/22 10:26 Dose: 10 mg Documented By: MELI Rivaroxaban (Rivaroxaban 20 Mg Tablet) 20 mg PO DAILY PENDING SALE TO [facility] Last Admin: 04/11/22 10:27 Dose: 20 mg Documented By: MELI Sodium Chloride (0.9 % Sodium Chloride Flush 3 Ml Syringe) 3 ml IVFLUSH QSHIFT PENDING SALE TO [facility] Last Admin: 04/11/22 10:25 Dose: 3 ml Documented By: MELI Vitamin D (Cholecalciferol (Vitamin D3) 25 Mcg Tablet) 25 mcg PO DAILY PENDING SALE TO [facility] Last Admin: 04/11/22 10:27 Dose: 25 mcg Documented By: MELI Labs CBC & Chem 7: 04/11/22 06:51 04/11/22 06:51 Labs: Laboratory Results - last 24 hr 04/10/22 04/10/22 04/10/22 15:45 15:45 15:45 MCV 78.0 L MCH 21.1 L MCHC 27.0 L RDW 18.2 H Plt Count 388 MPV 9.8 Immature Gran % (Auto) 0.5 H Neut % (Auto) 80.5 H Lymph % (Auto) 8.9 L [place]mers % (Auto) 6.8 Eos % (Auto) 2.7 Baso % (Auto) 0.6 Lymph # (Auto) 0.9 L Summers # (Auto) 0.7 Eos # (Auto) 0.3 Baso # (Auto) 0.1 Abs Immat Gran (auto) 0.05 H Absolute Neuts (auto) 7.9 Absolute Nucleated RBC 0.000 Nucleated RBC % (auto) 0.0 Anion Gap 16 Estim Creat Clear Calc 66.0 Estimated GFR 49 POC Glucose Random Glucose 257 H Calcium 8.6 D Iron TIBC % Saturation Unsat Iron Binding Total Bilirubin Direct Bilirubin AST ALT Alkaline Phosphatase Troponin I High Sens B-Natriuretic Peptide Total Protein Albumin Stool Occult Blood COVID-19 ([facility]) [facility] Blood Type A Positive Antibody Screen NEGATIVE Crossmatch See Detail 04/10/22 04/10/22 04/11/22 17:15 23:56 02:03 MCV MCH MCHC RDW Plt Count MPV Immature Gran % (Auto) Neut % (Auto) Lymph % (Auto) Summers % (Auto) Eos % (Auto) Baso % (Auto) Lymph # (Auto) Summers # (Auto) Eos # (Auto) Baso # (Auto) Abs Immat Gran (auto) Absolute Neuts (auto) Absolute Nucleated RBC Nucleated RBC % (auto) Anion Gap Estim Creat Clear Calc Estimated GFR POC Glucose Random Glucose Calcium Iron TIBC % Saturation Unsat Iron Binding Total Bilirubin Direct Bilirubin AST ALT Alkaline Phosphatase Troponin I High Sens B-Natriuretic Peptide 135 H Total Protein Albumin Stool Occult Blood NEGATIVE COVID-19 ([facility]) Negative [facility] See Note Blood Type Antibody Screen Crossmatch 04/11/22 04/11/22 04/11/22 06:51 06:51 07:32 MCV 79.4 L MCH 23.0 L MCHC 29.0 L RDW 18.0 H Plt Count 343 MPV 9.7 Immature Gran % (Auto) 0.6 H Neut % (Auto) 64.1 Lymph % (Auto) 19.3 L Summers % (Auto) 11.3 H Eos % (Auto) 3.7 Baso % (Auto) 1.0 Lymph # (Auto) 2.0 Summers # (Auto) 1.2 Eos # (Auto) 0.4 Baso # (Auto) 0.1 Abs Immat Gran (auto) 0.06 H Absolute Neuts (auto) 6.6 Absolute Nucleated RBC 0.000 Nucleated RBC % (auto) 0.0 Anion Gap 13 Estim Creat Clear Calc 85.2 Estimated GFR > 60 POC Glucose 120 H Random Glucose 134 H Calcium 8.7 Iron 42 TIBC 450 H % Saturation 9 L Unsat Iron Binding 408 Total Bilirubin 0.5 Direct Bilirubin 0.3 AST 11 ALT 11 Alkaline Phosphatase 82 Troponin I High Sens B-Natriuretic Peptide Total Protein 6.7 Albumin 3.5 Stool Occult Blood COVID-19 ([facility]) [facility] Blood Type Antibody Screen Crossmatch 04/11/22 04/11/22 10:57 11:08 MCV MCH MCHC RDW Plt Count MPV Immature Gran % (Auto) Neut % (Auto) Lymph % (Auto) Summers % (Auto) Eos % (Auto) Baso % (Auto) Lymph # (Auto) Summers # (Auto) Eos # (Auto) Baso # (Auto) Abs Immat Gran (auto) Absolute Neuts (auto) Absolute Nucleated RBC Nucleated RBC % (auto) Anion Gap Estim Creat Clear Calc Estimated GFR POC Glucose 206 H Random Glucose Calcium Iron TIBC % Saturation Unsat Iron Binding Total Bilirubin Direct Bilirubin AST ALT Alkaline Phosphatase Troponin I High Sens 44.1 H B-Natriuretic Peptide Total Protein Albumin Stool Occult Blood COVID-19 ([facility]ICKEY) COVID-[employer] Blood Type Antibody Screen Crossmatch Assessment and Plan (1) Morbid obesity: Status: Acute (2) Acute on chronic right heart failure: Status: Acute (3) Lower extremity edema: Status: Acute Plan 66-year-old female with a past history of anemia, heart failure preserved ejection fraction among others who presents to the hospital with symptomatic anemia # acute on chronic microcytic anemia microcytic negative stool occult Improved to 8.4 after 1 unit transfusion low iron stores but better than before, give iron supplement follow CBC recommend Hematology follow-up outpatient for further workup acute diastolic CHF exacerbation continuee 80 mg of IV Lasix no acute abnormality on echocardiogram Cardiology input appreciated, Follow-up with outpatient piping engineer for further care including consideration for ischemia workup if not previously completed # type 2 diabetes continue home insulin low-dose sliding scale insulin, diabetic diet # paroxysmal AFib continue Xarelto as well as dronedarone and metoprolol # hypertension continue antihypertensives DVT prophylaxis: Rivaroxaban the patient will need overnight hospital stay for treatment of acute CHF exacerbation to prevent possible decompensation into hypoxic respiratory failure Quality Stroke Does the patient have a stroke diagnosis?: No VTE Prior VTE?: No VTE Risk Level:: Medical - moderate - high VTE Device Contraindication: N/A - Device Ordered VTE Drug Contraindication: Treatment Not Indicated
[2022-04-11] MEDS: Insulin Lispro 100 UNIT/ML 3 ML VIAL SUBCUT ×3 (12:43→20:35)
[2022-04-11 15:48] LABS: Troponin-I High Sensitivity 40.3 ng/L (<3.5-17.0)
[2022-04-11 16:03] LABS: Glucose, Whole Blood 275 mg/dL (60-115)
[2022-04-11] MEDS: Acetaminophen 325 MG TABLET 650 MG PO (16:58)
[2022-04-11 20:02] LABS: Glucose, Whole Blood 268 mg/dL (60-115)
[2022-04-11] MEDS: Pravastatin Sodium 40 MG TABLET PO (20:34)
[2022-04-11] MEDS: Insulin Glargine,Hum.rec.anlog 100 UNIT/ML 10 ML VIAL 17 UNIT SUBCUT (20:35)
[2022-04-11] MEDS: Montelukast Sodium 10 MG TABLET PO (20:36)
[2022-04-12] VITALS (7 sets, daily range): BP systolic 100–144; BP diastolic 48–77; PULSE 51–128; RESP 16–20; TEMP 36.6–36.9; O2SAT 95–99
--- NOTE | 2022-04-12 | ECG_ITS ---
Test Reason : chest pain Blood Pressure : / mmHG Vent. Rate : 054 BPM Atrial Rate : 054 BPM P-R Int : 130 ms QRS Dur : 086 ms QT Int : 438 ms P-R-T Axes : 012 020 126 degrees QTc Int : 415 ms Normal sinus rhythm with blocked PACs Nonspecific ST and T wave abnormality Abnormal ECG When compared with ECG of 10-APR-2022 17:11, T wave inversion now evident in Lateral leads Referred By: Jordan Suero Electronically Signed By:FIFI RILEY
[2022-04-12] MEDS: oxyCODONE HCl Immed Release 5 MG TABLET PO ×3 (02:52→21:05)
[2022-04-12] MEDS: Acetaminophen 325 MG TABLET 650 MG PO ×2 (02:53→13:14)
[2022-04-12] MEDS: Omeprazole 20 MG CAPSULE.DR PO (06:30)
[2022-04-12 07:09] LABS: Hematocrit 30.3 % (37.0-47.0); Hemoglobin 8.7 g/dl (12.0-16.0); Mean Corpuscular HGB Conc 28.7 g/dl (31.0-35.0); Mean Corpuscular Hemoglobin 22.8 pg (27.0-33.0); Mean Corpuscular Volume 79.3 fL (80.0-98.0); Mean Platelet Volume 9.6 fL (9.4-12.3); Platelet Count 361 X10*3/uL (160-400); Red Blood Count 3.82 X10*6/uL (4.20-5.50); Red Cell Distribution Width 18.6 % (11.0-16.0); White Blood Count 10.1 X10*3/uL (4.8-10.8)
[2022-04-12 07:27] LABS: Anion Gap 14 (12-20); Blood Urea Nitrogen 31 mg/dL (9-16); Calcium 8.8 mg/dL (8.4-10.2); Carbon Dioxide 34 mmol/L (22-29); Chloride 97 mmol/L (96-108); Creatinine Clr Calc Pharmacy 78.7; Estimated Glomerular Filt Rate > 60; Glucose Random 170 mg/dL (60-115); Potassium 3.5 mmol/L (3.3-5.1); Sodium 141 mmol/L (135-145)
[2022-04-12 07:34] LABS: B Type Natriuretic Peptide 265 pg/mL (<100)
[2022-04-12 07:34] LABS: Glucose, Whole Blood 152 mg/dL (60-115)
[2022-04-12] MEDS: Fluticasone/Vilanterol 100/25 BLST.W.DEV 1 PUFF INHALE (07:56)
[2022-04-12] MEDS: Lidocaine 4 % Patch ADH..PATCH 2 PATCH TRANSDERMA (08:13)
[2022-04-12] MEDS: Insulin Lispro 100 UNIT/ML 3 ML VIAL SUBCUT ×4 (08:15→21:06)
[2022-04-12] MEDS: Dronedarone HCl 400 MG TABLET PO ×2 (08:15→21:05)
[2022-04-12] MEDS: Docusate Sodium 100 MG CAPSULE PO ×2 (08:16→21:05)
[2022-04-12] MEDS: Gabapentin 400 MG CAPSULE 800 MG PO ×3 (08:16→21:04)
[2022-04-12] MEDS: Cholecalciferol (Vitamin D3) 25 MCG TABLET PO (08:16)
[2022-04-12] MEDS: predniSONE 5 MG TABLET 10 MG PO (08:16)
[2022-04-12] MEDS: busPIRone HCl 5 MG TABLET 15 MG PO ×2 (08:16→21:06)
[2022-04-12] MEDS: Rivaroxaban 20 MG TABLET PO (08:16)
--- NOTE | 2022-04-12 08:28 | PC.NURSE ---
pt c/o Chest Pain, found to be Bradycardic, MD made aware, 12-Lead EKG Done; Sent to MD Hold antihypertensives per MD
[2022-04-12] MEDS: Fluticasone Propionate Nasal 16 GM SPRAY 1 SPRAY NOSTRIL-B (08:41)
[2022-04-12] MEDS: 0.9 % Sodium Chloride Flush 3 ML SYRINGE IVFLUSH ×3 (08:42→21:10)
[2022-04-12 09:08] LABS: Troponin-I High Sensitivity 43.6 ng/L (<3.5-17.0)
[2022-04-12 11:15] LABS: Glucose, Whole Blood 269 mg/dL (60-115)
--- NOTE | 2022-04-12 11:26 | PM.PNCARD ---
Subjective Subjective Date of Service: 04/12/22 Interval history: Still has some shortness of breath. Legs have swelling. Review of Systems Review of Systems Yes all other systems are reviewed and are negative Constitutional: Reports as per HPI Eyes: Reports as per HPI Reports as per HPI Cardiovascular: Reports as per HPI, Denies acrocyanosis, Denies cool extremities, Denies chest pain, Reports leg edema, Denies lightheadedness, Denies palpitations and Reports dyspnea Respiratory: Reports as per HPI, Reports no additional respiratory complaints and Reports dyspnea Gastrointestinal: Reports as per HPI and Reports no additional gastrointestinal complaints Genitourinary: Reports as per HPI Musculoskeletal: Reports no additional musculoskeletal complaints and Reports as per HPI Skin/Breast: Reports system reviewed and no additional complaints, except as docu Reports system reviewed and no additional complaints, except as documented and Reports as per HPI Psychiatric: Reports no additional psychiatric complaints and Reports as per HPI Endocrine: Reports no additional endocrine complaints, Reports as per HPI and Denies palpitations Hematologic/Lymphatic: Reports no additional hematologic/lymphatic complaints and Reports as per HPI Allergic/Immunologic: Reports no additional allergic/immunologic complaints and Reports as per HPI Physical Exam Vital Signs: Last Vital Signs Temp 98.0 F 04/12/22 08:00 Pulse 59 04/12/22 08:00 Resp 20 04/12/22 08:00 BP 108/71 04/12/22 08:00 Pulse Ox 98 04/12/22 08:00 O2 Del Method 04/12/22 08:00 O2 Flow Rate 2 04/12/22 08:00 BMI result Body Mass Index 54.4 Const General: comfortable and no acute distress Orientation/consciousness: patient oriented x3 HEENT Other: Unremarkable Head: Yes normal to inspection Neck Neck: Yes normal visual inspection Chest Chest palpation & inspection: normal inspection of the chest Resp Auscultation: diminished lung sounds Cardio Palpation: normal PMI Heart sounds: S1 normal heart sound present, S2 normal heart sound present, no gallops, no murmurs and no rubs GI Palpation (GI): Soft to palpation Back/Spine/Pelvis Other: unremarkable Skin General skin exam: no rashes or lesions noted Neuro General: patient oriented x3 Extrem General: Yes pedal edema (2+) Psych Mental Status: mental status grossly normal Objective Labs and Meds Result diagrams: 04/12/22 06:31 04/12/22 06:31 Lab results: Laboratory Results - last 24 hr 04/11/22 04/11/22 04/11/22 11:08 15:01 15:59 WBC RBC Hgb Hct MCV MCH MCHC RDW Plt Count MPV Absolute Nucleated RBC Nucleated RBC % (auto) Sodium Potassium Chloride Carbon Dioxide Anion Gap BUN Creatinine Estim Creat Clear Calc Estimated GFR POC Glucose 275 H Random Glucose Calcium Troponin I High Sens 44.1 H 40.3 H B-Natriuretic Peptide 04/11/22 04/12/22 04/12/22 19:59 06:31 06:31 WBC 10.1 RBC 3.82 L Hgb 8.7 L Hct 30.3 L MCV 79.3 L MCH 22.8 L MCHC 28.7 L RDW 18.6 H Plt Count 361 MPV 9.6 Absolute Nucleated RBC 0.000 Nucleated RBC % (auto) 0.0 Sodium 141 Potassium 3.5 Chloride 97 Carbon Dioxide 34 H Anion Gap 14 BUN 31 H Creatinine 0.92 Estim Creat Clear Calc 78.7 Estimated GFR > 60 POC Glucose 268 H Random Glucose 170 H Calcium 8.8 Troponin I High Sens B-Natriuretic Peptide 04/12/22 04/12/22 04/12/22 06:31 07:21 08:00 WBC RBC Hgb Hct MCV MCH MCHC RDW Plt Count MPV Absolute Nucleated RBC Nucleated RBC % (auto) Sodium Potassium Chloride Carbon Dioxide Anion Gap BUN Creatinine Estim Creat Clear Calc Estimated GFR POC Glucose 152 H Random Glucose Calcium Troponin I High Sens 43.6 H B-Natriuretic Peptide 265 H 04/12/22 11:06 WBC RBC Hgb Hct MCV MCH MCHC RDW Plt Count MPV Absolute Nucleated RBC Nucleated RBC % (auto) Sodium Potassium Chloride Carbon Dioxide Anion Gap BUN Creatinine Estim Creat Clear Calc Estimated GFR POC Glucose 269 H Random Glucose Calcium Troponin I High Sens B-Natriuretic Peptide Progress Note: A&P Assessment and plan (1) Acute on chronic right heart failure: Status: Acute (2) PAF (paroxysmal atrial fibrillation): Status: Acute (3) Anemia: Status: Acute (4) Morbid obesity: Status: Acute Plan Overall, probable acute on chronic right heart failure related to obesity, sleep apnea and multiple medical comorbidities. Empiric diuretics. Need to look into her sleep apnea and probably arrange CPAP wall she is in hospital as that will help immensely. With regard to the rhythm, she has some atrial fibrillation telemetry as well as bradycardic episodes. During bradycardia, she actually has blocked PACs. Again this is all related to her obesity and likely underlying sleep apnea. She meds on Multaq, beta-blockers and Xarelto. We can get an echocardiogram for cardiac function assessment. Discussed with Dr. Suero. Time Spent With Patient Time: Total time spent is greater than 50% in coordination of care (as documented) at patient's floor/unit and/or counseling patient: 35min. Progress Note: Quality Stroke Does the patient have a stroke diagnosis?: No Procedures Date of Service Date of Service: 04/12/22
--- NOTE | 2022-04-12 12:17 | HO.PM.IMPN ---
Subjective Subjective Date of Service: 04/12/22 Interval History: the patient was seen and evaluated this morning sitting in her bed< complaining of neck pain and left shoulder pain denies any chest pain at this point< feels mild improvement overall Denies any fever, chills or shortness of breath No reported other overnight events. Systemic review: No fever, chills or weakness No chest pain, palpitation , lower extremities edema reporting dyspnea on exertion No abdominal pain, nausea or vomiting No urinary symptoms No any rash or wounds Physical Exam Vital Signs: Vital Signs: Last Vital Signs Temp 98.0 F 04/12/22 08:00 Pulse 59 04/12/22 08:00 Resp 20 04/12/22 08:00 BP 108/71 04/12/22 08:00 Pulse Ox 98 04/12/22 08:00 O2 Del Method 04/12/22 08:00 O2 Flow Rate 2 04/12/22 08:00 BMI result Body Mass Index 54.4 Const: Other: Constitutional : Alert, oriented, not in distress Neck : Normal inspection, Supple Cardiovascular : RRR, mildly elevated JVP, +1 bilateral lower extremity edema Respiratory : fair bilateral air entry, basal fine crackles, wheezes or rhonchi Gastrointestinal: soft, lax, Normal bowel sounds, Non tender Skin : Warm, Dry Neurological : Alert & oriented x3, No focal deficit , CN 2-12 within normal Objective Data Active Medications Acetaminophen (Acetaminophen 325 Mg Tablet) 650 mg PO Q6H PRN PRN Reason: Pain, Mild (Pain Scale 1-3) Last Admin: 04/12/22 02:53 Dose: 650 mg Documented By: GAIL Albuterol Sulfate (Albuterol Sulfate (0.042%) 1.25 Mg/3 Ml Vial.Neb) 0.63 mg INHALE QID PRN PRN Reason: shortness of breath or wheezing Albuterol Sulfate (Albuterol Sulfate 90 Mcg 8 Gm Inhaler) 1 puff INHALE QID PRN PRN Reason: shortness of breath or wheezing Anastrozole (Anastrozole 1 Mg Tablet) 1 mg PO DAILY [facility] Last Admin: 04/11/22 10:54 Dose: 1 mg Documented By: CTORRMj Buspirone HCl (Buspirone Hcl 5 Mg Tablet) 15 mg PO BID [facility] Last Admin: 04/12/22 08:16 Dose: 15 mg Documented By: MELI Dextrose (Dextrose 50 % 25 Gm/50 Ml Syringe) 25 gm IVPUSH Q15M PRN; Protocol PRN Reason: per Hypoglycemia Standing Ord. Docusate Sodium (Docusate Sodium 100 Mg Capsule) 100 mg PO BID [facility] Last Admin: 04/12/22 08:16 Dose: 100 mg Documented By: MELI Dronedarone (Dronedarone Hcl 400 Mg Tablet) 400 mg PO BID [facility] Last Admin: 04/12/22 08:15 Dose: 400 mg Documented By: MELI Fluticasone Propionate (Fluticasone Propionate Nasal 16 Gm Calder) 1 spray NOSTRIL-B DAILY [facility] Last Admin: 04/12/22 08:41 Dose: 1 spray Documented By: MELI Fluticasone/Vilanterol (Fluticasone/Vilanterol 100/25 Blst.W.Dev) 1 puff INHALE RDAILY [facility] Last Admin: 04/12/22 07:56 Dose: 1 puff Documented By: MIMA Furosemide (Furosemide 100 Mg/10 Ml Vial) 80 mg IVPUSH Q12H [facility]; Protocol Last Admin: 04/11/22 20:35 Dose: 80 mg Documented By: GAIL Gabapentin (Gabapentin 400 Mg Capsule) 800 mg PO TID [facility] Last Admin: 04/12/22 08:16 Dose: 800 mg Documented By: MELI Glucose (Glucose Gel 15 Gm Gel..Gram.) 15 gm PO Q15M PRN; Protocol PRN Reason: per Hypoglycemia Standing Ord. Insulin Glargine (Insulin Glargine,Hum.Rec.Anlog 100 Unit/Ml 10 Ml Vial) 17 unit SUBCUT BEDTIME [facility] Last Admin: 04/11/22 20:35 Dose: 17 unit Documented By: GAIL Insulin Human Lispro (Insulin Lispro 100 Unit/Ml 3 Ml Vial) 10 unit SUBCUT QIDACHS [facility] Last Admin: 04/12/22 08:42 Dose: Not Given Documented By: PEYTON Non-Admin Reason: within QIDACHS Insulin Human Lispro (Insulin Lispro 100 Unit/Ml 3 Ml Vial) 0 unit SUBCUT QIDACHS [facility]; Protocol Last Admin: 04/12/22 08:15 Dose: 2 unit Documented By: MELI Lidocaine (Lidocaine 4 % Patch Adh..Patch) 2 patch TRANSDERMA DAILY [facility]; Protocol Last Admin: 04/12/22 08:13 Dose: 2 patch Documented By: MELI Lisinopril (Lisinopril 10 Mg Tablet) 10 mg PO DAILY [facility]; Protocol Last Admin: 04/12/22 08:48 Dose: Not Given Documented By: MELI Non-Admin Reason: Decreased Heart Rate Loratadine (Loratadine 10 Mg Tablet) 10 mg PO DAILY PRN PRN Reason: allergy symptoms Magnesium Hydroxide (Milk Of Magnesia 30 Ml Oral.Susp) 30 ml PO DAILY PRN PRN Reason: Constipation Metoprolol Succinate (Metoprolol Succinate Er 25 Mg Tab.Er.24h) 25 mg PO DAILY [facility]; Protocol Last Admin: 04/12/22 08:48 Dose: Not Given Documented By: MELI Non-Admin Reason: per MD order Mirtazapine (Mirtazapine 30 Mg Tablet) 30 mg PO BEDTIME [facility] Last Admin: 04/11/22 20:34 Dose: 30 mg Documented By: ANTOIC Montelukast Sodium (Montelukast Sodium 10 Mg Tablet) 10 mg PO BEDTIME [facility] Last Admin: 04/11/22 20:36 Dose: 10 mg Documented By: ANTOIC Nitroglycerin (Nitroglycerin 0.4 Mg Tab.Subl) 0.4 mg SUBLINGUAL Q5M PRN PRN Reason: Chest Pain Omeprazole (Omeprazole 20 Mg Capsule.Dr) 20 mg PO DAILY@0630 [facility] Last Admin: 04/12/22 06:30 Dose: 20 mg Documented By: ANTOIC Oxycodone HCl (Oxycodone Hcl Immed Release 5 Mg Tablet) 5 mg PO Q8H PRN PRN Reason: Pain, Severe (Pain Scale 7-10) Last Admin: 04/12/22 02:52 Dose: 5 mg Documented By: ANTOIC Pravastatin Sodium (Pravastatin Sodium 40 Mg Tablet) 40 mg PO BEDTIME [facility] Last Admin: 04/11/22 20:34 Dose: 40 mg Documented By: ANTOIC Prednisone (Prednisone 5 Mg Tablet) 10 mg PO DAILY [facility] Last Admin: 04/12/22 08:16 Dose: 10 mg Documented By: MELI Rivaroxaban (Rivaroxaban 20 Mg Tablet) 20 mg PO DAILY [facility] Last Admin: 04/12/22 08:16 Dose: 20 mg Documented By: MELI Sodium Chloride (0.9 % Sodium Chloride Flush 3 Ml Syringe) 3 ml IVFLUSH QSHIFT [facility] Last Admin: 04/12/22 08:42 Dose: 3 ml Documented By: MELI Vitamin D (Cholecalciferol (Vitamin D3) 25 Mcg Tablet) 25 mcg PO DAILY [facility] Last Admin: 04/12/22 08:16 Dose: 25 mcg Documented By: MELI Labs CBC & Chem 7: 04/12/22 06:31 04/12/22 06:31 Labs: Laboratory Results - last 24 hr 04/11/22 04/11/22 04/11/22 15:01 15:59 19:59 MCV MCH MCHC RDW Plt Count MPV Absolute Nucleated RBC Nucleated RBC % (auto) Anion Gap Estim Creat Clear Calc Estimated GFR POC Glucose 275 H 268 H Random Glucose Calcium Troponin I High Sens 40.3 H B-Natriuretic Peptide 04/12/22 04/12/22 04/12/22 06:31 06:31 06:31 MCV 79.3 L MCH 22.8 L MCHC 28.7 L RDW 18.6 H Plt Count 361 MPV 9.6 Absolute Nucleated RBC 0.000 Nucleated RBC % (auto) 0.0 Anion Gap 14 Estim Creat Clear Calc 78.7 Estimated GFR > 60 POC Glucose Random Glucose 170 H Calcium 8.8 Troponin I High Sens B-Natriuretic Peptide 265 H 04/12/22 04/12/22 04/12/22 07:21 08:00 11:06 MCV MCH MCHC RDW Plt Count MPV Absolute Nucleated RBC Nucleated RBC % (auto) Anion Gap Estim Creat Clear Calc Estimated GFR POC Glucose 152 H 269 H Random Glucose Calcium Troponin I High Sens 43.6 H B-Natriuretic Peptide Assessment and Plan (1) Morbid obesity: Status: Acute (2) PAF (paroxysmal atrial fibrillation): Status: Acute (3) Acute on chronic right heart failure: Status: Acute (4) Microcytic anemia: Status: Acute Plan 66-year-old female with a past history of anemia, heart failure preserved ejection fraction among others who presents to the hospital with symptomatic anemia # acute on chronic microcytic anemia microcytic negative stool occult stable at 8>7 after 1 unit transfusion low iron stores but better than before, give iron supplement follow CBC recommend Hematology follow-up outpatient for further workup # acute right-sided CHF exacerbation secondary to LEXUS< obesity continue 80 mg of IV Lasix no acute abnormality on echocardiogram Cardiology input appreciated, Continue home medication< not concerning for bradycardia Events Follow-up with outpatient [facility] for further care including consideration for ischemia workup if not previously completed # Hx LEXUS Reports that she stopped using the CPAP and insurance company retracted from her Will discuss with RT so she can get a new machine at time of discharge Start CPAP at night # type 2 diabetes continue home insulin low-dose sliding scale insulin, diabetic diet # paroxysmal AFib continue Xarelto as well as dronedarone and metoprolol # hypertension continue antihypertensives DVT prophylaxis: Rivaroxaban the patient will need overnight hospital stay for treatment of acute CHF exacerbation to prevent possible decompensation into hypoxic respiratory failure Quality Stroke Does the patient have a stroke diagnosis?: No VTE Prior VTE?: No VTE Risk Level:: Medical - moderate - high VTE Device Contraindication: N/A - Device Ordered VTE Drug Contraindication: Treatment Not Indicated
[2022-04-12 12:27] LABS: Troponin-I High Sensitivity 44.1 ng/L (<3.5-17.0)
[2022-04-12] MEDS: Anastrozole 1 MG TABLET PO (13:09)
[2022-04-12] MEDS: Ferrous Sulfate 324 MG TABLET.DR PO (13:09)
[2022-04-12] MEDS: Furosemide 100 MG/10 ML VIAL 80 MG IVPUSH ×2 (13:10→21:06)
[2022-04-12 16:11] LABS: Glucose, Whole Blood 278 mg/dL (60-115)
[2022-04-12 19:50] LABS: Glucose, Whole Blood 274 mg/dL (60-115)
[2022-04-12] MEDS: Pravastatin Sodium 40 MG TABLET PO (21:05)
[2022-04-12] MEDS: Montelukast Sodium 10 MG TABLET PO (21:05)
[2022-04-12] MEDS: Mirtazapine 30 MG TABLET PO (21:05)
[2022-04-12] MEDS: Insulin Lispro 100 UNIT/ML 3 ML VIAL 10 UNIT SUBCUT (21:06)
[2022-04-12] MEDS: Insulin Glargine,Hum.rec.anlog 100 UNIT/ML 10 ML VIAL 17 UNIT SUBCUT (21:06)
[2022-04-13] VITALS (9 sets, daily range): BP systolic 103–121; BP diastolic 56–73; PULSE 57–114; RESP 17–24; TEMP 36.7–37; O2SAT 89–100; BMI 54.3
[2022-04-13] MEDS: oxyCODONE HCl Immed Release 5 MG TABLET PO ×3 (00:04→20:31)
[2022-04-13] MEDS: Acetaminophen 325 MG TABLET 650 MG PO (00:05)
[2022-04-13 07:31] LABS: Glucose, Whole Blood 153 mg/dL (60-115)
[2022-04-13 07:40] LABS: Anion Gap 15 (12-20); Blood Urea Nitrogen 30 mg/dL (9-16); Calcium 8.8 mg/dL (8.4-10.2); Carbon Dioxide 33 mmol/L (22-29); Chloride 98 mmol/L (96-108); Creatinine Clr Calc Pharmacy 83.1; Estimated Glomerular Filt Rate > 60; Glucose Random 157 mg/dL (60-115); Potassium 3.4 mmol/L (3.3-5.1); Sodium 143 mmol/L (135-145)
--- NOTE | 2022-04-13 07:45 | CA_ITS ---
Transthoracic Echocardiogram Patient (Last, First, Middle): Luisa Johnson M Gender: Female Date of : 1955 Age: 66 Procedure Date: 04/13/2022 Procedure Type: Transthoracic Echocardiogram Location: [facility] [place] Height: 157.48 cm Weight: 134.72 kg BSA: 2.26 m2 Heart Rate: 102 bpm BP: 104 / 71 mmHg Cane Flume Watcher: SB Referring MD: Padma Tyler MD Symptoms: CHF Study Quality: Technically Difficult/BSA/Contrast ECG Rhythm: Atrial Fibrillation Conclusions: - The left ventricular systolic function is hyperdynamic. The calculated ejection fraction is 72% by biplane method. - Right ventricular systolic function probably mildly reduced. - No obvious valvular pathology seen on this study. Findings Procedure Information Contrast agent, definity, is being given per protocol without apparent complications. Left Ventricle Normal left ventricular cavity size. There is mildly increased left ventricular wall thickness. The left ventricular systolic function is hyperdynamic. The calculated ejection fraction is 72% by biplane method. There is no evidence of regional wall motion abnormalities. Diastolic function is indeterminate on the basis of available data. There is severe septal asymmetric hypertrophy. Right Ventricle The right ventricle was not well visualized. Right ventricular systolic function probably mildly reduced. Atria Both atria are normal in size. Aortic Valve There is a normal trileaflet aortic valve. There is mild calcification of the aortic valve. There is no aortic valve stenosis. There is no aortic valve regurgitation. Mitral Valve The mitral valve appears normal. There is no mitral valve regurgitation. There is no mitral valve stenosis. Pulmonic Valve The pulmonic valve is likely normal. Tricuspid Valve There is no tricuspid valve regurgitation. Tricuspid regurgitation envelope is inadequate for calculation of right ventricular systolic pressure. Great Vessels The aortic annulus, sinuses of valsalva, and asc aorta are normal in size. Venous The inferior vena cava is normal in size and collapses less than 50% with inspiration. Pericardium/Pleural There is no evidence of pericardial effusion. Prior Study Comparison No significant change compared to prior study dated: 05/03/2018. Recommendations, Care & Conclusions No obvious valvular pathology seen on this study. Measurements 2D Linear Measurements IVSd: 1.70 0.6-0.9/0.6-1.0 cm LVIDd: 4.72 3.9-5.3/4.2-5.9 cm LVIDd Index: 2.09 2.4-3.2/2.2-3.1 cm/m2 LVIDs: 3.56 2.0-3.6 cm LVPWd: 0.87 0.7-1.1 cm LA Diam: 3.30 2.7-3.8/3.0-4.0 cm LAIDs Index: 1.46 1.5-2.3 cm/m2 LV Mass: 293.89 67-162/88-224 g LV Mass Index: 130.04 43-95/49-115 g/m2 LVOT Diam: 2.50 3.0+(-)1.3 cm 2D Systolic Function EF 4C: 70.00 >55% EF 2C: 72.30 >55% EF BiP: 72.40 >55% Aortic Valve AoV Pk William: 1.85 AoV Mn William: 1.32 AoV VTI: 0.28 AoV Pk Grad: 14.00 Aov Mn Grad: 8.00 SNEHAL Cont.VTI: 2.89 LVOT LVOT Pk William: 0.87 LVOT Mn William: 0.63 LVOT VTI: 0.17 LVOT Pk Grad: 3.00 LVOT Mn Grad: 2.00 LVOT Diam: 2.50 LVOT Area: 4.91 Tricuspid Valve RA Press: 8.00 Great Vessels Aorta Sinus of Valsalva: 3.10 2.0-3.5 cm Ao Asc: 3.40 2.1-3.4 cm Updated in Other Vendor System with Status of Final Adryan Barbosa MD electronically signed on 04/13/2022 11:19:27 AM with status of Final
[2022-04-13 07:49] LABS: B Type Natriuretic Peptide 341 pg/mL (<100)
[2022-04-13] MEDS: Fluticasone/Vilanterol 100/25 BLST.W.DEV 1 PUFF INHALE (08:27)
[2022-04-13] MEDS: Gabapentin 400 MG CAPSULE 800 MG PO ×3 (08:57→20:41)
[2022-04-13] MEDS: Docusate Sodium 100 MG CAPSULE PO ×2 (08:57→20:31)
[2022-04-13] MEDS: Ferrous Sulfate 324 MG TABLET.DR PO (08:57)
[2022-04-13] MEDS: predniSONE 5 MG TABLET 10 MG PO (08:57)
[2022-04-13] MEDS: busPIRone HCl 5 MG TABLET 15 MG PO ×2 (08:57→20:31)
[2022-04-13] MEDS: lisinopriL 10 MG TABLET PO (08:58)
[2022-04-13] MEDS: Rivaroxaban 20 MG TABLET PO (08:58)
[2022-04-13] MEDS: Insulin Lispro 100 UNIT/ML 3 ML VIAL SUBCUT ×4 (08:58→20:33)
[2022-04-13] MEDS: Dronedarone HCl 400 MG TABLET PO (08:58)
[2022-04-13] MEDS: Cholecalciferol (Vitamin D3) 25 MCG TABLET PO (08:58)
[2022-04-13] MEDS: Anastrozole 1 MG TABLET PO (08:58)
[2022-04-13] MEDS: Metoprolol Succinate ER 25 MG TAB.ER.24H PO (08:58)
[2022-04-13] MEDS: 0.9 % Sodium Chloride Flush 3 ML SYRINGE IVFLUSH ×2 (08:59→17:01)
[2022-04-13] MEDS: Furosemide 100 MG/10 ML VIAL 80 MG IVPUSH ×2 (08:59→17:01)
[2022-04-13] MEDS: Fluticasone Propionate Nasal 16 GM SPRAY 1 SPRAY NOSTRIL-B (08:59)
[2022-04-13] MEDS: Lidocaine 4 % Patch ADH..PATCH 2 PATCH TRANSDERMA (08:59)
[2022-04-13 11:27] LABS: Glucose, Whole Blood 233 mg/dL (60-115)
--- NOTE | 2022-04-13 11:45 | PM.PNCARD ---
Subjective Subjective Date of Service: 04/13/22 Interval history: Moaning and groaning stating generalized body pains. No specific cardiac complaints like angina. Review of Systems Review of Systems Yes all other systems are reviewed and are negative Constitutional: Reports as per HPI Eyes: Reports as per HPI Reports as per HPI Cardiovascular: Reports as per HPI, Denies acrocyanosis, Denies cool extremities, Denies chest pain, Reports leg edema, Denies lightheadedness, Denies palpitations and Reports dyspnea Respiratory: Reports as per HPI, Reports no additional respiratory complaints and Reports dyspnea Gastrointestinal: Reports as per HPI and Reports no additional gastrointestinal complaints Musculoskeletal: Reports no additional musculoskeletal complaints and Reports as per HPI Skin/Breast: Reports system reviewed and no additional complaints, except as docu Reports system reviewed and no additional complaints, except as documented and Reports as per HPI Psychiatric: Reports no additional psychiatric complaints and Reports as per HPI Endocrine: Reports no additional endocrine complaints, Reports as per HPI and Denies palpitations Hematologic/Lymphatic: Reports no additional hematologic/lymphatic complaints and Reports as per HPI Allergic/Immunologic: Reports no additional allergic/immunologic complaints and Reports as per HPI Physical Exam Vital Signs: Last Vital Signs Temp 98.0 F 04/13/22 07:45 Pulse 57 04/13/22 08:27 Resp 20 04/13/22 08:27 BP 105/67 04/13/22 07:45 Pulse Ox 93 04/13/22 07:45 O2 Del Method 04/13/22 07:45 O2 Flow Rate 2 04/13/22 07:45 BMI result Body Mass Index 54.3 Const General: comfortable and no acute distress Orientation/consciousness: patient oriented x3 HEENT Other: Unremarkable Head: Yes normal to inspection Neck Neck: Yes normal visual inspection Chest Chest palpation & inspection: normal inspection of the chest Resp Auscultation: diminished lung sounds Cardio Palpation: normal PMI Heart sounds: S1 normal heart sound present, S2 normal heart sound present, no gallops, no murmurs and no rubs GI Palpation (GI): Soft to palpation Back/Spine/Pelvis Other: unremarkable Skin General skin exam: no rashes or lesions noted Neuro General: patient oriented x3 Extrem General: Yes pedal edema (2+) Psych Mental Status: mental status grossly normal Objective Labs and Meds Result diagrams: 04/12/22 06:31 04/13/22 07:06 Lab results: Laboratory Results - last 24 hr 04/12/22 04/12/22 04/12/22 11:22 16:06 19:48 Sodium Potassium Chloride Carbon Dioxide Anion Gap BUN Creatinine Estim Creat Clear Calc Estimated GFR POC Glucose 278 H 274 H Random Glucose Calcium Troponin I High Sens 44.1 H B-Natriuretic Peptide 04/13/22 04/13/22 04/13/22 07:06 07:06 07:25 Sodium 143 Potassium 3.4 Chloride 98 Carbon Dioxide 33 H Anion Gap 15 BUN 30 H Creatinine 0.87 Estim Creat Clear Calc 83.1 Estimated GFR > 60 POC Glucose 153 H Random Glucose 157 H Calcium 8.8 Troponin I High Sens B-Natriuretic Peptide 341 H 04/13/22 11:21 Sodium Potassium Chloride Carbon Dioxide Anion Gap BUN Creatinine Estim Creat Clear Calc Estimated GFR POC Glucose 233 H Random Glucose Calcium Troponin I High Sens B-Natriuretic Peptide Progress Note: A&P Assessment and plan (1) Acute on chronic right heart failure: Status: Acute (2) PAF (paroxysmal atrial fibrillation): Status: Acute (3) Anemia: Status: Acute (4) Morbid obesity: Status: Acute (5) LEXUS (obstructive sleep apnea): Status: Acute Plan Her presentation is likely from acute on chronic right heart failure related to her obesity and sleep apnea. Main stay of therapy in this will be use of CPAP mask regularly which she has not doing on a regular basis. Additionally, she will need to have meaningful weight loss which again may not ever happen. Hence this is likely going to be a recurrent as well as chronic issue. Empiric diuretics at this time. Otherwise, with regard to atrial fibrillation, she is currently in atrial fibrillation with slightly rapid rate. Earlier in the hospitalization, she also had some bradycardia but during that time she had blocked PACs on the EKG. Again this is all from her underlying obesity and untreated sleep apnea. She has been maintained on Multaq. Also on beta-blockers. Overall, the chance of maintaining sinus rhythm is very low. Hence can stop the Multaq and keep her only on beta-blockers. If necessary, could use digoxin for additional rate control. On anticoagulation. Discussed with Dr. Suero. Time Spent With Patient Time: Total time spent is greater than 50% in coordination of care (as documented) at patient's floor/unit and/or counseling patient: 35min. Progress Note: Quality Stroke Does the patient have a stroke diagnosis?: No Procedures Date of Service Date of Service: 04/13/22
--- NOTE | 2022-04-13 12:11 | P.PNIM_ITS ---
Subjective Subjective Date of Service: 04/13/22 Interval History: the patient was seen and evaluated this morning sitting in her bed, reported overall improvement Still having dyspnea on exertion, lower extremities edema Heart rate goes up on occasions above 100 in AFib Denies any fever, chills or shortness of breath No reported other overnight events. Systemic review: No fever, chills or weakness No chest pain, palpitation , lower extremities edema reporting dyspnea on exertion No abdominal pain, nausea or vomiting No urinary symptoms No any rash or wounds Physical Exam Vital Signs: Vital Signs: Last Vital Signs Temp 98.5 F 04/13/22 11:57 Pulse 70 04/13/22 11:57 Resp 20 04/13/22 11:57 BP 117/71 04/13/22 11:57 Pulse Ox 99 04/13/22 11:57 O2 Del Method 04/13/22 11:57 O2 Flow Rate 2 04/13/22 11:57 BMI result Body Mass Index 54.3 Const: Other: Constitutional : Alert, oriented, not in distress Neck : Normal inspection, Supple Cardiovascular : Irregular irregular, elevated JVP, +1 bilateral lower extremity edema Respiratory : fair bilateral air entry, basal fine crackles, wheezes or rhonchi Gastrointestinal: soft, lax, Normal bowel sounds, Non tender Skin : Warm, Dry Neurological : Alert & oriented x3, No focal deficit , CN 2-12 within normal Objective Data Active Medications Acetaminophen (Acetaminophen 325 Mg Tablet) 650 mg PO Q6H PRN PRN Reason: Pain, Mild (Pain Scale 1-3) Last Admin: 04/13/22 00:05 Dose: 650 mg Documented By: CHELSEA Albuterol Sulfate (Albuterol Sulfate (0.042%) 1.25 Mg/3 Ml Vial.Neb) 0.63 mg INHALE QID PRN PRN Reason: shortness of breath or wheezing Albuterol Sulfate (Albuterol Sulfate 90 Mcg 8 Gm Inhaler) 1 puff INHALE QID PRN PRN Reason: shortness of breath or wheezing Anastrozole (Anastrozole 1 Mg Tablet) 1 mg PO DAILY [facility] Last Admin: 04/13/22 08:58 Dose: 1 mg Documented By: TAMMY Buspirone HCl (Buspirone Hcl 5 Mg Tablet) 15 mg PO BID [facility] Last Admin: 04/13/22 08:57 Dose: 15 mg Documented By: TAMMY Dextrose (Dextrose 50 % 25 Gm/50 Ml Syringe) 25 gm IVPUSH Q15M PRN; Protocol PRN Reason: per Hypoglycemia Standing Ord. Docusate Sodium (Docusate Sodium 100 Mg Capsule) 100 mg PO BID [facility] Last Admin: 04/13/22 08:57 Dose: 100 mg Documented By: TAMMY Ferrous Sulfate (Ferrous Sulfate 324 Mg Tablet.Dr) 324 mg PO DAILY [facility] Last Admin: 04/13/22 08:57 Dose: 324 mg Documented By: TAMMY Fluticasone Propionate (Fluticasone Propionate Nasal 16 Gm [place]) 1 spray NOSTRIL-B DAILY [facility] Last Admin: 04/13/22 08:59 Dose: 1 spray Documented By: TAMMY Fluticasone/Vilanterol (Fluticasone/Vilanterol 100/25 Blst.W.Dev) 1 puff INHALE RDAILY [facility] Last Admin: 04/13/22 08:27 Dose: 1 puff Documented By: MIMA Furosemide (Furosemide 100 Mg/10 Ml Vial) 80 mg IVPUSH BID@0900,1800 [facility]; P rotocol Last Admin: 04/13/22 08:59 Dose: 80 mg Documented By: TAMMY Gabapentin (Gabapentin 400 Mg Capsule) 800 mg PO TID [facility] Last Admin: 04/13/22 08:57 Dose: 800 mg Documented By: TAMMY Glucose (Glucose Gel 15 Gm Gel..Gram.) 15 gm PO Q15M PRN; Protocol PRN Reason: per Hypoglycemia Standing Ord. Insulin Glargine (Insulin Glargine,Hum.Rec.Anlog 100 Unit/Ml 10 Ml Vial) 17 unit SUBCUT BEDTIME [facility] Last Admin: 04/12/22 21:06 Dose: 17 unit Documented By: CHELSEA Insulin Human Lispro (Insulin Lispro 100 Unit/Ml 3 Ml Vial) 10 unit SUBCUT QIDACHS [facility] Last Admin: 04/13/22 08:12 Dose: Not Given Documented By: TAMMY Non-Admin Reason: No Insulin Coverage Insulin Human Lispro (Insulin Lispro 100 Unit/Ml 3 Ml Vial) 0 unit SUBCUT QIDACHS [facility]; Protocol Last Admin: 04/13/22 08:58 Dose: 2 unit Documented By: TAMMY Lidocaine (Lidocaine 4 % Patch Adh..Patch) 2 patch TRANSDERMA DAILY [facility]; Protocol Last Admin: 04/13/22 08:59 Dose: 1 patch Documented By: TAMMY Lisinopril (Lisinopril 10 Mg Tablet) 10 mg PO DAILY [facility]; Protocol Last Admin: 04/13/22 08:58 Dose: 10 mg Documented By: TAMMY Loratadine (Loratadine 10 Mg Tablet) 10 mg PO DAILY PRN PRN Reason: allergy symptoms Magnesium Hydroxide (Milk Of Magnesia 30 Ml Oral.Susp) 30 ml PO DAILY PRN PRN Reason: Constipation Metoprolol Succinate (Metoprolol Succinate Er 50 Mg Tab.Er.24h) 50 mg PO DAILY [facility]; Protocol Mirtazapine (Mirtazapine 30 Mg Tablet) 30 mg PO BEDTIME [facility] Last Admin: 04/12/22 21:05 Dose: 30 mg Documented By: CHELSEA Montelukast Sodium (Montelukast Sodium 10 Mg Tablet) 10 mg PO BEDTIME [facility] Last Admin: 04/12/22 21:05 Dose: 10 mg Documented By: CHELSEA Nitroglycerin (Nitroglycerin 0.4 Mg Tab.Subl) 0.4 mg SUBLINGUAL Q5M PRN PRN Reason: Chest Pain Omeprazole (Omeprazole 20 Mg Capsule.Dr) 20 mg PO DAILY@0630 [facility] Last Admin: 04/13/22 05:57 Dose: Not Given Documented By: CHELSEA Non-Admin Reason: Patient Refused Oxycodone HCl (Oxycodone Hcl Immed Release 5 Mg Tablet) 5 mg PO Q8H PRN PRN Reason: Pain, Severe (Pain Scale 7-10) Last Admin: 04/13/22 08:58 Dose: 5 mg Documented By: TAMMY Pravastatin Sodium (Pravastatin Sodium 40 Mg Tablet) 40 mg PO BEDTIME [facility] Last Admin: 04/12/22 21:05 Dose: 40 mg Documented By: CHELSEA Prednisone (Prednisone 5 Mg Tablet) 10 mg PO DAILY [facility] Last Admin: 04/13/22 08:57 Dose: 10 mg Documented By: TAMMY Rivaroxaban (Rivaroxaban 20 Mg Tablet) 20 mg PO DAILY [facility] Last Admin: 04/13/22 08:58 Dose: 20 mg Documented By: TAMMY Sodium Chloride (0.9 % Sodium Chloride Flush 3 Ml Syringe) 3 ml IVFLUSH QSHIFT [facility] Last Admin: 04/13/22 08:59 Dose: 3 ml Documented By: TAMMY Vitamin D (Cholecalciferol (Vitamin D3) 25 Mcg Tablet) 25 mcg PO DAILY [facility] Last Admin: 04/13/22 08:58 Dose: 25 mcg Documented By: TAMMY Labs CBC & Chem 7: 04/12/22 06:31 04/13/22 07:06 Labs: Laboratory Results - last 24 hr 04/12/22 04/12/22 04/12/22 11:22 16:06 19:48 Anion Gap Estim Creat Clear Calc Estimated GFR POC Glucose 278 H 274 H Random Glucose Calcium Troponin I High Sens 44.1 H B-Natriuretic Peptide 04/13/22 04/13/22 04/13/22 07:06 07:06 07:25 Anion Gap 15 Estim Creat Clear Calc 83.1 Estimated GFR > 60 POC Glucose 153 H Random Glucose 157 H Calcium 8.8 Troponin I High Sens B-Natriuretic Peptide 341 H 04/13/22 11:21 Anion Gap Estim Creat Clear Calc Estimated GFR POC Glucose 233 H Random Glucose Calcium Troponin I High Sens B-Natriuretic Peptide Assessment and Plan (1) LEXUS (obstructive sleep apnea): Status: Acute (2) Acute on chronic right heart failure: Status: Acute (3) Lower extremity edema: Status: Acute (4) Microcytic anemia: Status: Acute Plan 66-year-old female with a past history of anemia, heart failure preserved ejection fraction among others who presents to the hospital with symptomatic an emia # acute on chronic microcytic anemia microcytic negative stool occult stable at 8>7 after 1 unit transfusion low iron stores but better than before, give iron supplement follow CBC recommend Hematology follow-up outpatient for further workup # acute right-sided CHF exacerbation # chronic hypoxic respiratory failure secondary to LEXUS, obesity continue 80 mg of IV Lasix no acute abnormality on echocardiogram Cardiology input appreciated, Continue home medication 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 for further care including consideration for ischemia workup if not previously completed # paroxysmal AFib with tachycardia continue Xarelto Cardiology decided to discontinue dronedarone Increased metoprolol XL dose to 50 mg daily # Hx LEXUS Reports that she stopped using the CPAP and insurance company retracted from her Will discuss with RT so she can get a new sleep study at time of discharge Continue CPAP at night # type 2 diabetes continue home insulin low-dose sliding scale insulin, diabetic diet # hypertension continue antihypertensives DVT prophylaxis: Rivaroxaban the patient will need overnight hospital stay for treatment of acute CHF exacerbation to prevent possible decompensation into hypoxic respiratory failure Quality Stroke Does the patient have a stroke diagnosis?: No VTE Prior VTE?: No VTE Risk Level:: Medical - moderate - high VTE Device Contraindication: N/A - Device Ordered VTE Drug Contraindication: Treatment Not Indicated
[2022-04-13] MEDS: Insulin Lispro 100 UNIT/ML 3 ML VIAL 10 UNIT SUBCUT ×3 (12:20→20:32)
[2022-04-13] MEDS: Morphine Sulfate 4 MG/ML CARTRIDGE IVPUSH (16:56)
[2022-04-13 17:00] LABS: Glucose, Whole Blood 396 mg/dL (60-115)
[2022-04-13 20:26] LABS: Glucose, Whole Blood 220 mg/dL (60-115)
[2022-04-13] MEDS: Pravastatin Sodium 40 MG TABLET PO (20:31)
[2022-04-13] MEDS: Montelukast Sodium 10 MG TABLET PO (20:31)
[2022-04-13] MEDS: Mirtazapine 30 MG TABLET PO (20:31)
[2022-04-13] MEDS: Insulin Glargine,Hum.rec.anlog 100 UNIT/ML 10 ML VIAL 17 UNIT SUBCUT (20:32)
[2022-04-14] VITALS (9 sets, daily range): BP systolic 120–144; BP diastolic 61–73; PULSE 72–118; RESP 16–20; TEMP 36.2–36.9; O2SAT 94–99
[2022-04-14] MEDS: Acetaminophen 325 MG TABLET 650 MG PO (00:12)
[2022-04-14] MEDS: 0.9 % Sodium Chloride Flush 3 ML SYRINGE IVFLUSH ×4 (00:16→19:50)
[2022-04-14 02:30] LABS: Glucose, Whole Blood 207 mg/dL (60-115)
[2022-04-14] MEDS: oxyCODONE HCl Immed Release 5 MG TABLET PO ×2 (06:34→13:53)
[2022-04-14] MEDS: Omeprazole 20 MG CAPSULE.DR PO (06:34)
[2022-04-14 07:12] LABS: Anion Gap 13 (12-20); Blood Urea Nitrogen 30 mg/dL (9-16); Calcium 8.8 mg/dL (8.4-10.2); Carbon Dioxide 34 mmol/L (22-29); Chloride 97 mmol/L (96-108); Creatinine Clr Calc Pharmacy 81.3; Estimated Glomerular Filt Rate > 60; Glucose Random 180 mg/dL (60-115); Potassium 3.3 mmol/L (3.3-5.1); Sodium 141 mmol/L (135-145)
[2022-04-14 07:17] LABS: B Type Natriuretic Peptide 363 pg/mL (<100)
[2022-04-14 07:21] LABS: Glucose, Whole Blood 175 mg/dL (60-115)
[2022-04-14] MEDS: Fluticasone/Vilanterol 100/25 BLST.W.DEV 1 PUFF INHALE (09:31)
--- NOTE | 2022-04-14 10:30 | PM.PNCARD ---
Subjective Subjective Date of Service: 04/14/22 Interval history: On supplemental oxygen. Saying that her breathing is improving. Physical Exam Vital Signs: Last Vital Signs Temp 97.6 F 04/14/22 08:00 Pulse 79 04/14/22 09:32 Resp 17 04/14/22 09:32 BP 120/73 04/14/22 08:00 Pulse Ox 97 04/14/22 08:00 O2 Del Method 04/14/22 08:00 O2 Flow Rate 2 04/14/22 08:00 BMI result Body Mass Index 54.3 GENERAL APPEARANCE: Morbidly obese. NECK: no carotid bruit, no obvious jugular venous distention. Physical examination quite difficult due to body habitus. SKIN: no suspicious lesions, warm and dry. HEART: no murmurs, irregular rate and rhythm. LUNGS: clear to auscultation bilaterally. ABDOMEN: soft, nontender. EXTREMITIES: 1+ edema at ankles. PERIPHERAL PULSES: equal. NEUROLOGIC: No gross deficits, AAO X 3 Objective Labs and Meds Result diagrams: 04/12/22 06:31 04/14/22 06:19 Lab results: Laboratory Results - last 24 hr 04/13/22 04/13/22 04/13/22 11:21 16:57 20:14 Sodium Potassium Chloride Carbon Dioxide Anion Gap BUN Creatinine Estim Creat Clear Calc Estimated GFR POC Glucose 233 H 396 H* 220 H Random Glucose Calcium B-Natriuretic Peptide 04/14/22 04/14/22 04/14/22 01:43 06:19 06:19 Sodium 141 Potassium 3.3 Chloride 97 Carbon Dioxide 34 H Anion Gap 13 BUN 30 H Creatinine 0.89 Estim Creat Clear Calc 81.3 Estimated GFR > 60 POC Glucose 207 H Random Glucose 180 H Calcium 8.8 B-Natriuretic Peptide 363 H 04/14/22 07:18 Sodium Potassium Chloride Carbon Dioxide Anion Gap BUN Creatinine Estim Creat Clear Calc Estimated GFR POC Glucose 175 H Random Glucose Calcium B-Natriuretic Peptide Progress Note: A&P Assessment and plan (1) LEXUS (obstructive sleep apnea): Status: Acute (2) PAF (paroxysmal atrial fibrillation): Status: Acute (3) Acute on chronic right heart failure: Status: Acute Plan 66-year-old female presenting for right heart failure. She has sleep apnea and has not been using CPAP. This is apparently being arranged. She is on supplemental oxygen. Physical examination is quite challenging but she still has peripheral edema. Lungs are clear to auscultation. Overall her presentation is consistent with right heart failure. She also has asthma and morbid obesity. I think we continue IV diuretics today and reassess her tomorrow. She was also anemic on admission and received blood which also will help. She is in atrial fibrillation currently. She is on metoprolol XL 50 mg once a day. . Please give her our load of digoxin and start her on 125 mcg digoxin daily. Monitor electrolytes specially looking for hypokalemia as that increases the risk for digoxin toxicity. Add spironolactone 25 mg once a day to her regimen. We will follow along with you. Thank you for allowing me to participate in the care of your patient. Please feel free to contact me if you have any questions. Time Spent With Patient Time: Total time spent is greater than 50% in coordination of care (as documented) at patient's floor/unit and/or counseling patient: Progress Note: Quality Stroke Does the patient have a stroke diagnosis?: No Procedures Date of Service Date of Service: 04/14/22
[2022-04-14] MEDS: Insulin Lispro 100 UNIT/ML 3 ML VIAL SUBCUT ×4 (10:44→20:07)
[2022-04-14] MEDS: Furosemide 100 MG/10 ML VIAL 80 MG IVPUSH ×2 (10:45→18:02)
[2022-04-14] MEDS: Docusate Sodium 100 MG CAPSULE PO ×2 (10:45→19:49)
[2022-04-14] MEDS: Rivaroxaban 20 MG TABLET PO (10:45)
[2022-04-14] MEDS: lisinopriL 10 MG TABLET PO (10:46)
[2022-04-14] MEDS: Anastrozole 1 MG TABLET PO (10:46)
[2022-04-14] MEDS: Gabapentin 400 MG CAPSULE 800 MG PO ×3 (10:46→19:49)
[2022-04-14] MEDS: busPIRone HCl 5 MG TABLET 15 MG PO ×2 (10:46→19:49)
[2022-04-14] MEDS: Metoprolol Succinate ER 50 MG TAB.ER.24H PO (10:46)
[2022-04-14] MEDS: predniSONE 5 MG TABLET 10 MG PO (10:47)
[2022-04-14] MEDS: Lidocaine 4 % Patch ADH..PATCH 2 PATCH TRANSDERMA (10:47)
[2022-04-14] MEDS: Ferrous Sulfate 324 MG TABLET.DR PO (10:47)
[2022-04-14] MEDS: Cholecalciferol (Vitamin D3) 25 MCG TABLET PO (10:47)
[2022-04-14] MEDS: Fluticasone Propionate Nasal 16 GM SPRAY 1 SPRAY NOSTRIL-B (11:02)
[2022-04-14 11:14] LABS: Glucose, Whole Blood 232 mg/dL (60-115)
[2022-04-14] MEDS: Spironolactone 25 MG TABLET PO (13:54)
[2022-04-14] MEDS: Digoxin 0.5 MG/2 ML AMPUL 0.25 MG IVPUSH ×2 (13:55→19:49)
[2022-04-14] MEDS: Insulin Lispro 100 UNIT/ML 3 ML VIAL 10 UNIT SUBCUT ×3 (14:14→20:07)
--- NOTE | 2022-04-14 15:58 | HO.PM.IMPN ---
Subjective Subjective Date of Service: 04/14/22 Interval History: The patient was seen and evaluated this morning sitting in her bed, reported overall improvement Improved dyspnea on exertion, lower extremities edema Heart rate goes up on occasions above 100 in AFib Denies any fever, chills or shortness of breath No reported other overnight events. Systemic review: No fever, chills or weakness No chest pain, palpitation , lower extremities edema reporting dyspnea on exertion No abdominal pain, nausea or vomiting No urinary symptoms No any rash or wounds Physical Exam Vital Signs: Vital Signs: Last Vital Signs Temp 98.4 F 04/14/22 15:11 Pulse 107 H 04/14/22 15:11 Resp 18 04/14/22 15:11 BP 144/73 H 04/14/22 15:11 Pulse Ox 98 04/14/22 15:11 O2 Del Method 04/14/22 15:11 O2 Flow Rate 2 04/14/22 15:11 BMI result Body Mass Index 54.3 Const: Other: Constitutional : Alert, oriented, not in distress Neck : Normal inspection, Supple Cardiovascular : Irregular irregular, elevated JVP, +1 bilateral lower extremity edema Respiratory : fair bilateral air entry, basal fine crackles, wheezes or rhonchi Gastrointestinal: soft, lax, Normal bowel sounds, Non tender Skin : Warm, Dry Neurological : Alert & oriented x3, No focal deficit , CN 2-12 within normal Objective Data Active Medications Acetaminophen (Acetaminophen 325 Mg Tablet) 650 mg PO Q6H PRN PRN Reason: Pain, Mild (Pain Scale 1-3) Last Admin: 04/14/22 00:12 Dose: 650 mg Documented By: PEYTON Albuterol Sulfate (Albuterol Sulfate (0.042%) 1.25 Mg/3 Ml Vial.Neb) 0.63 mg INHALE QID PRN PRN Reason: shortness of breath or wheezing Albuterol Sulfate (Albuterol Sulfate 90 Mcg 8 Gm Inhaler) 1 puff INHALE QID PRN PRN Reason: shortness of breath or wheezing Anastrozole (Anastrozole 1 Mg Tablet) 1 mg PO DAILY [facility] Last Admin: 04/14/22 10:46 Dose: 1 mg Documented By: BARBARA Buspirone HCl (Buspirone Hcl 5 Mg Tablet) 15 mg PO BID [facility] Last Admin: 04/14/22 10:46 Dose: 15 mg Documented By: BARBARA Dextrose (Dextrose 50 % 25 Gm/50 Ml Syringe) 25 gm IVPUSH Q15M PRN; Protocol PRN Reason: per Hypoglycemia Standing Ord. Digoxin (Digoxin 0.5 Mg/2 Ml Ampul) 0.25 mg IVPUSH Q6H [facility] Stop: 04/14/22 19:16 Last Admin: 04/14/22 13:55 Dose: 0.25 mg Documented By: BARBARA Digoxin (Digoxin 0.25 Mg Tablet) 0.25 mg PO DAILY [facility] Docusate Sodium (Docusate Sodium 100 Mg Capsule) 100 mg PO BID [facility] Last Admin: 04/14/22 10:45 Dose: 100 mg Documented By: BARBARA Ferrous Sulfate (Ferrous Sulfate 324 Mg Tablet.Dr) 324 mg PO DAILY [facility] Last Admin: 04/14/22 10:47 Dose: 324 mg Documented By: BARBARA Fluticasone Propionate (Fluticasone Propionate Nasal 16 Gm [place]) 1 spray NOSTRIL-B DAILY [facility] Last Admin: 04/14/22 11:02 Dose: 1 spray Documented By: BARBARA Fluticasone/Vilanterol (Fluticasone/Vilanterol 100/25 Blst.W.Dev) 1 puff INHALE RDAILY [facility] Last Admin: 04/14/22 09:31 Dose: 1 puff Documented By: KALEY Furosemide (Furosemide 100 Mg/10 Ml Vial) 80 mg IVPUSH BID@0900,1800 [facility]; Protocol Last Admin: 04/14/22 10:45 Dose: 80 mg Documented By: BARBARA Gabapentin (Gabapentin 400 Mg Capsule) 800 mg PO TID [facility] Last Admin: 04/14/22 10:46 Dose: 800 mg Documented By: BARBARA Glucose (Glucose Gel 15 Gm Gel..Gram.) 15 gm PO Q15M PRN; Protocol PRN Reason: per Hypoglycemia Standing Ord. Insulin Glargine (Insulin Glargine,Hum.Rec.Anlog 100 Unit/Ml 10 Ml Vial) 17 unit SUBCUT BEDTIME [facility] Last Admin: 04/13/22 20:32 Dose: 17 unit Documented By: KAMILA Insulin Human Lispro (Insulin Lispro 100 Unit/Ml 3 Ml Vial) 10 unit SUBCUT QIDACHS [facility] Last Admin: 04/14/22 14:14 Dose: 10 unit Documented By: BARBARA Insulin Human Lispro (Insulin Lispro 100 Unit/Ml 3 Ml Vial) 0 unit SUBCUT QIDACHS [facility]; Protocol Last Admin: 04/14/22 13:54 Dose: 4 unit Documented By: BARBARA Lidocaine (Lidocaine 4 % Patch Adh..Patch) 2 patch TRANSDERMA DAILY [facility]; Protocol Last Admin: 04/14/22 10:47 Dose: 2 patch Documented By: BARBARA Lisinopril (Lisinopril 10 Mg Tablet) 10 mg PO DAILY [facility]; Protocol Last Admin: 04/14/22 10:46 Dose: 10 mg Documented By: BARBARA Loratadine (Loratadine 10 Mg Tablet) 10 mg PO DAILY PRN PRN Reason: allergy symptoms Magnesium Hydroxide (Milk Of Magnesia 30 Ml Oral.Susp) 30 ml PO DAILY PRN PRN Reason: Constipation Metoprolol Succinate (Metoprolol Succinate Er 50 Mg Tab.Er.24h) 50 mg PO DAILY [facility]; Protocol Last Admin: 04/14/22 10:46 Dose: 50 mg Documented By: BARBARA Mirtazapine (Mirtazapine 30 Mg Tablet) 30 mg PO BEDTIME [facility] Last Admin: 04/13/22 20:31 Dose: 30 mg Documented By: KAMILA Montelukast Sodium (Montelukast Sodium 10 Mg Tablet) 10 mg PO BEDTIME [facility] Last Admin: 04/13/22 20:31 Dose: 10 mg Documented By: KAMILA Nitroglycerin (Nitroglycerin 0.4 Mg Tab.Subl) 0.4 mg SUBLINGUAL Q5M PRN PRN Reason: Chest Pain Omeprazole (Omeprazole 20 Mg Capsule.Dr) 20 mg PO DAILY@0630 [facility] Last Admin: 04/14/22 06:34 Dose: 20 mg Documented By: PEYTON Oxycodone HCl (Oxycodone Hcl Immed Release 5 Mg Tablet) 5 mg PO Q8H PRN PRN Reason: Pain, Severe (Pain Scale 7-10) Last Admin: 04/14/22 13:53 Dose: 5 mg Documented By: BARBARA Pravastatin Sodium (Pravastatin Sodium 40 Mg Tablet) 40 mg PO BEDTIME [facility] Last Admin: 04/13/22 20:31 Dose: 40 mg Documented By: KAMILA Prednisone (Prednisone 5 Mg Tablet) 10 mg PO DAILY [facility] Last Admin: 04/14/22 10:47 Dose: 10 mg Documented By: BARBARA Rivaroxaban (Rivaroxaban 20 Mg Tablet) 20 mg PO DAILY [facility] Last Admin: 04/14/22 10:45 Dose: 20 mg Documented By: BARBARA Sodium Chloride (0.9 % Sodium Chloride Flush 3 Ml Syringe) 3 ml IVFLUSH QSHIFT [facility] Last Admin: 04/14/22 10:48 Dose: 3 ml Documented By: BARBARA Spironolactone (Spironolactone 25 Mg Tablet) 25 mg PO DAILY [facility]; Protocol Last Admin: 04/14/22 13:54 Dose: 25 mg Documented By: BARBARA Vitamin D (Cholecalciferol (Vitamin D3) 25 Mcg Tablet) 25 mcg PO DAILY [facility] Last Admin: 04/14/22 10:47 Dose: 25 mcg Documented By: BARBARA Labs CBC & Chem 7: 04/12/22 06:31 04/14/22 06:19 Labs: Laboratory Results - last 24 hr 04/13/22 04/13/22 04/14/22 16:57 20:14 01:43 Anion Gap Estim Creat Clear Calc Estimated GFR POC Glucose 396 H* 220 H 207 H Random Glucose Calcium B-Natriuretic Peptide 04/14/22 04/14/22 04/14/22 06:19 06:19 07:18 Anion Gap 13 Estim Creat Clear Calc 81.3 Estimated GFR > 60 POC Glucose 175 H Random Glucose 180 H Calcium 8.8 B-Natriuretic Peptide 363 H 04/14/22 11:07 Anion Gap Estim Creat Clear Calc Estimated GFR POC Glucose 232 H Random Glucose Calcium B-Natriuretic Peptide Assessment and Plan (1) Acute on chronic right heart failure: Status: Acute (2) Lower extremity edema: Status: Acute (3) LEXUS (obstructive sleep apnea): Status: Acute Plan 66-year-old female with a past history of anemia, heart failure preserved ejection fraction among others who presents to the hospital with symptomatic anemia # acute on chronic microcytic anemia microcytic negative stool occult stable at 8.7 after 1 unit transfusion low iron stores but better than before, give iron supplement follow CBC recommend Hematology follow-up outpatient for further workup # acute right-sided CHF exacerbation # chronic hypoxic respiratory failure secondary to LEXUS, obesity continue 80 mg of IV Lasix b.i.d. no acute abnormality on echocardiogram Cardiology input appreciated Follow-up with outpatient cook supervisor for further care including consideration for ischemia workup if not previously completed # paroxysmal AFib with tachycardia continue Xarelto Cardiology decided to discontinue dronedarone Increased metoprolol XL dose to 50 mg daily # Hx LEXUS Reports that she stopped using the CPAP and insurance company retracted from her To do overnight oximetry to try to get her a BiPAP machine at time of discharge # type 2 diabetes continue home insulin low-dose sliding scale insulin, diabetic diet # hypertension continue antihypertensives DVT prophylaxis: Rivaroxaban the patient will need overnight hospital stay for treatment of acute CHF exacerbation, to do overnight oximetry to prevent possible decompensation into hypoxic respiratory failure Quality Stroke Does the patient have a stroke diagnosis?: No VTE Prior VTE?: No VTE Risk Level:: Medical - moderate - high VTE Device Contraindication: N/A - Device Ordered VTE Drug Contraindication: Treatment Not Indicated
[2022-04-14 16:04] LABS: Glucose, Whole Blood 341 mg/dL (60-115)
[2022-04-14] MEDS: Morphine Sulfate 2 MG/ML CARTRIDGE IVPUSH (19:46)
[2022-04-14] MEDS: Montelukast Sodium 10 MG TABLET PO (19:49)
[2022-04-14] MEDS: Pravastatin Sodium 40 MG TABLET PO (19:49)
[2022-04-14] MEDS: Mirtazapine 30 MG TABLET PO (19:49)
[2022-04-14 19:51] LABS: Glucose, Whole Blood 355 mg/dL (60-115)
[2022-04-14] MEDS: Insulin Glargine,Hum.rec.anlog 100 UNIT/ML 10 ML VIAL 17 UNIT SUBCUT (20:06)
[2022-04-15] VITALS (9 sets, daily range): BP systolic 111–153; BP diastolic 54–75; PULSE 72–86; RESP 16–20; TEMP 36.3–37.1; O2SAT 92–98; BMI 53.6
[2022-04-15] MEDS: Morphine Sulfate 2 MG/ML CARTRIDGE IVPUSH ×3 (00:27→10:14)
[2022-04-15] MEDS: oxyCODONE HCl Immed Release 5 MG TABLET PO ×2 (02:44→11:57)
[2022-04-15 05:15] LABS: ABG HCO3 33 mmol/L (22-26); ABG pCO2 46 mmHg (32-45); ABG pH 7.46 (7.35-7.45); ABG pO2 109 mmHg (83-108)
[2022-04-15] MEDS: Omeprazole 20 MG CAPSULE.DR PO (05:30)
[2022-04-15 06:22] LABS: ABG Refer to POC result
[2022-04-15 06:53] LABS: B Type Natriuretic Peptide 377 pg/mL (<100)
[2022-04-15 07:00] LABS: Anion Gap 15 (12-20); Blood Urea Nitrogen 26 mg/dL (9-16); Calcium 9.1 mg/dL (8.4-10.2); Carbon Dioxide 36 mmol/L (22-29); Chloride 98 mmol/L (96-108); Creatinine Clr Calc Pharmacy 74.7; Estimated Glomerular Filt Rate 58; Glucose Random 114 mg/dL (60-115); Potassium 3.7 mmol/L (3.3-5.1); Sodium 145 mmol/L (135-145)
[2022-04-15 07:16] LABS: Glucose, Whole Blood 134 mg/dL (60-115)
[2022-04-15] MEDS: Spironolactone 25 MG TABLET PO (08:34)
[2022-04-15] MEDS: predniSONE 5 MG TABLET 10 MG PO (08:34)
[2022-04-15] MEDS: Cholecalciferol (Vitamin D3) 25 MCG TABLET PO (08:35)
[2022-04-15] MEDS: Gabapentin 400 MG CAPSULE 800 MG PO (08:35)
[2022-04-15] MEDS: Metoprolol Succinate ER 50 MG TAB.ER.24H PO (08:36)
[2022-04-15] MEDS: Rivaroxaban 20 MG TABLET PO (08:36)
[2022-04-15] MEDS: Ferrous Sulfate 324 MG TABLET.DR PO (08:36)
[2022-04-15] MEDS: Furosemide 100 MG/10 ML VIAL 80 MG IVPUSH (08:38)
[2022-04-15] MEDS: Digoxin 0.125 MG TABLET PO (08:39)
[2022-04-15] MEDS: Docusate Sodium 100 MG CAPSULE PO (08:39)
[2022-04-15] MEDS: lisinopriL 10 MG TABLET PO (08:39)
[2022-04-15] MEDS: busPIRone HCl 5 MG TABLET 15 MG PO (08:48)
[2022-04-15] MEDS: Lidocaine 4 % Patch ADH..PATCH 2 PATCH TRANSDERMA (08:49)
[2022-04-15] MEDS: Insulin Lispro 100 UNIT/ML 3 ML VIAL 10 UNIT SUBCUT ×2 (08:52→12:08)
[2022-04-15] MEDS: 0.9 % Sodium Chloride Flush 3 ML SYRINGE IVFLUSH (08:55)
[2022-04-15] MEDS: Anastrozole 1 MG TABLET PO (09:00)
[2022-04-15] MEDS: Fluticasone Propionate Nasal 16 GM SPRAY 1 SPRAY NOSTRIL-B ×2 (09:45→11:21)
[2022-04-15] MEDS: Fluticasone/Vilanterol 100/25 BLST.W.DEV 1 PUFF INHALE ×2 (09:45→11:20)
[2022-04-15 11:06] LABS: Glucose, Whole Blood 238 mg/dL (60-115)
[2022-04-15] MEDS: Insulin Lispro 100 UNIT/ML 3 ML VIAL SUBCUT (12:09)
--- NOTE | 2022-04-15 12:40 | PM.DS ---
DS: Providers Provider Date of Service: 04/15/22 Date of admission: 04/14/22 16:26 Primary care physician: Maximus Arreaga MD Consults: 04/11/22 05:46 Consult to Cardiology Routine Consulting Provider: Adryan Barbosa Reason for consultation: CHF? Has provider been notified: No DS: Diagnosis Discharge Diagnosis (1) Acute on chronic right heart failure: Status: Acute (2) Lower extremity edema: Status: Acute (3) LEXUS (obstructive sleep apnea): Status: Acute (4) Morbid obesity: Status: Acute (5) PAF (paroxysmal atrial fibrillation): Status: Acute (6) Microcytic anemia: Status: Acute (7) Acute respiratory failure with hypoxia: Status: Acute DS: Summary Hospital Course Hospital Course: admission note HPI 66-year-old female with past medical history of give as well as PE on rivaroxaban, heart failure visit check ruiz fraction, HTN, diabetes, history of breast cancer, COPD, asthma, chronic hypoxic respiratory failure on 2 L of oxygen at baseline, morbid obesity, who presents the hospital with abnormal labs.? Patient reports that her visiting nurse it did routine lab on her due to her history of anemia and found her to be anemic and answer to come to the hospital.? Patient reports that for the past few weeks she has been having significant dyspnea on exertion, increased leg swelling that is not resolving with her 80 mg of IV Lasix, reports orthopnea and PND, reports no cough, no chest pain, no abdominal pain nausea or vomiting, no diarrhea constipation, no urinary symptoms.? No hematuria, no melena hematochezia, hemoptysis, hematemesis.? Patient reports chronic pain in her legs and back that has flared No numbness, tingling or weakness in extremities.? On arrival to the ED patient with dynamic least stable with no significant abnormal vitals Labs are significant for WBC count of 9.8, hemoglobin of 7.0 with a most recent is from a 137.7, hematocrit 25.9, MCV of 78, BNP of 135, in COVID-19 negative, stool guaiac negative Chest x-ray showed redemonstration of prominence of the right healing related to normal pulmonary vascularity no acute abnormality on chest x-ray Patient has significant dyspnea with minimal effort and therefore will need admission for further evaluation Hospital course The patient was admitted to the hospital for evaluation of dyspnea. Found to have acute on chronic microcytic anemia with hemoglobin level of 7.6 requiring 1 unit transfusion with improvement of hemoglobin to 8.7. Iron stores were fine to be low and the patient was started on iron supplement. Will need hematology follow-up as outpatient for further workup needed as occult blood was negative. She was also noted to have acute on chronic hypoxic respiratory failure secondary to right-sided heart failure. Treated with IV Lasix with good response over the course of hospital stay as NOAC acute abnormality was noted on echocardiogram. Evaluated by Cardiology team who started on spironolactone with increased dose of Lasix at time of discharge. To follow with her traverse rod assembler as outpatient for further workup of ischemia if not already done. Noted to have rapid AFib during the admission. Multaq was discontinued and the patient was started on digoxin with good response as metoprolol dose was increased to 50 mg daily. Evaluated by overnight oximetry but did not qualify for BiPAP as she lost her CPAP due to not using it. She will need a new sleep study as outpatient to be scheduled by PCP. continue Lasix 80 mg in the morning, added 40 mg In the afternoon Discontinue Multaq and start digoxin Metoprolol dose increased to 50 mg daily Start spironolactone Start iron pills You need to follow up with your traverse rod assembler as outpatient for ischemic workup will need to schedule an outpatient sleep study. Will repeat blood work as outpatient. Time Spent with Patient Time attestation: Total time spent providing and/or coordinating discharge services: Discharge coordination time: Greater than 30 minutes Quality: Safe Use of Opioids Does Pt have an Active Cancer Diagnosis on the Problem List?: No Quality: Stroke Does the patient have a stroke diagnosis?: No Physical Exam Vital Signs: Vital Signs: Last Vital Signs Temp 97.3 F 04/15/22 11:41 Pulse 77 04/15/22 11:41 Resp 20 04/15/22 11:41 BP 125/61 04/15/22 11:41 Pulse Ox 98 04/15/22 11:41 O2 Del Method 04/15/22 11:41 O2 Flow Rate 2 04/15/22 11:41 BMI result Body Mass Index 53.6 Const: Other: Constitutional : Alert, oriented, not in distress Neck : Normal inspection, Supple Cardiovascular : Irregular irregular, improved JVP, Trace bilateral lower extremity edema Respiratory : fair bilateral air entry, basal fine crackles, wheezes or rhonchi Gastrointestinal: soft, lax, Normal bowel sounds, Non tender Skin : Warm, Dry Neurological : Alert & oriented x3, No focal deficit , CN 2-12 within normal DS: Data Data Completed and Pending Completed studies during hospitalization [Text1]: Procedures Extraction of Endometrium, Via Natural or Artificial Opening, Diagnostic (01/28/22) Transfusion of Nonautologous Red Blood Cells into Peripheral Vein, Percutaneous Approach (01/28/22) Labs on day of discharge: Laboratory Results - last 24 hr 04/14/22 04/14/22 04/15/22 16:00 19:47 05:10 O2 Saturation 98.0 ABG pH at Pt Temp 7.46 H ABG pCO2 at Pt Temp 46 H ABG pO2 at Pt Temp 109 H ABG HCO3 33 H ABG Base Excess (Actual) 9.0 Sodium Potassium Chloride Carbon Dioxide Anion Gap BUN Creatinine Estim Creat Clear Calc Estimated GFR POC Glucose 341 H 355 H* Random Glucose Calcium B-Natriuretic Peptide 04/15/22 04/15/22 04/15/22 05:21 05:21 07:11 O2 Saturation ABG pH at Pt Temp ABG pCO2 at Pt Temp ABG pO2 at Pt Temp ABG HCO3 ABG Base Excess (Actual) Sodium 145 Potassium 3.7 Chloride 98 Carbon Dioxide 36 H Anion Gap 15 BUN 26 H Creatinine 0.96 Estim Creat Clear Calc 74.7 Estimated GFR 58 POC Glucose 134 H Random Glucose 114 Calcium 9.1 B-Natriuretic Peptide 377 H 04/15/22 11:01 O2 Saturation ABG pH at Pt Temp ABG pCO2 at Pt Temp ABG pO2 at Pt Temp ABG HCO3 ABG Base Excess (Actual) Sodium Potassium Chloride Carbon Dioxide Anion Gap BUN Creatinine Estim Creat Clear Calc Estimated GFR POC Glucose 238 H Random Glucose Calcium B-Natriuretic Peptide Imaging Chest x-ray: Radiologist's impression: ITS Impressions Hip/Pelvis X-Ray 04/10/22 15:30 IMPRESSION: No acute fracture or malalignment. Moderate degenerative osteoarthritis of the hips. Lumbar Spine X-Ray 04/10/22 15:30 IMPRESSION: No acute compression deformity. Subtle degenerative anterolisthesis of L4 and L5. Severe lumbar spondylosis at L5-S1. Chest X-Ray 04/10/22 18:34 IMPRESSION: Redemonstration of prominence of the right hilum related to normal pulmonary vascularity as seen on CT chest 11/15/2021. No acute abnormality of chest. Discharge Plan Discharge Patient Disposition: Home Health Service Discharge Diagnosis: acute on chronic hypoxic respiratory failure Heart failure exacerbation Obstructive sleep apnea Referrals: Maximus Arreaga MD [Primary Care Provider] - 1 Week Discharge Medications: New ferrous sulfate 324 mg (65 mg iron) Tablet,Delayed Release (Dr/Ec) 324 mg PO DAILY Qty: 30 0RF metoprolol succinate 50 mg Tablet Extended Release 24 Hr 50 mg PO DAILY 30 Days Qty: 30 0RF Protocol: Hold for SBP/HR < HOLD for SBP < : 90 HOLD for HR < : 60 spironolactone 25 mg Tablet 25 mg PO DAILY 30 Days Qty: 30 0RF Protocol: Hold for SBP< HOLD for SBP < : 90 digoxin 125 mcg (0.125 mg) Tablet 0.125 mg PO DAILY 30 Days Qty: 30 0RF furosemide 40 mg tablet 40 mg PO DAILY@1700 Qty: 30 0RF Continued (DME) underpads [Certainty Underpads] 30 X 36 pad See Rx Instructions .ROUTE .MEDSUPPLY Qty: 150 11RF Rx Instructions: As directed (DME) blood-glucose meter [FreeStyle Lite Meter] Kit See Rx Instructions .Route Qty: 1 0RF Rx Instructions: As directed metformin 500 mg tablet extended release 24 hr 500 mg PO BID 90 Days Qty: 180 3RF mirtazapine 30 mg tablet 30 mg PO BEDTIME 90 Days Qty: 90 3RF pantoprazole 40 mg tablet,delayed release (DR/EC) 40 mg PO DAILY 90 Days Qty: 90 3RF pravastatin 40 mg tablet 40 mg PO BEDTIME 90 Days Qty: 90 3RF Xarelto 20 mg tablet 20 mg PO DAILY 90 Days Qty: 90 3RF acetaminophen 500 mg tablet 500 mg PO Q6H PRN (Reason: fever or pain) 30 Days Qty: 180 6RF cetirizine 10 mg tablet 10 mg PO DAILY PRN (Reason: allergy symptoms) 30 Days Qty: 30 6RF lisinopril 10 mg tablet 10 mg PO DAILY 90 Days Qty: 90 3RF fluticasone propionate [Flonase Allergy Relief] 50 mcg/actuation spray,suspension 1 spray intranasal DAILY 30 Days Qty: 16 6RF Rx Instructions: administer into each nostril furosemide 80 mg tablet 80 mg PO DAILY 90 Days Qty: 90 2RF gabapentin 800 mg tablet 800 mg PO TID 30 Days Qty: 90 6RF cholecalciferol (vitamin D3) [Vitamin D3] 25 mcg (1,000 unit) capsule 25 mcg PO DAILY 90 Days Qty: 90 3RF (DME) Brief[facility], [facility] See Rx Instructions .Route Qty: 300 0RF Rx Instructions: As directed (DME) FreeStyle Lite Strips Strip See Rx Instructions .ROUTE .COMPLEX Qty: 100 10RF Dose Instruction: USE TO TEST BLOOD SUGAR THREE TIMES DAILY DIRECTED Rx Instructions: USE TO TEST BLOOD SUGAR THREE TIMES DAILY DIRECTED oxycodone 5 mg tablet 5 mg PO Q8H PRN (Reason: pain) 30 Days Qty: 90 0RF Rx Instructions: partial fill upon request buspirone 15 mg Tablet 15 mg PO BID anastrozole [Arimidex] 1 mg Tablet 1 mg PO DAILY Qty: 90 1RF prednisone 5 mg tablet 10 mg PO DAILY insulin aspart U-100 [Novolog Flexpen U-100 Insulin] 100 unit/mL (3 mL) insulin pen 10 - 20 unit subcut TID Tresiba FlexTouch U-100 100 unit/mL (3 mL) insulin pen 25 unit subcut BEDTIME DermaPhor Ointment 1 appl topical QID PRN (Reason: Dry Skin) albuterol sulfate 0.63 mg/3 mL solution for nebulization 0.63 mg inhalation QID PRN (Reason: shortness of breath or wheezing) Qty: 75 0RF (DME) AeroEclipse II Nebulizer [facility] [place] See Rx Instructions .ROUTE .MEDSUPPLY Qty: 1 0RF Rx Instructions: As directed nitroglycerin 0.4 mg tablet, sublingual 1 tab sublingual Q5M PRN (Reason: Chest Pain) calcium carbonate [Calcium Antacid] 300 mg (750 mg) tablet,chewable 1 tab PO BID PRN (Reason: Heartburn) montelukast 10 mg tablet 10 mg PO BEDTIME albuterol sulfate 90 mcg/actuation HFA aerosol inhaler 1 inh inhalation QID PRN (Reason: shortness of breath or wheezing) Qty: 8.5 0RF fluticasone furoate-vilanterol [Breo Ellipta] 100-25 mcg/dose blister with device 1 inh inhalation DAILY 28 Days Qty: 28 6RF Discontinued metoprolol succinate 25 mg tablet extended release 24 hr 25 mg PO DAILY 90 Days Qty: 90 3RF Multaq 400 mg tablet 400 mg PO BID 90 Days Qty: 180 1RF Discharge Orders: Discharge Order (Routine); Ordered 04/15/22 Ordered By: Jordan Suero Diet: Low salt diet Activity on Discharge: As tolerated Stand Alone Forms: Patient Portal Discharge page Care Plan Goals: Read below Health Concerns: Read below Plan of Treatment: Read below Assessment: you were admitted to the hospital for evaluation of difficulty breathing. Found to have symptomatic anemia with drop in your hemoglobin level below 8 requiring 1 unit transfusion with good response. Started on iron pills. Noted to have acute on chronic hypoxia secondary to heart failure exacerbation. Treated with IV Lasix as you were evaluated by traverse rod assembler. Doses of Lasix increased at time of discharge. noted to have atrial fibrillation with rapid rate. Multaq discontinued while metoprolol dose was increased. Evaluated for need of BiPAP machine at home but she did not qualify. You will need to do an outpatient sleep study continue Lasix 80 mg in the morning, added 40 mg In the afternoon Discontinue Multaq and start digoxin Metoprolol dose increased to 50 mg daily Start spironolactone Start iron pills You need to follow up with your traverse rod assembler as outpatient for ischemic workup will need to schedule an outpatient sleep study.
--- NOTE | 2022-04-15 12:57 | P.F2F_ITS ---
Service Date Service Date: 04/15/22 Encounter Date of encounter: 04/15/22 Reasons for Services Signs and symptoms assessed: CHF exacerbation Physical deconditioning Reason for penitentiary: medication management and teach disease management Reason for physical therapy: home safety and mobility and therapeutic exercises Homebound: Leaving the home is medically contraindicated at this time without the asist of a device and/or another person due th the listed conditions above and below. Reason homebound: unsteady gait / fall risk Certification: Based on the above findings, I certify that this patient is confined to the home and needs intermittent penitentiary care, physical therapy and/or speech therapy, or continues to need occupational therapy. The patient is under my care, and I have initiated the establishment of the plan of care. The patient will be followed by a physician who will periodically review the plan of care.
== END 2022-04-15 16:57 | disposition home health service (06) | DRG 291 ==
LOC: HO.ED 17:17 → HO.EDOVER 21:42 → HO.IMC 04-11 03:20
PROVIDERS: Admitting Provider Internal Medicine; Emergency Provider Emergency Medicine; PCP Internal Medicine; Visit Provider Student in an Organized Health Care Education/Training Program
DX: I11.0 Hypertensive heart disease with heart failure (principal); I50.33 Acute on chronic diastolic (congestive) heart failure; J96.21 Acute and chronic respiratory failure with hypoxia; Z68.43 Body mass index [BMI] 50.0-59.9, adult; N17.9 Acute kidney failure, unspecified; E78.5 Hyperlipidemia, unspecified; I48.0 Paroxysmal atrial fibrillation; I50.813 Acute on chronic right heart failure; D64.9 Anemia, unspecified; E66.01 Morbid (severe) obesity due to excess calories; C50.919 Malignant neoplasm of unspecified site of unspecified female breast; Z87.442 Personal history of urinary calculi; Z91.013 Allergy to seafood; Z79.811 Long term (current) use of aromatase inhibitors; Z99.81 Dependence on supplemental oxygen; Z20.822 Contact with and (suspected) exposure to COVID-19; Z79.4 Long term (current) use of insulin; Z79.01 Long term (current) use of anticoagulants; Z79.51 Long term (current) use of inhaled steroids; Z79.52 Long term (current) use of systemic steroids; Z79.899 Other long term (current) drug therapy
CPT/HCPCS: 36415; 36430; 36600; 71045; 72100; 73502; 80048; 80076; 82272; 82803; 82947; 83540; 83880; 84484; 85014; 85018; 85025; 85027; 86850; 86900; 86901; 86923; 87635; 93005; 93306; 94640; 94660; 94664; 94762; 99285; J1160; J1170; J1940; J2270; P9016; Q9957

== ENCOUNTER 2022-04-29 02:28 | Emergency (ER) | payer OTHER, SELFPAY ==
--- NOTE | 2022-04-29 02:37 | PC.NURSE ---
Unknown down time, found by family. Family did start CPR before EMS arrival . Ems arrival was at 1:29am. 1:37am Shocked for Vfib no pulse. 6 epi, 1 amp of calcium, 1 amp of bicarb and 150mg aminodarone. Pt was intubated on scene, loss intubated and a jarett airway in place. CPR was 1:06am. Time of was 2:30am.
--- NOTE | 2022-04-29 02:41 | ED.CPR ---
HPI - CPR General Stated Complaint: cardiac arrest Time Seen by Provider: 04/29/22 02:39 Source: EMS Mode of arrival: EMS Limitations: no limitations History of Present Illness HPI narrative: Patient comes to the emergency room via EMS. Patient was found unresponsive, in cardiac arrest by the patient's family, unknown down time. The family started CPR before EMS arrived. Per EMS, patient had been in a systole, and a pulse check, patient had 1 episode of ventricular fibrillation, patient received 1 shock, 150 mg of amiodarone , 6 epinephrine. Prior to arrival, EMS had worked on the patient approximately 1 hour 10 minutes with constant CPR. Patient lives in a 6 story building, the hallways were very small, the logistics of moving the patient from the apartment to the ambulance were very difficult. Patient has a very significant medical history including atrial fibrillation, anemia requiring blood transfusions, COPD, respiratory failure with hypoxia,, asthma, breast cancer, hypertension, type 2 diabetes. Patient was discharged on April 15 from this hospital for CHF exacerbation, patient takes rivaroxaban Related Data Home Medications Medication Instructions Recorded Confirmed buspirone 15 mg tablet 15 mg PO BID 07/31/20 04/10/22 insulin aspart U-100 100 unit/mL 10 - 20 unit subcut TID 01/28/22 04/10/22 (3 mL) subcutaneous pen (Novolog Flexpen U-100 Insulin aspart) mineral oil-hydrophil petrolat 1 appl topical QID PRN Dry Skin 01/28/22 04/10/22 topical ointment (DermaPhor topical ointment) prednisone 5 mg tablet 10 mg PO DAILY 01/28/22 04/10/22 calcium carbonate 300 mg (750 mg) 1 tab PO BID PRN Heartburn 04/10/22 04/10/22 chewable tablet (Calcium Antacid) montelukast 10 mg tablet 10 mg PO BEDTIME 04/10/22 04/10/22 nitroglycerin 0.4 mg sublingual 1 tab sublingual Q5M PRN Chest Pain 04/10/22 04/10/22 tablet Previous Rx's Medication Instructions Recorded underpads 30 X 36 (Certainty #150 ea 04/28/21 Underpads) blood-glucose meter (FreeStyle #1 ea 05/15/21 Lite Meter kit) acetaminophen 500 mg tablet 500 mg PO Q6H PRN fever or pain 30 10/15/21 days #180 tabs lisinopril 10 mg tablet 10 mg PO DAILY 90 days #90 tabs 10/15/21 metformin 500 mg tablet,extended 500 mg PO BID 90 days #180 tabs 10/15/21 release 24 hr mirtazapine 30 mg tablet 30 mg PO BEDTIME 90 days #90 tabs 10/15/21 pantoprazole 40 mg tablet,delayed 40 mg PO DAILY 90 days #90 tabs 10/15/21 release pravastatin 40 mg tablet 40 mg PO BEDTIME 90 days #90 tabs 10/15/21 rivaroxaban 20 mg tablet (Xarelto) 20 mg PO DAILY 90 days #90 tabs 10/15/21 albuterol sulfate 0.63 mg/3 mL 0.63 mg (3 mL) inhalation QID PRN 11/15/21 solution for nebulization shortness of breath or wheezing #75 mL nebulizers (AeroEclipse II #1 ea 11/15/21 Nebulizer) fluticasone propionate 50 1 spray intranasal DAILY 30 days 12/08/21 mcg/actuation nasal #16 grams spray,suspension (Flonase Allergy Relief) furosemide 80 mg tablet 80 mg PO DAILY 90 days #90 tabs 12/08/21 gabapentin 800 mg tablet 800 mg PO TID 30 days #90 tabs 12/23/21 cholecalciferol (vitamin D3) 25 25 mcg PO DAILY 90 days #90 caps 12/29/21 mcg (1,000 unit) capsule (Vitamin D3) anastrozole 1 mg tablet (Arimidex) 1 mg PO DAILY #90 tabs 02/23/22 diaper,brief,adult,disposable #300 ea 03/02/22 (Briefs, Adult-Extra Large) albuterol sulfate 90 mcg/actuation 1 inh inhalation QID PRN shortness 03/17/22 aerosol inhaler of breath or wheezing #8.5 grams fluticasone furoate 100 1 inh inhalation DAILY 28 days #28 03/17/22 mcg-vilanterol 25 mcg/dose ea inhalation powder (Breo Ellipta) blood sugar diagnostic (FreeStyle #100 ea 03/23/22 Lite Strips) digoxin 125 mcg (0.125 mg) tablet 0.125 mg PO DAILY 30 days #30 tabs 04/15/22 ferrous sulfate 324 mg (65 mg 324 mg PO DAILY #30 tabs 04/15/22 iron) tablet,delayed release furosemide 40 mg tablet 40 mg PO DAILY@1700 #30 tabs 04/15/22 metoprolol succinate 50 mg 50 mg PO DAILY 30 days #30 tabs 04/15/22 tablet,extended release 24 hr oxycodone 5 mg tablet 5 mg PO Q8H PRN Pain, Severe (Pain 04/15/22 Scale 7-10) #12 tabs spironolactone 25 mg tablet 25 mg PO DAILY 30 days #30 tabs 04/15/22 cetirizine 10 mg tablet 10 mg PO DAILY PRN allergy 04/21/22 symptoms 30 days #30 tabs insulin degludec 100 unit/mL (3 25 unit (0.25 mL) subcut BEDTIME 04/21/22 mL) subcutaneous pen (Tresiba 30 days #7.5 mL FlexTouch U-100 insulin) insulin syringe-needle U-100 1 mL #100 ea 04/21/22 31 gauge x 5/16 (BD Insulin Syringe Ultra-Fine) oxycodone 5 mg tablet 5 mg PO Q8H PRN pain 30 days #90 04/21/22 tabs pen needle, diabetic 32 gauge x #100 ea 04/28/22 5/32 (BD Ultra-Fine Keri Pen Needle) Allergies Allergy/AdvReac Type Severity Reaction Status Date / Time shellfish derived Allergy Intermediate SWELLING,N/ Verified 03/17/22 13:13 [SHELLFISH DERIVED] V Review of Systems Review of Systems: Yes Unobtainable due to mental condition PMFSH Past Medical History Medical History Anemia Anemia Asthma Atrial fibrillation Back pain Bilateral pulmonary embolism Cataract CHF (congestive heart failure) Contusion of hip, right COPD (chronic obstructive pulmonary disease) Depression Diabetes mellitus Elevated TSH Hyperlipidemia Hypertension Invasive ductal carcinoma of left breast, stage 2 Iron deficiency anemia Kidney stone Microcytic anemia Morbid obesity LEXUS (obstructive sleep apnea) PAF (paroxysmal atrial fibrillation) Sleep apnea Super-super obese Type 2 diabetes mellitus with hyperglycemia, with long-term current use of insulin Urinary incontinence Vaginal pruritus Surgical History H/O hernia repair H/O lithotripsy H/O tubal ligation History of carpal tunnel release History of cataract surgery (~2016) History of lumpectomy of left breast (~04/03/20) Family History Family History Father CVD (cardiovascular disease) Mother CVD (cardiovascular disease) Family/Other FH: mental illness Mental health disorder Social History Social History Household Members: None Housing: Apartment Alcohol intake: never Patient Tobacco Use Status: Never used Tobacco e-Cigarette/Vaping Use: Never Used Second Hand Smoke Exposure: No Advance Directives: Yes Advance Directives on File: Yes Advance Directives Date on File: 02/20/22 service: No Current occupational status: disabled Cognitive needs: Yes Hearing needs: No Vision needs: Yes Physical Exam Const: Other: Appearance: Unresponsive Eyes: Pupils dilated, fixed, nonreactive to light ENT: Dean airway in oropharynx, there is moderate amount of blood in the oropharynx and in both nares Neck: Normal inspection. Neck supple. No lymph nodes noted. No crepitus CVS: CPR in progress, no ROSC for over an hour Respiratory: Patient being ventilated via Dean airway Abdomen: Soft , distended Skin: Diffusely cyanotic Extremities: +3 pitting edema bilaterally Neuro: Unresponsive Psych: Unresponsive Course Course Course Narrative: CPR was in progress for an hour 10 minutes until time of was called at 02:30. Patient received 6 epinephrine, 1 dose of bicarb and 150 mg of amiodarone I was informed that the patient is in the waiting room, they will be in shortly and I will deliver the news to the family. I informed the patient's son and grandson about the patient's . They are now at bedside. Patient's son seems intoxicated. However, he is calm, cooperative, understands the situation. Discharge Plan Discharge Clinical Impression: Cardiac arrest Patient Disposition: Date/Time: 04/29/22 02:30
--- NOTE | 2022-04-29 03:31 | PC.NURSE ---
THIS US GAVE SON (THO CARBALLO) [facility]'S PHONE NUMBER TO CONTACT [facility] WITH HOME IN THE MORNING.
--- NOTE | 2022-04-29 03:35 | PC.NURSE ---
Addendum entered by Vanessa Chacon 04/29/22 04:20: Organ bank notified at 0325 Original Note: Call placed to [facility] and Patient was denied for any donation.
== END 2022-04-29 04:40 | disposition expired ==
PROVIDERS: Emergency Provider Emergency Medicine
DX: I46.9 Cardiac arrest, cause unspecified (principal); Z79.899 Other long term (current) drug therapy
CPT/HCPCS: 99281; 99284